=== PATIENT | female | born 1990 | race Hispanic/Latino ===

== ENCOUNTER 2018-03-21 08:14 | Emergency (ER) | payer OTHER ==
--- NOTE | 2018-03-21 09:39 | EDPHYS ---
Physician Documentation [facility] Name: Evelio Lay Age: 27 yrs Sex: Female : 1990 Arrival Date: 03/21/2018 Time: 08:16 Bed 16 Private MD: None, None ED Physician Miguel Palma HPI: 03/21 09:18 This 27 yrs old Female presents to ER via Ambulatory with complaints of Rash. [facility] 09:18 The patient's rash thought to be caused by an unknown cause. The rash is located on the leni body diffusely. The rash can be described as urticarial. Onset: The symptoms/episode began/occurred 2 day(s) ago. Associated signs and symptoms: Pertinent positives: burning sensation, itching. Severity of symptoms: At their worst the symptoms were mild moderate in the emergency department the symptoms have improved moderately. Treatment given at home: Benadryl. The patient has not experienced similar symptoms in the past. 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 - Social history:: Smoking status: Patient/guardian denies using tobacco. - Ebola Screening: : Patient negative for fever greater than or equal to 101.5 degrees Fahrenheit, and additional compatible Ebola Virus Disease symptoms. - Family history:: not pertinent. ROS: 09:18 Constitutional: Negative for fever, chills, and weight loss, Eyes: Negative for injury, leni pain, redness, and discharge, ENT: Negative for injury, pain, and discharge, Neck: Negative for injury, pain, and swelling, Cardiovascular: Negative for chest pain, palpitations, and edema, Respiratory: Negative for shortness of breath, cough, wheezing, and pleuritic chest pain, Abdomen/GI: Negative for abdominal pain, nausea, vomiting, diarrhea, and constipation, Back: Negative for injury and pain, : Negative for injury, bleeding, discharge, and swelling, MS/Extremity: Negative for injury and deformity, Neuro: Negative for headache, weakness, numbness, tingling, and seizure, Psych: Negative for depression, anxiety, suicide ideation, homicidal ideation, and hallucinations, Allergy/Immunology: Negative for hives, rash, and allergies, Endocrine: Negative for neck swelling, polydipsia, polyuria, polyphagia, and marked weight changes, Hematologic/Lymphatic: Negative for swollen nodes, abnormal bleeding, and unusual bruising. 09:18 Skin: Positive for rash, diffusely. Exam: 09:18 Constitutional: This is a well developed, well nourished patient who is awake, alert, leni and in no acute distress. Head/Face: Normocephalic, atraumatic. Eyes: Pupils equal round and reactive to light, extra-ocular motions intact. Lids and lashes normal. Conjunctiva and sclera are non-icteric and not injected. Cornea within normal limits. Periorbital areas with no swelling, redness, or edema. ENT: Nares patent. No nasal discharge, no septal abnormalities noted. Tympanic membranes are normal and external auditory canals are clear. Oropharynx with no redness, swelling, or masses, exudates, or evidence of obstruction, uvula midline. Mucous membranes moist. Neck: Trachea midline, no thyromegaly or masses palpated, and no cervical lymphadenopathy. Supple, full range of motion without nuchal rigidity, or vertebral point tenderness. No Meningismus. Chest/axilla: Normal chest wall appearance and motion. Nontender with no deformity. No lesions are appreciated. Cardiovascular: Regular rate and rhythm with a normal S1 and S2. No gallops, murmurs, or rubs. Normal PMI, no JVD. No pulse deficits. Respiratory: Lungs have equal breath sounds bilaterally, clear to auscultation and percussion. No rales, rhonchi or wheezes noted. No increased work of breathing, no retractions or nasal flaring. Abdomen/GI: Soft, non-tender, with normal bowel sounds. No distension or tympany. No guarding or rebound. No evidence of tenderness throughout. Back: No spinal tenderness. No costovertebral tenderness. Full range of motion. Female : Normal external genitalia. MS/ Extremity: Pulses equal, no cyanosis. Neurovascular intact. Full, normal range of motion. Neuro: Awake and alert, GCS 15, oriented to person, place, time, and situation. Cranial nerves II-XII grossly intact. Motor strength 5/5 in all extremities. Sensory grossly intact. Cerebellar exam normal. Normal gait. Psych: Awake, alert, with orientation to person, place and time. Behavior, mood, and affect are within normal limits. 09:18 Skin: Appearance: Color: normal in color, Temperature: normal temperature, Moisture: normal moisture, petechiae, not noted, ecchymosis, not noted, flushing, not noted, swelling, is not appreciated. Vital Signs: 08:20 BP 125 / 75; Pulse 70; Resp 17; Temp 98.5(O); Pulse Ox 99% on R/A; Weight 104.33 kg rb1 (R); Height 4 ft. 11 in. (149.86 cm) (R); Pain 0/10; 09:20 BP 128 / 63; Pulse 59; Resp 16; Pulse Ox 98% on R/A; rb1 10:20 BP 127 / 68; Pulse 63; Resp 17; Pulse Ox 100% on R/A; rb1 08:20 Body Mass Index 46.45 (104.33 kg, 149.86 cm) [facility] MDM: 08:21 Patient medically screened. [facility] 09:21 Data reviewed: vital signs, nurses notes, lab test result(s), urinalysis. [facility] 12 09:56 Order name: Test, Serum [facility] 03/21 09:58 Order name: Urine Dipstick--Ancillary (enter results) 03/21 09:58 Order name: Urine --Ancillary (enter results) 03/21 09:17 Order name: Urine Dipstick-Ancillary (obtain specimen); Complete Time: 09:20 [facility] 12 09:17 Order name: Urine Test (obtain specimen); Complete Time: 09:20 [facility] 12 09:18 Order name: Blood Glucose Level; Complete Time: 09:21 leni Administered Medications: 09:30 Drug: Pepcid 40 mg Route: PO; rb1 10:33 Follow up: Response: No adverse reaction rb1 09:30 Drug: predniSONE 40 mg Route: PO; rb1 10:32 Follow up: Response: No adverse reaction rb1 09:30 Drug: Benadryl 25 mg Route: PO; rb1 10:00 Follow up: Response: No adverse reaction rb1 Point of Care Testing: Blood Glucose: 09:18 Blood Glucose: 92 mg/dL; rb1 Ranges: Critical Glucose Levels:Adult <50 mg/dl or >400 mg/dl <40 mg/dl or >180 mg/dl Disposition: 03/21/18 09:38 Discharged to Home. Impression: Urticaria, Urticaria, unspecified, related conditions, unspecified, first trimester. - Condition is Fair. - Discharge Instructions: Hives, First Trimester of , Evnk-st-Xbre, First Trimester of , Hives, Sswm-jz-Mnry, Allergies, Mzry-uh-Zpyg. - Prescriptions for Benadryl 25 mg Oral Capsule - take 1 capsule by ORAL route every 6 hours As needed; 30 tablet. Pepcid 20 mg Oral Tablet - take 1 tablet by ORAL route every 12 hours for 10 days; 20 tablet. Prednisone 20 mg Oral Tablet - take 2 tablet by ORAL route once daily for 5 days; 10 tablet. Vitamin 27- 0.8 mg Oral Tablet - take 1 tablet by ORAL route once daily; 30 tablet. - Medication Reconciliation Form, Thank You Letter, Antibiotic Education, Prescription Opioid Use form. - Follow up: Private Physician; When: 2 - 3 days; Reason: Recheck today's complaints, Continuance of care, Re-evaluation by your physician. Follow up: Julio Barr; When: 2 - 3 days; Reason: Recheck today's complaints, Re-evaluation by your physician. Follow up: Jeni Deshpande MD; When: 2 - 3 days; Reason: Recheck today's complaints, Re-evaluation by your physician. - Problem is new. - Symptoms have improved. Signatures: Dispatcher [employer] EDIN Miguel Palma MD MD cha Barber, Rebecca RN RN rb1 Corrections: (The following items were deleted from the chart) 09:20 09:17 Accucheck ordered. rb1 rb1 09:56 09:38 03/21/2018 09:38 Discharged to Home. Impression: Urticaria; Urticaria, leni unspecified. Condition is Fair. Discharge Instructions: Hives, Hives, [id number]-jc-Drnq, Allergies, Whqa-jb-Crzp. Prescriptions for Benadryl 25 mg Oral Capsule - take 1 capsule by ORAL route every 6 hours As needed; 30 tablet, Pepcid 20 mg Oral Tablet - take 1 tablet by ORAL route every 12 hours for 10 days; 20 tablet, Prednisone 20 mg Oral Tablet - take 2 tablet by ORAL route once daily for 5 days; 10 tablet. and Forms are Medication Reconciliation Form, Thank You Letter, Antibiotic Education, Prescription Opioid Use. Follow up: Private Physician; When: 2 - 3 days; Reason: Recheck today's complaints, Continuance of care, Re-evaluation by your physician. Follow up: Julio Barr; When: 2 - 3 days; Reason: Recheck today's complaints, Re-evaluation by your physician. Problem is new. Symptoms have improved. [facility] 09:57 09:56 03/21/2018 09:38 Discharged to Home. Impression: Urticaria; Urticaria, leni unspecified; related conditions, unspecified, first trimester. Condition is Fair. Discharge Instructions: Hives, Hives, Aoqw-ly-Wpdb, Allergies, Jqgy-rv-Otzo. Prescriptions for Benadryl 25 mg Oral Capsule - take 1 capsule by ORAL route every 6 hours As needed; 30 tablet, Pepcid 20 mg Oral Tablet - take 1 tablet by ORAL route every 12 hours for 10 days; 20 tablet, Prednisone 20 mg Oral Tablet - take 2 tablet by ORAL route once daily for 5 days; 10 tablet. and Forms are Medication Reconciliation Form, Thank You Letter, Antibiotic Education, Prescription Opioid Use. Follow up: Private Physician; When: 2 - 3 days; Reason: Recheck today's complaints, Continuance of care, Re-evaluation by your physician. Follow up: Julio Barr; When: 2 - 3 days; Reason: Recheck today's complaints, Re-evaluation by your physician. Problem is new. Symptoms have improved. [facility] 10:00 09:18 Urine Test ordered. [place] [id number] 10:01 09:18 Urine Dipstick-Ancillary ordered. [place] [address] 11:10 09:57 03/21/2018 09:38 Discharged to Home. Impression: Urticaria; Urticaria, rb1 unspecified; related conditions, unspecified, first trimester. Condition is Fair. Discharge Instructions: Hives, Hives, Hkgd-qt-[id number], Allergies, Iggi-po-Mtlh, First Trimester of , Gyly-xh-Vzmk, First Trimester of . Prescriptions for Benadryl 25 mg Oral Capsule - take 1 capsule by ORAL route every 6 hours As needed; 30 tablet, Pepcid 20 mg Oral Tablet - take 1 tablet by ORAL route every 12 hours for 10 days; 20 tablet, Prednisone 20 mg Oral Tablet - take 2 tablet by ORAL route once daily for 5 days; 10 tablet, Vitamin 27-0.8 mg Oral Tablet - take 1 tablet by ORAL route once daily; 30 tablet. and Forms are Medication Reconciliation Form, Thank You Letter, Antibiotic Education, Prescription Opioid Use. Follow up: Private Physician; When: 2 - 3 days; Reason: Recheck today's complaints, Continuance of care, Re-evaluation by your physician. Follow up: Julio Barr; When: 2 - 3 days; Reason: Recheck today's complaints, Re-evaluation by your physician. Follow up: Jeni Deshpande; When: 2 - 3 days; Reason: Recheck today's complaints, Re-evaluation by your physician. Problem is new. Symptoms have improved. leni
--- NOTE | 2018-03-21 09:39 | ER ---
Nurse's Notes [facility] Name: Evelio Lay Age: 27 yrs Sex: Female : 1990 Arrival Date: 03/21/2018 Time: 08:16 Bed 16 Private MD: None, None Diagnosis: Urticaria;Urticaria, unspecified; related conditions, unspecified, first trimester Presentation: 03/21 08:20 Presenting complaint: Patient states: Pt. noticed a rash around 3:00 this morning on rb1 her breast and abdomen. She recently moved into a new house and doesn't know if she is having an allergic reaction or if something is biting her. Rash is red and itchy. Transition of care: patient was not received from another setting of care. Onset of symptoms was March 21, 2018 at 03:00. Risk Assessment: Do you want to hurt yourself or someone else? Patient reports no desire to harm self or others. Initial Sepsis Screen: Does the patient meet any 2 criteria? No. Patient's initial sepsis screen is negative. Does the patient have a suspected source of infection? No. Patient's initial sepsis screen is negative. Care prior to arrival: None. 08:20 Method Of Arrival: Ambulatory rb1 08:20 Acuity: GHANSHYAM 4 rb1 Triage Assessment: 08:20 General: Appears in no apparent distress. comfortable, obese, Behavior is calm, rb1 cooperative, Denies fever, feeling ill. Pain: Denies pain. Neuro: Level of Consciousness is awake, alert, obeys commands, Oriented to person, place, time, situation. Cardiovascular: Capillary refill < 3 seconds is brisk in bilateral fingers. Respiratory: Airway is patent Respiratory effort is even, unlabored, Respiratory pattern is regular, symmetrical. GI: No signs and/or symptoms were reported involving the gastrointestinal system. : No signs and/or symptoms were reported regarding the genitourinary system. Derm: Rash noted that is itchy, red, on breast and abdomen. 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 - Social history:: Smoking status: Patient/guardian denies using tobacco. - Ebola Screening: : Patient negative for fever greater than or equal to 101.5 degrees Fahrenheit, and additional compatible Ebola Virus Disease symptoms. - Family history:: not pertinent. Screenin:20 Abuse screen: Denies threats or abuse. Nutritional screening: No deficits noted. rb1 Tuberculosis screening: No symptoms or risk factors identified. Fall Risk None identified. Assessment: 08:20 General: See triage assessment. rb1 09:20 Reassessment: Patient appears in no apparent distress at this time. Patient and/or rb1 family updated on plan of care and expected duration. Pain level reassessed. Patient is alert, oriented x 3, equal unlabored respirations, skin warm/dry/pink. 09:43 Reassessment: Discharge pending due to Serum test being ordered. rb1 10:20 Reassessment: Patient appears in no apparent distress at this time. No changes from rb1 previously documented assessment. Patient denies pain at this time. 11:00 Reassessment: Patient appears in no apparent distress at this time. Patient and/or rb1 family updated on plan of care and expected duration. Pain level reassessed. Patient is alert, oriented x 3, equal unlabored respirations, skin warm/dry/pink. Patient denies pain at this time. Vital Signs: 08:20 BP 125 / 75; Pulse 70; Resp 17; Temp 98.5(O); Pulse Ox 99% on R/A; Weight 104.33 kg rb1 (R); Height 4 ft. 11 in. (149.86 cm) (R); Pain 0/10; 09:20 BP 128 / 63; Pulse 59; Resp 16; Pulse Ox 98% on R/A; rb1 10:20 BP 127 / 68; Pulse 63; Resp 17; Pulse Ox 100% on R/A; rb1 08:20 Body Mass Index 46.45 (104.33 kg, 149.86 cm) rb1 ED Course: 08:16 Patient arrived in ED. sb2 08:16 None, None is Private Physician. sb2 08:20 Angélica Hussein, RN is Primary Nurse. rb1 08:20 Arm band placed on right wrist. rb1 08:20 Patient has correct armband on for positive identification. Placed in gown. Bed in low rb1 position. Call light in reach. Side rails up X 1. Pulse ox on. NIBP on. Warm blanket given. 08:21 Miguel Palma MD is Attending Physician. [facility] 08:33 Triage completed. rb1 09:38 Julio Barr MD is Referral Physician. leni 09:57 Jeni Deshpande MD is Referral Physician. leni 10:00 Urine collected: clean catch specimen, anum colored. dh3 10:19 Inserted saline lock: 20 gauge in left antecubital area, using aseptic technique. Blood dh3 collected. 11:10 No provider procedures requiring assistance completed. IV discontinued, intact, rb1 bleeding controlled, No redness/swelling at site. Pressure dressing applied. Administered Medications: 09:30 Drug: Pepcid 40 mg Route: PO; rb1 10:33 Follow up: Response: No adverse reaction rb1 09:30 Drug: predniSONE 40 mg Route: PO; rb1 10:32 Follow up: Response: No adverse reaction rb1 09:30 Drug: Benadryl 25 mg Route: PO; rb1 10:00 Follow up: Response: No adverse reaction rb1 Point of Care Testing: Blood Glucose: 09:18 Blood Glucose: 92 mg/dL; rb1 Ranges: Outcome: 09:38 Discharge ordered by . leni 11:10 Patient left the ED. rb1 11:10 Discharged to home ambulatory. rb1 11:10 Condition: stable 11:10 Discharge instructions given to patient, Instructed on discharge instructions, follow up and referral plans. Demonstrated understanding of instructions, follow-up care. 11:10 Instructed on medication usage, Demonstrated understanding of medications, rb1 Prescriptions given X 4. Signatures: Miguel Palma MD MD cha Barber, Rebecca, RN RN [facility] Fina Rosario [address] L[address] 2
[2018-03-21] MEDS ORDERED: DIPHENHYDRAMINE 25 MG TAB/CAP ONE (09:40)
[2018-03-21] MEDS ORDERED: FAMOTIDINE 20 MG TAB ONE (09:40)
[2018-03-21] MEDS ORDERED: predniSONE 20 MG TAB ONE (09:40)
[2018-03-21 11:16] VITALS: BP 125/75; TEMP 98.5; O2SAT 99
[2018-03-21 12:14] LABS: Urine Blood NEGATIVE (NEG); Urine Glucose NEGATIVE (NEG); Urine Protein 2+ (NEG); Urine Specific Gravity 1.025 (1.005-1.030); Urine pH 5.5 (5.0-7.0)
== END 2018-03-21 11:10 | disposition home or self-care (01) ==
LOC: ER 08:14
DX: O26.891 Other specified pregnancy related conditions, first trimester (principal); L50.9 Urticaria, unspecified; Z3A.00 Weeks of gestation of pregnancy not specified
CPT/HCPCS: 36415; 81003; 81025; 82962; 84703; 99284; J7512

== ENCOUNTER 2022-11-28 21:13 | Emergency (ER) | payer OTHER ==
--- OUTSIDE RECORDS SUMMARY | 2022-11-28 21:19 | XMS REPORT | Continuity of Care Document ---
:1990 Author Organization [facility] t Address [address] [place] [address] Care Team Providers Name Role Phone PCP, PATIENT DOES NOT HAVE A Primary Care Physician UnavailMICHAEL Ferris Attending Clinician Unavailable Marilyn Attending Clinician Unavailable Willian RODRÍGUEZ, Nithya Attending Clinician Unavailable Philipp RODRÍGUEZ, Karie Attending Clinician Unavailable Evangelina RIBEIRO, [facility] Barbara Attending Clinician Fausto RIBEIRO, Chantal Holbrook Attending Clinician [phone] Clara Mackay MD Attending Clinician Geoff RIBEIRO, Hayde Abdul Attending Clinician [phone] Dayna RIBEIRO, Bjorn Mcmanus Attending Clinician Marcio Elizabeth CRNA Attending Clinician [phone] Donny Lopez MD Attending Clinician ESSENCE ALONSO Attending Clinician Unavailable YENI OCONNELL Attending Clinician Unavailable Alessandra RIBEIRO, Yeni Bautista Attending Clinician KAI PONCE Attending Clinician Unavailable Ariel RODRÍGUEZ, Arleth Zaldivar Attending Clinician Brigette Lambert LVN Attending Clinician ELIESER GRACE Attending Clinician Unavailable Marilyn RIBEIRO, Brianna Lopez Attending Clinician Alessandra RIBEIRO, Adithya Attending Clinician Jayme Ortega MD Attending Clinician Elieser Grace DO Attending Clinician Jose RODRÍGUEZ, Jessica Attending Clinician Unavailable Edu RIBEIRO, Michael Attending Clinician JUAN LOUISE Attending Clinician Unavailable Juan Louise MD Attending Clinician Lou LAI Attending Clinician Unavailable Lou Charles Attending Clinician Kaylee Garcia DO Attending Clinician Arely RODRÍGUEZ, Soo Lopez Attending Clinician Unavailable ALBERT PATEL Attending Clinician Unavailable Only, Ang Db Test Attending Clinician Unavailable Albert Singletary Attending Clinician MICHAEL SORENSEN Admitting Clinician Unavailable Mineo_M Admitting Clinician Unavailable HAYDE TELLEZ Admitting Clinician Unavailable KAI PONCE Admitting Clinician Unavailable JAYME ORTEGA Admitting Clinician Unavailable Jayme Ortega MD Admitting Clinician Michael Sorensen MD Admitting Clinician Lou LAI Admitting Clinician Unavailable Payers Payer Name Policy Type Policy Number Effective Date Expiration Date S meg MEDICAID OF [place] [id number] 2018 00:00:00 [place]ICAID-[place] - [id number] WOMEN'S HEALTH PROGRAM (MEDICAID) [facility] PENDING 2021 00:00:00 Problems Condition Condition Condition Status Onset Resolution Last Treating Co mments Source Name Details Category Date Date Treatment Clinician Date Pyelonephr Pyelonephr Disease Active M ethodi itis itis 11-05 [facility] 00[facility]00: Hospita 00 l Ureteral Ureteral Disease Active Metho di stent stent 11-05 st present present 00:00: Hospita 00 l Fever and Fever and Disease Active 2021-04 Uni vers chills chills 2-29 ity of 00:00: [place] 00 Medical Branch Right Right Disease Active 2021-04 Univers ureteral ureteral 2-08 ity of [place] 00:00: [place] [id number] Medical Branch Morbid Morbid Disease Active 2021-04 Univers obesity obesity 2-08 [place] of [place] mass [place] mass index 00 Me dical of of Branch 40.0-49.9 40.0-49.9 Asthma Asthma Disease Active Overview: Univer s 3-27 Formattin ity of 00:00: g of this [place] 00 note Medical might be Branch different from the original. 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 Allergies, Adverse Reactions, Alerts Allergy Allergy Status Severity Reaction(s) Onset Inactive Treating Comm ents Source Name Type Date Date Clinician Amoxicil Allergy Active Hives [facility] denzel [facility] 11[facility]05 [facility]: Urology e 00 PENICILL Allergy Active Hives Wilder INS to 11-05 [facility] 00:[facility]: Urology e 00 Amoxicil Propensi Active Hives Method i denzel ty to 11-05 st adverse 00:00: Hospita reaction 00 l s to drug Penicill Propensi Active Hives Method i ins ty to 11-05 st adverse 00:00: Hospita reaction 00 l s to drug Amoxicil Drug Active Hives [facility] Penicill Drug Active Hives [facility] AMOXICIL Allergy Active High Hives [facility] DENZEL 7[facility] PENICILL Allergy Active High Hives [facility] IN 7[facility] Penicill DA Active [place] [facility] [place] amoxicil DA Active [place] 2019-0 [facility] [place] Penicill Propensi Active Rash 2007-0 Univer s ins ty to 1-12 ity of adverse 00:00: [place] reaction 00 Medical s Branch Penicill Propensi Active Rash 2006-0 Univer s ins ty to 1-12 ity of adverse 00:00: [place] reaction 00 Medical s Branch Amoxicil Propensi Active Rash 2006-0 Univer s denzel ty to 1-12 ity of adverse 00:00: [place] reaction 00 Medical s Branch Penicill Propensi Active Rash 2006-0 Univer s ins ty to 1-12 ity of adverse 00:00: [place] reaction 00 Medical s Branch Penicill Drug Active Hives 2006-0 Univers ins Allergy 1-12 ity of 00:00: [place] 00 Medical Branch AMOXICIL DRUG Active Rash 2006-0 Univers DENZEL INGREDI 1-12 ity of 00:00: [place] 00 Medical Branch PENICILL Drug Active High Rash 2006-0 Univers INS Class 1-12 ity of 00:00: [place] 00 Medical Branch Social History Social Habit Start Date Stop Date Quantity Comments Source History SDOH Social Unive rsity of [facility] Med ical Together Branch History SDOH Social Unive rsity of [facility] Medical Branch History SDOH Social [facility]ity of [facility] Medical Membership Branch History SDOH Social [facility] Medical Meetings Branch History of tobacco Current smoker [facility] Alcohol intake 2022-11-07 2022-11-07 [facility] 00[facility]00 Hospital History of Social 2022-11-07 2022-11-[address] function 00:00:00 00:00:00 Hospital Tobacco use and 2022-11-06 2022-11-06 Smokeless [facility] exposure 00:00:00 00:00:00 tobacco non-user Hospital Exposure to 2022-04-14 2022-04-24 Not sure University of SARS-CoV-2 (event) 00:00:00 15:23:00 [place] [facility] Branch History SDOH 2022-04-17 2022-04-17 1 University o f Alcohol Frequency 00:00:00 00:00:00 [facility] edical Branch History SDOH 2022-04-17 2022-04-17 0 University o f Alcohol Std Drinks 00:00:00 00:00:00 [place] [facility] History SDOH 2022-04-17 2022-04-17 1 University o f Alcohol Binge 00:00:00 00:00:00 [place] Medic al Branch History SDOH Social 2022-04-17 2022-04-17 5 Unive rsity of Connections Phone 00:00:00 00:00:00 [facility] edical Branch History SDOH Social 2022-04-17 2022-04-17 7 Unive rsity of Connections Living 00:00:00 00:00:00 [place] [facility] History SDOH 2022-04-17 2022-04-17 5 University o f Physical Activity 00:00:00 00:00:00 [facility] edical DPW Branch History SDNC 2022-04-17 2022-04-17 6 University o f Physical Activity 00:00:00 00:00:00 [facility] edical MPS Branch History SDNC Food 2022-04-17 2022-04-17 1 Univers ity of Worry 00:00:00 00:00:00 [place] [facility] History SDOH Food 2022-04-17 2022-04-17 1 Univers ity of Scarcity 00:00:00 00:00:00 [place] [facility] History SDNC 2022-04-17 2022-04-17 2 University o f Transport Med 00:00:00 00:00:00 [place] Medic al Branch History SDNC 2022-04-17 2022-04-17 2 University o f Transport Non-Med 00:00:00 00:00:00 [facility] edical Branch Sex Assigned At [address] [facility] 00:00[facility]00 00[facility]00 [facility] Center Smoking Status Start Date Stop Date Source Never Smoker [place] Favio Talon gandara Ex-smoker 2022-11-06 00:00:00 2022-11-06 00:00:00 [facility] Medications Ordered Filled Start Stop Current Ordering Indication Dosage Frequency Signature Comments Components Source Medication Medication Date Date Medication? Clinician (SIG) Name Name tamsulosin 2022- Yes .4mg QD Take 1 Meth tess (FLOMAX) 712-[address] 0.4 mg 00:00: 04:59 (0.4 mg Hospita capsule 00 :00 total) by l mouth daily for 30 days. oxyBUTYnin 2022- Yes 10mg QD Take 2 Meth tess XL 11-[address] (Ditropan 00:00: 04:59 (10 mg Hospi ta XL) 5 MG 24 00 :00 total) by l hr tablet mouth daily for 30 days. acetaminoph 2022- [place] [id number] 1{tbl} Q4H Take 1 Methodi en-codeine 11-[address] (TYLENOL 00:00: 04:59 mouth Hospita WITH 00 :00 every 4 l CODEINE #3) (four) 300-30 mg hours as per tablet needed for severe pain for up to 10 days .acute pain. sulfamethox 2022- No 1{tbl} Q.5D Take 1 M ethodi azole-trime 11-[address] thoprim 00:00: 04:59 mouth 2 Hospit a (Bactrim 00 :00 (two) l DS) 800-160 times a mg per day for 5 tablet days. phenazopyri 2022- No 100mg [id number] Take 1 Methodi dine 11-[id number] (Pyridium) 00:00: 04:59 3D (100 mg Hos shaheen 100 MG 00 :00 total) by l tablet mouth 3 (three) times a day as needed for bladder spasms for up to 3 days. HYDROcodone Yes 1{tbl} Take [address] -acetaminop 11-03 tablet by Dante alonso (NORCO 00:00: mouth Medica l 5-325) 00 every 6 Center 5-325 mg (six) per tablet hours as needed for Pain for up to 8 doses. Max Daily Amount: 4 tablets tamsulosin 2022- No .4mg QD Take [address] (FLOMAX) 11-03 capsule [facility] 0.4 mg Cap 00:00: 23:59 (0.4 mg Med ical 24 hr 00 :00 total) by Center capsule mouth daily for 14 days. ketorolac 2022- No 10mg Take 1 [facility] (TORADOL) 11-03 tablet (10 Dante es 10 mg 00:00: 23:59 mg total) Medica l tablet 00 :00 by mouth Center every 6 (six) hours as needed for Pain for up to 5 days. cefTRIAXone 2022- No 1000mg 1,000 mg, Univers (ROCEPHIN) 10-21 IV ity of 1,000 mg in 09:30: 10:28 Piggyback, [place] NaCl 0.9% 00 :00 ONCE, 1 Medical (NS) 100 mL dose, On Bran ch MINI-BAG [facility] 10/21/22 at 0430, Administer over 30 Minutes, 100 mL
Reas on for Anti-Infec tive: Documented Infection< br>Documen azeem Infection Site: Urine<br&g t;Duration of Therapy: Other (see Comments) iopamidol 2022- No [id number] 100mL 100 mL, Univers (ISOVUE 10-21 Intravenou ity o f 370-500 mL) 08:15: 08:30 s, ONCE, 1 [place] injection 00 :00 dose, On Medica l 100 mL [facility] 10/21/22 Branch at 0330, Routine morpHINE (4 2022- No 4mg 4 mg, Slow Univers mg/mL) 10-21 IV Push, ity of injection 4 08:00: 08:03 ONCE, 1 [place] mg 00 :00 dose, On Medical [facility] 10/21/22 Branch at 0300, STAT ondansetron 2022- No 4mg 4 mg, Slow Univers (ZOFRAN 10-21 IV Push, ity of (PF)) 07:45: 07:49 ONCE, 1 [place] injection 4 00 :00 dose, On Medi jasmin mg [facility] 10/21/22 Branch at 0245, MERLENE cefpodoxime 2022- Yes [id number] 200mg Take 1 Univers 200 mg 10-21 tablet by ity of tablet 00:00: 04:59 mouth in [place] 00 :00 the Medical morning Branch and 1 tablet in the evening. Do all this for 10 days. ketorolac 2022- Yes [id number] 10mg Take 1 U nivers 10 mg 10-21 tablet by ity of tablet 00:00: 04:59 mouth in [place] 00 :00 the Medical morning Branch and 1 tablet in the evening. Do all this for 4 days. ketorolac 2021-04- No 15mg 15 mg, Unive rs (TORADOL) 04-19 Slow IV ity of injection 16:00: 16:26 Push, [place] 15 mg 00 :00 ONCE, 1 Medical dose, On Branch 04/19/22 at 1015, Routine butalbital- 2021-04- No 1{tbl} 1 tablet, Univers acetaminoph 04-19 Oral, ity of en-caff 09:30: 09:02 ONCE, 1 [place] (ESGIC) 00 :00 dose, On Medical 50-325-40 Sat Branch mg tablet 1 04/19/22 tablet at 0330, Routine ciprofloxac 2021-04 Yes [id number] 500mg Take 1 Univers in HCl 500 2-31 tablet by ity of mg tablet 00:00: mouth [place] 00 every 12 Medical (twelve) Branch hours. ciprofloxac 2021-04 Yes [id number] 500mg Take 1 Univers in HCl 500 2-31 tablet by ity of mg tablet 00:00: mouth [place] 00 every 12 Medical (twelve) Branch hours. ciprofloxac 2021-04 Yes [id number] 500mg Take 1 Univers in HCl 500 2-31 tablet by ity of mg tablet 00:00: mouth [place] 00 every 12 Medical (twelve) Branch hours. ciprofloxac 2021-04 Yes [id number] 500mg Take 1 Univers in HCl 500 2-31 tablet by ity of mg tablet 00:00: mouth [place] 00 every 12 Medical (twelve) Branch hours. ciprofloxac 2021-04 Yes [id number] 500mg Take 1 Univers in HCl 500 2-31 tablet by ity of mg tablet 00:00: mouth [place] 00 every 12 Medical (twelve) Branch hours. ciprofloxac 2021-04 Yes [id number] 500mg Take 1 Univers in HCl 500 2-31 tablet by ity of mg tablet 00:00: mouth [place] 00 every 12 Medical (twelve) Branch hours. ciprofloxac 2021-04- No [id number] 500mg Take 1 Univers in HCl 500 04-19 tablet by ity of mg tablet 00:00: 00:00 mouth [place] 00 :00 every 12 Medical (twelve) Branch hours. acetaminoph 2021-04 Yes 650mg 650 mg, Un siobhan en 2 Oral, ity of (TYLENOL) 05:00: Q4HPRN, [place] tablet 650 00 Starting Medic al mg on Sujey Branch 04/17/22 at 2300, Until Discontinu ed, Routine, Pain (scale 1-3) ceFEPIme 2021-04 No 2000mg 2,000 mg, U nivers (MAXIPIME) 230 01-04 IV ity of 2,000 mg in 05:00: 04:59 Piggyback, [place] NaCl 0.9% 00 :00 Q12H ABX, Medic al (NS) 50 mL 10 doses, Bran ch MINI-BAG First dose on Sujey 04/17/22 at 2300, Last dose on Thu04/22/22 at 1100, Administer over 4 Hours, 50 mL
Reas on for Anti-Infec tive: Documented Infection& lt;br>Docu mented Infection Site: Urine
D uration of Therapy: Other (see Comments) butalbital- 2021-04- No 1{tbl} 1 tablet, Univers acetaminoph 04-17 Oral, ity of en-caff 21:30: 22:04 ONCE, 1 [place] (ESGIC) 00 :00 dose, On Medical 50-325-40 Sujey Branch mg tablet 1 04/17/22 tablet at 1530, Routine ondansetron 2021-04 Yes 4mg 4 mg, Slow Univers (ZOFRAN IV Push, ity of (PF)) 18:55: Q6HPRN, [place] injection 4 59 Nausea and Me dical mg Vomiting Branch (N/V), Starting on Sujey 04/17/22 at 1255
Do ses of ondansetro n 16 mg and above need to be administer ed via IV piggyback. For Dose >=24mg ECG monitoring is advisable.
ceFEPIme 2021-04 No 2000mg 2,000 mg, U nivers (MAXIPIME) 04-17 IV ity of 2,000 mg in 16:45: 17:15 Piggyback, [place] NaCl 0.9% 00 :00 ONCE, 1 Medical (NS) 50 mL dose, On Branc h MINI-BAG [facility] 04/17/22 at 1045, Administer over 30 Minutes, 50 mL
Reas on for Anti-Infec tive: Documented Infection< br>Documen azeem Infection Site: Urine<br&g t;Duration of Therapy: 7 days acetaminoph 2021-04 No 650mg 650 mg, U nivers en 04-18 Oral, ity of (TYLENOL) 15:12: 04:52 Q6HPRN, [place] tablet 650 00 :14 Starting Medic al mg on Sujey [place] 04/17/22 at 0912, Until [facility] 04/17/22 at 2252, Routine, Pain (scale 1-3) NaCl 0.9% 2021-04 No 1000mL at 999 Uni vers (NS) bolus 04-17 mL/hr, ity of infusion 11:15: 13:16 1,000 mL, [place] 1,000 mL 00 :00 IV Medical Infusion, Branch ONCE, 1 dose, On [facility] 04/17/22 at 0515, STAT ketorolac 2021-04 No 30mg 30 mg, Unive rs (TORADOL) 04-17 Slow IV ity of injection 11:15: 10:25 Push, [place] 30 mg 00 :00 ONCE, 1 Medical dose, On Branch [facility] 04/17/22 at 0515, Routine iopamidol 2021-04- No [id number] 100mL 100 mL, Univers (ISOVUE 04-17 Intravenou ity o f 370-500 mL) 10:15: 10:15 s, ONCE, 1 [place] injection 00 :00 dose, On Medica l 100 mL [facility] 04/17/22 at 0415, Routine cefTRIAXone 2021-04 No 1000mg 1,000 mg, Univers (ROCEPHIN) 04-17 IV ity of 1,000 mg in 09:15: 09:45 Piggyback, [place] NaCl 0.9% 00 :00 ONCE, 1 Medical (NS) 50 mL dose, On Branc h MINI-BAG [place] 04/17/22 at 0315, Administer over 30 Minutes, 50 mL
Reas on for Anti-Infec tive: Documented Infection< br>Documen azeem Infection Site: Urine<br&g t;Duration of Therapy: Other (see Comments) NaCl 0.9% 2021-04- No 1000mL at 999 Uni vers (NS) bolus 04-17 mL/hr, ity of infusion 09:15: 13:16 1,000 mL, [place] 1,000 mL 00 :00 IV Medical Infusion, Branch ONCE, 1 dose, On [place] 04/17/22 at 0315, STAT acetaminoph 2021-04- No 1000mg 1,000 mg, Univers en 04-17 Oral, ity of (TYLENOL) 08:30: 08:23 ONCE, 1 [place] tablet 00 :00 dose, On Medical 1,000 mg Sujey Branch 04/17/22 at 0230, MERLENE tamsulosin 2021-04 Yes [id number] .4mg Take 1 U nivers 0.4 mg 24 2-20 capsule by ity of hr capsule 00:00: mouth in [place] 00 the Medical morning. Branch tamsulosin 2021-04 Yes [id number] .4mg Take 1 U nivers 0.4 mg 24 2-20 capsule by ity of hr capsule 00:00: mouth in [place] 00 the Medical morning. Branch tamsulosin 2021-04 Yes [id number] .4mg Take 1 U nivers 0.4 mg 24 2-20 capsule by ity of hr capsule 00:00: mouth in [place] 00 the Medical morning. Branch tamsulosin 2021-04 Yes [id number] .4mg Take 1 U nivers 0.4 mg 24 2-20 capsule by ity of hr capsule 00:00: mouth in [place] 00 the Medical morning. Branch tamsulosin 2021-04 Yes [id number] .4mg Take 1 U nivers 0.4 mg 24 2-20 capsule by ity of hr capsule 00:00: mouth in [place] 00 the Medical morning. Branch tamsulosin 2021-04 Yes [id number] .4mg Take 1 U nivers 0.4 mg 24 2-20 capsule by ity of hr capsule 00:00: mouth in [place] 00 the Medical morning. Branch tamsulosin 2021-04 Yes [id number] .4mg Take 1 U nivers 0.4 mg 24 2-20 capsule by ity of hr capsule 00:00: mouth in [place] 00 the Medical morning. Branch tamsulosin 2021-04 Yes [id number] .4mg Take 1 U nivers 0.4 mg 24 2-20 capsule by ity of hr capsule 00:00: mouth in [place] 00 the Medical morning. Branch cefTRIAXone 2021-04- No 2000mg 2,000 mg, Univers (ROCEPHIN) 05-29 Intravenou it y of 2,000 mg in 10:00: 09:59 s, Q24H [place] water for 00 :00 ABX, 2 Medical injection, doses, Branch sterile 20 First dose mL SIVP (after syringe last modificati on) on Thu03/28/22 at 0400, Last dose on Thu03/29/22 at 0400, 20 mL
Reas on for Anti-Infec tive: Empiric Therapy for Suspected Infection< br>Empiric Therapy Site: Urine
D uration of therapy: 72 hours cefTRIAXone 2021-04 No 2000mg 2,000 mg, Univers (ROCEPHIN) 05-29 Intravenou it y of 2,000 mg in 10:00: 04:02 s, Q24H [place] water for 00 :54 ABX, 2 Medical injection, doses, Branch sterile 20 First dose mL SIVP (after syringe last modificati on) on Thu03/28/22 at 0400, Last dose on Thu03/29/22 at 0400, 20 mL
Reas on for Anti-Infec tive: Empiric Therapy for Suspected Infection< br>Empiric Therapy Site: Urine
D uration of therapy: 72 hours sodium 2021-04 No PRN, Univers chloride 05-28 Starting ity of 0.9 % 21:18: 22:27 on Sujey [place] irrigation 00 :11 03/27/22 at Med ical solution 1518, Branch Until Sujey 03/27/22 at 1627, Intra-op acetaminoph 2021-04 Yes 650mg 650 mg, Un siobhan en 208 Oral, Q6H, ity of (TYLENOL) 12:00: First dose [place] tablet 650 00 on Sujey Medical mg 03/27/22 at Branch 0600, Until Discontinu ed, Routine acetaminoph 2021-04- No 650mg 650 mg, U nivers en 05-28 12-09 Oral, Q6H, ity of (TYLENOL) 12:00: 04:02 First dose [place] tablet 650 00 :54 on Sujey Medical mg 03/27/22 at Branch 0600, Until Discontinu ed, Routine NaCl 0.9% 2021-04- No 1000mL at 999 Uni vers (NS) bolus 2-08 mL/hr, ity of infusion 10:45: 11:41 1,000 mL, [place] 1,000 mL 00 :00 IV Medical Piggyback, [place] ONCE, 1 dose, On Sujey 03/27/22 at 0445, STAT NaCl 0.9% 2021-04- No 1000mL at 999 Uni vers (NS) bolus 05-28-08 mL/hr, ity of infusion 10:45: 11:41 1,000 mL, [place] 1,000 mL 00 :00 IV Medical Piggyback, [place] ONCE, 1 dose, On Sujey 03/27/22 at 0445, STAT NaCl 0.9% 2021-04 Yes 1000mL at 150 Univ ers (NS) IV 2-08 mL/hr, IV ity of infusion 09:45: Infusion, [place] 1,000 mL 00 CONTINUOUS Medic al , Starting Branch on Thu03/27/22 at 0345, Until Discontinu ed, Routine NaCl 0.9% 2021-04- No 1000mL at 150 Uni vers (NS) IV 05-28 12-09 mL/hr, IV ity of infusion 09:45: 04:02 Infusion, [place] 1,000 mL 00 :54 CONTINUOUS Medic al , Starting Branch on Sujey 03/27/22 at 0345, Until [place] 03/27/22 at 2202, Routine ketorolac 2021-04- No 15mg 15 mg, Unive rs (TORADOL) 05-28 12-13 Slow IV ity of injection 09:41: 05:59 Push, [place] 15 mg 50 :00 Q6HPRN, 4 Medical doses, Branch Starting on Sujey 03/27/22 at 0341, Until 03/31/22 at 2359, Routine, Pain (scale 7-10) ketorolac 2021-04 No 15mg 15 mg, Unive rs (TORADOL) 05-28 Slow IV ity of injection 09:41: 04:02 Push, [place] 15 mg 50 :54 Q6HPRN, 4 Medical doses, Branch Starting on Sujey 03/27/22 at 0341, Until Sujey 03/27/22 at 2202, Routine, Pain (scale 7-10) ondansetron 2021-04 Yes 4mg 4 mg, Slow Univers (ZOFRAN 05-28 IV Push, ity of (PF)) 09:40: Q4HPRN, [place] injection 4 26 Starting Medi jasmin mg on Sujey Branch 03/27/22 at 0340, Until Discontinu ed, Routine, Nausea and Vomiting (N/V) ondansetron 2021-04 No 4mg 4 mg, Slow Univers (ZOFRAN 05-28 IV Push, ity of (PF)) 09:40: 04:02 Q4HPRN, [place] injection 4 26 :54 Starting Medi jasmin mg on Sujey Branch 03/27/22 at 0340, Until Sujey 03/27/22 at 2202, Routine, Nausea and Vomiting (N/V) cefTRIAXone 2021-04 No 1000mg 1,000 mg, Univers (ROCEPHIN) 05-28 IV ity of 1,000 mg in 06:15: 06:03 [place], [place] NaCl 0.9% 00 :00 ONCE, 1 Medical (NS) 50 mL dose, On Branc h MINI-BAG Sujey 03/27/22 at 0015, Administer over 30 Minutes, 50 mL
Reas on for Anti-Infec tive: Documented Infection< br>Documen azeem Infection Site: Urine<br&g t;Duration of Therapy: Other (see Comments) iopamidol 2021-04- No [id number] 100mL 100 mL, Univers (ISOVUE 05-28 Intravenou ity o f 370-500 mL) 05:30: 05:30 s, ONCE, 1 [place] injection 00 :00 dose, On Medica l 100 mL Wed Branch 03/26/22 at 2330, Routine ketorolac 2021-04 30mg 30 mg, Unive rs (TORADOL) 2-08 12-08 Slow IV ity of injection 04:45: 04:08 Push, [place] 30 mg 00 :00 ONCE, 1 Medical dose, On Branch 03/26/22 at 2245, Routine ibuprofen 2021-04 Yes [id number] 400mg Take 2 U nivers 200 mg 2-08 tablets by ity of tablet 00:00: mouth [place] 00 every 6 Medical (six) Branch hours as needed for Pain (scale 1-3). gabapentin 2021-04 Yes [id number] 300mg Take 1 Univers 300 mg 2-08 capsule by ity of capsule 00:00: mouth [place] 00 every 8 Medical (eight) Branch hours as needed for Pain (scale 4-6). tamsulosin 2021-04 Yes [id number] .4mg Take 1 U nivers 0.4 mg 24 2-08 capsule by ity of hr capsule 00:00: mouth in [place] 00 the Medical morning. Branch oxybutynin 2021-04 Yes [id number] 5mg Take 1 U nivers chloride 5 2-08 tablet by ity of mg tablet 00:00: mouth 3 [place] 00 (three) Medical times Branch daily as needed for Bladder spasms. ibuprofen 2021-04 Yes [id number] 400mg Take 2 U nivers 200 mg 2-08 tablets by ity of tablet 00:00: mouth [place] 00 every 6 Medical (six) Branch hours as needed for Pain (scale 1-3). gabapentin 2021-04 Yes [id number] 300mg Take 1 Univers 300 mg 2-08 capsule by ity of capsule 00:00: mouth [place] 00 every 8 Medical (eight) Branch hours as needed for Pain (scale 4-6). tamsulosin 2021-04 Yes [id number] .4mg Take 1 U nivers 0.4 mg 24 2-08 capsule by ity of hr capsule 00:00: mouth in [place] 00 the Medical morning. Branch oxybutynin 2021-04 Yes [id number] 5mg Take 1 U nivers chloride 5 2-08 tablet by ity of mg tablet 00:00: mouth 3 [place] 00 (three) Medical times Branch daily as needed for Bladder spasms. ibuprofen 2021-04 Yes [id number] 400mg Take 2 U nivers 200 mg 2-08 tablets by ity of tablet 00:00: mouth [place] 00 every 6 Medical (six) Branch hours as needed for Pain (scale 1-3). gabapentin 2021-04 Yes [id number] 300mg Take 1 Univers 300 mg 2-08 capsule by ity of capsule 00:00: mouth [place] 00 every 8 Medical (eight) Branch hours as needed for Pain (scale 4-6). oxybutynin 2021-04 Yes [id number] 5mg Take 1 U nivers chloride 5 2-08 tablet by ity of mg tablet 00:00: mouth 3 00 (three) Medical times Branch daily as needed for Bladder spasms. ibuprofen 2021-04 Yes [id number] 400mg Take 2 U nivers 200 mg 2-08 tablets by ity of tablet 00:00: mouth [place] 00 every 6 Medical (six) Branch hours as needed for Pain (scale 1-3). gabapentin 2021-04 Yes [id number] 300mg Take 1 Univers 300 mg 2-08 capsule by ity of capsule 00:00: mouth [place] 00 every 8 Medical (eight) Branch hours as needed for Pain (scale 4-6). oxybutynin 2021-04 Yes [id number] 5mg Take 1 U nivers chloride 5 2-08 tablet by ity of mg tablet 00:00: mouth 3 (three) Medical times Branch daily as needed for Bladder spasms. gabapentin 2021-04 Yes [id number] 300mg Take 1 Univers 300 mg 2-08 capsule by ity of capsule 00:00: mouth [place] 00 every 8 Medical (eight) Branch hours as needed for Pain (scale 4-6). oxybutynin 2021-04 Yes [id number] 5mg Take 1 U nivers chloride 5 2-08 tablet by ity of mg tablet 00:00: mouth 3 (three) Medical times Branch daily as needed for Bladder spasms. gabapentin 2021-04 Yes [id number] 300mg Take 1 Univers 300 mg 2-08 capsule by ity of capsule 00:00: mouth [place] 00 every 8 Medical (eight) Branch hours as needed for Pain (scale 4-6). oxybutynin 2021-04 Yes [id number] 5mg Take 1 U nivers chloride 5 2-08 tablet by ity of mg tablet 00:00: mouth 3 (three) Medical times Branch daily as needed for Bladder spasms. gabapentin 2021-04 Yes [id number] 300mg Take 1 Univers 300 mg 2-08 capsule by ity of capsule 00:00: mouth [place] 00 every 8 Medical (eight) Branch hours as needed for Pain (scale 4-6). oxybutynin 2021-04 Yes [id number] 5mg Take 1 U nivers chloride 5 2-08 tablet by ity of mg tablet 00:00: mouth 3 (three) Medical times Branch daily as needed for Bladder spasms. gabapentin 2021-04 Yes [id number] 300mg Take 1 Univers 300 mg 2-08 capsule by ity of capsule 00:00: mouth [place] 00 every 8 Medical (eight) Branch hours as needed for Pain (scale 4-6). oxybutynin 2021-04 Yes [id number] 5mg Take 1 U nivers chloride 5 2-08 tablet by ity of mg tablet 00:00: mouth (three) Medical times Branch daily as needed for Bladder spasms. gabapentin 2021-04 Yes [id number] 300mg Take 1 Univers 300 mg 2-08 capsule by ity of capsule 00:00: mouth [place] 00 every 8 Medical (eight) Branch hours as needed for Pain (scale 4-6). oxybutynin 2021-04 Yes [id number] 5mg Take 1 U nivers chloride 5 2-08 tablet by ity of mg tablet 00:00: mouth (three) Medical times Branch daily as needed for Bladder spasms. gabapentin 2021-04 Yes [id number] 300mg Take 1 Univers 300 mg 2-08 capsule by ity of capsule 00:00: mouth [place] 00 every 8 Medical (eight) Branch hours as needed for Pain (scale 4-6). oxybutynin 2021-04 Yes [id number] 5mg Take 1 U nivers chloride 5 2-08 tablet by ity of mg tablet 00:00: mouth 3 (three) Medical times Branch daily as needed for Bladder spasms. acetaminoph 2021-04 2023- No [id number] 650mg Take 2 Univers en 2-08 12-09 tablets by ity of (TYLENOL) 00:00: 05:59 mouth [place] 325 mg 00 :00 every 6 Medical tablet (six) Branch hours as needed for Pain (scale 4-6). acetaminoph 2021-04- No [id number] 650mg Take 2 Univers en 05-28 tablets by ity of (TYLENOL) 00:00: 05:59 mouth [place] 325 mg 00 :00 every 6 Medical tablet (six) Branch hours as needed for Pain (scale 4-6). acetaminoph 2021-04- No [id number] 650mg Take 2 Univers en 05-28 tablets by ity of (TYLENOL) 00:00: 05:59 mouth [place] 325 mg 00 :00 every 6 Medical tablet (six) Branch hours as needed for Pain (scale 4-6). acetaminoph 2021-04- No [id number] 650mg Take 2 Univers en 05-28 tablets by ity of (TYLENOL) 00:00: 05:59 mouth [place] 325 mg 00 :00 every 6 Medical tablet (six) Branch hours as needed for Pain (scale 4-6). acetaminoph 2021-04- No [id number] 650mg Take 2 Univers en 05-28 tablets by ity of (TYLENOL) 00:00: 00:00 mouth [place] 325 mg 00 :00 every 6 Medical tablet (six) Branch hours as needed for Pain (scale 4-6). ibuprofen 2021-04- No [id number] 400mg Take 2 Univers 200 mg 05-28 tablets by ity of tablet 00:00: 00:00 mouth [place] 00 :00 every 6 Medical (six) Branch hours as needed for Pain (scale 1-3). tamsulosin 2021-04- No [id number] .4mg Take 1 Univers 0.4 mg 24 05-2820 capsule by ity of hr capsule 00:00: 00:00 mouth in [place] 00 :00 the Medical morning. Branch sulfamethox 2021-04- No [id number] 1{tbl} Take 1 Univers azole-trime 05-2816 tablet by it y of thoprim 00:00: 05:59 mouth in [place] (BACTRIM 00 :00 the Medical DS) 800-160 morning Branc h mg per and 1 tablet tablet in the evening. Do all this for 7 days. sulfamethox 2021-04- No [id number] 1{tbl} Take 1 Univers azole-trime -16 tablet by it y of thoprim 00:00: 05:59 mouth in [place] (BACTRIM 00 :00 the Medical DS) 800-160 morning Branc h mg per and 1 tablet tablet in the evening. Do all this for 7 days. sulfamethox 2021-04- No [id number] 1{tbl} Take 1 Univers azole-trime 05-2816 tablet by it y of thoprim 00:00: 05:59 mouth in [place] (BACTRIM 00 :00 the Medical DS) 800-160 morning Branc h mg per and 1 tablet tablet in the evening. Do all this for 7 days. iopamidol 2021- No [id number] 100mL 100 mL, Univers (ISOVUE 11-25 Intravenou ity o f 370-500 mL) 07:30: 07:30 s, ONCE, 1 [place] injection 00 :00 dose, On Medica l 100 mL Thu11/25/21 Branch at 0230, Routine ondansetron 2021- No 4mg 4 mg, Slow Univers (ZOFRAN 11-25 IV Push, ity of (PF)) 07:15: 07:01 ONCE, 1 [place] injection 4 00 :00 dose, On Medi jasmin mg Thu11/25/21 Branch at 0215, MERLENE cephALEXin 2021- No 500mg 500 mg, Un siobhan (KEFLEX) 11-25 Oral, ity of capsule 500 07:00: 07:01 ONCE, 1 [place] mg 00 :00 dose, On Medical [facility] 11/25/21 Branch at 0215, MERLENE
Re ason for Anti-Infec tive: Documented Infection< br>Documen azeem Infection Site: Urine
D uration of Therapy: Other (see Comments) ondansetron 2021- No 4mg 4 mg, Slow Univers (ZOFRAN 11-25 IV Push, ity of (PF)) 05:25: 05:34 ONCE, 1 [place] injection 4 00 :00 dose, On Medi jasmin mg Thu11/25/21 Branch at 0030, MERLENE morpHINE (4 0 2021- No 4mg 4 mg, Slow Univers mg/mL) 11-25- IV Push, ity of injection 4 05:25: 05:34 ONCE, 1 [place] mg 00 :00 dose, On Medical Thu11/25/21 Branch at 0030, STAT 2021-0 2021- No Take [facility] 11-25 08-08 mouth. ity of calc,iron,f 00:14: 00:00 [place] olic 33 :00 Medical ( Branch VITAMIN ORAL) ibuprofen 0 Yes [id number] 600mg Take 1 U nivers 600 mg 8-08 tablet by ity of tablet 00:00: mouth [place] 00 every 6 Medical (six) Branch hours as needed for Pain (scale 4-6). ondansetron 2021-0 Yes [id number] 4mg Take 1 Univers 4 mg 8-08 tablet by ity of disintegrat 00:00: mouth [place] ing tablet 00 every 8 Medica l (eight) Branch hours as needed for Nausea and Vomiting (N/V). ibuprofen 2021-0 Yes [id number] 600mg Take 1 U nivers 600 mg 8-08 tablet by ity of tablet 00:00: mouth [place] 00 every 6 Medical (six) Branch hours as needed for Pain (scale 4-6). ondansetron 2021-0 Yes [id number] 4mg Take 1 Univers 4 mg 8-08 tablet by ity of disintegrat 00:00: mouth [place] ing tablet 00 every 8 Medica l (eight) Branch hours as needed for Nausea and Vomiting (N/V). ibuprofen 2021-0 Yes [id number] 600mg Take 1 U nivers 600 mg 8-08 tablet by ity of tablet 00:00: mouth [place] 00 every 6 Medical (six) Branch hours as needed for Pain (scale 4-6). ondansetron 2021-0 Yes [id number] 4mg Take 1 Univers 4 mg 8-08 tablet by ity of disintegrat 00:00: mouth [place] ing tablet 00 every 8 Medica l (eight) Branch hours as needed for Nausea and Vomiting (N/V). ibuprofen 2021-0 Yes [id number] 600mg Take 1 U nivers 600 mg 8-08 tablet by ity of tablet 00:00: mouth [place] 00 every 6 Medical (six) Branch hours as needed for Pain (scale 4-6). ondansetron 2022-0 Yes [id number] 4mg Take 1 Univers 4 mg 8-08 tablet by ity of disintegrat 00:00: mouth [place] ing tablet 00 every 8 Medica l (eight) Branch hours as needed for Nausea and Vomiting (N/V). ibuprofen 2022-0 Yes [id number] 600mg Take 1 U nivers 600 mg 8-08 tablet by ity of tablet 00:00: mouth [place] 00 every 6 Medical (six) Branch hours as needed for Pain (scale 4-6). ondansetron 2022-0 Yes [id number] 4mg Take 1 Univers 4 mg 8-08 tablet by ity of disintegrat 00:00: mouth [place] ing tablet 00 every 8 Medica l (eight) Branch hours as needed for Nausea and Vomiting (N/V). ibuprofen 2022-0 Yes [id number] 600mg Take 1 U nivers 600 mg 8-08 tablet by ity of tablet 00:00: mouth [place] 00 every 6 Medical (six) Branch hours as needed for Pain (scale 4-6). ondansetron 2022-0 Yes [id number] 4mg Take 1 Univers 4 mg 8-08 tablet by ity of disintegrat 00:00: mouth [place] ing tablet 00 every 8 Medica l (eight) Branch hours as needed for Nausea and Vomiting (N/V). ibuprofen 2022-0 Yes [id number] 600mg Take 1 U nivers 600 mg 8-08 tablet by ity of tablet 00:00: mouth [place] 00 every 6 Medical (six) Branch hours as needed for Pain (scale 4-6). ibuprofen 2022-0 Yes [id number] 600mg Take 1 U nivers 600 mg 8-08 tablet by ity of tablet 00:00: mouth [place] 00 every 6 Medical (six) Branch hours as needed for Pain (scale 4-6). ibuprofen 2022-0 Yes [id number] 600mg Take 1 U nivers 600 mg 8-08 tablet by ity of tablet 00:00: mouth [place] 00 every 6 Medical (six) Branch hours as needed for Pain (scale 4-6). ibuprofen 2022-0 Yes [id number] 600mg Take 1 U nivers 600 mg 8-08 tablet by ity of tablet 00:00: mouth [place] 00 every 6 Medical (six) Branch hours as needed for Pain (scale 4-6). ibuprofen 0 Yes [id number] 600mg Take 1 U nivers 600 mg 8-08 tablet by ity of tablet 00:00: mouth [place] 00 every 6 Medical (six) Branch hours as needed for Pain (scale 4-6). ibuprofen 2021-0 Yes [id number] 600mg Take 1 U nivers 600 mg 8-08 tablet by ity of tablet 00:00: mouth [place] 00 every 6 Medical (six) Branch hours as needed for Pain (scale 4-6). ondansetron 2021- No [id number] 4mg Take 1 Univers 4 mg 8-11 29-31 tablet by ity of disintegrat 00:00: 00:00 [place] tablet 00 :00 every 8 Medica l (eight) Branch hours as needed for Nausea and Vomiting (N/V). cephALEXin 2021- No [id number] 500mg Take 1 Univers (KEFLEX) 8-19 capsule by ity of 500 mg 00:00: 04:59 mouth in [place] capsule 00 :00 the Medical morning Branch and 1 capsule at noon and 1 capsule in the evening. Do all this for 10 days. doxycycline 0 Yes [id number] 100mg Take 1 Univers hyclate 100 9-19 capsule by it y of mg capsule 00:00: mouth [place] 00 (two) Medical times Branch daily. doxycycline 2020-0 2- No [id number] 100mg Take 1 Univers hyclate 100 9-19 08-08 capsule by i ty of mg capsule 00:00: 00:00 mouth 2 [place] 00 :00 (two) Medical times Branch daily. ibuprofen 2020-0 Yes [id number] 800mg Take 1 Univers 800 mg 2-22 105 tablet by ity of tablet 00:00: mouth [place] 00 every 8 Medical (eight) Branch hours as needed for Pain (scale 4-6). ibuprofen 2020-0 Yes [id number] 800mg Take 1 Univers 800 mg 2-22 105 tablet by ity of tablet 00:00: mouth [place] 00 every 8 Medical (eight) Branch hours as needed for Pain (scale 4-6). ibuprofen 2020-0 Yes [id number] 800mg Take 1 Univers 800 mg 2-22 105 tablet by ity of tablet 00:00: mouth [place] 00 every 8 Medical (eight) Branch hours as needed for Pain (scale 4-6). ibuprofen 2- No [id number] 800mg Take 1 Univers 800 mg 2-22 08-08 105 tablet by ity of tablet 00:00: 00:00 mouth [place] 00 :00 every 8 Medical (eight) Branch hours as needed for Pain (scale 4-6). 2017-04 Yes Take by [employer] s vit 2-20 mouth. ity of calc,iron,f 15:17: [place] [address] Medical ( Branch VITAMIN ORAL) 2018 Yes Take by 51edj vit 2-20 mouth. ity of calc,iron,f 15:17: [place] [address] Medical ( Branch VITAMIN ORAL) 2017-04 Yes Take by [employer] s vit 2-20 mouth. ity of calc,iron,f 09:17: [address] ( Branch VITAMIN ORAL) Immunizations Ordered Filled Immunization Date Status Comments [facility] e Immunization Name Name Td 2021-01-06 Completed University of 00:00:00 [facility] [place] [facility] Td 2021-01-06 Completed University of 00:00:00 [facility] [place] [facility] Td 2021-01-06 Completed University of 00:00:00 [facility] [place] [facility] Td 2021-01-06 Completed University of 00:00:00 [facility] [place] [facility] Td 2021-01-06 Completed University of 00:00:00 [facility] [place] [facility] TD, NOS 2021-01-06 Completed University of 00:00:00 [facility] [place] [facility] TD, NOS 2021-01-06 Completed University of 00:00:00 [facility] [place] [facility] TD, NOS 2021-01-06 Completed University of 00:00:00 [facility] [place] [facility] TD, NOS 2021-01-06 Completed University of 00:00:00 [facility] [place] [facility] TD, NOS 2021-01-06 Completed University of 00:00:00 [facility] [place] [facility] TD, NOS 2021-01-06 Completed University of 00:00:00 [facility] [place] [facility] TD, NOS 2021-01-06 Completed University of 00:00:00 [facility] [place] [facility] Td 2021-01-06 Completed University of 00:00:00 [facility] [place] [facility] Influenza Virus 2018-04-08 Completed Universit y of Vaccine Quad .5 mL 00:00:00 [place] [facility] IM 6+ MO Branch Influenza Virus 2018-04-08 Completed Universit y of Vaccine [place] .5 mL 00:00:00 [place] [facility] IM 6+ MO Branch Influenza Virus 2018-04-08 Completed Universit y of Vaccine [place] .5 mL 00:00:00 [place] [facility] IM 6+ MO Branch Influenza Virus 2018-04-08 Completed Universit y of Vaccine [place] .5 mL 00:00:00 [place] [facility] IM 6+ MO Branch Influenza Virus 2018-04-08 Completed Universit y of Vaccine [place] .5 mL 00:00:00 [place] [facility] IM 6+ MO Branch Influenza Virus 2018-04-08 Completed Universit y of Vaccine [place] .5 mL 00:00:00 [place] [facility] IM 6+ MO Branch Influenza Virus 2018-04-08 Completed Universit y of Vaccine [place] .5 mL 00:00:00 [place] [facility] 6+ MO Branch Influenza Virus 2018-04-08 Completed Universit y of Vaccine [place] .5 mL 00:00:00 [place] [facility] 6+ MO Branch Influenza Virus 2018-04-08 Completed Universit y of Vaccine [place] .5 mL 00:00:00 [place] [facility] IM 6+ MO Branch Influenza Virus 2018-04-08 Completed Universit y of Vaccine [place] .5 mL 00:00:00 [place] [facility] IM 6+ MO Branch Influenza Virus 2018-04-08 Completed Universit y of Vaccine [place] .5 mL 00:00:00 [place] [facility] 6+ MO Branch Influenza Virus 2018-04-08 Completed Universit y of Vaccine [place] .5 mL 00:00:00 [place] [facility] 6+ MO Branch Influenza Virus 2018-04-08 Completed Universit y of Vacc[facility] [place] .5 mL 00:00:00 [place] [facility] IM 6+ MO Branch Influenza Virus 2018-04-08 Completed Universit y of Vaccine [place] .5 mL 00:00:00 [place] [facility] 6+ MO Branch Influenza Virus 2018-04-08 Completed Universit y of Vaccine [place] .5 mL 00:00:00 [facility] 6+ MO Branch Vital Signs Vital Name Observation Time Observation Value Comments Source BMI (Body Mass 2022-11-19 00:00:00 45.6 kg/m2 [facility] Index) Urology Height 2022-11-19 00:00:00 59 [in_i] [facility] Urology Body Weight 2022-11-19 00:00:00 226 [lb_av] [facility] Urology BP Diastolic 2022-11-19 00:00:00 78 mm[Hg] [facility] Urology BP Systolic 2022-11-19 00:00:00 124 mm[Hg] [facility] HEIGHT 2022-11-02 23:46:00 149.9 cm WEIGHT 2022-11-02 23:46:00 104.327 kg HEIGHT 2022-11-02 23:46:00 149.9 cm WEIGHT 2022-11-02 23:46:00 104.327 kg HEIGHT 2022-11-02 23:46:00 149.9 cm WEIGHT 2022-11-02 23:46:00 104.327 kg Systolic blood 2022-10-21 11:00:00 149 mm[Hg] [facility] Diastolic blood 2022-10-21 11:00:00 84 mm[Hg] Unive rsity [facility] Heart rate 2022-10-21 11:00:00 64 /min Universi ty [facility] Respiratory rate 2022-10-21 11:00:00 16 /min [facility] Oxygen saturation in 2022-10-21 11:00:00 97 /min [facility] Arterial blood by [facility] Pulse oximetry Branch Body temperature 2022-10-21 06:59:00 36.61 Mariana [facility] Body height 2022-10-21 06:59:00 149.9 cm Universi ty [facility] Body weight 2022-10-21 06:59:00 106.595 kg [facility] BMI 2022-10-21 06:59:00 47.46 kg/m2 [facility] Systolic blood 2022-04-19 14:57:00 122 mm[Hg] Univer [facility]ity of [facility] Diastolic blood 2022-04-19 14:57:00 73 mm[Hg] Unive rsity of [facility] Heart rate 2022-04-19 14:57:00 69 /min Universi ty [facility] Body temperature 2022-04-19 14:57:00 37.56 [facility] 2022-04-19 14:57:00 18 /min [facility] Oxygen saturation in 2022-04-19 14:57:00 98 /min University of Arterial blood by [place] Medi jasmin Pulse oximetry Branch Body height 2022-04-17 08:00:00 149.9 cm [facility] [place] [facility] Body weight 2022-04-17 08:00:00 112.855 kg [facility]i [facility] [place] [facility] BMI 2022-04-17 08:00:00 50.25 kg/m2 [facility] [place] [facility] Systolic blood 2022-03-27 22:30:00 122 mm[Hg] Univer sity of pressure [place] [facility] Diastolic blood 2022-03-27 22:30:00 68 mm[Hg] Unive rsity of pressure [place] [facility] Respiratory rate 2022-03-27 22:30:00 15 /min Univ ers[facility] [place] [facility] Oxygen saturation in 2022-03-27 22:30:00 98 /min University of Arterial blood by [place] [facility] Pulse oximetry Branch Heart rate 2022-03-27 21:30:00 79 /min [facility]i [facility] [place] [facility] Body temperature 2022-03-27 21:30:00 36 [place] [facility] [place] [facility] Body weight 2022-03-27 11:07:00 110.814 kg 9D scale Universi ty [facility] [place] [facility] BMI 2022-03-27 11:07:00 49.34 kg/m2 [facility] [place] [facility] Systolic blood 2022-03-27 18:21:00 119 mm[Hg] Univer sity of pressure [place] [facility] Diastolic blood 2022-03-27 18:21:00 76 mm[Hg] Unive rsity of pressure [place] [facility] Heart rate 2022-03-27 18:21:00 78 /min Universi ty [facility] [place] [facility] Body temperature 2022-03-27 18:21:00 35.94 [place] [facility] [place] [facility] Respiratory rate 2022-03-27 18:21:00 18 /min Univ ers[facility] [place] [facility] Oxygen saturation in 2022-03-27 18:21:00 98 /min University of Arterial blood by [place] Medi jasmin Pulse oximetry Branch Body weight 2022-03-27 11:07:00 110.814 kg 9D scale Universi ty [facility] [place] [facility] BMI 2022-03-27 11:07:00 49.34 kg/m2 [facility]i [facility] [place] [facility] Systolic blood 2022-03-27 06:00:00 125 mm[Hg] Univer sity of pressure [place] [facility] Diastolic blood 2022-03-27 06:00:00 79 mm[Hg] Unive rsity of pressure [place] [facility] Heart rate 2022-03-27 06:00:00 88 /min [facility]i ty [facility] [place] [facility] Respiratory rate 2022-03-27 06:00:00 18 /min Univ ers[facility] [place] [facility] Oxygen saturation in 2022-03-27 06:00:00 96 /min University of Arterial blood by [place] [facility] j[facility] Pulse oximetry Branch Body temperature 2022-03-27 01:47:00 38.22 Mariana [facility] [place] [facility] Body height 2022-03-27 01:47:00 149.9 cm [facility] [place] [facility] Body weight 2022-03-27 01:47:00 112.537 kg [facility] [place] [facility] BMI 2022-03-27 01:47:00 50.11 kg/m2 [facility] [place] [facility] Systolic blood 2021-11-25 07:08:00 146 mm[Hg] Univer sity of pressure [place] [facility] Diastolic blood 2021-11-25 07:08:00 89 mm[Hg] Unive rsity of pressure [place] [facility] Heart rate 2021-11-25 07:08:00 91 /min [facility]i ty [facility] [place] [facility] Respiratory rate 2021-11-25 07:08:00 21 /min Univ ers[facility] [place] [facility] Oxygen saturation in 2021-11-25 07:08:00 95 /min University of Arterial blood by [place] Mi[facility] j[facility] Pulse oximetry Branch Body temperature 2021-11-25 05:17:00 37.33 [place] [facility] [place] [facility] Body height 2021-11-25 05:17:00 149.9 cm [facility] [place] [facility] Body weight 2021-11-25 05:17:00 108.863 kg [facility] [place] [facility] BMI 2021-11-25 05:17:00 48.47 kg/m2 [facility] [place] [facility] Systolic blood 2021-01-06 21:47:00 148 mm[Hg] Univer sity of pressure [place] [facility] Diastolic blood 2021-01-06 21:47:00 96 mm[Hg] Unive rsity of pressure [facility] [place] [facility] Heart rate 2021-01-06 21:47:00 90 /min Universi ty [facility] Body temperature 2021-01-06 21:47:00 36.44 Mar[place] Univ ersity of [facility] [place] [facility] Respiratory rate 2021-01-06 21:47:00 18 /min [facility] Body height 2021-01-06 21:47:00 149.9 cm Universi ty [facility] Body weight 2021-01-06 21:47:00 108.863 kg Universi ty [facility] BMI 2021-01-06 21:47:00 48.47 kg/m2 [facility] Oxygen saturation in 2021-01-06 21:47:00 99 /min [facility] Arterial blood by [facility] Pulse oximetry [place] Systolic blood 2022-11-07 12:04:47 149 mm[Hg] [facility] pressure Diastolic blood 2022-11-07 12:04:47 89 mm[Hg] [facility] pressure Heart rate 2022-11-07 12:04:47 82 /min [facility] Body temperature 2022-11-07 12:04:47 36.78 Mariana [facility] Oxygen saturation in 2022-11-07 12:04:47 96 /min [facility] Arterial blood by Pulse oximetry Respiratory rate 2022-11-07 08:37:28 17 /min [facility] Body height 2022-11-05 05:17:00 149.9 cm [facility] Body weight 2022-11-05 05:17:00 104.327 kg [facility] BMI 2022-11-05 05:17:00 46.45 kg/m2 [facility] Systolic blood 2022-11-03 08:21:00 185 mm[Hg] [facility] Diastolic blood 2022-11-03 08:21:00 93 mm[Hg] [facility] Heart rate 2022-11-03 08:21:00 61 /min [facility] Body temperature 2022-11-03 08:21:00 36.56 Mariana [facility] Respiratory rate 2022-11-03 08:21:00 18 /min [facility] Oxygen saturation in 2022-11-03 08:21:00 99 /min [facility] Arterial blood by Medical Ce nter Pulse oximetry Body height 2022-11-02 23:46:00 149.9 cm [facility] Body weight 2022-11-02 23:46:00 104.327 kg [facility] BMI 2022-11-02 23:46:00 46.45 kg/m2 [facility] Procedures Procedure Date / Time Performing Clinician Source Performed CALCULI ANALYSIS WITH 2022-11-06 23:45:00 Hayde Tellez [facility] PHOTO Natvarlal [place] AN ELECTIVE 2022-11-06 22:54:00 Marcio Elizabeth [facility] ENDOTRACHEAL AIRWAY CYSTO, URETEROSCOPY 2022-11-06 22:46:00 [facility] 2022-11-06 13:22:00 [facility] REQUEST Natvarlal CBC WITH PLATELET AND 2022-11-06 09:08:00 [facility] DIFFERENTIAL BASIC METABOLIC PANEL 2022-11-06 09:08:00 [facility] ESTIMATED GFR 2022-11-06 09:08:00 [facility] Nat[facility]al URINE CULTURE 2022-11-05 08:09:00 [facility] CT RENAL STONE PROTOCOL 2022-11-05 08:02:04 RehrerUbaldo [facility] CBC WITH PLATELET AND 2022-11-05 07:31:00 [facility] DIFFERENTIAL COMPREHENSIVE METABOLIC 2022-11-05 07:31:00 [facility]INAL[facility] S[facility]EN AND 2022-11-05 07:31:00 [facility] MICROSCOPY, WITH REFLEX TO CULTURE ESTIMATED GFR 2022-11-05 07:31:00 [facility] LIPASE LEVEL 2022-11-05 07:31:00 [facility] HCG QUALITATIVE, URINE 2022-11-05 07:31:00 Evangelina Vladimir Jimenez [facility] [place] SCREEN POC , URINE 2022-11-05 07:28:[address] [facility] CT ABDOMEN/PELVIS WITH & 2022-11-03 05:07:00 Yeni Oconnell [facility] WITHOUT IV CONTRAST Center URINE CULTURE 2022-11-03 01:50:00 Yeni Oconnell [facility] URINALYSIS W/ REFLEX 2022-11-03 01:50:00 Alessandra Ercisarah Bautista [facility] URINE CULTURE Center CBC W/PLT COUNT & AUTO 2022-11-03 01:49:00 Yeni Oconnell [facility] DIFFERENTIAL Center BASIC METABOLIC PANEL 2022-11-03 01:49:00 Yeni Oconnell [facility] HCG, QUANTITATIVE, 2022-11-03 01:49:00 Yeni Oconnell [facility] Center CBC W/PLT COUNT & AUTO 2022-11-03 01:49:00 Yeni Oconnell [facility] DIFFERENTIAL Center CT ABDOMEN PELVIS W 2022-10-21 08:18:21 Vania Dubose [facility] POCT TEST 2022-10-21 07:51:00 Vania Dubose [facility] COMP. METABOLIC PANEL 2022-10-21 07:42:[address] [facility] [facility] ([id number]) [facility] CBC WITH DIFF 2022-10-21 07:42:00 Vania Dubose [facility] URINALYSIS 2022-10-21 07:42:00 Vania Dubose [facility] CONSENT/REFUSAL FOR 2022-10-21 06:55:53 Doctor Unassigned, [facility] DIAGNOSIS AND TREATMENT [facility] BASIC METABOLIC PANEL 2022-04-18 09:43:00 Vanessa Perez [facility] (NA, K, CL, CO2, GLUCOSE, Medica l Branch BUN, CREATININE, CA) CBC WITH DIFF 2022-04-18 09:43:00 Vanessa Perez [facility] PROTHROMBIN TIME / INR 2022-04-17 16:24:00 Vanessa Perez [facility] CT ABDOMEN PELVIS W 2022-04-17 09:32:03 Brianna Sanders [facility] CONTRAST [facility] POCT TEST 2022-04-17 08:24:00 Brianna Sanders [facility] LACTIC ACID WHOLE BLOOD 2022-04-17 08:22:00 Brianna Sanders [facility] BLOOD CULTURE SCREEN 2022-04-17 08:17:00 Brianna Sanders [facility] COMP. METABOLIC PANEL 2022-04-17 08:17:00 Brianna Sanders [facility] ([id number]) [facility] CBC WITH DIFF 2022-04-17 08:17:00 Brianna Sanders [facility] URINALYSIS 2022-04-17 08:17:00 Brianna Sanders [facility] URINE CULTURE 2022-04-17 08:17:00 Brianna Sanders [facility] RAPID INFLUENZA A/B 2022-04-17 08:17:00 Brianna Sanders [facility] COVID-19 (ID NOW RAPID 2022-04-17 08:17:00 Brianna Sanders [facility] TESTING) Medical Branch LAB ONLY COVID 2022-04-17 08:17:00 Brianna Sanders [facility] INTERPRETATION [facility] CONSENT/REFUSAL FOR 2022-04-17 07:54:44 Doctor Unassgayle, [facility] DIAGNOSIS AND TREATMENT [place] HOSPITAL ADMISSION 2022-04-17 06:01:00 Doctor Unaherrera, [facility] [place] TIME OR 2022-03-27 22:35:46 [facility] [place] TIME OR 2022-03-27 22:35:46 Aidan [facility] (NON-REPORTABLE) [facility] URINE CULTURE 2022-03-27 21:14:00 [facility] 2022-03-27 20:37:00 [facility] Branch URINALYSIS 2022-03-27 14:02:00 [facility] 2022-03-27 14:02:00 Aidan [facility] URINE CULTURE 2022-03-27 14:02:00 Aidan [facility] CT ABDOMEN PELVIS W 2022-03-27 05:03:34 Juan Louise [facility] POCT TEST 2022-03-27 04:08:00 Juan Louise [facility] COMP. METABOLIC PANEL 2022-03-27 04:05:00 Juan Louise [facility] ([id number]) [facility] CBC WITH DIFF 2022-03-27 04:05:00 Juan Louise [facility] URINALYSIS 2022-03-27 04:05:00 Juan Louise [facility] RAPID INFLUENZA A/B 2022-03-27 04:05:00 Juan Louise [facility] CONSENT/REFUSAL FOR 2022-03-27 01:08:22 Doctor Unassigned, [facility] DIAGNOSIS AND TREATMENT [facility] CT ABDOMEN PELVIS W 2021-11-25 06:24:04 Lou Lai [facility] Branch LIPASE 2021-11-25 05:30:00 Lou Lai [facility] MAGNESIUM 2021-11-25 05:30:00 Lou Lai [facility] COMP. METABOLIC PANEL 2021-11-25 05:30:00 Lou Lai [facility] ([id number]) [facility] CBC WITH DIFF 2021-11-25 05:30:00 Lou Lai [facility] URINALYSIS 2021-11-25 05:30:00 Lou Lai [facility] COVID-19 (ID NOW RAPID 2021-11-25 05:30:00 Lou Lai [facility] TESTING) Medical Branch POCT TEST 2021-11-25 05:19:00 Lou Lai [facility] Medical Branch NOTICE OF PRIVACY 2021-11-25 05:09:22 Doctor Dara, [facility] PRACTICES [facility] CONSENT/REFUSAL FOR 2021-11-25 05:07:55 Doctor Janessassgayle, [facility] DIAGNOSIS AND TREATMENT [facility] ASSIGNMENT OF BENEFITS 2021-01-06 22:14:43 Doctor Unassigned, [facility] CONSENT/REFUSAL FOR 2021-01-06 21:38:05 Doctor Janessassgayle, [facility] DIAGNOSIS AND TREATMENT [facility] 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- [facility] Urology - Cystoscopy- Stent [facility] Urology Plan of Care Planned Activity Planned Date Details Comments Source Future Scheduled 2027-03-25 DTAP/TDAP/TD VACCINES ([address] [facility] Test 00:00:00 - Td or Tdap) [code = Medica Center DTAP/TDAP/TD VACCINES (2 - Td or Tdap)] Future Scheduled 2022-12-19 Influenza Vaccine (#1) [facility] 00:[facility]00 [code = Influenza Medical Ce nter Vaccine (#1)] Future Scheduled 2022-11-24 COVID-19 VACCINE (#1) [facility] 08:54:07 [code = COVID-19 VACCINE Hos pital (#1)] Future Scheduled 2022-11-24 Hepatitis C screening [facility] 08:54:07 (procedure) [code = Hospital 304830172] Future Scheduled 2022-11-24 Screening for malignant [facility] Test 08:54:07 neoplasm of cervix [facility] (procedure) [code = 261853512] Future Scheduled 2022-11-24 INFLUENZA VACCINE [code [facility] 08:54:07 = INFLUENZA VACCINE] Hospita l Diagnostic Test 2022-11-19 urinalysis, dipstick [place] [place] [facility] Pending 00:00:00 [code = urinalysis, Urology dipstick] Future Scheduled 2022-04-[address] [facility] Test 00:00:00 (12+) [code = DEPRESSION Med ical Center SCREENING (12+)] Future Scheduled 2009 Screening for malignant [facility] Test 00:00:00 neoplasm of cervix Medical C enter (procedure) [code = 501840250] Future Scheduled 2008 Lipid panel (procedure) [facility] Test 00:00:00 [code = 57438994] Medical Ce nter Future Scheduled 2006 HEPATITIS C SCREENING [facility] Test 00:00:00 [code = HEPATITIS C Medical Center SCREENING] Future Scheduled 2003-10-[address] Human immunodeficiency [facility] Test 00:00:00 virus screening Medical Cent er (procedure) [code = 344060075] Future Scheduled [address] [facility] Test 00:00:00 Counseling and Screening [facility] Center (12+) [code = Tobacco Cessation Counseling and Screening (12+)] Future Scheduled 1989-04-03 COVID-19 VACCINE (#1) [facility] Test 00:00:00 [code = COVID-19 VACCINE Med [facility] Center (#1)] Encounters Start End Encounter Admission Attending Care Care Encounter Source Date/Time Date/Time Type Type Clinicians Facility Department ID 2022-03-27 [facility] [id number] [facility]:24[facility] [id number] [facility]17 Emergency [facility] [id number] Univers 00:38:00 [facility] 2022-11-19 2022-11-19 Outpatient [facility] [id number] [place] 00:00:00 00:00:00 [id number] [facility] 2022-11-19 2022-11-19 Outpatient [facility] [id number] [place] 00:00:00 00:00:00 23432 [facility] 2022-11-19 2022-11-19 [facility] [place] - [id number] Sal mcgee 00:00:00 00:00:00 Gurmeet Lopez MD: [facility] [address] [place] [address] , Ph. 2022-11-13 2022-11-13 Patient Willian, 1.2.840.1 [id number] Methodi 00:00:00 00:00:00 Outreach Nithya [address]68.1.[address] 3.430.2.7 Hospit a .3.199826 l .8 2022-11-11 2022-11-11 Outpatient [facility] [id number] [place] 00:00:00 00:00:00 49718 [facility] 2022-11-11 2022-11-11 Patient Philipp, 1.2.840.1 [id number] Methodi 00:00:00 00:00:00 Outreach Karie 80074.1.[address] 3.430.2.7 Hospit a .3.051878 l .8 2022-11-05 2022-11-07 [facility] Vladimir Hutchinson 1.2.840.1 [id number] Methodi 00:22:00 12:26:00 Encounter LambertChantal [address]190.1.[address] [facility] 3.430.2.7 Hospita Hayde Tellez .3.543005 l .8 2022-11-05 2022-11-07 Inpatient [facility] 012 [id number] [place] 00:00:00 00:00:[address] 2022-11-06 2022-11-06 Anesthesia Bjorn Mcintosh 1.2.840.1 [id number] Methodi 17:47:00 19:07:00 Event Marcio Elizabeth 17732.1.[address] 3.430.2.7 Hospit a .3.865884 l .8 2022-11-06 2022-11-06 Surgery Jessica, 1.2.840.1 [id number] Methodi 16:30:00 18:05:00 Donny Flores 49136.1.1 047 s t 3.430.2.7 Hospit a .3.813779 l .8 2022-11-05 2022-11-05 [facility] [id number][facility] 202 [place] 00:00:00 00:00:00 22831 [facility] 2022-11-04 2022-11-04 Outpatient R CELESTE [facility] [id number] Univers 13:00:00 13:00:00 ESSENCE ojeda of [facility] 2022-11-02 2022-11-03 Emergency ER OCONNELL, [facility] Emergency [id number] SLE 23:48:00 08:39:00 [facility] 2022-11-02 2022-11-03 Emergency Oconnell, [facility] [id number] [facility] 23:48:00 08:39:00 [facility] 2022-11-03 2022-11-03 Emergency ER OCONNELL, [facility] [id number] SLE 04:58:10 04:58:10 [facility] 2022-10-21 2022-10-21 Emergency X STILGENBAUE [facility] ERT [id number] Univers 02:01:00 06:37:00 KAI aVldez [facility] 2022-10-21 2022-10-21 Emergency Stilgenbaue TRAUMA 1.2.840.114 [id number] Univers 02:01:00 06:37:00 [facility] 350.1.13.10 [place] [id number] [facility] 014 Branch 2022-05-30 2022-05-30 Patient Arleth George 1.2.840.114 10 [id number] Univers 00:00:00 00:00:00 Outreach E MARCH 350.1.13.10 [place] [id number] [facility] 403 Branch 2022-05-22 2022-05-22 Patient Arleth George 1.2.840.114 10 [id number] Univers 00:00:00 00:00:00 Outreach E MARCH 350.1.13.10 [place] [id number] [facility] 403 Branch 2022-05-13 2022-05-13 Transition BECCA Lambert 1.2.840.114 [id number] Univers 00:00:00 00:00:00 of Care Brigette LOYAY 350.1.13.10 [place] [id number] [facility] 403 Branch 2022-04-22 2022-04-22 Transition EBCCA Lambert 1.2.840.114 [id number] Univers 00:00:00 00:00:00 of Care Brigette MARCH 350.1.13.10 [place] [id number] [facility] 403 Branch 2022-04-17 2022-04-19 Inpatient X [facility] [id number] Univers 02:03:00 18:11:00 ELIESER ity of [facility] 2022-04-17 2022-04-19 Hospital Brianna Sanders 1.2.840. 114 [id number] Univers 02:03:00 18:11:00 Encounter Adithya Oconnell 350.1.13 .10 ity of [facility] 4.2.7.2.686 [place] Elieser Grace [id number] Medical 093 Branch 2022-04-17 2022-04-17 Nurse YANNICK Garcia 1.2.840.114 [id number] Univers 00:00:00 00:00:00 Triage Jessica KAUFMAN 350.1.13.10 it y of [facility] 4.2.7.2.686 [place] [id number] [facility] 019 Branch 2022-04-01 2022-04-01 Telephone MARY Sorensen 1.2.573.018 [id number] Univers 00:00:00 00:00:00 Michael KAUFMAN 350.1.13.10 it y of [facility] 4.2.7.2.686 [place] [id number] [facility] 092 Branch 2022-03-27 2022-03-27 Emergency MARY Sorensen 1.2.731.856 [id number] Univers 03:16:00 20:00:00 Bilal MANDEEP 350.1.13.10 it y of [facility] 4.2.7.2.686 [place] [id number] [facility] 092 Branch 2022-03-27 2022-03-27 Surgery MARY Sorensen 1.2.840.114 [id number] Univers 13:30:00 15:25:00 Bilal MANDEEP 350.1.13.10 it y [facility] 4.2.7.2.686 [place] [id number] [facility] 103 Branch 2022-03-26 2022-03-27 Emergency X [facility] ERT [id number] Univers 19:49:00 02:26:00 WAKILI ity [facility] 2022-03-26 2022-03-27 Emergency X [facility] ERT [id number] Univers 19:49:00 02:26:00 [facility] 2022-03-26 2022-03-27 [facility] 1.2.633.283 [id number] Univers 19:49:00 02:26:00 Juan CACERES 350.1.13.10 ity [facility] 4.2.7.2.686 [facility] s MARATHON [id number] [facility] 084 [place] 2021-11-25 2021-11-25 Emergency X CHIP, K [facility] ERT [id number] Univers 00:11:00 02:21:00 ity [facility] 2021-11-25 2021-11-25 Emergency Chip, K [facility] 1.2.840.114 [id number] Univers 00:11:00 02:21:00 Veena CACERES 350.1.13.10 i ty of [place] 4.2.7.2.686 [facility] s MARATHON [id number] [place] [id number] [place] 2021-01-06 2021-01-06 [facility] 1.2.840.114 [id number] Univers 16:49:00 17:54:00 Kaylee Caceres 350.1.13.10 ity of [place] 4.2.7.2.686 [facility] [id number] [facility] 084 Branch 2020-12-20 2020-12-20 Letter YANNICK Mcgee 1.2.840.114 [id number] Univers 00:00:00 00:00:00 (Out) Soo KAUFMAN 350.1.13.10 it y of [facility] 4.2.7.2.686 [place] [id number] [facility] 019 Branch 2020-12-18 2020-12-18 Outpatient R JORGE [facility] [id number] Univers 17:30:00 17:30:00 ALBERT ity [facility] 2020-12-18 2020-12-18 Laboratory Only, Ang Db Test [facility] 1.2.8 40.114 [id number] Univers 16:54:26 17:09:26 Only Albert Patel [facility] 350.1.13.10 ity [facility] 4.2.7.2.686 [place] Brian?Blea [id number] [address] Medical Office Building Results Test Description Test Time Test Comments Results Result Comments Source Surgical pathology request 2022-11-11 22:17:44 Test Item Value Reference Range Interpretation Comme [facility] Case number (test code = 8542699) [id number] Surgical pathology report (test code = See link below for PDF Lab R eport 6633) Result status (test code = 6794009) This is Final Report for [id number] [facility] (test code = DIANELYS) [id number] Ureteral [facility] with [id number] 21:20:00 Test Item Value Reference Range Interpretation Comments Calculi mass (test 3 mg code = 3154-2) Calculi descrption See Note Specimen consists of (test code = three bear and w lore 18903-2) calculi fragments.The t otal weight is 3 mg. Calculi composition See Note Calculi composed (test code = primarily of:70 % 9795-6) calcium oxalate monohydrate,20% calcium oxalate dihydrate, and1 0% calcium phospha te (hydroxy- and carbonate- apatite).INTERP RETIV E INFORMATION: Calculi (Stone) analysisCalculi are the products of physiological processes that yield crystalline compounds in a matrix of biolo gical compounds and b lood. Matrix componen ts are not reporte d. The clinically significant crystalline components identified in calculi specime ns are reported. G ross description may not be consistent w ith composition determined by F TIR analysis. EER calculi (stone) See Note Authoriz ed analysis and photo martín matthews (test code = access the [facility] 39930-2) Enhanced Report using the Headroom link: [email or web address] rform ed By: [employer] [place] [address] [id number] Director: Demetria Duran MD, PhD DIANELYS (test code = BMM-[id number]-AR DIANELYS) ight [facility]re[facility] [id number] 15:27:00 Test Item Value Reference Range Interpretation Comments Urine culture Mixed connor Specimen isolate (test <=10-3 col/cc InformationSp ecimen code = 54978-7) Source: Urin eSpecimen Site: Clean cat [facility] , [id number] 07:28:00 Test Item Value Reference Range Interpretation Comments test urine, POC (test Negative code = 8202152) Internal QC (test code = 257) QC acceptable Lab Interpretation (test code = Normal 72582-6) [facility] ABDOMEN/PELVIS WITH & WITHOUT IV [id number] 06:13:14[facility] : 1990 Sex: FCTabdomen and pelvis without and with contrastHistory: Flank pain, kidney stone suspected, pyelonephritisComparison: noneTechnique: serial axial imaging was performed following up to 100cc ofnon ionic iodinated intravenous contrast as per departmental protocol. Multiplanar images are reconstructed and reviewed when indicated. This CT examination is performed using one or more of the following dosereduction techniques:Automated exposure control, adjustment of the mA and /or kV according topatient size,and/or use of iterative reconstruction technique.Findings:Unremarkable appearance of pancreas and spleen. Mild hepatic steatosis. Liver and gallbladder are otherwiseunremarkable. Unremarkable appearance of the adrenal glands.A right ureteral stent appears in satisfactory position, with mildpersistent right hydronephrosis. A calculus at the right ureteropelvicjunction measures 11 x 6 x 5 mm in size. (CC by transverse by AP). Noadditional urinary calculi are visualized. No perinephric collection isseen. No renal mass is identified. . No small or large bowel obstruction. No apparent bowel wall thickening. No findings to indicate acute appendicitis. No free fluid or lymphadenopathy. No abdominal aortic aneurysm.Small fat-containing umbilical hernia.No aggressive osseous lesion.IMPRESSION:Impression:1. Satisfactory position of a right ureteral stent, with mild persistenthydronephrosis. Calculus at the right ureteropelvic junction measures 11x 6 x 5 mm in size.2. Mild hepatic steatosis. Electronically Signed By: Jerzy Ryan MD11/03/2022 06:16 CDTWorkstation Name: [id number] w/Microscopic + Reflex to Culture 2022-11-03 03:20:39 Test Item Value Reference Range Interpretation Comments Color, UA (test code Yellow = 5778-6) Clarity, UA (test Hazy code = 5767-9) Specific [place], UA 1.018 1.001-1.035 (test code = 5811-5) pH, UA (test code = 7.5 5.0-8.0 5803-2) Protein, UA (test 100 mg/dL Negative A code = 16314-2) Glucose, UA (test Negative Negative code = 365) Ketones, UA (test Negative Negative code = 2514-8) Bilirubin, UA (test Negative Negative code = 10023-4) Blood, UA (test code Large Negative A = 06000-7) Nitrite, UA (test Negative Negative code = 5802-4) Leukocytes, UA (test Moderate Negative A code = 5799-2) Urobilinogen, UA 0.2 0.2-1.0 (test code = 97729-6) RBC, UA (test code = 579 See_Comment [Autom ated 32536-2) message] The system which generated this result transmit azeem reference range : /HPF. The reference range was not used to interpret this result as normal/abnormal . WBC, UA (test code = 58 See_Comment [Autom ated 5821-4) message] The system which generated this result transmit azeem reference range : /HPF. The reference range was not used to interpret this result as normal/abnormal . Squam Epithel, UA 2 See_Comment [Automate d (test code = 92645-2) messag e] The system which generated this result transmit azeem reference range : /HPF. The reference range was not used to interpret this result as normal/abnormal . Specimen Source (test code = 2795) DIANELYS (test code = DIANELYS) Wire Dropper ID - [auto]Wire Dropper ID - tech Lab Interpretation Abnormal (test code = 56539-7) [facility] [id number] 03:20:39 Test Item Value Reference Range Interpretation Comments COLOR (BEAKER) (test code = 470) Yellow CLARITY (BEAKER) (test code = 469) Hazy SPECIFIC GRAVITY UA (BEAKER) (test 1.018 1.001-1.035 code = 468) PH UA (BEAKER) (test code = 467) 7.5 5.0-8.0 PROTEIN UA (BEAKER) (test code = 100 mg/dL Negative A 464) GLUCOSE UA (BEAKER) (test code = Negative Negative 365) KETONES UA (BEAKER) (test code = Negative Negative 371) BILIRUBIN UA (BEAKER) (test code = Negative Negative 462) BLOOD UA (BEAKER) (test code = 461) Large Negative A NITRITE UA (BEAKER) (test code = Negative Negative 465) LEUKOCYTE ESTERASE UA (BEAKER) Moderate Negative A (test code = 466) UROBILINOGEN UA (BEAKER) (test code 0.2 0.2-1.0 = 463) RBC UA (BEAKER) (test code = 519) 579 /HPF WBC UA (BEAKER) (test code = 520) 58 /HPF SQUAMOUS EPITHELIAL (BEAKER) (test 2 /HPF code = 516) SOURCE(BEAKER) (test code = 2795) Wire Dropper ID - [auto]Wire Dropper ID - techHCG, QUANTITATIVE, [id number] 03:17:08 Test Item Value Reference Range Interpretation Comments GONADOTROPIN, CHORIONIC (HCG) QUANT < mIU/mL 0-10 (BEAKER) (test code = 649) Non- Females: <10 mIU/mL Females: Gestation Age Reference Range(mIU/mL) 0.2-1 Week 5-50 1-2 Weeks 50-500 2-3 Weeks 100-5,000 3-4 Weeks 500-10,000 4-5 Weeks 1,000-50,000 5-6 Weeks 10,000-100,000 6-8 Weeks 15,000- 200,000 2-3 Months 10,000-100,000BASIC METABOLIC [id number] 02:55:29 Test Item Value Reference Range Interpretation Comments SODIUM (BEAKER) 139 meq/L 136-145 (test code = 381) POTASSIUM 4.0 meq/L 3.5-5.1 (BEAKER) (test code = 379) CHLORIDE (BEAKER) 108 meq/L 98-107 H (test code = 382) CO2 (BEAKER) 21 meq/L 22-29 L (test code = 355) BLOOD UREA 15 mg/dL 7-21 NITROGEN (BEAKER) (test code = 354) CREATININE 0.74 mg/dL 0.57-1.25 (BEAKER) (test code = 358) GLUCOSE RANDOM 85 mg/dL 70-105 (BEAKER) (test code = 652) CALCIUM (BEAKER) 9.2 mg/dL 8.4-10.2 (test code = 697) EGFR (BEAKER) 109 Interpretatio n of eGFR (test code = mL/min/1.73 values Stage De scription 1092) sq m Result G1 Samina l or high >=90 G2 Mildly decreased 60-89 G3a Mildl y to moderately 45-5 9 G3b Moderately to s everely 30-44 G4 Severl y decreased 15-29 G5 Kidney failure <15Reported eGF R is based on the CKD-EPI 2020 equation that d oes not use a race coefficientEsti mated GFR is not as accur ate as Creatinine Renetta beverley in predicting glom erular filtration rate . Estimated GFR is not appl icable for dialysis patien ts CBC W/PLT COUNT & AUTO [id number] 02:05:45 Test Item Value Reference Range Interpretation Comments WHITE BLOOD CELL COUNT (BEAKER) 11.5 K/ L 3.5-10.5 H (test code = 775) RED BLOOD CELL COUNT (BEAKER) 4.83 M/ L 3.93-5.22 (test code = 761) HEMOGLOBIN (BEAKER) (test code = 13.1 GM/DL 11.2-15.7 410) HEMATOCRIT (BEAKER) (test code = 41.3 % 34.1-44.9 411) MEAN CORPUSCULAR VOLUME (BEAKER) 86 fL 79-95 (test code = 753) MEAN CORPUSCULAR HEMOGLOBIN 27.1 pg 25.6-32.2 (BEAKER) (test code = 751) MEAN CORPUSCULAR HEMOGLOBIN CONC 31.7 GM/DL 32.2-35.5 L (BEAKER) (test code = 752) RED CELL DISTRIBUTION WIDTH 14.1 % 11.7-14.4 (BEAKER) (test code = 412) PLATELET COUNT (BEAKER) (test 260 K/CU MM 150-450 code = 756) MEAN PLATELET VOLUME (BEAKER) 9.7 fL 9.4-12.3 (test code = 754) NUCLEATED RED BLOOD CELLS 0 /100 WBC 0-0 (BEAKER) (test code = 413) NEUTROPHILS RELATIVE PERCENT 49 % (BEAKER) (test code = 429) LYMPHOCYTES RELATIVE PERCENT 39 % (BEAKER) (test code = 430) MONOCYTES RELATIVE PERCENT 6 % (BEAKER) (test code = 431) EOSINOPHILS RELATIVE PERCENT 6 % (BEAKER) (test code = 432) BASOPHILS RELATIVE PERCENT 1 % (BEAKER) (test code = 437) NEUTROPHILS ABSOLUTE COUNT 5.58 K/ L 1.56-6.13 (BEAKER) (test code = 670) LYMPHOCYTES ABSOLUTE COUNT 4.42 K/ L 1.18-3.74 H (BEAKER) (test code = 414) MONOCYTES ABSOLUTE COUNT (BEAKER) 0.69 K/ L 0.24-0.36 H (test code = 415) EOSINOPHILS ABSOLUTE COUNT 0.65 K/ L 0.04-0.36 H (BEAKER) (test code = 416) BASOPHILS ABSOLUTE COUNT (BEAKER) 0.10 K/ L 0.01-0.08 H (test code = 417) IMMATURE GRANULOCYTES-RELATIVE 0.30 % 0.00-1.00 PERCENT (BEAKER) (test code = 2801) CBC WITH [id number] 08:17:36 Test Item Value Reference Range Interpretation Comments WBC (test code = 11.18 See_Comment H [Automated 3490-2) message] The sy stem which generated this result transmitted reference range : 4.30 - 11.10 10*3/?L. The reference range was not used to interpret this result as normal/abnormal . RBC (test code = 4.56 See_Comment [Automated 789-8) message] The sy stem which generated this result transmitted reference range : 3.93 - 5.25 10*6/?L. The reference range was not used to interpret this result as normal/abnormal . HGB (test code = 12.8 g/dL 11.6-15.0 718-7) HCT (test code = 38.6 % 35.7-45.2 4544-3) MCV (test code = 84.6 fL 80.6-95.5 787-2) MCH (test code = 28.1 pg 25.9-32.8 785-6) MCHC (test code = 33.2 g/dL 31.6-35.1 786-4) RDW-SD (test code = 43.4 fL 39.0-49.9 57022-4) RDW-CV (test code = 14.1 % 12.0-15.5 788-0) PLT (test code = 258 See_Comment [Automated 777-3) message] The sy stem which generated this result transmitted reference range : 166 - 358 10*3/ ?L. The reference r nelson was not used to interpret this result as normal/abnormal . MPV (test code = 10.0 fL 9.5-12.9 61688-9) NRBC/100 WBC (test 0.0 See_Comment [Automat ed code = 8583601674) message] The system which generated this result transmitted reference range : 0.0 - 10.0 /100 WBCs. The refer ence range was not u sed to interpret th is result as normal/abnormal . NRBC x10^3 (test code See_Comment [Auto mated = 7800167316) message] The s ystem which generated this result transmitted reference range : 10*3/?L. The reference range was not used to interpret this result as normal/abnormal . GRAN MAT (NEUT) % 48.3 % (test code = 770-8) IMM GRAN % (test code 0.30 % = 0289731358) LYMPH % (test code = 40.8 % 736-9) MONO % (test code = 5.5 % 5905-5) EOS % (test code = 4.5 % 713-8) BASO % (test code = 0.6 % 706-2) GRAN MAT x10^3(ANC) 5.40 10*3/uL 1.88-7.09 (test code = 8978988460) IMM GRAN x10^3 (test 0.03 10*3/uL 0.00-0.06 code = 2618681674) LYMPH x10^3 (test code 4.56 10*3/uL 1.32-3.29 H = 731-0) MONO x10^3 (test code 0.62 10*3/uL 0.33-0.92 = 742-7) EOS x10^3 (test code = 0.50 10*3/uL 0.03-0.39 H 711-2) BASO x10^3 (test code 0.07 10*3/uL 0.01-0.07 = 704-7) Lab Interpretation Abnormal (test code = 06511-3) [facility]34[facility]2022-10-21 08:08:39 Test Item Value Reference Range Interpretation Comments NA (test code = 141 mmol/L 135-145 7861120808) K (test code = 4.0 mmol/L 3.5-5.0 8378291988) CL (test code = 106 mmol/L 98-108 7871416530) CO2 TOTAL (test code 26 mmol/L 23-31 = 4555368041) AGAP (test code = 9 2-16 9484248782) BUN (test code = 16 mg/dL 7-23 2035637623) GLUCOSE (test code = 96 mg/dL 70-110 7253760633) CREATININE (test code 0.58 mg/dL 0.50-1.04 = 2952482274) TOTAL BILI (test code 0.1 mg/dL 0.1-1.1 = 2064569154) CALCIUM (test code = 8.7 mg/dL 8.6-10.6 6072531964) T PROTEIN (test code 6.7 g/dL 6.3-8.2 = 5217638254) ALBUMIN (test code = 3.8 g/dL 3.5-5.0 8693002979) ALK PHOS (test code = 80 U/L 34-122 1174554621) ALTv (test code = 21 U/L 5-35 2-6) AST(SGOT) (test code 23 U/L 13-40 = 0239275077) eGFR (test code = 119.0 mL/min/1.73m2 2539437062) DIANELYS (test code = DIANELYS) Association of Glomerular Filtration Rate (GFR) and Staging of Kidney Disease* + + +- +| GFR (mL/min/1.73 m2) ?| With Kidney Damage ?| ?Without Kidney Damage+ ------+ ----+ ------+| ?>90 ?| ?Stage one ?| ? Normal ?+ -+ + -+| ?60-89 ?| ?Stage two ?| ? Decreased GFR ? + + +- +| ?30-59 ?| ?Stage three ?| ? Stage three ? + + +- +| ?15-29 ?| ?Stage four ? | ? Stage four ?+ -+ + -+| ?<15 (or dialysis) ? ?| ?Stage five ? | ? Stage five ?+ -+ + -+ *Each stage assumes the associated GFR level has been in effect for at least three months. ?Stages 1 to 5, with or without kidney disease, indicate chronic kidney disease. Notes: Determination of stages one and two (with eGFR >59mL/min/1.73 m2) requires estimation of kidney damage for at least three months as defined by structural or functional abnormalities of the kidney, manifested by either:Pathological abnormalities or Markers of kidney damage (including abnormalities in the composition of the blood or urine or abnormalities in imaging tests). [facility] [id number] 07:51:00 Test Item Value Reference Range Interpretation Comments POCT PREG (test code = 1605) Negative On board controls acceptable with C Yes Line (test code = 3574) POCT PREG LOT # (test code = 3575) [id number] POCT PREG TEST DATE (test 01-24-24 code = 3576) Lab Interpretation (test code = Normal 45268-3) [facility] / [id number] 16:39:54 Test Item Value Reference Range Interpretation Comments PROTIME PATIENT (test See_Comment H [Auto mated message] code = 5964-2) The system [employer] generated this result transmitted ref erence range: 10.1 - 1 2.6 Seconds. The reference range was not used to int erpret this result as normal/abnormal . INR (test code = 6301-6) Nor mal INR <1.1; Warfarin Therap eutic range 2.0 to 3. 0 or 2.5 to 3.5, dep ending upon the indica tions. Lab Interpretation (test Abnormal code = 03806-7) [facility] [id number] 08:24:00 Test Item Value Reference Range Interpretation Comments POCT PREG (test code = 1605) negative On board controls acceptable with present C Line (test code = 3574) POCT PREG LOT # (test code = 3575) [id number] POCT PREG TEST DATE (test code = 3576) Lab Interpretation (test code = Normal 59058-7) [facility] [id number] 18:03:11 Test Item Value Reference Range Interpretation Comments URINE CULTURE (test < 10,000 CFU/mL aerobic code = 630-4) organisms - suggests endogenous microbial contamination [facility] [id number] 04:08:00 Test Item Value Reference Range Interpretation Comments POCT PREG (test code = 1605) neg On board controls acceptable with yes C Line (test code = 3574) POCT PREG LOT # (test code = 3575) [id number] POCT PREG TEST DATE (test 07/19/2023 code = 3576) Lab Interpretation (test code = Normal 79779-9) [facility]2022-08-08 06:05:10 Test Item Value Reference Range Interpretation Comments MAGNESIUM (test code = 6217454610) 2.1 mg/dL 1.7-2.4 Lab Interpretation (test code = Normal 47058-5) [facility] WITH [id number] 06:05:09 Test Item Value Reference Range Interpretation Comments WBC (test code = See_Comment [Automated 6390-2) message] The sy stem which generated this result transmitted reference range : 4.30 - 11.10 10*3/?L. The reference range was not used to interpret this result as normal/abnormal . RBC (test code = See_Comment [Automated 789-8) message] The sy stem which generated this result transmitted reference range : 3.93 - 5.25 10*6/?L. The reference range was not used to interpret this result as normal/abnormal . HGB (test code = 13.3 g/dL 11.6-15 718-7) HCT (test code = 40.3 % 35.7-45.2 4544-3) MCV (test code = 86.1 fL 80.6-95.5 787-2) MCH (test code = 28.4 pg 25.9-32.8 785-6) MCHC (test code = 33.0 g/dL 31.6-35.1 786-4) RDW-SD (test code = 43.3 fL 39-49.9 93058-3) RDW-CV (test code = 13.9 % 12-15.5 788-0) PLT (test code = See_Comment [Automated 777-3) message] The sy stem which generated this result transmitted reference range : 166 - 358 10*3/ ?L. The reference r nelson was not used to interpret this result as normal/abnormal . MPV (test code = 10.4 fL 9.5-12.9 54564-7) NRBC/100 WBC (test See_Comment [Automat ed code = 4108969604) message] The system which generated this result transmitted reference range : 0.0 - 10.0 /100 WBCs. The refer ence range was not u sed to interpret th is result as normal/abnormal . NRBC x10^3 (test code See_Comment [Auto mated = 2352004417) message] The s ystem which generated this result transmitted reference range : 10*3/?L. The reference range was not used to interpret this result as normal/abnormal . GRAN MAT (NEUT) % 55.8 % (test code = 770-8) IMM GRAN % (test code 0.40 % = 0457715364) LYMPH % (test code = 34.1 % 736-9) MONO % (test code = 7.5 % 5905-5) EOS % (test code = 1.8 % 713-8) BASO % (test code = 0.4 % 706-2) GRAN MAT x10^3(ANC) 6.06 10*3/uL 1.88-7.09 (test code = 6741212118) IMM GRAN x10^3 (test 0.04 10*3/uL 0-0.06 code = 5523114701) LYMPH x10^3 (test code 3.69 10*3/uL 1.32-3.29 H = 731-0) MONO x10^3 (test code 0.81 10*3/uL 0.33-0.92 = 742-7) EOS x10^3 (test code = 0.19 10*3/uL 0.03-0.39 711-2) BASO x10^3 (test code 0.04 10*3/uL 0.01-0.07 = 704-7) Lab Interpretation Abnormal (test code = 88016-4) [facility] (69063)2021-11-25 06:04:49 Test Item Value Reference Range Interpretation Comments NA (test code = 138 mmol/L 135-145 6166760284) K (test code = 3.9 mmol/L 3.5-5 1245459470) CL (test code = 104 mmol/L 98-108 1584632673) CO2 TOTAL (test code 26 mmol/L 23-31 = 0679475651) AGAP (test code = 2-16 6919573525) BUN (test code = 11 mg/dL 7-23 4367930547) GLUCOSE (test code = 97 mg/dL 70-110 6659794932) CREATININE (test code 0.63 mg/dL 0.5-1.04 = 3593788258) TOTAL BILI (test code 0.3 mg/dL 0.1-1.1 = 5518514035) CALCIUM (test code = 8.9 mg/dL 8.6-10.6 2452560552) T PROTEIN (test code 6.9 g/dL 6.3-8.2 = 2715891865) ALBUMIN (test code = 4.2 g/dL 3.5-5 4944387815) ALK PHOS (test code = 107 U/L 34-122 7218398619) ALTv (test code = 34 U/L 5-35 2-6) AST(SGOT) (test code 28 U/L 13-40 = 4851940270) eGFR (test code = mL/min/1.73m2 8098300348) DIANELYS (test code = DIANELYS) Association of Glomerular Filtration Rate (GFR) and Staging of Kidney Disease* + + +- +| GFR (mL/min/1.73 m2) ?| With Kidney Damage ?| ?Without Kidney Damage+ ------+ ----+ ------+| ?>90 ?| ?Stage one ?| ? Normal ?+ -+ + -+| ?60-89 ?| ?Stage two ?| ? Decreased GFR ? + + +- +| ?30-59 ?| ?Stage three ?| ? Stage three ? + + +- +| ?15-29 ?| ?Stage four ? | ? Stage four ?+ -+ + -+| ?<15 (or dialysis) ? ?| ?Stage five ? | ? Stage five ?+ -+ + -+ *Each stage assumes the associated GFR level has been in effect for at least three months. ?Stages 1 to 5, with or without kidney disease, indicate chronic kidney disease. Notes: Determination of stages one and two (with eGFR >59mL/min/1.73 m2) requires estimation of kidney damage for at least three months as defined by structural or functional abnormalities of the kidney, manifested by either:Pathological abnormalities or Markers of kidney damage (including abnormalities in the composition of the blood or urine or abnormalities in imaging tests). [facility] Dallas[facility]2022-[facility] 06:04:34 Test Item Value Reference Range Interpretation Comments LIPASE (test code = 4636218419) 93 U/L 0-220 Lab Interpretation (test code = Normal 85908-5) [facility] DallasPO[facility] [id number] 05:19:00 Test Item Value Reference Range Interpretation Comments POCT PREG (test code = 1605) Negative On board controls acceptable with Present C Line (test code = 3574) POCT PREG LOT # (test code = HCG [id number]) POCT PREG TEST DATE (test 02/17/2023 code = 3576) Lab Interpretation (test code = Normal 93753-1) [facility] DallasCBC W/AUTO [id number] 05:30:00 Test Item Value Reference Range Interpretation Comments WHITE BLOOD CELL (test code = WBC) 12.3 K/mm3 6.6-12.1 H RED BLOOD CELL (test code = RBC) 3.72 M/mm3 3.45-5.01 N HEMOGLOBIN (test code = HGB) 10.6 g/dL 10.7-13.9 L HEMATOCRIT (test code = HCT) 33.5 % 32.1-42.1 N MEAN CELL VOLUME (test code = MCV) 90 fL 84.1-94.8 N MEAN CELL HGB (test code = MCH) 28.5 pg 27-35 N MEAN CELL HGB CONCETRATION (test 31.6 gm/dL 32.2-34.1 L code = MCHC) RED CELL DISTRIBUTION WIDTH (test 14.6 % 12.4-16.5 N code = RDW) PLATELET COUNT (test code = PLT) 146 K/mm3 133-385 N IMMATURE PLATELET FRACTION (test 0.0 % 0.0-10.8 N code = IPF) MEAN PLATELET VOLUME (test code = 11.2 fl 9.1-12.7 N MPV) NEUTROPHIL % (test code = NT%) 66.3 % 56.5-79.4 N LYMPHOCYTE % (test code = LY%) 25.6 % 14.3-34.3 N MONOCYTE % (test code = MO%) 6.8 % 5.1-10.4 N EOSINOPHIL % (test code = EO%) 0.5 % 0.1-3.0 N BASOPHIL % (test code = BA%) 0.3 % 0.1-1.0 N NEUTROPHIL # (test code = NT#) 8.1 K/mm3 LYMPHOCYTE # (test code = LY#) 3.1 K/mm3 MONOCYTE # (test code = MO#) 0.8 K/mm3 EOSINOPHIL # (test code = EO#) 0.06 K/mm3 BASOPHIL # (test code = BA#) 0.0 K/mm3 RBC MORPHOLOGY REQUIRED (test code NORMAL NORMAL = RBCM) PLATELET MORPHOLOGY REQUIRED (test NORMAL NORMAL code = PLTMR) CBC W/AUTO [id number] 11:12:00 Test Item Value Reference Range Interpretation Comments WHITE BLOOD CELL (test code = WBC) 9.6 K/mm3 6.6-12.1 N RED BLOOD CELL (test code = RBC) 4.16 M/mm3 3.45-5.01 N HEMOGLOBIN (test code = HGB) 12.1 g/dL 10.7-13.9 N HEMATOCRIT (test code = HCT) 37.3 % 32.1-42.1 N MEAN CELL VOLUME (test code = MCV) 90 fL 84.1-94.8 N MEAN CELL HGB (test code = MCH) 29.1 pg 27-35 N MEAN CELL HGB CONCETRATION (test 32.4 gm/dL 32.2-34.1 N code = MCHC) RED CELL DISTRIBUTION WIDTH (test 14.9 % 12.4-16.5 N code = RDW) PLATELET COUNT (test code = PLT) 161 K/mm3 133-385 N IMMATURE PLATELET FRACTION (test 0.0 % 0.0-10.8 N code = IPF) MEAN PLATELET VOLUME (test code = 11.2 fl 9.1-12.7 N MPV) NEUTROPHIL % (test code = NT%) 62.5 % 56.5-79.4 N LYMPHOCYTE % (test code = LY%) 30.2 % 14.3-34.3 N MONOCYTE % (test code = MO%) 5.0 % 5.1-10.4 L EOSINOPHIL % (test code = EO%) 1.4 % 0.1-3.0 N BASOPHIL % (test code = BA%) 0.5 % 0.1-1.0 N NEUTROPHIL # (test code = NT#) 6.0 K/mm3 LYMPHOCYTE # (test code = LY#) 2.9 K/mm3 MONOCYTE # (test code = MO#) 0.5 K/mm3 EOSINOPHIL # (test code = EO#) 0.13 K/mm3 BASOPHIL # (test code = BA#) 0.1 K/mm3 RBC MORPHOLOGY REQUIRED (test code NORMAL NORMAL = RBCM) PLATELET MORPHOLOGY REQUIRED (test NORMAL NORMAL code = PLTMR) AG HEPATITIS B [id number] 18:28:00 Test Item Value Reference Range Interpretation Comments AG HEPATITIS B SURFACE (test code NONREACTIVE NONREACTIVE = HBSAG) : *IS CONSENT FORM SIGNED FOR HIV TESTING? YAB [id number] 18:28:00 Test Item Value Reference Range Interpretation Comments AB TREPONEMA (test code = TREPAB) NONREACTIVE NONREACTIVE : *IS CONSENT FORM SIGNED FOR HIV TESTING? YAB HIV 1 18:28:00 Test Item Value Reference Range Interpretation Comments AB HIV 1 2 (test NONREACTIVE NONREACTIVE Done by [facility] code = [id number]) 4th Gen HIV Ag/Ab Combo Screen : *IS CONSENT FORM SIGNED FOR HIV TESTING? YAG HEPATITIS B [id number] 18:00:00 Test Item Value Reference Range Interpretation Comments AG HEPATITIS B SURFACE (test code NONREACTIVE NONREACTIVE = HBSAG) : *IS CONSENT FORM SIGNED FOR HIV TESTING? YAB [id number] 18:00:00 Test Item Value Reference Range Interpretation Comments AB TREPONEMA (test code = TREPAB) NONREACTIVE NONREACTIVE : *IS CONSENT FORM SIGNED FOR HIV TESTING? YAB HIV 1 18:00:00 Test Item Value Reference Range Interpretation Comments AB HIV 1 2 (test code = JQU24RI) NONREACTIVE : *IS CONSENT FORM SIGNED FOR HIV TESTING? YCBC W/AUTO [id number] 17:17:00 Test Item Value Reference Range Interpretation Comments WHITE BLOOD CELL (test code = WBC) 8.4 K/mm3 6.6-12.1 N RED BLOOD CELL (test code = RBC) 4.27 M/mm3 3.45-5.01 N HEMOGLOBIN (test code = HGB) 12.4 g/dL 10.7-13.9 N HEMATOCRIT (test code = HCT) 37.0 % 32.1-42.1 N MEAN CELL VOLUME (test code = MCV) 87 fL 84.1-94.8 N MEAN CELL HGB (test code = MCH) 29.0 pg 27-35 N MEAN CELL HGB CONCETRATION (test 33.5 gm/dL 32.2-34.1 N code = MCHC) RED CELL DISTRIBUTION WIDTH (test 14.4 % 12.4-16.5 N code = RDW) PLATELET COUNT (test code = PLT) 162 K/mm3 133-385 N IMMATURE PLATELET FRACTION (test 0.0 % 0.0-10.8 N code = IPF) MEAN PLATELET VOLUME (test code = 11.2 fl 9.1-12.7 N MPV) NEUTROPHIL % (test code = NT%) 69.8 % 56.5-79.4 N LYMPHOCYTE % (test code = LY%) 23.8 % 14.3-34.3 N MONOCYTE % (test code = MO%) 4.3 % 5.1-10.4 L EOSINOPHIL % (test code = EO%) 1.2 % 0.1-3.0 N BASOPHIL % (test code = BA%) 0.4 % 0.1-1.0 N NEUTROPHIL # (test code = NT#) 5.8 K/mm3 LYMPHOCYTE # (test code = LY#) 2.0 K/mm3 MONOCYTE # (test code = MO#) 0.4 K/mm3 EOSINOPHIL # (test code = EO#) 0.10 K/mm3 BASOPHIL # (test code = BA#) 0.0 K/mm3 RBC MORPHOLOGY REQUIRED (test code NORMAL NORMAL = RBCM) PLATELET MORPHOLOGY REQUIRED (test NORMAL NORMAL code = PLTMR) Notes Date/Time Note Provider Source 2019-01-06 13:44:00-00:00 [id number] [facility] [address], [place] [address] PATIENT NAME: SVETLANA FRY ADMIT DATE: 11/24/18 ACCOUNT NO: [id number] ROOM NO: F.4664 AGE: 28 SEX: F ADMITTING PHYSICIAN: Daryl Song MD ATTENDING PHYSICIAN: Daryl Song MD ADMISSION DATE: 11/24/2018 DISCHARGE DATE: 11/27/2018 ADMISSION DIAGNOSES: 1. A 39-week . 2. Morbid obesity. 3. Previous section. PROCEDURES PERFORMED: Repeat low-transverse cesa rean delivery. DISPOSITION: The patient discharged home in good condition. DISCHARGE MEDICATIONS: Include [place], Motrin, an d vitamin. DISCHARGE EXAMINATION: Benign. Incision was note d to be clean, dry, and intact. SUMMARY OF HOSPITAL COURSE: The patient presente d at 39 weeks' gestation for scheduled repeat a s previously dictated. Postoperatively, the patient did well. She remained afebr ile with stable vital signs throughout her hospital course. Her epidural was continued on postoperat tisha day 1 with good pain control. Her hemoglobin and hematocrit w ere stable. She tolerated regular diet and ambulated without difficulty. On postoperati ve day 2, her epidural was discontinued with continued pain control. By pos toperative day 3, she was meeting all postoperative goals. She was dischar ged home in good condition. DISCHARGE INSTRUCTIONS: Woun d care instructions were discussed with the patient and family. She was scheduled for followup in [facility] office in 2 weeks for incision check. Dictated By: Daryl Song MD WT: DS:F.CRISTAL/ALBERT/NTS Conf#: [id number]/DID#: [id number] Authenticated by Daryl Song MD On 2018 08:52:53 AM PATIENT NAME: SVETLANA FRY 319 Electronically Signed by Daryl Song MD o n 01/07/19 at 0853 PATIENT NAME: SVETLANA FRY 319 2018-11-27 11:39:00-00:00 [facility] ([facility] OB Postpart Progr Note REPORT#:[id number] REPORT STATUS: Signed DATE:11/27/18 TIME: 1139 PATIENT: SVETLANA FRY UNIT #: [id number] ROOM/BED: [address] : 88 AGE: 28 SEX: F ATTEND: Steve Song MD ADM AUTHOR: Cristy Hodge MD * ALL edits or amendments must be made on the el ectronic/computer document * Subjective Subjective Admission EGA (wks/days): 39 weeks Status/day: post operative, day3 Patient reports: Patient reports: No: complaints. Objective Nursing Documentation Review Nursing data: The data set between the solid lines has been im ported from nursing documentation. Any exceptions have been noted be low under Provider comments. Feeding preference: Provider comments on imported nursing data: [] General VS: Vital Signs Date Temp Pulse Resp B/P B/P Mean Pulse Ox FiO2 11/26-11/27 97.7-98.2 70-88 18-20 100-128/63-75 97 Last Documented: Result Date Time Pulse Ox 97 / 0950 B/P 100/63 08/ 0950 Temp 97.8 08/ 0950 Pulse 70 08/ 0950 Resp 20 / 0950 B/P Mean 92.5 11/26 0340 Patient Weight Weight (lb): 245 Weight (oz): Weight (kg): 111.13 Physical Exam Neuro: Exam: alert, oriented x3 Incision site: well approximated edges Fundus: firm, below the umbilicus Diagnosis, Assessment Plan Diagnosis, Assessment Plan Assessment: nml progress Plan: routine care, discharge today Electronically Signed by Cristy Hodge MD on 11/18 at 1140 RPT #:[id number] END OF REPORT 2018-11-26 13:46:00-00:00 [id number] [facility] [address], [place] [address] PATIENT NAME: SVETLANA FRY ADMIT DATE: 9 ACCOUNT NO: [id number] ROOM NO: [facility] AGE: 28 SEX: F ADMITTING PHYSICIAN: Daryl Song MD ATTENDING PHYSICIAN: Daryl Song MD OPERATION DATE: 11/24/2018 PREOPERATIVE DIAGNOSES: 1. Term . 2. Previous section x2. POSTOPERATIVE DIAGNOSES: 1. Term . 2. Previous section x2. SURGEON: Daryl Song MD CUSTOMER EXPERIENCE RETAIL CLERK: Moose Milan MD ESTIMATED BLOOD LOSS: 600 mL. ANESTHESIA: Combined spinal epidural. PATHOLOGY: None. OPERATIVE FINDINGS: 1. Normal-appearing uterus, ovaries, and tubes. 2. Cephalic male , Apgars 8 and 9. 3. Hemostatic. 4. All counts correct. STATEMENT OF MEDICAL NECESSITY: The patient pres ented at 39 weeks' gestation for scheduled repeat C-secti on. Risks, benefits, alternatives, indications were discussed with the patient and family and they a greed to plan. STATEMENT OF PROCEDURE: After informed consent w as obtained, the patient was taken to the operating room. Adequate spinal epi dural anesthesia was established. She was prepped and draped in usual sterile fashion. Transverse skin incision made through the previous scar and was carried down to the fascia. Fascia was scored in midline. Fascia l incision was extended bilaterally using Gonsales scissors. Muscles dissect ed off back of the fascia and in midline. Peritoneal cavity was blun tly entered. Bladder flap was created at the level of prev ious bladder flap. A low transverse hysterotomy was made and was bluntly extended bilaterally. Membr anes were bluntly ruptured, clear fluid return. Fetus found in cephalic posi tion. head was brought to the hysterotomy. With fundal pressure, head and body were delivered. Mouth and nares bulb suctioned. Cord was doubly clamped, cut, and fetus passed off for evaluation. Placenta was delivered with fundal massage. Uterus PATIENT NAME: SVETLANA FRY 319 exteriorized, wrapped in [address] laparotomy sponge, curettaged with dry laparotomy sponge. Hysterotomy again inspected and remained hemostatic. Hysterotomy was closed with #1 chromic suture in running-locked fashion. It was irrigated and rendered hemostatic. A secondary layer closure p erformed with 2-0 Monocryl in imbricating fashion. This too was irrigated and rendered hemostatic. Uterus was returned to abdominal cavity. Gutters copiou sly irrigated and suctioned dry. Hysterotomy was inspected and remained hemo static. Peritoneum was reapproximated with 2-0 chromic suture. Muscle c ould not be reapproximated. Fascia was closed with 0 Johnny ryl from side and tied in the midline. Subcutaneous tissue was copiously irrigated and sucti oned dry. It was reapproximated with a plain gut suture. Skin was closed with 3-0 Monoc ryl running subcuticular stitch. Wound dressed with Mastisol, Steri-Strip s, and occlusive bandage. Blood and clot were evacuate d from the uterus and vagina. The patient was taken to recovery in good condition. There were no ope rative or anesthetic complications. Dictated By: Daryl Song MD WT: OP:F.HIM/SHEGR/NTS Conf#: [id number]/DID#: [id number] Authenticated by Daryl Song MD On 2018 11:10:19 PM Electronically Signed by Daryl Song MD o n 12/02/18 at 0524 PATIENT NAME: SVETLANA FRY 319 2018-11-26 08:41:00-00:00 [facility] ([facility]) OB Postpart Progr Note REPORT#:[id number] REPORT STATUS: Signed DATE:11/26/18 TIME: 840 PATIENT: SVETLANA FRY UNIT #: [id number] ROOM/BED: [address] : 88 AGE: 28 SEX: F ATTEND: Steve Song MD ADM AUTHOR: Daryl Song MD * ALL edits or amendments must be made on the el ectronic/computer document * Subjective Subjective Status/Day: post operative (d2) Patient reports: Patient reports: Yes no complaints, Yes pain management effectiv e, Yes tolerating po well Objective Nursing Documentation Review Nursing Data: The data set between the solid lines has been im ported from nursing documentation. Any exceptions have been noted be low under Provider comments. Feeding preference: Provider comments on imported nursing data: [] General VS: Vital Signs: Date Time Temp Pulse Resp B/P B/P Pulse O2 O2 F low FiO2 Mean Ox Delivery Rate 11/26 0340 98.6 88 20 125/76 92.5 11/26 2347 98.8 83 20 125/77 11/25 2348 98.8 83 20 125/77 92.8 11/25 1958 98.6 81 20 114/78 11/25 1958 98.6 81 20 114/78 89.9 11/25 1720 98.4 84 18 117/74 11/25 1242 98.4 77 18 128/78 Patient Weight Weight (lb): 245 Weight (oz): Weight (kg): 111.13 Physical Exam Neuro: Exam: alert, oriented x3 Abdomen: soft, no abnormal tenderness, no guardi ng Incision site: well approximated edges, dry, no drainage, no inflammation Uterus: firm, non-tender Diagnosis, Assessment Plan Diagnosis, Assessment Plan Assessment: nml progress Plan: routine care, discharge tomorro w at 0842 RPT #:[id number] END OF REPORT 2018-11-25 08:28:00-00:00 [facility] ([facility] OB Postpart Progr Note REPORT#:[id number] REPORT STATUS: Signed DATE:11/25/18 TIME: 827 PATIENT: SVETLANA FRY UNIT #: [id number] ROOM/BED: [address] : 88 AGE: 28 SEX: F ATTEND: Mack Song MD ADM AUTHOR: Daryl Song MD * ALL edits or amendments must be made on the el [employer]/computer document * Subjective Subjective Status/Day: post operative (d1) Patient reports: Patient reports: Yes no complaints, Yes pain management effectiv e, Yes tolerating po well Objective Nursing Documentation Review Nursing Data: The data set between the solid lines has been im ported from nursing documentation. Any exceptions have been noted be low under Provider comments. Feeding preference: Provider comments on imported nursing data: [] General VS: Vital Signs: Date Time Temp Pulse Resp B/P B/P Pulse O2 O2 F low FiO2 Mean Ox Delivery Rate 08 0415 98.1 71 18 122/71 08/08 0026 98.5 71 18 126/76 08/07 2058 98.1 72 18 119/71 08/07 1722 76.0 08/07 1722 98.4 62 134/57 99 08/07 1645 62 97 08/07 1644 90.0 08/07 1644 125/68 08/07 1629 93.0 08/07 1629 127/70 08/07 1615 60 97 08/07 1614 88.0 08/07 1614 123/64 08/07 1559 88.0 08/07 1559 122/65 08/07 1552 97.0 08/07 1552 134/72 08/07 1545 58 98 08/07 1530 54 99 08/07 1529 102.0 08/07 1529 129/88 08/07 1514 95.0 08/07 1514 133/68 08/07 1501 88.0 08/07 1501 131/61 08/07 1444 87.0 08/07 1444 130/60 08/07 1429 91.0 08/07 1429 143/63 08/07 1415 68 98 08/07 1414 102.0 08/07 1414 156/71 08/07 1400 60 99 08/07 1359 90.0 08/07 1359 60 18 126/71 98 08/07 1344 85.0 08/07 1344 64 18 116/65 99 08/07 1330 66 99 08/07 1329 84.0 08/07 1329 62 18 124/54 98 08/07 1314 82.0 08/07 1314 97.5 65 16 124/57 100 08/07 1026 102.0 08/07 1026 98.2 64 134/79 Patient Weight Weight (lb): 245 Weight (oz): Weight (kg): 111.13 Physical Exam Neuro: Exam: alert, oriented x3 Abdomen: soft, no abnormal tenderness, no guardi ng Incision site: well approximated edges, dry, no drainage, no inflammation Uterus: firm, non-tender Result Findings/Data: Laboratory Tests: 11/25 08/07 0501 1051 Hematology WBC (6.6 - 12.1 K/mm3) 12.3 H 9.6 RBC (3.45 - 5.01 M/mm3) 3.72 4.16 Hgb (10.7 - 13.9 g/dL) 10.6 L 12.1 Hct (32.1 - 42.1 %) 33.5 37.3 MCV (84.1 - 94.8 fL) 90 90 MCH (27 - 35 pg) 28.5 29.1 MCHC (32.2 - 34.1 gm/dL) 31.6 L 32.4 RDW (12.4 - 16.5 %) 14.6 14.9 Plt Count (133 - 385 K/mm3) 146 161 MPV (9.1 - 12.7 fl) 11.2 11.2 Neut % (Auto) (56.5 - 79.4 %) 66.3 62.5 Lymph % (Auto) (14.3 - 34.3 %) 25.6 30.2 Obion % (Auto) (5.1 - 10.4 %) 6.8 5.0 L Eos % (Auto) (0.1 - 3.0 %) 0.5 1.4 Baso % (Auto) (0.1 - 1.0 %) 0.3 0.5 Neut # (Auto) (K/mm3) 8.1 6.0 Lymph # (Auto) (K/mm3) 3.1 2.9 Obion # (Auto) (K/mm3) 0.8 0.5 Eos # (Auto) (K/mm3) 0.06 0.13 Baso # (Auto) (K/mm3) 0.0 0.1 Immature Plt Fraction (0.0 - 10.8 %) 0.0 0.0 Diagnosis, Assessment Plan Diagnosis, Assessment Plan Assessment: nml progress Plan: routine care at 0829 RPT #:[id number] END OF REPORT 2018-11-24 15:15:00-00:00 [facility] ([facility]) OB Delivery Note REPORT#:[id number] REPORT STATUS: Signed DATE:11/24/18 TIME: 1515 PATIENT: SVETLANA FRY UNIT #: [id number] ROOM/BED: LDR9-A : 88 AGE: 28 SEX: F ATTEND: Mack Song MD ADM AUTHOR: Daryl Song MD * ALL edits or amendments must be made on the el ectronic/computer document * OB Delivery Nursing Documentation Review Nursing data: The data set between the solid lines has been im ported from nursing documentation. Any exceptions have been noted be low under Provider comments. _ ROM date: 11/24/18 ROM time: 1235 Membranes rupture method: AROM Amniotic fluid color: Clear Amniotic fluid amount: EGA (weeks/days): 39.0 EGA at admit (weeks): EGA at delivery (weeks): Steroids prior to arrival: Antibiotic prophylaxis given: [place] evaluation at delivery: Delivery date infant A: 11/24/18 Delivery time i nfant A: 1236 Birthweight (gm) A: 3260 Weight (lb) A: Weight (oz) A: Gender A: Male 1 minute infant A: 8 5 minutes A: 9 10 minutes infant A: Cord pH obtained infant A: Vacuum time infant A: Vacuum # pulls A: Vacuum # popoffs A: __ Provider comments on imported nursing data: [] Pre-delivery [place] evaluation at delivery: NRP certified pe rsonnel Admission EGA (wks/days): 39 weeks Baby A Information Baby A information Delivery date: 11/24/18 status: live born Gender: male 1 minute: 8 5 minutes: 9 Presentation: vertex Nuchal cord Baby A Nuchal cord: no Delivery section Abdominal incision: Pfannenstiel Primary indication: elective repeat , p revious Priority: scheduled : : contraindicated Antibiotic prior to incision: 1 dose )(SCDs applied activated: Yes Incision: low transverse Hemorrhage: no Uterine scar: intact Consent: indication discussed, questions answer ed, pt consent to op delivery Mother's condition: mother stable Infant's condition: infant stable in nursery Op/Inv Proc Note - Brief )( Primary Surgeon: Arpan Song )( Analytical Strategist(s): Mario Milan )( Pre-procedure diagnosis: prev C/S x2 )( Post-procedure diagnosis: same )(Technique/Procedure: LTCS )( Estimated blood loss (ml): 600 )( Finding(s): nl ut/ov/tubes. hemostatic. counts correct. at 1517 RPT #:[id number] END OF REPORT 2018-11-24 10:39:00-00:00 [facility] ([facility]) OB Admission / H P REPORT#:[id number] REPORT STATUS: Signed DATE:11/24/18 TIME: 1039 PATIENT: SVETLANA FRY UNIT #: [id number] ROOM/BED: [place] [address]-A : 88 AGE: 28 SEX: F ATTEND: Steve Song MD ADM AUTHOR: Daryl Song MD * ALL edits or amendments must be made on the el [employer]/computer document * OB Admission H P Hx Chief complaint: scheduled HPI: here for repeat C/S history: : 3 Term: 2 Previous : low uterine trans incis Number of prev : 2 Current : EDC: 12/01/18 Admission EGA (wks/days): 39 weeks Conditions of : previous uterine incisi on, obesity Labs: Blood type: O Rh: positive Rubella: immune Hepatitis B: negative HIV: negative STD: negative Syphilis: currently negative GBS: negative Procedures: ultrasound, genetic testing Past medical history: asthma Past surgical history: (x2) Social history: no alcohol use, no tobacco use, no drug use Medications: Home Medications: PNV WITH FE FUMARATE/FA () 1 TAB PO KENDRA Y Allergies Coded Allergies: Penicillins (Mild, RASH 11/24/18) amoxicillin (Mild, RASH 11/24/18) Objective General VS: Last Documented: Result Date Time B/P Mean 102.0 11/24 1026 B/P 134/79 / 1026 Temp 98.2 / 1026 Pulse 64 11/24 1026 Vital Signs Date Temp Pulse Resp B/P B/P Mean Pulse Ox FiO2 / 98.2 64 134/79 102.0 Patient Weight Weight (lb): 245 Weight (oz): Weight (kg): 111.13 Physical Exam HEENT: normocephalic w/o injury Neuro: Exam: alert, oriented x3 Abdomen: gravid, soft, no abnormal tenderness Uterine activity: Monitor: toco Frequency (description): none Cervical/ exam: Dilatation (cm): 0 - closed Membranes: Membranes: Intact Baby A: Baby A baseline: 135 bpm Baby A variability: moderate 6-25 bpm Baby A accelerations: 15 X 15 Baby A decelerations: none Baby A FHR category: category 1 Result Findings/Data: Laboratory Tests: 11/24 1051 Hematology WBC (6.6 - 12.1 K/mm3) 9.6 RBC (3.45 - 5.01 M/mm3) 4.16 Hgb (10.7 - 13.9 g/dL) 12.1 Hct (32.1 - 42.1 %) 37.3 MCV (84.1 - 94.8 fL) 90 MCH (27 - 35 pg) 29.1 MCHC (32.2 - 34.1 gm/dL) 32.4 RDW (12.4 - 16.5 %) 14.9 Plt Count (133 - 385 K/mm3) 161 MPV (9.1 - 12.7 fl) 11.2 Neut % (Auto) (56.5 - 79.4 %) 62.5 Lymph % (Auto) (14.3 - 34.3 %) 30.2 Obion % (Auto) (5.1 - 10.4 %) 5.0 L Eos % (Auto) (0.1 - 3.0 %) 1.4 Baso % (Auto) (0.1 - 1.0 %) 0.5 Neut # (Auto) (K/mm3) 6.0 Lymph # (Auto) (K/mm3) 2.9 Obion # (Auto) (K/mm3) 0.5 Eos # (Auto) (K/mm3) 0.13 Baso # (Auto) (K/mm3) 0.1 Immature Plt Fraction (0.0 - 10.8 %) 0.0 Diagnosis, Assessment Plan Diagnosis, Assessment Plan Free Text A P: 39 wks, prev C/S x2. repeat C/S at 1209 RPT #:[id number] END OF REPORT"
--- NOTE | 2022-11-28 22:11 | RAD REPORT ---
EXAM DESCRIPTION: RAD - Foot Right 3 View - 11/28/2022 10:06 pm CLINICAL HISTORY: PAIN COMPARISON: <Comparisons> FINDINGS: No acute fracture or dislocation seen. Large posterior and plantar calcaneal spurs.
--- NOTE | 2022-11-28 22:45 | ER ---
Nurse's Notes [facility] Name: Evelio Lay Age: 32 yrs Sex: Female : 1990 Arrival Date: 11/28/2022 Time: 21:13 Bed 20 Private MD: Diagnosis: Contusion of right lesser toe(s) without damage to nail, initial encounter-right second toe Presentation: 11/28 21:23 Chief complaint: Patient states: dropped shower head on 2nd toe of right foot last pm kl reports bruising swelling and increase in pain. Coronavirus screen: Vaccine status: Patient reports being unvaccinated. Ebola Screen: Patient negative for fever greater than or equal to 101.5 degrees Fahrenheit, and additional compatible Ebola Virus Disease symptoms. Initial Sepsis Screen: Does the patient meet any 2 criteria? No. Patient's initial sepsis screen is negative. Does the patient have a suspected source of infection? No. Patient's initial sepsis screen is negative. Risk Assessment: Do you want to hurt yourself or someone else? Patient reports no desire to harm self or others. Onset of symptoms was November 27, 2022 at 21:00. 21:23 Method Of Arrival: Ambulatory 21:23 Acuity: GHANSHYAM 4 Triage Assessment: 21:27 General: Appears in no apparent distress. Behavior is calm, cooperative. Pain: Complains of pain in right second toe Pain currently is 10 out of 10 on a pain scale. Aggravated by weight bearing. Musculoskeletal: Parent/caregiver report the patient having. Historical: - Allergies: 21:24 PENICILLINS; - Home Meds: 21:24 bladder spasm medication [Active]; - PMHx: 21:24 Kidney stone; - PSHx: 21:24 renal stent; kl - Immunization history:: Adult Immunizations not up to date. - Social history:: Smoking status: Patient denies any tobacco usage or history of. Screenin:25 [facility] ED Fall Risk Assessment (Adult) History of falling in the last 3 months, fu including since admission No falls in past 3 months (0 pts). Abuse screen: Denies threats or abuse. Nutritional screening: No deficits noted. Tuberculosis screening: No symptoms or risk factors identified. Assessment: 22:23 General: Appears in no apparent distress. Behavior is calm, cooperative, appropriate fu for age. Pain: Complains of pain in right foot and right second toe Pain does not radiate. Pain currently is 10 out of 10 on a pain scale. Quality of pain is described as tingling, Pain began 1 day ago. Neuro: Level of Consciousness is awake, alert, obeys commands, Oriented to person, place, time, situation. Derm: Skin is intact, swelling of right 2nd toe. Vital Signs: 21:23 BP 160 / 92; Pulse 56; Resp 18; Temp 97.9(O); Pulse Ox 100% ; Weight 102.06 kg (R); kl Height 4 ft. 11 in. ; Pain 10/10; 23:03 BP 114 / 86; Pulse 77; Resp 16; Pulse Ox 100% on R/A; kl 21:23 Body Mass Index 45.44 (102.06 kg, 149.86 cm) kl 21:23 Pain Scale: Adult kl ED Course: 21:18 Patient arrived in ED. [email or web address] 21:24 Triage completed. kl 21:41 Miguel Gregory PA is PHCP. cp 21:41 Miguel Palma MD is Attending Physician. cp 22:07 XRAY Foot RIGHT 3 View In Process Unspecified. EDMS 22:18 Amrik Cain RN is Primary Nurse. fu 22:25 Bed in low position. Call light in reach. Pulse ox on. NIBP on. fu 23:03 No provider procedures requiring assistance completed. Patient did not have IV access kl during this emergency room visit. 23:04 Arm band placed on right wrist. kl 23:08 Primary Nurse role handed off by Amrik Cain RN Administered Medications: 22:56 Drug: Ibuprofen PO 800 mg Route: PO; fu 23:10 Follow up: Response: Medication administered at discharge. fu Medication: 23:10 VIS not applicable for this client. fu Outcome: 22:45 Discharge ordered by MD. cp 23:04 Discharged to home ambulatory. 23:04 Condition: stable 23:04 Discharge instructions given to patient, Instructed on discharge instructions, follow up and referral plans. medication usage, Demonstrated understanding of instructions, follow-up care, medications, Prescriptions given X 1. 23:04 Patient left the ED. kl 23:11 Patient left the ED. fu Signatures: Dispatcher [employer] EDMS Aida Chapman RN RN kl Page, Corey, PA PA cp Umadhay, Felix, RN RN Prema Bean [email or web address]
--- NOTE | 2022-11-28 22:45 | EDPHYS ---
Physician Documentation [facility] Name: Evelio Lay Age: 32 yrs Sex: Female : 1990 Arrival Date: 11/28/2022 Time: 21:13 Bed 20 Private MD: ED Physician Miguel Palma HPI: 11/28 21:50 This 32 yrs old Female presents to ER via Ambulatory with complaints of Toe cp Injury. 21:50 The patient presents with a contusion. cp 21:50 The complaints affect the right second toe. Context: resulted from dropped shower head cp onto toe. 21:50 Onset: The symptoms/episode began/occurred yesterday. cp 21:50 Associated signs and symptoms: The patient has no apparent associated signs or symptoms.cp Historical: - Allergies: 21:24 PENICILLINS; kl - Home Meds: 21:24 bladder spasm medication [Active]; kl - PMHx: 21:24 Kidney stone; kl - PSHx: 21:24 renal stent; kl - Immunization history:: Adult Immunizations not up to date. - Social history:: Smoking status: Patient denies any tobacco usage or history of. ROS: 21:55 MS/extremity: Positive for pain, swelling, tenderness, of the right second toe, cp Negative for decreased range of motion, deformity, paresthesias. 21:55 Constitutional: Negative for fever. cp 21:55 Respiratory: Negative for cough, shortness of breath, wheezing. 21:55 Neuro: Negative for numbness. 21:55 All other systems are negative. Exam: 22:00 Constitutional: The patient appears in no acute distress, alert, awake, non-toxic, well cp developed, well nourished, obese. 22:00 Head/Face: Normocephalic, atraumatic. cp 22:00 Neck: ROM/movement: is normal, is supple, without pain, no range of motions limitations. 22:00 Chest/axilla: Inspection: normal. 22:00 Cardiovascular: Rate: bradycardic. 22:00 Respiratory: the patient does not display signs of respiratory distress, Respirations: normal. 22:00 Back: pain, is absent, ROM is normal. 22:00 Musculoskeletal/extremity: Extremities: grossly normal except: noted in the right second toe: pain, tenderness, mild swelling, mild ecchymosis noted, There is no evidence of decreased ROM, deformity, ROM: full active range of motion, in the right second toe, Perfusion: the extremity is normally perfused throughout, Sensation intact. Vital Signs: 21:23 BP 160 / 92; Pulse 56; Resp 18; Temp 97.9(O); Pulse Ox 100% ; Weight 102.06 kg (R); kl Height 4 ft. 11 in. ; Pain 10/10; 23:03 BP 114 / 86; Pulse 77; Resp 16; Pulse Ox 100% on R/A; kl 21:23 Body Mass Index 45.44 (102.06 kg, 149.86 cm) kl 21:23 Pain Scale: Adult kl MDM: 21:41 Patient medically screened. cp 22:00 Differential diagnosis: fracture, contusion, laceration. cp 22:45 Data reviewed: vital signs, nurses notes, radiologic studies, plain films. cp 22:45 I considered the following discharge prescriptions or medication management in the cp emergency department Medications were administered in the Emergency Department. See MAR. Counseling: I had a detailed discussion with the patient and/or guardian regarding: the historical points, exam findings, and any diagnostic results supporting the discharge/admit diagnosis, radiology results, to return to the emergency department if symptoms worsen or persist or if there are any questions or concerns that arise at home. Response to treatment: the patient's symptoms have mildly improved after treatment, and as a result, I will discharge patient. 11/28 21:43 Order name: XRAY Foot RIGHT 3 View cp 11/28 22:43 Order name: Crutches; Complete Time: 22:51 cp 11/28 22:43 Order name: Walking boot; Complete Time: 22:51 cp 11/28 22:52 Order name: Post-op shoe; Complete Time: 23:11 cp Administered Medications: 22:56 Drug: Ibuprofen PO 800 mg Route: PO; fu 23:10 Follow up: Response: Medication administered at discharge. fu Disposition Summary: 11/28/22 22:45 Discharge Ordered Location: Home cp Problem: new cp Symptoms: have improved cp Condition: Stable cp Diagnosis - Contusion of right lesser toe(s) without damage to nail, initial encounter - right cp second toe Followup: cp - With: Private Physician - When: 5 - 6 days - Reason: pain continues Discharge Instructions: - Discharge Summary Sheet cp - Foot Contusion cp Forms: - Work release form kl - Medication Reconciliation Form cp - Thank You Letter cp - Antibiotic Education cp - Prescription Opioid Use cp - Patient Portal Instructions cp - Leadership Thank You Letter cp Prescriptions: - Ibuprofen 800 mg Oral Tablet - take 1 tablet by ORAL route every 8 hours As needed take with food; 30 tablet; cp Refills: 0, Product Selection Permitted Signatures: Dispatcher [employer] EDOK Aida Chapman RN RN kl Page, Corey, PA PA cp Umadhay, Felix, RN RN fu Corrections: (The following items were deleted from the chart) 22:06 21:30 Foot Right 2 View+[email or web address] ordered. [facility] EDOK 11/29 15:10 15:09 This 32 yrs old Female presents to ER via Ambulatory with complaints of cp Toe Injury. cp
[2022-11-28] MEDS ORDERED: IBUPROFEN 400 MG TAB ONE ×2 (23:00→23:09)
[2022-11-28 23:24] VITALS: TEMP 97.9; O2SAT 100
[2022-11-28 23:25] VITALS: BP 114/86
== END 2022-11-28 23:11 | disposition home or self-care (01) ==
LOC: ER 21:13
DX: S90.121A Contusion of right lesser toe(s) without damage to nail, initial encounter (principal); Z88.0 Allergy status to penicillin
CPT/HCPCS: 99283

== ENCOUNTER 2023-01-23 18:21 | Observation (INO) | payer OTHER ==
--- OUTSIDE RECORDS SUMMARY | 2023-01-23 18:29 | XMS REPORT | Continuity of Care Document ---
:1990 Author Organization [facility] t Address [address] [facility]. [address] [place] [address] Care Team Providers Name Role Phone Asked, No Pcp Primary Care Physician Unavailable MICHAEL SORENSEN Attending Clinician Unavailable Marilyn Attending Clinician Unavailable Willian RODRÍGUEZ, Nithya Attending Clinician Unavailable Philipp RODRÍGUEZ, Karie Attending Clinician Unavailable Evangelina RIBEIRO, [facility] Barbara Attending Clinician Chantal Lambert MD Attending Clinician [phone] Clara Mackay MD Attending Clinician Geoff RIBEIRO, Hayde Abdul Attending Clinician [phone] Bjorn Mcintosh MD Attending Clinician Marcio Elizabeth CRNA Attending Clinician [phone] Donny Lopez MD Attending Clinician ESSENCE ALONSO Attending Clinician Unavailable YENI OCONNELL Attending Clinician Unavailable Alessandra RIBEIRO, Yeni Bautista Attending Clinician NORIS PONCE Attending Clinician Unavailable Arleth George RN Attending Clinician Doctor Unassigned, Eagan Attending Clinician Unavailable Brigette Lambert LVN Attending Clinician ELIESER GRACE [...] Attending Clinician Kaylee Garcia DO Attending Clinician Soo Mcgee RN Attending Clinician Unavailable ALBERT PATEL Attending Clinician Unavailable Only, Ang Db Test Attending Clinician Unavailable Dnany TABLE LEVER OPERATORAlbert Attending Clinician MICHAEL SORENSEN Admitting Clinician Unavailable Mineo_M Admitting Clinician Unavailable HAYDE TELLEZ Admitting Clinician Unavailable NORIS PONCE Admitting Clinician Unavailable JAYME ORTEGA Admitting Clinician Unavailable Jayme Ortega MD Admitting Clinician Michael Sorensen MD Admitting Clinician Lou LAI Admitting Clinician Unavailable Payers Payer Name Policy Type Policy Number Effective Date Expiration Date S meg [place] [id number] 2018 00:00:00 [place] [id number] [facility]OM[facility]'S HE[facility] PRO[facility] (MEDICAID) [facility] PENDING 2021 00:00:00 Problems Condition Condition Condition Status Onset Resolution Last Treating Co mments Source Name Details Category Date Date Treatment Clinician Date Pyelonephr Pyelonephr Disease Active M ethodi itis itis 11-05 00:00: Hospita 00 l Ureteral Ureteral Disease Active Metho di stent stent 11-05 present present 00:00: Hospita 00 l Fever and Fever and Disease Active 2021-04 Uni vers chills chills 2-29 ity of 00:00: [place] 00 Medical Branch Right Right Disease Active 2021-04 Univers ureteral ureteral 2-08 ity of stone stone 00:00: [place] [facility] Morbid Morbid Disease Active 2021-04 Univers obesity obesity 2-08 [place] of with body [place] mass [place] mass index 00 Me dical of of Branch 40.0-49.9 40.0-49.9 Asthma Asthma Disease Active Overview: Univer s 3-27 Formattin ity of 00:00: g of this [place] 00 note Medical might be Branch different from the original. 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 Allergies, Adverse Reactions, Alerts Allergy Allergy Status Severity Reaction(s) Onset Inactive Treating Comm ents Source Name Type Date Date Clinician Amoxicil Allergy Active Hives [place] denzel to 11-05 [facility] 00:[facility]: Urology e 00 Amoxicil Propensi Active Hives Method i denzel ty to 11-05 st adverse 00:00: Hospita reaction 00 l s to drug Penicill Propensi Active Hives Method i ins ty to 11-05 st adverse 00:00: Hospita reaction 00 l s to drug PENICILL Allergy Active Hives [place] INS to 11-05 [facility] 00:00: Urology e 00 AMOXICIL Allergy Active High Hives [facility] PENICILL Allergy Active High Hives [facility] Amoxicil Drug Active Hives [facility] Penicill Drug Active Hives [facility] Penicill DA Active ME 2019-0 [facility] [place] amoxicil DA Active ME 2019-0 [facility] [place] Penicill Propensi Active Rash 2007-0 Univer s ins ty to 1-12 ity of adverse 00:00: [place] reaction 00 Medical s Branch Penicill Propensi Active Rash 2007-0 Univer s ins ty to 1-12 ity of adverse 00:00: [place] reaction 00 Medical s Branch Amoxicil Propensi Active Rash 2007-0 Univer s denzel ty to 1-12 ity of adverse 00:00: [place] reaction 00 Medical s Branch Penicill Propensi Active Rash 2007-0 Univer s ins ty to 1-12 ity of adverse 00:00: [place] reaction 00 Medical s Branch Penicill Drug Active Hives 2007-0 Univers ins Allergy 1-12 ity of 00:00: [place] 00 Medical Branch AMOXICIL DRUG Active Rash 2007-0 Univers DENZEL INGREDI 1-12 ity of 00:00: [place] 00 Medical Branch PENICILL Drug Active High Rash 2007-0 Univers INS Class 1-12 ity of 00:00: [place] 00 Medical Branch Social History Social Habit Start Date Stop Date Quantity Comments Source History of tobacco Cigarette Smoker [facility] Gender identity [facility] History SDOH Social [facility] Med ical Together Branch History SDOH Social [facility] Medical Branch History SDOH Social [facility] Medical Membership Branch History SDOH Social [facility] Medical Meetings Branch Sexual orientation [facility] Alcohol intake 2022-11-07 2022-11-07 [facility] 00:[facility]:00 00:00:00 Hospital History of Social 2022-11-07 2022-11-[address] function 00:00:00 00:00:00 Hospital Tobacco use and 2022-11-06 2022-11-06 Smokeless [facility] exposure 00:00:00 00:00:00 tobacco non-user Hospital Exposure to 2022-04-14 2022-04-24 Not sure University of SARS-CoV-2 (event) 00:00:00 15:23:00 [place] [facility] History SDOH 2022-04-17 2022-04-17 1 University o f Alcohol Frequency 00:00:00 00:00:00 [place] M edical [facility] History SDOH 2022-04-17 2022-04-17 0 University o f Alcohol Std Drinks 00:00:00 00:00:00 [place] [facility] History SDOH 2022-04-17 2022-04-17 1 University o f Alcohol Binge 00:00:00 00:00:00 [place] [facility] History SDOH Social 2022-04-17 2022-04-17 5 [facility]ive rsity of [facility] Phone 00:00:00 00:00:00 [place] M edical Branch History SDOH Social 2022-04-17 2022-04-17 7 [facility]ive rs[facility] Living 00:00:00 00:00:00 [place] [facility] History SDOH 2022-04-17 2022-04-17 5 University o f Physical Activity 00:00:00 00:00:00 [facility] edical DPW Branch History SDGA 2022-04-17 2022-04-17 6 University o f Physical Activity 00:00:00 00:00:00 [facility] edical MPS Branch History SDGA Food 2022-04-17 2022-04-17 1 Univers ity of Worry 00:00:00 00:00:00 [place] [facility] History SDGA Food 2022-04-17 2022-04-17 1 Univers ity of Scarcity 00:00:00 00:00:00 [place] [facility] History SDGA 2022-04-17 2022-04-17 2 University o f Transport Med 00:00:00 00:00:00 [place] [facility] al [facility] History SDGA 2022-04-17 2022-04-17 2 University o f Transport Non-Med 00:00:00 00:00:00 [facility] edical Branch Sex Assigned At [address] [facility] 00:[facility]00 [facility] Smoking Status Start Date Stop Date Source Never Smoker Wilder Favio Talon gandara Ex-smoker 2022-11-06 00:00:00 2022-11-06 00:00:00 [facility] Medications Ordered Filled Start Stop Current Ordering Indication Dosage Frequency Signature Comments Components Source Medication Medication Date Date Medication? Clinician (SIG) Name Name tamsulosin 0 2023- Yes .4mg QD Take 1 Meth tess (FLOMAX) 11-[address] 0.4 mg 00:00: 04:59 (0.4 mg Hospita capsule 00 :00 total) by l mouth daily for 30 days. oxyBUTYnin 2022- Yes 10mg QD Take 2 Meth tess XL 11-[address] (Ditropan 00:00: 04:59 (10 mg Hospi ta XL) 5 MG 24 00 :00 total) by l hr tablet mouth daily for 30 days. tamsulosin 2022- No .4mg QD Take 1 Meth tess (FLOMAX) 11-[address] 0.4 mg 00:00: 04:59 (0.4 mg Hospita capsule 00 :00 total) by l mouth daily for 30 days. oxyBUTYnin 2022- No 10mg QD Take 2 Meth tess XL 11-[address] (Ditropan 00:00: 04:59 (10 mg Hospi ta XL) 5 MG 24 00 :00 total) by l hr tablet mouth daily for 30 days. acetaminoph 2022- [place] [id number] 1{tbl} Q4H Take 1 Methodi en-codeine 11-[address] (TYLENOL 00:00: 04:59 mouth Hospita WITH 00 :00 every 4 l CODEINE #3) (four) 300-30 mg hours as per tablet needed for severe pain for up to 10 days .acute pain. acetaminoph 2022- [place] [id number] 1{tbl} Q4H Take 1 Methodi en-codeine 11-07 [...] mg per day for 5 tablet days. sulfamethox 3-0 3- No 1{tbl} Q.5D Take 1 M ethodi azole-trime 11-[address] thoprim 00:00: 04:59 mouth 2 Hospit a (Bactrim 00 :00 (two) l DS) 800-160 times a mg per day for 5 tablet days. phenazopyri 3-0 3- No 100mg Q.[id number] Take 1 Methodi dine 11-[id number] (Pyridium) 00:00: 04:59 3D (100 mg Hos shaheen 100 MG 00 :00 total) by l tablet mouth 3 (three) times a day as needed for bladder spasms for up to 3 days. phenazopyri 3-0 2022- No 100mg Q.[id number] Take 1 Methodi dine 11-[id number] (Pyridium) 00:00: 04:59 3D (100 mg Hos shaheen 100 MG 00 :00 total) by l tablet mouth 3 (three) times a day as needed for bladder spasms for up to 3 days. HYDROcodone 3-0 Yes 1{tbl} Take [address] -acetaminop 7-17 tablet by Dante alonso (NORCO 00:00: mouth Medica l 5-325) 00 every 6 Center 5-325 mg (six) per tablet hours as needed for Pain for up to 8 doses. Max Daily Amount: 4 tablets HYDROcodone 3-0 Yes 1{tbl} Take [address] -acetaminop 7-17 tablet by Dante es celeste (NORCO 00:00: mouth Medica l 5-325) 00 every 6 Center 5-325 mg (six) per tablet hours as needed for Pain for up to 8 doses. Max Daily Amount: 4 tablets tamsulosin 2023-0 2023- No .4mg QD Take [address] (FLOMAX) 11-03 capsule [facility] 0.4 mg Cap 00:00: 23:59 (0.4 mg Med ical 24 hr 00 :00 total) by Center capsule mouth daily for 14 days. tamsulosin 2023-0 2023- No .4mg QD Take [address] [...] for Pain for up to 5 days. ketorolac 2022- No 10mg Take 1 [facility] (TORADOL) 11-03 tablet (10 Dante es 10 mg 00:00: 23:59 mg total) Medica l tablet 00 :00 by mouth Center every 6 (six) hours as needed for Pain for up to 5 days. cefTRIAXone 2022- No 1000mg 1,000 mg, Univers (ROCEPHIN) 10-21 IV ity of 1,000 mg in 09:30: 10:28 [place], [place] NaCl 0.9% 00 :00 ONCE, 1 Medical (NS) 100 mL dose, On Bran ch MINI-BAG Thu10/21/22 at 0430, Administer over 30 Minutes, 100 mL
Reas on for Anti-Infec tive: Documented Infection< br>Documen azeem Infection Site: Urine<br&g t;Duration of Therapy: Other (see Comments) iopamidol 2022- No [id number] 100mL 100 mL, Univers (ISOVUE 10-21 Intravenou ity o f 370-500 mL) 08:15: 08:30 s, ONCE, 1 [place] injection 00 :00 dose, On Medica l 100 mL Thu10/21/22 Branch at 0330, Routine morpHINE (4 2022- No 4mg 4 mg, Slow Univers mg/mL) 10-21 IV Push, ity of injection 4 08:00: 08:03 ONCE, 1 [place] mg 00 :00 dose, On Medical Thu10/21/22 Branch at 0300, STAT ondansetron 2022- No 4mg 4 mg, Slow Univers (ZOFRAN 10-21 IV Push, ity of (PF)) 07:45: 07:49 ONCE, 1 [place] injection 4 00 :00 dose, On Medi jasmin mg 10/21/22 Branch at 0245, MERLENE cefpodoxime 2022- No [id number] 200mg Take 1 Univers 200 mg 10-2115 tablet by ity of tablet 00:00: 04:59 mouth in [place] 00 :00 the Medical morning Branch and 1 tablet in the evening. Do all this for 10 days. ketorolac 2022- No [id number] 10mg Take 1 U nivers 10 mg 10-2109 tablet by ity of tablet 00:00: 04:59 mouth in [place] 00 :00 the Medical morning Branch and 1 tablet in the evening. Do all this for 4 days. ketorolac 2021-04 No 15mg 15 mg, Unive rs (TORADOL) 04-19 Slow IV ity of injection 16:00: 16:26 Push, [place] 15 mg 00 :00 ONCE, 1 Medical dose, On Branch 04/19/22 at 1015, Routine butalbital- 2021-04- No 1{tbl} 1 tablet, Univers acetaminoph 04-19 Oral, ity of en-caff 09:30: 09:02 ONCE, 1 [place] (ESGIC) 00 :00 dose, On Medical 50-325-40 Sat Branch mg tablet 1 04/19/22 tablet at 0330, Routine ciprofloxac 2021-04 Yes [id number] 500mg Take 1 Univers in HCl 500 2-31 tablet by ity of mg tablet 00:00: mouth [place] 00 every 12 Medical (twelve) Branch hours. ciprofloxac 2021-04 Yes [id number] 500mg Take 1 Univers in HCl 500 2-31 tablet by ity of mg tablet 00:00: mouth [place] 00 every 12 Medical (twelve) Branch hours. ciprofloxac 2021-04 Yes [id number] 500mg Take 1 Univers in HCl 500 2-31 tablet by ity of mg tablet 00:00: mouth [place] 00 every 12 Medical (twelve) Branch hours. ciprofloxac 2021-04 Yes [id number] 500mg Take 1 Univers in HCl 500 2-31 tablet by ity of mg tablet 00:00: mouth [place] 00 every 12 Medical (twelve) Branch hours. ciprofloxac 2021-04 Yes [id number] 500mg Take 1 Univers in HCl 500 2-31 tablet by ity of mg tablet 00:00: mouth [place] 00 every 12 Medical (twelve) Branch hours. ciprofloxac 2021-04 Yes [id number] 500mg Take 1 Univers in HCl 500 2-31 tablet by ity of mg tablet 00:00: mouth [place] 00 every 12 Medical (twelve) Branch hours. ciprofloxac 2021-04 Yes [id number] 500mg Take 1 Univers in HCl 500 2-31 tablet by ity of mg tablet 00:00: mouth [place] 00 every 12 Medical (twelve) Branch hours. ciprofloxac 2021-04- No [id number] 500mg Take 1 Univers in HCl 500 2-31 12-31 tablet by ity of mg tablet 00:00: 00:00 mouth [place] 00 :00 every 12 Medical (twelve) Branch hours. acetaminoph 2021-04 Yes 650mg 650 mg, Un siobhan en 2-30 Oral, ity of (TYLENOL) 05:00: Q4HPRN, [place] tablet 650 00 Starting Medic al mg on Sujey Branch 04/17/22 at 2300, Until Discontinu ed, Routine, Pain (scale 1-3) ceFEPIme 2021-04 No 2000mg 2,000 mg, U nivers (MAXIPIME) 2-30 01-04 IV ity of 2,000 mg in 05:00: 04:59 Piggyback, [place] NaCl 0.9% 00 :00 Q12H ABX, Medic [...] IV Push, ity of (PF)) 18:55: Q6HPRN, [place] injection 4 59 Nausea and Me dical mg Vomiting Branch (N/V), Starting on Sujey 04/17/22 at 1255
Do ses of ondansetro n 16 mg and above need to be administer ed via IV piggyback. For Dose >=24mg ECG monitoring is advisable.
ceFEPIme 2021-04 No 2000mg 2,000 mg, U nivers (MAXIPIME) 04-17 IV ity of 2,000 mg in 16:45: 17:15 [place], [place] NaCl 0.9% 00 :00 ONCE, 1 Medical (NS) 50 mL dose, On Branc h MINI-BAG [facility] 04/17/22 at 1045, Administer over 30 Minutes, 50 mL
Reas on for Anti-Infec tive: Documented Infection< br>Documen azeem Infection Site: Urine<br&g t;Duration of Therapy: 7 days acetaminoph 2021-04 No 650mg 650 mg, U nivers en 04-18 Oral, ity of (TYLENOL) 15:12: 04:52 Q6HPRN, [place] tablet 650 00 :14 Starting Medic al mg on Sujey Branch 04/17/22 at 0912, Until Sujey 04/17/22 at 2252, Routine, Pain (scale 1-3) NaCl 0.9% 2021-04 No 1000mL at 999 Uni vers (NS) bolus 04-17 mL/hr, ity of infusion 11:15: 13:16 1,000 mL, [place] as 1,000 mL 00 :00 IV Medical Infusion, Branch ONCE, 1 dose, On Sujey 04/17/22 at 0515, STAT ketorolac 2021-04 No 30mg 30 mg, Unive rs (TORADOL) 04-17 Slow IV ity of injection 11:15: 10:25 Push, [place] 30 mg 00 :00 ONCE, 1 Medical dose, On Branch Sujey 04/17/22 at 0515, Routine iopamidol 2021-04- No [id number] 100mL 100 mL, Univers (ISOVUE 04-17 Intravenou ity o f 370-500 mL) 10:15: 10:15 s, ONCE, 1 [place] injection 00 :00 dose, On Medica l 100 mL Sujey [place] 04/17/22 at 0415, Routine cefTRIAXone 2021-04- No 1000mg 1,000 mg, Univers (ROCEPHIN) 04-17 IV ity of 1,000 mg in 09:15: 09:45 [place], [place] NaCl 0.9% 00 :00 ONCE, 1 Medical (NS) 50 mL dose, On Bran h MINI-BAG [facility] 04/17/22 at 0315, Administer over 30 Minutes, 50 mL
Reas on for Anti-Infec tive: Documented Infection< br>Documen azeem Infection Site: Urine<br&g t;Duration of Therapy: Other (see Comments) NaCl 0.9% 2021-04 No 1000mL at 999 [...] :00 dose, On Medical 1,000 mg Sujey [place] 04/17/22 at 0230, MERLENE tamsulosin 2021-04 Yes [id number] .4mg Take 1 U nivers 0.4 mg 24 2-20 capsule by ity of hr capsule 00:00: mouth in [place] 00 the Medical morning. Branch tamsulosin 2021-04 Yes [id number] .4mg Take 1 U nivers 0.4 mg 24 2-20 capsule by ity of hr capsule 00:00: mouth in [place] 00 the Medical morning. Branch tamsulosin 2021-04 Yes [id number] .4mg Take 1 U nivers 0.4 mg 24 2-20 capsule by ity of hr capsule 00:00: mouth in [place] 00 the Medical morning. Branch tamsulosin 2021-04 Yes [id number] .4mg Take 1 U nivers 0.4 mg 24 2-20 capsule by ity of hr capsule 00:00: mouth in [place] 00 the Medical morning. Branch tamsulosin 2021-04 Yes [id number] .4mg Take 1 U nivers 0.4 mg 24 2-20 capsule by ity of hr capsule 00:00: mouth in [place] 00 the Medical morning. Branch tamsulosin 2021-04 Yes [id number] .4mg Take 1 U nivers 0.4 mg 24 2-20 capsule by ity of hr capsule 00:00: mouth in [place] 00 the Medical morning. Branch tamsulosin 2021-04 Yes [id number] .4mg Take 1 U nivers 0.4 mg 24 2-20 capsule by ity of hr capsule 00:00: mouth in [place] 00 the Medical morning. Branch tamsulosin 2021-04 Yes [id number] .4mg Take 1 U nivers 0.4 mg 24 2-20 capsule by ity of hr capsule 00:00: mouth in [place] 00 the Medical morning. Branch tamsulosin 2021-04 Yes [id number] .4mg Take 1 U nivers 0.4 mg 24 2-20 capsule by ity of hr capsule 00:00: mouth in [place] 00 the Medical morning. Branch cefTRIAXone 2021-04- No 2000mg 2,000 mg, Univers (ROCEPHIN) 05-29 12-11 Intravenou it y of 2,000 mg in [...] 2021-04 No 2000mg 2,000 mg, Univers (ROCEPHIN) 2-09 12-09 Intravenou it y of 2,000 mg in 10:00: 04:02 s, Q24H [place] water for 00 :54 ABX, 2 Medical injection, doses, Branch sterile 20 First dose mL SIVP (after syringe last modificati on) on 03/28/22 at 0400, Last dose on 03/29/22 at 0400, 20 mL
Reas on for Anti-Infec tive: Empiric Therapy for Suspected Infection< br>Empiric Therapy Site: Urine
D uration of therapy: 72 hours sodium 2021-04- No PRN, Univers chloride 05-28 Starting ity of 0.9 % 21:18: 22:27 on Sujey [place] irrigation 00 :11 03/27/22 at Med ical solution 1518, Branch Until Sujey 03/27/22 at 1627, Intra-op acetaminoph 2021-04 Yes 650mg 650 mg, Un siobhan en 08 Oral, Q6H, ity of (TYLENOL) 12:00: First dose [place] tablet 650 00 on Sujey Medical mg 03/27/22 at Branch 0600, Until Discontinu ed, Routine acetaminoph 2021-04- No 650mg 650 mg, U nivers en 05-2809 Oral, Q6H, ity of (TYLENOL) 12:00: 04:02 First dose [place] tablet 650 00 :54 on Sujey Medical mg 03/27/22 at Branch 0600, Until Discontinu ed, Routine NaCl 0.9% 2021-04- No 1000mL at 999 Uni vers (NS) bolus 05-28 mL/hr, ity of infusion 10:45: 11:41 1,000 mL, [place] 1,000 mL 00 :00 IV Medical [facility] [place] ONCE, 1 dose, On Sujey 03/27/22 at 0445, STAT NaCl 0.9% 2021-04- No 1000mL at 999 Uni vers (NS) bolus 05-2808 mL/hr, ity of infusion 10:45: 11:41 1,000 mL, [place] 1,000 mL 00 :00 IV Medical [facility] [place] ONCE, 1 dose, On Sujey 03/27/22 at 0445, STAT NaCl 0.9% 2021-04 Yes 1000mL at 150 Univ ers (NS) IV 2-08 mL/hr, IV ity of infusion 09:45: Infusion, [place] 1,000 mL 00 CONTINUOUS Medic al , Starting Branch on Sujey 03/27/22 at 0345, Until Discontinu ed, Routine NaCl 0.9% 2021-04- No 1000mL at 150 Uni vers (NS) IV 05-28- mL/hr, IV ity of infusion 09:45: 04:02 Infusion, [place] 1,000 mL 00 :54 CONTINUOUS Medic al , Starting Branch on Sujey 03/27/22 at 0345, Until [place] 03/27/22 at 2202, Routine ketorolac 2021-04- No 15mg 15 mg, Unive rs (TORADOL) 05-2813 Slow IV ity of injection 09:41: 05:59 [place], [place] 15 mg 50 :00 Q6HPRN, 4 Medical doses, Branch Starting on Sujey 03/27/22 at 0341, Until 03/31/22 at 2359, Routine, Pain (scale 7-10) ketorolac 2021-04- No 15mg 15 mg, Unive rs (TORADOL) 05-28 Slow IV ity of injection 09:41: 04:02 Push, [place] 15 mg 50 :54 Q6HPRN, 4 Medical doses, Branch Starting on Sujey 03/27/22 at 0341, Until [place] 03/27/22 at 2202, Routine, Pain (scale 7-10) ondansetron 2021-04 Yes 4mg 4 mg, Slow Univers (ZOFRAN 208 IV Push, ity of (PF)) 09:40: Q4HPRN, [place] injection 4 26 Starting Medi jasmin mg on [place] Branch 03/27/22 at 0340, Until Discontinu ed, Routine, Nausea and Vomiting (N/V) ondansetron 2021-04 No 4mg 4 mg, Slow Univers (ZOFRAN 203-28 IV Push, ity of (PF)) 09:40: 04:02 Q4HPRN, [place] injection 4 26 :54 Starting Medi jasmin mg on Sujey Branch 03/27/22 at 0340, Until [place] 03/27/22 at 2202, Routine, Nausea and Vomiting (N/V) cefTRIAXone 2021-04- No 1000mg 1,000 mg, Univers (ROCEPHIN) 05-28 IV ity of 1,000 mg in 06:15: 06:03 [place], [place] NaCl 0.9% 00 :00 ONCE, 1 Medical (NS) 50 mL dose, On Bran h MINI-BAG [facility] 03/27/22 at 0015, Administer over 30 Minutes, 50 mL
Reas on for Anti-Infec tive: Documented Infection< br>Documen azeem Infection Site: Urine<br&g t;Duration of Therapy: Other (see Comments) iopamidol 2021-04- No [id number] 100mL 100 mL, Univers (ISOVUE 05-28 Intravenou ity o f 370-500 mL) 05:30: 05:30 s, ONCE, 1 [place] injection 00 :00 dose, On Medica l 100 mL Wed [place] 03/26/22 at 2330, Routine ketorolac 2021-04- No 30mg 30 mg, Unive rs (TORADOL) 05-28 Slow IV ity of injection 04:45: 04:08 Push, [place] 30 mg 00 :00 ONCE, 1 Medical dose, On Branch [facility] 03/26/22 at 2245, Routine ibuprofen 2021-04 Yes [id number] 400mg Take 2 U nivers 200 mg 2-08 tablets by ity of tablet 00:00: mouth [place] 00 every 6 Medical (six) Branch hours as needed for Pain (scale 1-3). gabapentin 2021-04 Yes [id number] 300mg Take 1 Univers 300 mg 2-08 capsule by ity of capsule 00:00: mouth [place] 00 every 8 Medical (eight) Branch hours as needed for Pain (scale 4-6). tamsulosin 2021-04 Yes [id number] .4mg Take 1 U nivers 0.4 mg 24 2-08 capsule by ity of hr capsule 00:00: mouth in [place] 00 the Medical morning. Branch oxybutynin 2021-04 Yes [id number] 5mg Take 1 U nivers chloride 5 2-08 tablet by ity of mg tablet 00:00: mouth 3 (three) Medical times Branch daily as needed for Bladder spasms. ibuprofen 2021-04 Yes [id number] 400mg Take 2 U nivers 200 mg 2-08 tablets by ity of tablet 00:00: mouth [place] 00 every 6 Medical (six) Branch hours as needed for Pain (scale 1-3). gabapentin 2021-04 Yes [id number] 300mg Take 1 Univers 300 mg 2-08 capsule by ity of capsule 00:00: mouth [place] 00 every 8 Medical (eight) Branch hours as needed for Pain (scale 4-6). tamsulosin 2021-04 Yes [id number] .4mg Take 1 U nivers 0.4 mg 24 2-08 capsule by ity of hr capsule 00:00: mouth in [place] 00 the Medical morning. Branch oxybutynin 2021-04 Yes [id number] 5mg Take 1 U nivers chloride 5 2-08 tablet by ity of mg tablet 00:00: mouth 3 (three) Medical times Branch daily as needed for Bladder spasms. ibuprofen 2021-04 Yes [id number] 400mg Take 2 U nivers 200 mg 2-08 tablets by ity of tablet 00:00: mouth [place] 00 every 6 Medical (six) Branch hours as needed for Pain (scale 1-3). gabapentin 2021-04 Yes [id number] 300mg Take 1 Univers 300 mg 2-08 capsule by ity of capsule 00:00: mouth [place] 00 every 8 Medical (eight) Branch hours as needed for Pain (scale 4-6). oxybutynin 2021-04 Yes [id number] 5mg Take 1 U nivers chloride 5 2-08 tablet by ity of mg tablet 00:00: mouth 3 00 (three) Medical times Branch daily as needed for Bladder spasms. ibuprofen 2021-04 Yes [id number] 400mg Take 2 U nivers 200 mg 2-08 tablets by ity of tablet 00:00: mouth [place] 00 every 6 Medical (six) Branch hours as needed for Pain (scale 1-3). gabapentin 2021-04 Yes [id number] 300mg Take 1 Univers 300 mg 2-08 capsule by ity of capsule 00:00: mouth [place] 00 every 8 Medical (eight) Branch hours as needed for Pain (scale 4-6). oxybutynin 2022-1 Yes [id number] 5mg Take 1 U nivers chloride 5 2-08 tablet by ity of mg tablet 00:00: mouth 3 (three) Medical times Branch daily as needed for Bladder spasms. gabapentin 2021-04 Yes [id number] 300mg Take 1 Univers 300 mg 2-08 capsule by ity of capsule 00:00: mouth [place] 00 every 8 Medical (eight) Branch hours as needed for Pain (scale 4-6). oxybutynin 2021-04 Yes [id number] 5mg Take 1 U nivers chloride 5 2-08 tablet by ity of mg tablet 00:00: mouth 3 (three) Medical times Branch daily as needed for Bladder spasms. gabapentin 2021-04 Yes [id number] 300mg Take 1 Univers 300 mg 2-08 capsule by ity of capsule 00:00: mouth [place] 00 every 8 Medical (eight) Branch hours as needed for Pain (scale 4-6). oxybutynin 2021-04 Yes [id number] 5mg Take 1 U nivers chloride 5 2-08 tablet by ity of mg tablet 00:00: mouth (three) Medical times Branch daily as needed for Bladder spasms. gabapentin 2021-04 Yes [id number] 300mg Take 1 Univers 300 mg 2-08 capsule by ity of capsule 00:00: mouth [place] 00 every 8 Medical (eight) Branch hours as needed for Pain (scale 4-6). oxybutynin 2021-04 Yes [id number] 5mg Take 1 U nivers chloride 5 2-08 tablet by ity of mg tablet 00:00: mouth 3 (three) Medical times Branch daily as needed for Bladder spasms. gabapentin 2021-04 Yes [id number] 300mg Take 1 Univers 300 mg 2-08 capsule by ity of capsule 00:00: mouth [place] 00 every 8 Medical (eight) Branch hours as needed for Pain (scale 4-6). oxybutynin 2021-04 Yes [id number] 5mg Take 1 U nivers chloride 5 2-08 tablet by ity of mg tablet 00:00: mouth 3 (three) Medical times Branch daily as needed for Bladder spasms. gabapentin 2021-04 Yes [id number] 300mg Take 1 Univers 300 mg 2-08 capsule by ity of capsule 00:00: mouth [place] 00 every 8 Medical (eight) Branch hours as needed for Pain (scale 4-6). oxybutynin 2021-04 Yes [id number] 5mg Take 1 U nivers chloride 5 2-08 tablet by ity of mg tablet 00:00: mouth 3 [place] 00 (three) Medical times Branch daily as needed for Bladder spasms. gabapentin 2021-04 Yes [id number] 300mg Take 1 Univers 300 mg 2-08 capsule by ity of capsule 00:00: mouth [place] 00 every 8 Medical (eight) Branch hours as needed for Pain (scale 4-6). oxybutynin 2021-04 Yes [id number] 5mg Take 1 U nivers chloride 5 2-08 tablet by ity of mg tablet 00:00: mouth 3 [place] 00 (three) Medical times Branch daily as needed for Bladder spasms. gabapentin 2021-04 Yes [id number] 300mg Take 1 [facility] 300 mg 2-08 capsule by ity of capsule 00:00: mouth [place] 00 every 8 Medical (eight) Branch hours as needed for Pain (scale 4-6). oxybutynin 2021-04 Yes [id number] 5mg Take 1 U nivers chloride 5 2-08 tablet by ity of mg tablet 00:00: mouth 3 [place] 00 (three) Medical times Branch daily as needed for Bladder spasms. acetaminoph 2021-04- No [id number] 650mg Take 2 Univers en 2- 12-09 tablets by ity of (TYLENOL) 00:00: 05:59 mouth [place] 325 mg 00 :00 every 6 Medical tablet (six) Branch hours as needed for Pain (scale 4-6). acetaminoph 2021-04- No [id number] 650mg Take 2 Univers en 2- 12-09 tablets by ity of (TYLENOL) 00:00: 05:59 mouth [place] 325 mg 00 :00 every 6 Medical tablet (six) Branch hours as needed for Pain (scale 4-6). acetaminoph 2021-04- No [id number] 650mg Take 2 Univers en 2-08 12-09 tablets by ity of (TYLENOL) 00:00: 05:59 mouth [place] 325 mg 00 :00 every 6 Medical tablet (six) Branch hours as needed for Pain (scale 4-6). acetaminoph 2021-04- No [id number] 650mg Take 2 Univers en 2-08 12-09 tablets by ity of (TYLENOL) 00:00: 05:59 mouth [place] 325 mg 00 :00 every 6 Medical tablet (six) Branch hours as needed for Pain (scale 4-6). acetaminoph 2021-04- No [id number] 650mg Take 2 Univers en 05-28- tablets by ity of (TYLENOL) 00:00: 00:00 mouth [place] 325 mg 00 :00 every 6 Medical tablet (six) Branch hours as needed for Pain (scale 4-6). ibuprofen 2021-04- No [id number] 400mg Take 2 Univers 200 mg 05-28 tablets by ity of tablet 00:00: 00:00 mouth [place] 00 :00 every 6 Medical (six) Branch hours as needed for Pain (scale 1-3). tamsulosin 2021-04- No [id number] .4mg Take 1 Univers 0.4 mg 24 05-28 capsule by ity of hr capsule 00:00: 00:00 [place] 00 :00 the Medical morning. Branch sulfamethox 2021-04- No [id number] 1{tbl} Take 1 Univers azole-trime 05-28-16 tablet by it y of thoprim 00:00: 05:59 mouth in [place] (BACTRIM 00 :00 the Medical ) 800-160 morning Branc h mg per and 1 tablet tablet in the evening. Do all this for 7 days. sulfamethox 2021-04- No [id number] 1{tbl} Take 1 Univers azole-trime - 12-16 tablet by it y of thoprim 00:00: 05:59 mouth in [place] (BACTRIM 00 :00 the Medical DS) 800-160 morning Branc h mg per and 1 tablet tablet in the evening. Do all this for 7 days. sulfamethox 2021-04- No [id number] 1{tbl} Take 1 Univers azole-trime 2- 12-16 tablet by it y of thoprim 00:00: 05:59 mouth in [place] (BACTRIM 00 :00 the Medical DS) 800-160 morning Branc h mg per and 1 tablet tablet in the evening. Do all this for 7 days. iopamidol 2021- No [id number] 100mL 100 mL, Univers (ISOVUE 11-25 Intravenou [...] :00 dose, On Medical Thu11/25/21 Branch at 0215, MERLENE
Re ason for Anti-Infec tive: Documented Infection< br>Documen azeem Infection Site: Urine
D uration of Therapy: Other (see Comments) ondansetron 2021- No 4mg 4 mg, Slow Univers (ZOFRAN 11-25 IV Push, ity of (PF)) 05:25: 05:34 ONCE, 1 [place] injection 4 00 :00 dose, On Medi jasmin mg Thu11/25/21 Branch at 0030, MERLENE morpHINE (4 2021- No 4mg 4 mg, Slow Univers mg/mL) 11-25 IV Push, ity of injection 4 05:25: 05:34 ONCE, 1 [place] mg 00 :00 dose, On Medical Thu11/25/21 Branch at 0030, STAT 2021- No Take by Unive rs vit 11-25 mouth. ity of calc,iron,f 00:14: 00:00 [place] olic 33 :00 Medical ( Branch VITAMIN ORAL) ibuprofen Yes [id number] 600mg Take 1 U nivers 600 mg 11-25 tablet by ity of tablet 00:00: mouth [place] 00 every 6 Medical (six) Branch hours as needed for Pain (scale 4-6). ondansetron 2021-0 Yes [id number] 4mg Take 1 Univers 4 mg 8-08 tablet by ity of disintegrat 00:00: mouth [place] ing tablet 00 every 8 Medica l (eight) Branch hours as needed for Nausea and Vomiting (N/V). ibuprofen 2022-0 Yes [id number] 600mg Take 1 U nivers 600 mg 8-08 tablet by ity of tablet 00:00: mouth [place] 00 every 6 Medical (six) Branch hours as needed for Pain (scale 4-6). ondansetron 2022-0 Yes [id number] 4mg Take 1 Univers 4 mg 8-08 tablet by ity of disintegrat 00:00: mouth [place] ing tablet 00 every 8 Medica l (eight) Branch hours as needed for Nausea and Vomiting (N/V). ibuprofen 2022-0 Yes [id number] 600mg Take 1 U nivers 600 mg 8-08 tablet by ity of tablet 00:00: mouth [place] 00 every 6 Medical (six) Branch hours as needed for Pain (scale 4-6). ondansetron 2022-0 Yes [id number] 4mg Take 1 Univers 4 mg 8-08 tablet by ity of disintegrat 00:00: mouth [place] ing tablet 00 every 8 Medica l (eight) Branch hours as needed for Nausea and Vomiting (N/V). ibuprofen 2022-0 Yes [id number] 600mg Take 1 U nivers 600 mg 8-08 tablet by ity of tablet 00:00: mouth [place] 00 every 6 Medical (six) Branch hours as needed for Pain (scale 4-6). ondansetron 2022-0 Yes [id number] 4mg Take 1 Univers 4 mg 8-08 tablet by ity of disintegrat 00:00: mouth [place] ing tablet 00 every 8 Medica l (eight) Branch hours as needed for Nausea and Vomiting (N/V). ibuprofen 2022-0 Yes [id number] 600mg Take 1 U nivers 600 mg 8-08 tablet by ity of tablet 00:00: mouth [place] 00 every 6 Medical (six) Branch hours as needed for Pain (scale 4-6). ondansetron 2022-0 Yes [id number] 4mg Take 1 Univers 4 mg 8-08 tablet by ity of disintegrat 00:00: mouth [place] ing tablet 00 every 8 Medica l (eight) Branch hours as needed for Nausea and Vomiting (N/V). ibuprofen 2021-0 Yes [id number] 600mg Take 1 U nivers 600 mg 8-08 tablet by ity of tablet 00:00: mouth [place] 00 every 6 Medical (six) Branch hours as needed for Pain (scale 4-6). ondansetron 2021-0 Yes [id number] 4mg Take 1 Univers 4 mg 8-08 tablet by ity of disintegrat 00:00: mouth [place] ing tablet 00 every 8 Medica l (eight) Branch hours as needed for Nausea and Vomiting (N/V). ibuprofen 2021-0 Yes [id number] 600mg Take 1 U nivers 600 mg 8-08 tablet by ity of tablet 00:00: mouth [place] 00 every 6 Medical (six) Branch hours as needed for Pain (scale 4-6). ibuprofen 2021-0 Yes [id number] 600mg Take 1 U nivers 600 mg 8-08 tablet by ity of tablet 00:00: mouth [place] 00 every 6 Medical (six) Branch hours as needed for Pain (scale 4-6). ibuprofen 2021-0 Yes [id number] 600mg Take 1 U nivers 600 mg 8-08 tablet by ity of tablet 00:00: mouth [place] 00 every 6 Medical (six) Branch hours as needed for Pain (scale 4-6). ibuprofen 2021-0 Yes [id number] 600mg Take 1 U nivers 600 mg 8-08 tablet by ity of tablet 00:00: mouth [place] 00 every 6 Medical (six) Branch hours as needed for Pain (scale 4-6). ibuprofen 2021-0 Yes [id number] 600mg Take 1 U nivers 600 mg 8-08 tablet by ity of tablet 00:00: mouth [place] 00 every 6 Medical (six) Branch hours as needed for Pain (scale 4-6). ibuprofen 2021-0 Yes [id number] 600mg Take 1 U nivers 600 mg 8-08 tablet by ity of tablet 00:00: mouth [place] 00 every 6 Medical (six) Branch hours as needed for Pain (scale 4-6). ibuprofen 2021-0 Yes [id number] 600mg Take 1 U nivers 600 mg 8-08 tablet by ity of tablet 00:00: mouth [place] 00 every 6 Medical (six) Branch hours as needed for Pain (scale 4-6). ondansetron 2021- No [id number] 4mg Take 1 Univers 4 mg 11-25 tablet by ity of disintegrat 00:00: 00:00 [place] tablet 00 :00 every 8 Medica l (eight) Branch hours as needed for Nausea and Vomiting (N/V). cephALEXin 2021- No [id number] 500mg Take 1 Univers (KEFLEX) 11-25- capsule by ity of 500 mg 00:00: 04:59 mouth in [place] capsule 00 :00 the Medical morning Branch and 1 capsule at noon and 1 capsule in the evening. Do all this for 10 days. doxycycline Yes [id number] 100mg Take 1 [facility] hyclate 100 -19 capsule by it y of mg capsule 00:00: mouth [place] 00 (two) Medical times Branch daily. doxycycline 2021- No [id number] 100mg Take 1 Univers hyclate 100 01-06- capsule by i ty of mg capsule 00:00: 00:00 mouth 2 [place] 00 :00 (two) Medical times Branch daily. ibuprofen Yes [id number] 800mg Take 1 [facility] 800 mg 2-22 105 tablet by ity of tablet 00:00: mouth [place] 00 every 8 Medical (eight) Branch hours as needed for Pain (scale 4-6). ibuprofen Yes [id number] 800mg Take 1 Univers 800 mg 2-22 105 tablet by ity of tablet 00:00: mouth [place] 00 every 8 Medical (eight) Branch hours as needed for Pain (scale 4-6). ibuprofen Yes [id number] 800mg Take 1 [facility] 800 mg 2-22 105 tablet by ity of tablet 00:00: mouth [place] 00 every 8 Medical (eight) Branch hours as needed for Pain (scale 4-6). ibuprofen 2021- No [id number] 800mg Take 1 Univers 800 mg 2-22 08-08 105 tablet by ity of tablet 00:00: 00:00 mouth [place] 00 :00 every 8 Medical (eight) Branch hours as needed for Pain (scale 4-6). 2017-04 Yes Take by Univer s vit 2-20 mouth. ity of calc,iron,f 15:17: [place] olic 43 Medical ( Branch VITAMIN ORAL) 2018- Yes Take by Unive rs vit 2-20 mouth. ity of calc,iron,f 15:17: [place] [address] Medical ( Branch VITAMIN ORAL) 2018- Yes Take by Univer s vit 2-20 mouth. ity of calc,iron,f 09:17: [place] [address] Medical ( Branch VITAMIN ORAL) Immunizations Ordered Filled Date Status Comments Source Immunization Name Immunization Name Td 2021-01-06 Completed University of 00:00:00 [facility] Td 2021-01-06 Completed University of 00:00:00 [facility] Branch Td 2021-01-06 Completed University of 00:00:00 [facility] Branch Td 2021-01-06 Completed University of 00:00:00 [facility] Branch Td 2021-01-06 Completed University of 00:00:00 [facility] TD, NOS 2021-01-06 Completed University of 00:00:00 [facility] TD, NOS 2021-01-06 Completed University of 00:00:00 [facility] TD, NOS 2021-01-06 Completed University of 00:00:00 [facility] TD, NOS 2021-01-06 Completed University of 00:00:00 [facility] Branch TD, NOS 2021-01-06 Completed University of 00:00:00 [facility] Branch TD, NOS 2021-01-06 Completed University of 00:00:00 [facility] TD, NOS 2021-01-06 Completed University of 00:00:00 [facility] Td 2021-01-06 Completed University of 00:00:00 [facility] Influenza Virus 2018-04-08 Completed Universit y of Vaccine Quad .5 mL 00:00:00 [place] [facility] IM 6+ MO Branch Influenza Virus 2018-04-08 Completed Universit y of Vaccine Quad .5 mL 00:00:00 [place] [facility] IM 6+ MO Branch Influenza Virus 2018-04-08 Completed Universit y of Vaccine Quad .5 mL 00:00:00 [place] Medical IM 6+ MO Branch Influenza Virus 2018-04-08 Completed Universit y of Vaccine Quad .5 mL 00:00:00 [place] [facility] IM 6+ MO Branch Influenza Virus 2018-04-08 Completed Universit y of Vaccine Quad .5 mL 00:00:00 [place] [facility] IM 6+ MO Branch Influenza Virus 2018-04-08 Completed Universit y of Vaccine Quad .5 mL 00:00:00 [place] [facility] IM 6+ MO Branch Influenza Virus 2018-04-08 Completed Universit y of Vaccine Quad .5 mL 00:00:00 [place] [facility] IM 6+ MO Branch Influenza Virus 2018-04-08 Completed Universit y of Vaccine Quad .5 mL 00:00:00 [place] [facility] IM 6+ MO Branch Influenza Virus 2018-04-08 Completed Universit y of Vaccine Quad .5 mL 00:00:00 [place] [facility] IM 6+ MO Branch Influenza Virus 2018-04-08 Completed Universit y of Vaccine Quad .5 mL 00:00:00 [place] [facility] IM 6+ MO Branch Influenza Virus 2018-04-08 Completed Universit y of Vaccine Quad .5 mL 00:00:00 [place] [facility] IM 6+ MO Branch Influenza Virus 2018-04-08 Completed Universit y of Vaccine Quad .5 mL 00:00:00 [facility] 6+ MO Branch Influenza Virus 2018-04-08 Completed Universit y of Vaccine Quad .5 mL 00:00:00 [facility] 6+ MO Branch Influenza Virus 2018-04-08 Completed Universit y of Vaccine [place] .5 mL 00:00:00 [facility] 6+ MO Branch Influenza Virus 2018-04-08 Completed Universit y of Vaccine [place] .5 mL 00:00:00 [facility] 6+ MO Branch Influenza Virus Unknown Completed Universit y of Vaccine Quad .5 mL [facility] 6+ MO Branch (FLUZONE/FLULAVAL/F LUARIX) TD, NOS Unknown Completed [facility] Vital Signs Vital Name Observation Time Observation Value Comments Source BMI (Body Mass 2022-11-19 00:00:00 45.6 kg/m2 [facility] Height 2022-11-19 00:00:00 59 [in_i] [facility] Body Weight 2022-11-19 00:00:00 226 [lb_av] [facility] BP Diastolic 2022-11-19 00:00:00 78 mm[Hg] [facility] BP Systolic 2022-11-19 00:00:00 124 mm[Hg] [facility] HEIGHT 2022-11-02 23:46:00 149.9 cm WEIGHT 2022-11-02 23:46:00 104.327 kg HEIGHT 2022-11-02 23:46:00 149.9 cm WEIGHT 2022-11-02 23:46:00 104.327 kg HEIGHT 2022-11-02 23:46:00 149.9 cm WEIGHT 2022-11-02 23:46:00 104.327 kg Systolic blood 2022-10-21 11:00:00 149 mm[Hg] Univer sity of pressure [place] [facility] Diastolic blood 2022-10-21 11:00:00 84 mm[Hg] Unive rsity of pressure [place] [facility] Heart rate 2022-10-21 11:00:00 64 /min Universi ty of [place] [facility] Respiratory rate 2022-10-21 11:00:00 16 /min Univ ersity of [place] [facility] Oxygen saturation in 2022-10-21 11:00:00 97 /min University of Arterial blood by [place] [employer] Pulse oximetry Branch Body temperature 2022-10-21 06:59:00 36.61 Mariana Univ ersity of [place] [facility] Body height 2022-10-21 06:59:00 149.9 cm Universi [facility] [place] [facility] Body weight 2022-10-21 06:59:00 106.595 kg Universi ty [facility] [place] [facility] BMI 2022-10-21 06:59:00 47.46 kg/m2 [facility] [place] [facility] Systolic blood 2022-04-19 14:57:00 122 mm[Hg] Univer sity of pressure [place] [facility] Diastolic blood 2022-04-19 14:57:00 73 mm[Hg] Unive rsity of pressure [place] [facility] Heart rate 2022-04-19 14:57:00 69 /min Universi ty [facility] [place] [facility] Body temperature 2022-04-19 14:57:00 37.56 Mariana Univ ersity of [place] [facility] Respiratory rate 2022-04-19 14:57:00 18 /min Univ ersity of [place] [facility] Oxygen saturation in 2022-04-19 14:57:00 98 /min University of Arterial blood by [employer] Pulse oximetry Branch Body height 2022-04-17 08:00:00 149.9 cm Universi ty [facility] [place] [facility] Body weight 2022-04-17 08:00:00 112.855 kg Universi [facility] [place] [facility] BMI 2022-04-17 08:00:00 50.25 kg/m2 [facility] [place] [facility] Systolic blood 2022-03-27 22:30:00 122 mm[Hg] Univer sity of pressure [place] [facility] Diastolic blood 2022-03-27 22:30:00 68 mm[Hg] Unive rsity of pressure [place] [facility] Respiratory rate 2022-03-27 22:30:00 15 /min Univ ersity of [place] [facility] Oxygen saturation in 2022-03-27 22:30:00 98 /min University of Arterial blood by [employer] jasmin Pulse oximetry Branch Heart rate 2022-03-27 21:30:00 79 /min [facility]i [facility] [place] [facility] Body temperature 2022-03-27 21:30:00 36 Mariana Univ ers[facility] [place] [facility] Body weight 2022-03-27 11:07:00 110.814 kg 9D scale Universi ty [facility] [place] [facility] BMI 2022-03-27 11:07:00 49.34 kg/m2 [facility] [place] [facility] Systolic blood 2022-03-27 18:21:00 119 mm[Hg] Univer sity of pressure [place] [facility] Diastolic blood 2022-03-27 18:21:00 76 mm[Hg] Unive rsity of pressure [place] [facility] Heart rate 2022-03-27 18:21:00 78 /min [facility]i [facility] [place] [facility] Body temperature 2022-03-27 18:21:00 35.94 Mar[place] Univ ersity of [place] [facility] Respiratory rate 2022-03-27 18:21:00 18 /min Univ ersity of [place] [facility] Oxygen saturation in 2022-03-27 18:21:00 98 /min University of Arterial blood by [employer] jasmin Pulse oximetry Branch Body weight 2022-03-27 11:07:00 110.814 kg 9D scale Universi ty [facility] [place] [facility] BMI 2022-03-27 11:07:00 49.34 kg/m2 [facility] [place] [facility] Systolic blood 2022-03-27 06:00:00 125 mm[Hg] Univer sity of pressure [place] [facility] Diastolic blood 2022-03-27 06:00:00 79 mm[Hg] Unive rsity of pressure [place] [facility] Heart rate 2022-03-27 06:00:00 88 /min Universi ty [facility] [place] [facility] Respiratory rate 2022-03-27 06:00:00 18 /min Univ ersity of [place] [facility] Oxygen saturation in 2022-03-27 06:00:00 96 /min University of Arterial blood by [facility] Pulse oximetry Branch Body temperature 2022-03-27 01:47:00 38.22 Mariana Univ ers[facility] [place] [facility] Body height 2022-03-27 01:47:00 149.9 cm [facility]i [facility] [place] [facility] Body weight 2022-03-27 01:47:00 112.537 kg [facility] [place] [facility] BMI 2022-03-27 01:47:00 50.11 kg/m2 [facility] [place] [facility] Systolic blood 2021-11-25 07:08:00 146 mm[Hg] Univer sity of pressure [place] [facility] Diastolic blood 2021-11-25 07:08:00 89 mm[Hg] Unive rsity of pressure [place] [facility] Heart rate 2021-11-25 07:08:00 91 /min [facility]i ty [facility] [place] [facility] Respiratory rate 2021-11-25 07:08:00 21 /min Univ ersity of [place] [facility] Oxygen saturation in 2021-11-25 07:08:00 95 /min University of Arterial blood by [facility] Pulse oximetry Branch Body temperature 2021-11-25 05:17:00 37.33 Mar[place] [facility] [place] [facility] Body height 2021-11-25 05:17:00 149.9 cm [facility]i [facility] [place] [facility] Body weight 2021-11-25 05:17:00 108.863 kg [facility] [place] [facility] BMI 2021-11-25 05:17:00 48.47 kg/m2 [facility] [place] [facility] Systolic blood 2021-01-06 21:47:00 148 mm[Hg] Univer sity of pressure [place] [facility] Diastolic blood 2021-01-06 21:47:00 96 mm[Hg] Unive rsity of pressure [place] [facility] Heart rate 2021-01-06 21:47:00 90 /min [facility] [place] [facility] Body temperature 2021-01-06 21:47:00 36.44 Mariana [facility] [place] [facility] Respiratory rate 2021-01-06 21:47:00 18 /min Univ ersity [facility] [place] [facility] Body height 2021-01-06 21:47:00 149.9 cm [facility] Body weight 2021-01-06 21:47:00 108.863 kg [facility] BMI 2021-01-06 21:47:00 48.47 kg/m2 [facility] Oxygen saturation in 2021-01-06 21:47:00 99 /min University Arterial blood by [facility] Pulse oximetry Branch Systolic blood 2022-11-07 12:04:47 149 mm[Hg] [facility] pressure Diastolic blood 2022-11-07 12:04:47 89 mm[Hg] [facility] pressure Heart rate 2022-11-07 12:04:47 82 /min [facility] Body temperature 2022-11-07 12:04:47 36.78 Mariana [facility] Oxygen saturation in 2022-11-07 12:04:47 96 /min [facility] Arterial blood by Pulse oximetry Respiratory rate 2022-11-07 08:37:28 17 /min [facility] Body height 2022-11-05 05:17:00 149.9 cm [facility] Body weight 2022-11-05 05:17:00 104.327 kg [facility] BMI 2022-11-05 05:17:00 46.45 kg/m2 [facility] Heart rate 2022-11-03 08:21:00 61 /min [facility] Body temperature 2022-11-03 08:21:00 36.56 Mariana [facility] Respiratory rate 2022-11-03 08:21:00 18 /min [facility] Oxygen saturation in 2022-11-03 08:21:00 99 /min [facility] Arterial blood by Medical nter Pulse oximetry Systolic blood 2022-11-03 08:21:00 185 mm[Hg] [facility] Diastolic blood 2022-11-03 08:21:00 93 mm[Hg] [facility] Body height 2022-11-02 23:46:00 149.9 cm [facility] Body weight 2022-11-02 23:46:00 104.327 kg [facility] BMI 2022-11-02 23:46:00 46.45 kg/m2 [facility] Procedures Procedure Date / Time Performing Clinician Source Performed CALCULI ANALYSIS WITH 2022-11-06 23:45:00 [facility] PHOTO Natvarlal MT AN ELECTIVE 2022-11-06 22:54:00 Marcio Elizabeth [facility] [place] [facility] ENDOTRACHEAL AIRWAY CYSTO, URETEROSCOPY 2022-11-06 22:46:00 Donny Lopez [facility] SURGICAL PATHOLOGY 2022-11-06 13:22:00 [facility] REQUEST Natvarlal CBC WITH PLATELET AND 2022-11-06 09:08:00 [facility] DIFFERENTIAL BASIC METABOLIC PANEL 2022-11-06 09:08:00 [facility] ESTIMATED GFR 2022-11-06 09:08:00 [facility] ospital Natvarlal URINE CULTURE 2022-11-05 08:09:[address] [facility] [address] RENAL STONE PROTOCOL 2022-11-05 08:02:04 Rehrer, [facility] CBC WITH PLATELET AND 2022-11-05 07:31:00 [facility] DIFFERENTIAL COMPREHENSIVE METABOLIC 2022-11-05 07:31:00 [facility] PANEL URINALYSIS SCREEN AND 2022-11-05 07:31:00 [facility] MICROSCOPY, WITH REFLEX TO CULTURE ESTIMATED GFR 2022-11-05 07:31:00 [facility] LIPASE LEVEL 2022-11-05 07:31:00 [facility] HCG QUALITATIVE, URINE 2022-11-05 07:31:00 [facility] SCREEN POC , URINE 2022-11-05 07:28:[address] [facility] [address] ABDOMEN/PELVIS WITH & 2022-11-03 05:07:00 Yeni Oconnell [facility] WITHOUT IV CONTRAST Center URINE CULTURE 2022-11-03 01:50:00 OconnellYeni smith DERRICK [facility] URINALYSIS W/ REFLEX 2022-11-03 01:50:00 OconnellYeni smith DERRICK [facility] URINE CULTURE Center CBC W/PLT COUNT & AUTO 2022-11-03 01:49:00 Yeni Oconnell Bautista Mario [facility] BASIC METABOLIC PANEL 2022-11-03 01:49:00 Yeni Oconnell [facility] HCG, QUANTITATIVE, 2022-11-03 01:49:00 OconnellYeni smith [facility] CBC W/PLT COUNT & AUTO 2022-11-03 01:49:00 OconnellYeni smith Michele Martin [facility] CT ABDOMEN PELVIS W 2022-10-21 08:18:21 Vania Dubose [facility] POCT TEST 2022-10-21 07:51:00 Vania Dubose [facility] COMP. METABOLIC PANEL 2022-10-21 07:42:00 Vania Dubose [facility] ([id number]) [facility] CBC WITH DIFF 2022-10-21 07:42:00 Vania Dubose [facility] URINALYSIS 2022-10-21 07:42:00 Vania Dubose [facility] CONSENT/REFUSAL FOR 2022-10-21 06:55:53 Doctor Unassigned, [facility] DIAGNOSIS AND TREATMENT [facility] Branch BASIC METABOLIC PANEL 2022-04-18 09:43:00 Vanessa Perez [facility] (NA, K, CL, CO2, GLUCOSE, Medica l Branch BUN, CREATININE, CA) CBC WITH DIFF 2022-04-18 09:43:00 Vanessa Perez [place] [facility] PROTHROMBIN TIME / INR 2022-04-17 16:24:00 Vanessa Perez [facility] CT ABDOMEN PELVIS W 2022-04-17 09:32:03 Brianna Sandesr [facility] POCT TEST 2022-04-17 08:24:00 Brianna Sanders [facility] LACTIC ACID WHOLE BLOOD 2022-04-17 08:22:00 Brianna Sanders [facility] BLOOD CULTURE SCREEN 2022-04-17 08:17:00 Brianna Sanders [facility] COMP. METABOLIC PANEL 2022-04-17 08:17:00 Brianna Sanders [facility] ([id number]) [facility] CBC WITH DIFF 2022-04-17 08:17:00 Brianna Sanders [facility] URINALYSIS 2022-04-17 08:17:00 Brianna Sanders [facility] URINE CULTURE 2022-04-17 08:17:00 Brianna Sanders [facility] RAPID INFLUENZA A/B 2022-04-17 08:17:00 Brianna Sanders [facility] COVID-19 (ID NOW RAPID 2022-04-17 08:17:00 Brianna Sanders [facility] TESTING) Medical [place] LAB ONLY COVID 2022-04-17 08:17:00 Brianna Sanders [facility] INTERPRETATION [facility] CONSENT/REFUSAL FOR 2022-04-17 07:54:44 Doctor Unassigned, [facility] DIAGNOSIS AND TREATMENT [place] [facility] HOSPITAL ADMISSION 2022-04-17 06:01:00 Doctor Unassgayle, [facility] [place] [facility] FL TIME OR 2022-03-27 22:35:46 [facility] FL TIME OR 2022-03-27 22:35:46 Aidan [facility] (NON-REPORTABLE) [facility] URINE CULTURE 2022-03-27 21:14:00 Michael Sorensen [facility] CYSTOSCOPY WITH INSERTION 2022-03-27 20:37:00 Michael Sorensen [facility] STENT URETER Medical Branch URINALYSIS 2022-03-27 14:02:00 [facility] 2022-03-27 14:02:00 Aidan [facility] URINE CULTURE 2022-03-27 14:02:00 Mauri Bermudez [facility] Medical Branch CT ABDOMEN PELVIS W 2022-03-27 05:03:34 Juan Louise [facility] CONTRAST Medical Branch POCT TEST 2022-03-27 04:08:00 Juan Louise [facility] [place] COMP. METABOLIC PANEL 2022-03-27 04:05:00 Juan Louise [facility] ([id number]) Medical Branch CBC WITH DIFF 2022-03-27 04:05:00 Juan Louise [facility] URINALYSIS 2022-03-27 04:05:00 [facility] A/B 2022-03-27 04:05:00 Juan Louise [facility] CONSENT/REFUSAL FOR 2022-03-27 01:08:22 Doctor Unaherrera, [facility] DIAGNOSIS AND TREATMENT [place] [facility] [place] CT ABDOMEN PELVIS W 2021-11-25 06:24:04 Lou Lai [facility] CONTRAST Medical Branch LIPASE 2021-11-25 05:30:00 Lou Lai Veena [facility] MAGNESIUM 2021-11-25 05:30:00 Lou Lai Veena [facility] Medical [place] COMP. METABOLIC PANEL 2021-11-25 05:30:00 Lou Lai [facility] ([id number]) Medical Branch CBC WITH DIFF 2021-11-25 05:30:00 Lou Lai [facility] URINALYSIS 2021-11-25 05:30:00 Lou Lai Veena [facility] COVID-19 (ID NOW RAPID 2021-11-25 05:30:00 Lou Lai [facility] TESTING) Medical Branch POCT TEST 2021-11-25 05:19:00 Lou Lai [facility] [place] NOTICE OF PRIVACY 2021-11-25 05:09:22 Doctor Dara, [facility] PRACTICES [place] [facility] [place] CONSENT/REFUSAL FOR 2021-11-25 05:07:55 Doctor Unassigned, Cooper [facility] DIAGNOSIS AND TREATMENT [place] Medical [facility] ASSIGNMENT OF BENEFITS 2021-01-06 22:14:43 [facility] [place] [facility] CONSENT/REFUSAL FOR 2021-01-06 21:38:05 Doctor Unassigned, [place] [facility] DIAGNOSIS AND TREATMENT [place] Medical [facility] 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- [place] [facility] - Cystoscopy- Stent [facility] Urology Plan of Care Planned Activity Planned Date Details Comments Source Future Scheduled 2027-03-25 DTAP/TDAP/TD VACCINES ([address] [facility] Test 00:00:00 - Td or Tdap) [code = Medica l Center DTAP/TDAP/TD VACCINES (2 - Td or Tdap)] Future Scheduled 2027-03-25 DTAP/TDAP/TD VACCINES ([address] [facility] Test 00:00:00 - Td or Tdap) [code = Medica l Center DTAP/TDAP/TD VACCINES (2 - Td or Tdap)] Future Scheduled 2023-01-12 COVID-19 VACCINE (#1) [facility] 12:13:22 [code = COVID-19 VACCINE Hos pital (#1)] Future Scheduled 2023-01-12 Hepatitis C screening [facility] Test 12:13:22 (procedure) [code = Hospital 967549343] Future Scheduled 2023-01-12 Screening for malignant [facility] Test 12:13:22 neoplasm of cervix Hospital (procedure) [code = 892312024] Future Scheduled 2023-01-12 INFLUENZA VACCINE (#1) M ethodist Test 12:13:22 [code = INFLUENZA Hospital VACCINE (#1)] Future Scheduled 2022-12-19 Influenza Vaccine (#1) [facility] 00:[facility]00 [code = Influenza Medical Ce nter Vaccine (#1)] Future Scheduled 2022-12-19 Influenza Vaccine (#1) [facility] Test 00:00:00 [code = Influenza Medical Ce nter Vaccine (#1)] Future Scheduled 2022-11-24 COVID-19 VACCINE (#1) [facility] 08:54:07 [code = COVID-19 VACCINE Hos pital (#1)] Future Scheduled 2022-11-24 Hepatitis C screening [facility] Test 08:54:07 (procedure) [code = Hospital 963667895] Future Scheduled 2022-11-24 Screening for malignant [facility] Test 08:54:07 neoplasm of cervix Hospital (procedure) [code = 930655273] Future Scheduled 2022-11-24 INFLUENZA VACCINE [code [facility] Test 08:54:07 = INFLUENZA VACCINE] Hospita l Diagnostic Test 2022-11-19 urinalysis, dipstick [place] Pending 00:00:00 [code = urinalysis, Urology dipstick] Future Scheduled 2022-04-[address] [facility] Test 00:00:00 (12+) [code = DEPRESSION Med ical Center SCREENING (12+)] Future Scheduled 2022-04-[address] [facility] Test 00:00:00 (12+) [code = DEPRESSION Med ical Center SCREENING (12+)] Future Scheduled 2009 Screening for malignant [facility] Test 00:00:00 neoplasm of cervix Medical C enter (procedure) [code = 859163241] Future Scheduled 2009 Screening for malignant [facility] Test 00:00:00 neoplasm of cervix Medical C enter (procedure) [code = 950201860] Future Scheduled 2008 Lipid panel (procedure) [facility] Test 00:00:00 [code = 29545776] Medical Ce nter Future Scheduled 2008 Lipid panel (procedure) [facility] Test 00:00:00 [code = 92861238] Medical Ce nter Future Scheduled 2006 HEPATITIS C [facility]CRE[facility]ING [facility] Test 00:00:00 [code = HEPATITIS C Medical Center SCREENING] Future Scheduled 2006 HEPATITIS C [facility] Test 00:00:00 [code = HEPATITIS C Medical Center SCREENING] Future Scheduled 2003-10-[address] [facility] Test 00:00:00 virus screening Medical Cent er (procedure) [code = 973228108] Future Scheduled 2003-10-[address] [facility] Test 00:00:00 virus screening Medical Cent er (procedure) [code = 266156271] Future Scheduled [address] [facility] Test 00:00:00 Counseling and Screening Med ical Center (12+) [code = Tobacco Cessation Counseling and Screening (12+)] Future Scheduled [address] [facility] Test 00:00:00 Counseling and Screening Med ical Center (12+) [code = Tobacco Cessation Counseling and Screening (12+)] Future Scheduled 1989-04-03 COVID-19 VACCINE (#1) [facility] 00:00:00 [code = COVID-19 VACCINE Med ical Center (#1)] Future Scheduled 1989-04-03 COVID-19 VACCINE (#1) [facility] 00:00:00 [code = COVID-19 VACCINE Med ical Center (#1)] Encounters Start End Encounter Admission Attending Care Care Encounter Source Date/Time Date/Time Type Type Clinicians Facility Department ID 2022-03-27 Outpatient Courtney [facility] [id number] Univers 15:24:58 BILAL [facility] 2021-02-18 Emergency [facility] [id number] Univers 23:42:59 [facility] 2021-02-17 Emergency [facility] [id number] Univers 00:38:00 [facility] 2022-11-19 2022-11-[address] Mineo_M [facility] [id number] [place] 00:00:00 00:00:00 [address] [facility] 2022-11-19 2022-11-[address] Mineo_M [facility] [id number] [place] 00:00:00 00:00:00 75720 [facility] 2022-11-19 2022-11-19 [facility] [place] - [id number] Sal mcgee 00:00:00 00:00:00 Gurmeet Lopez MD: [facility] Urology JEFF Schwab [address] [place] [address] , Ph. 2022-11-13 2022-11-13 Patient Willian, 1.2.840.1 [id number] Methodi 00:00:00 00:00:00 Outreach Nithya [address]49.1.[address] 3.430.2.7 Hospit a .3.118525 l .8 2022-11-13 2022-11-13 Patient Willian, 1.2.840.1 [id number] Methodi 00:00:00 00:00:00 Outreach Nithya [address]22.1.[address] 3.430.2.7 Hospit a .3.455255 l .8 2022-11-11 2022-11-11 Outpatient [facility] 686740- 202 [place] 00:00:00 00:00:00 00978 [facility] 2022-11-11 2022-11-11 Patient Philipp, 1.2.840.1 [id number] Methodi 00:00:00 00:00:00 Outreach Karie [address]294.1.[address] 3.430.2.7 Hospit a .3.783918 l .8 2022-11-11 2022-11-11 Patient Philipp, 1.2.840.1 [id number] Methodi 00:00:00 00:00:00 Outreach Karie [address]188.1.[address] 3.430.2.7 Hospit a .3.141047 l .8 2022-11-05 2022-11-07 Hospital Evangelina Vladimirmario Jimenez 1.2.840.1 [id number] Methodi 00:22:00 12:26:00 Encounter LambertChantal [address]80.1.[address] [facility] 3.430.2.7 Hospita Hayde Tellez .3.605075 l .8 2022-11-05 2022-11-07 [facility] 012 [id number] 2 [place] 00:00:00 00:00:00 Encounter HAYDE [address] 2022-11-06 2022-11-06 Anesthesia Bjorn Mcintosh 1.2.840.1 [id number] Methodi 17:47:00 19:07:00 Event Marcio Elizabeth 81164.1.[address] 3.430.2.7 Hospit a .3.770741 l .8 2022-11-06 2022-11-06 Anesthesia Bjorn Mcintosh 1.2.840.1 [id number] Methodi 17:47:00 19:07:00 Event Marcio Elizabeth 50316.1.[address] 3.430.2.7 Hospit a .3.409325 l .8 2022-11-06 2022-11-06 Surgery Mineo, 1.2.840.1 [id number] Methodi 16:30:00 18:05:00 oDnny Lopez. 89233.1.1 047 s t 3.430.2.7 Hospit a .3.877189 l .8 2022-11-06 2022-11-06 Surgery Mineo, 1.2.840.1 [id number] Methodi 16:30:00 18:05:00 Donny Flores 57587.1.1 047 s t 3.430.2.7 Hospit a .3.782961 l .8 2022-11-05 2022-11-[address] [facility]_M [facility] 343372- 202 [place] 00:00:00 00:00:00 68375 [facility] 2022-11-04 2022-11-04 Outpatient Courtney ALONSO [facility] [id number] Univers 13:00:00 13:00:00 ESSENCE ojeda [facility] 2022-11-02 2022-11-03 Emergency ER [facility] Emergency [id number] SLE 23:48:00 08:39:00 [facility] 2022-11-02 2022-11-03 Emergency ER Oconnell, [facility] [id number] 23:48:00 08:39:00 [facility] 2022-11-02 2022-11-03 Emergency Oconnell, [facility] [id number] 23:48:00 08:39:00 [facility] 2022-11-03 2022-11-03 Emergency ER OCONNELL [facility] [id number] SLE 04:58:10 04:58:10 [facility] 2022-10-21 2022-10-21 Emergency X STILGENBAUE [facility] ERT [id number] Univers 02:01:00 06:37:00 NORIS Valdez itana maria o f [facility] 2022-10-21 2022-10-21 Emergency Stilgenbaue TRAUMA 1.2.840.114 [id number] Univers 02:01:00 06:37:00 Noris valdez IVANHOE 350.1.13.10 [place] [id number] [facility] 014 Branch 2022-05-30 2022-05-30 Patient Arleth George 1.2.840.114 [id number] Univers 00:00:00 00:00:00 Outreach E MARCH 350.1.13.10 [place] [id number] [facility] 403 Branch 2022-05-23 2022-05-23 Patient Doctor YANNICK 1.2.840.114 [id number] Univers 00:00:00 00:00:00 Secure Msg Unassigned, MANDEEP 350.1.13.10 ity of [place] [facility] 4.2.7.2.686 [place] [id number] [facility] 019 Branch 2022-05-22 2022-05-22 Patient Arleth George 1.2.840.114 [id number] Univers 00:00:00 00:00:00 Outreach E MARCH 350.1.13.10 [place] [id number] [facility] 403 Branch 2022-05-13 2022-05-13 Transition BECCA Lambert 1.2.840.114 [id number] Univers 00:00:00 00:00:00 of Care Brigette MARCH 350.1.13.10 [place] [id number] [facility] 403 Branch 2022-04-22 2022-04-22 Transition BECCA Lambert 1.2.840.114 [id number] Univers 00:00:00 00:00:00 of Care Brigette MARCH 350.1.13.10 [place] [id number] [facility] 403 Branch 2022-04-17 2022-04-19 Inpatient X SISI [facility] [id number] Univers 02:03:00 18:11:00 ELIESER ity of [facility] 2022-04-17 2022-04-19 Hospital Brianna Sanders 1.2.840. 114 [id number] Univers 02:03:00 18:11:00 Encounter Louis Oconnellnighat MANDEEP 350.1.13 .10 ity of [facility] 4.2.7.2.686 Elieser Magaña [id number] Medical 093 Branch 2022-04-17 2022-04-17 Nurse YANNICK Garcia 1.2.840.114 [id number] Univers 00:00:00 00:00:00 Triage Jessica MANDEEP 350.1.13.10 it y of HOSPITAL 4.2.7.2.686 [place] [id number] [facility] 019 Branch 2022-04-01 2022-04-01 Telephone MARY Sorensen 1.2.630.340 [id number] Univers 00:00:00 00:00:00 Bilal MANDEEP 350.1.13.10 it y of HOSPITAL 4.2.7.2.686 [place] [id number] [facility] 092 Branch 2022-03-27 2022-03-27 Emergency MARY Sorensen 1.2.837.922 [id number] Univers 03:16:00 20:00:00 Bilal MANDEEP 350.1.13.10 it y of HOSPITAL 4.2.7.2.686 [place] [id number] [facility] 092 Branch 2022-03-27 2022-03-27 Surgery MARY Sorensen 1.2.840.114 [id number] Univers 13:30:00 15:25:00 Bilal MANDEEP 350.1.13.10 it y of HOSPITAL 4.2.7.2.686 [place] [id number] [facility] 103 Branch 2022-03-26 2022-03-27 Emergency X ASPEN [facility] ERT [id number] Univers 19:49:00 02:26:00 WACARMINELI ity [facility] 2022-03-26 2022-03-27 Emergency X ASPEN [facility] ERT [id number] Univers 19:49:00 02:26:00 WACARMINELI ity [facility] 2022-03-26 2022-03-27 Emergency [facility] 1.2.408.290 [id number] Univers 19:49:00 02:26:00 Juan Huber NICKI 350.1.13.10 ity of [place] 4.2.7.2.686 [facility] [id number] [address] 2021-11-25 2021-11-25 Emergency X Lou LAI [facility] ERT [id number] Univers 00:11:00 02:21:00 ity of [facility] 2021-11-25 2021-11-25 Emergency Lou Lai [facility] 1.2.840.114 [id number] Univers 00:11:00 02:21:00 Veena CACERES 350.1.13.10 i ty of [place].2.7.2.686 [place] [id number] [facility] 084 [place] 2021-01-06 2021-01-06 [facility] 1.2.840.114 [id number] Univers 16:49:00 17:54:00 Kaylee Caceres 350.1.13.10 ity of [place] 4.2.7.2.686 [facility] [id number] [facility] 084 [place] 2020-12-20 2020-12-20 Letter YANNICK Mcgee 1.2.840.114 [id number] Univers 00:00:00 00:00:00 (Out) Soo KAUFMAN 350.1.13.10 it y of [facility] 4.2.7.2.686 [facility] [id number] [facility] 019 Branch 2020-12-18 2020-12-18 Outpatient R DANNY [facility] [id number] Univers 17:30:00 17:30:00 ALBERT ity [facility] 2020-12-18 2020-12-18 Laboratory Only, Ang Db Test [facility] 1.2.8 40.114 [id number] Univers 16:54:26 17:09:26 Only DannyCleverbug [place]13.10 [place] 4.2.7.2.686 [place] Brian?Blea [id number] Ms dical [address] Medical Office Building Results Test Description Test Time Test Comments Results Result Comments Source Surgical pathology request 2022-11-11 22:17:44 Test Item Value Reference Range Interpretation Comme nts Case number (test code = 2725961) [id number] Surgical pathology report (test code = See link below for PDF Lab R eport 2255) Result status (test code = 5087186) This is Final Report for [id number] [facility] (test code = DIANELYS) [id number] Ureteral Stone [facility] [id number] 22:17:44 Test Item Value Reference Range Interpretation Comments Case number (test code [id number] = [id number]) Surgical pathology See link below for PDF report (test code = Lab Report 2255) Result status (test This is Final Report code = 3902070) for [id number] [facility] (test code = DIANELYS) [id number] Ureteral Stone [facility] analysis with [id number] 21:20:00 Test Item Value Reference Range Interpretation Comments Calculi mass (test 3 mg code = 3154-2) Calculi descrption See Note Specimen consists of (test code = three bear and w lore 19858-0) calculi fragments.The t otal weight is 3 [...] martín matthews (test code = access the [facility] 99280-9) Enhanced Report using the Kili link: https://[employer]/?f=0171509 05k2Q [email or web address] rform ed By: [employer] [place] [address] [id number] Director: Demetria Duran MD, PhD DIANELYS (test code = BLM-48-23089-AR DIANELYS) [facility] Ureteral Stone [facility]istWeisman Children's Rehabilitation HospitalCalculi analysis with [id number] 21:20:00 Test Item Value Reference Range Interpretation Comments Calculi mass (test 3 mg code = 3154-2) Calculi descrption See Note Specimen consists of (test code = three bear and w lore 56198-9) calculi fragments.The t otal weight is 3 [...] martín matthews (test code = access the [facility] 48925-1) Enhanced Report using the Kili link: https://[employer]/?l=5368228 05k2Q [email or web address] rform ed By: [employer] [place] [address] [id number] Director: Demetria Duran MD, PhD DIANELYS (test code = VXT-22-69186-AR DIANELYS) [facility] Ureteral Stone [facility]ervilleUrine [id number] 15:27:00 Test Item Value Reference Range Interpretation Comments Urine culture Mixed connor Specimen isolate (test <=10-3 col/cc InformationSp ecimen code = 45247-8) Source: Urin eSpecimen Site: [facility] [id number] 15:27:00 Test Item Value Reference Range Interpretation Comments Urine culture Mixed connor Specimen isolate (test <=10-3 col/cc InformationSp ecimen code = 31826-5) Source: Urin eSpecimen Site: Clean cat [facility] , [id number] 07:28:00 Test Item Value Reference Range Interpretation Comments test urine, POC (test Negative code = 5464590) Internal QC (test code = 257) QC acceptable Lab Interpretation (test code = Normal 88746-2) [facility] , [id number] 07:28:00 Test Item Value Reference Range Interpretation Comments test urine, POC (test Negative code = 2106-3) Internal QC (test code = 257) QC acceptable Lab Interpretation (test code = Normal 10224-3) [facility] ABDOMEN/PELVIS WITH & WITHOUT IV [id number] 06:13:14[facility] SV[facility] : 1990 Sex: FCTabdomen and [...] By: Jerzy Ryan MD11/03/2022 06:16 CDTWorkstation Name: [id number] w/Microscopic + Reflex to Culture 2022-11-03 03:20:39 Test Item Value Reference Range Interpretation Comments Color, UA (test code Yellow = 5778-6) Clarity, UA (test Hazy code = 5767-9) Specific [place], UA 1.018 1.001-1.035 (test code = 5811-5) pH, UA (test code = 7.5 5.0-8.0 5803-2) Protein, UA (test 100 mg/dL Negative A code = 69092-9) Glucose, UA (test Negative Negative code = 365) Ketones, UA (test Negative Negative code = 2514-8) Bilirubin, UA (test Negative Negative code = 16898-5) Blood, UA (test code Large Negative A = 66432-1) Nitrite, UA (test Negative Negative code = 5802-4) Leukocytes, UA (test Moderate Negative A code = 5799-2) Urobilinogen, UA 0.2 0.2-1.0 (test code = 40667-9) RBC, UA (test code = 579 See_Comment [Autom ated 42217-1) message] The system which generated this result [...] 2 See_Comment [Automate d (test code = 89703-4) messag e] The system which generated this result transmit azeem reference range : /HPF. The reference range was not used to interpret this result as normal/abnormal . Specimen Source (test code = 2795) DIANELYS (test code = DIANELYS) Tree Feller Operator ID - [auto]Tree Feller Operator ID - tech Lab Interpretation Abnormal (test code = 26803-1) [facility] Reflex to Culture 2022-11-03 03:20:39 Test Item Value Reference Range Interpretation Comments Color, UA (test code Yellow = 5778-6) Clarity, UA (test Hazy code = 5767-9) Specific [place], UA 1.018 1.001-1.035 (test code = 5811-5) pH, UA (test code = 7.5 5.0-8.0 5803-2) Protein, UA (test 100 mg/dL Negative A code = 85922-5) Glucose, UA (test Negative Negative code = 365) Ketones, UA (test Negative Negative code = 2514-8) Bilirubin, UA (test Negative Negative code = 68219-7) Blood, UA (test code Large Negative A = 33238-2) Nitrite, UA (test Negative Negative code = 5802-4) Leukocytes, UA (test Moderate Negative A code = 5799-2) Urobilinogen, UA 0.2 0.2-1.0 (test code = 84382-2) RBC, UA (test code = 579 See_Comment [Autom ated 84800-8) message] The system which generated this result [...] 2 See_Comment [Automate d (test code = 49977-6) messag e] The system which generated this result transmit azeem reference range : /HPF. The reference range was not used to interpret this result as normal/abnormal . Specimen Source (test code = 2795) DIANELYS (test code = DIANELYS) Tree Feller Operator ID - [auto]Tree Feller Operator ID - tech Lab Interpretation Abnormal (test code = 71215-6) [facility] REFLEX URINE [id number] 03:20:39 Test Item Value Reference Range Interpretation [...] = 516) SOURCE(BEAKER) (test code = 2795) Tree Feller Operator ID - [auto]Tree Feller Operator ID - techHCG, QUANTITATIVE, [id number] 03:17:08 Test Item Value Reference Range Interpretation Comments GONADOTROPIN, CHORIONIC (HCG) QUANT < mIU/mL 0-10 (BEAKER) (test code = 649) Non- Females: <10 mIU/mL Females: Gestation Age Reference Range(mIU/mL) 0.2-1 Week 5-50 1-2 Weeks 50-500 2-3 Weeks 100-5,000 3-4 Weeks 500-10,000 4-5 Weeks 1,000-50,000 5-6 Weeks 10,000-100,000 6-8 Weeks 15,000- 200,000 2-3 Months 10,000-100,000BASIC METABOLIC [id number] 02:55:29 Test Item Value Reference Range Interpretation [...] G3b Moderately to s everely 30-44 G4 Sever ly decreased 15-29 G5 Kidney failure <15Repo rted eGFR is based on the CKD-EPI 2020 equation t hat does not use a race coefficientEsti mated GFR is not as accur ate as Creatinine Renetta lowery in predicting glom erular filtration rate . Estimated GFR is not appl icable for dialysis patien ts CBC W/PLT COUNT & AUTO [id number] 02:05:45 Test Item Value Reference Range Interpretation [...] (BEAKER) (test code = 2801) CBC WITH [id number] 08:17:36 Test Item Value Reference Range Interpretation Comments WBC (test code = 11.18 See_Comment H [Automated 6690-2) message] The sy stem which generated this [...] RDW-SD (test code = 43.4 fL 39.0-49.9 18246-4) RDW-CV (test code = 14.1 % 12.0-15.5 788-0) PLT (test code = 258 See_Comment [Automated 777-3) message] The sy stem which generated this result transmitted reference range : 166 - 358 10*3/ ?L. The reference r nelson was not used to interpret this result as normal/abnormal . MPV (test code = 10.0 fL 9.5-12.9 11319-6) NRBC/100 WBC (test 0.0 See_Comment [Automat ed code = 3135155994) message] The system which generated this result transmitted reference range : 0.0 - 10.0 /100 WBCs. The refer ence range was not u sed to interpret th is result as normal/abnormal . NRBC x10^3 (test code See_Comment [Auto mated = 2442688035) message] The s ystem which generated this result transmitted reference range : 10*3/?L. The reference range was not used to interpret this result as normal/abnormal . GRAN MAT (NEUT) % 48.3 % (test code = 770-8) IMM GRAN % (test code 0.30 % = 0863359560) LYMPH % (test code = 40.8 % 736-9) MONO % (test code = 5.5 % 5905-5) EOS % (test code = 4.5 % 713-8) BASO % (test code = 0.6 % 706-2) GRAN MAT x10^3(ANC) 5.40 10*3/uL 1.88-7.09 (test code = 2312424667) IMM GRAN x10^3 (test 0.03 10*3/uL 0.00-0.06 code = 3417094460) LYMPH x10^3 (test code 4.56 10*3/uL 1.32-3.29 H = 731-0) MONO x10^3 (test code 0.62 10*3/uL 0.33-0.92 = 742-7) EOS x10^3 (test code = 0.50 10*3/uL 0.03-0.39 H 711-2) BASO x10^3 (test code 0.07 10*3/uL 0.01-0.07 = 704-7) Lab Interpretation Abnormal (test code = 01116-1) [facility][id number][facility]22-[facility]-21 08:08:39 Test Item Value Reference Range Interpretation Comments NA (test code = 141 mmol/L 135-145 0933809719) K (test code = 4.0 mmol/L 3.5-5.0 2670386459) CL (test code = 106 mmol/L 98-108 8793879839) CO2 TOTAL (test code 26 mmol/L 23-31 = 9151796739) AGAP (test code = 9 2-16 4834185785) BUN (test code = 16 mg/dL 7-23 0077213678) GLUCOSE (test code = 96 mg/dL 70-110 6679192495) CREATININE (test code 0.58 mg/dL 0.50-1.04 = 6439513956) TOTAL BILI (test code 0.1 mg/dL 0.1-1.1 = 1284153734) CALCIUM (test code = 8.7 mg/dL 8.6-10.6 8650271081) T PROTEIN (test code 6.7 g/dL 6.3-8.2 = 2211981076) ALBUMIN (test code = 3.8 g/dL 3.5-5.0 6252215934) ALK PHOS (test code = 80 U/L 34-122 5471466410) ALTv (test code = 21 U/L 5-35 1742-6) AST(SGOT) (test code 23 U/L 13-40 = 5387649114) eGFR (test code = 119.0 mL/min/1.73m2 9177105632) DIANELYS (test code = DIANELYS) Association of [...] or urine or abnormalities in imaging tests). [facility] [id number] 07:51:00 Test Item Value Reference Range Interpretation Comments POCT PREG (test code = 1605) Negative On board controls acceptable with C Yes Line (test code = 3574) POCT PREG LOT # (test code = 3575) [id number] POCT PREG TEST DATE (test 01-24-24 code = 3576) Lab Interpretation (test code = Normal 29300-5) [facility] / [id number] 16:39:54 Test Item Value Reference Range Interpretation Comments PROTIME PATIENT (test See_Comment H [Auto mated message] code = 5964-2) The system [employer] ich generated this result transmitted ref erence range: 10.1 - 1 2.6 Seconds. The reference range was not used to int erpret this result as normal/abnormal . INR (test code = 6301-6) Nor mal INR <1.1; Warfarin Therap eutic range 2.0 to 3. 0 or 2.5 to 3.5, dep ending upon the indica tions. Lab Interpretation (test Abnormal code = 87883-2) [facility] [id number] 08:24:00 Test Item Value Reference Range Interpretation Comments POCT PREG (test code = 1605) negative On board controls acceptable with present C Line (test code = 3574) POCT PREG LOT # (test code = 3575) [id number] POCT PREG TEST DATE (test code = 3576) Lab Interpretation (test code = Normal 59562-8) [facility] [id number] 18:03:11 Test Item Value Reference Range Interpretation Comments URINE CULTURE (test < 10,000 CFU/mL aerobic code = 630-4) organisms - suggests endogenous microbial contamination [facility] [id number] 04:08:00 Test Item Value Reference Range Interpretation Comments POCT PREG (test code = 1605) neg On board controls acceptable with yes C Line (test code = 3574) POCT PREG LOT # (test code = 3575) [id number] POCT PREG TEST DATE (test 07/19/2023 code = 3576) Lab Interpretation (test code = Normal 57472-7) [facility] 06:05:10 Test Item Value Reference Range Interpretation Comments MAGNESIUM (test code = 8005076930) 2.1 mg/dL 1.7-2.4 Lab Interpretation (test code = Normal 79253-2) [facility] WITH [id number] 06:05:09 Test Item Value Reference Range Interpretation Comments WBC (test code = See_Comment [Automated 6690-2) message] The sy stem which generated this [...] RDW-SD (test code = 43.3 fL 39-49.9 52704-9) RDW-CV (test code = 13.9 % 12-15.5 788-0) PLT (test code = See_Comment [Automated 777-3) message] The sy stem which generated this result transmitted reference range : 166 - 358 10*3/ ?L. The reference r nelson was not used to interpret this result as normal/abnormal . MPV (test code = 10.4 fL 9.5-12.9 88188-5) NRBC/100 WBC (test See_Comment [Automat ed code = 7795066628) message] The system which generated this result transmitted reference range : 0.0 - 10.0 /100 WBCs. The refer ence range was not u sed to interpret th is result as normal/abnormal . NRBC x10^3 (test code See_Comment [Auto mated = 6070289787) message] The s ystem which generated this result transmitted reference range : 10*3/?L. The reference range was not used to interpret this result as normal/abnormal . GRAN MAT (NEUT) % 55.8 % (test code = 770-8) IMM GRAN % (test code 0.40 % = 0355550410) LYMPH % (test code = 34.1 % 736-9) MONO % (test code = 7.5 % 5905-5) EOS % (test code = 1.8 % 713-8) BASO % (test code = 0.4 % 706-2) GRAN MAT x10^3(ANC) 6.06 10*3/uL 1.88-7.09 (test code = 3811152684) IMM GRAN x10^3 (test 0.04 10*3/uL 0-0.06 code = 1815778882) LYMPH x10^3 (test code 3.69 10*3/uL 1.32-3.29 H = 731-0) MONO x10^3 (test code 0.81 10*3/uL 0.33-0.92 = 742-7) EOS x10^3 (test code = 0.19 10*3/uL 0.03-0.39 711-2) BASO x10^3 (test code 0.04 10*3/uL 0.01-0.07 = 704-7) Lab Interpretation Abnormal (test code = 95941-4) [facility] ([id number])2021-11-25 06:04:49 Test Item Value Reference Range Interpretation Comments NA (test code = 138 mmol/L 135-145 0490350548) K (test code = 3.9 mmol/L 3.5-5 5647821203) CL (test code = 104 mmol/L 98-108 4774139575) CO2 TOTAL (test code 26 mmol/L 23-31 = 3253590353) AGAP (test code = 2-16 0017176809) BUN (test code = 11 mg/dL 7-23 6227746235) GLUCOSE (test code = 97 mg/dL 70-110 3041485982) CREATININE (test code 0.63 mg/dL 0.5-1.04 = 1487317648) TOTAL BILI (test code 0.3 mg/dL 0.1-1.1 = 8827863950) CALCIUM (test code = 8.9 mg/dL 8.6-10.6 3798817589) T PROTEIN (test code 6.9 g/dL 6.3-8.2 = 3563056847) ALBUMIN (test code = 4.2 g/dL 3.5-5 9615358958) ALK PHOS (test code = 107 U/L 34-122 7941597140) ALTv (test code = 34 U/L 5-35 1742-6) AST(SGOT) (test code 28 U/L 13-40 = 0268654271) eGFR (test code = mL/min/1.73m2 1423897481) DIANELYS (test code = DIANELYS) Association of [...] or urine or abnormalities in imaging tests). [facility] 06:04:34 Test Item Value Reference Range Interpretation Comments LIPASE (test code = 6860888818) 93 U/L 0-220 Lab Interpretation (test code = Normal 86191-5) [facility] [id number] 05:19:00 Test Item Value Reference Range Interpretation Comments POCT PREG (test code = 1605) Negative On board controls acceptable with Present C Line (test code = 3574) POCT PREG LOT # (test code = [id number]) POCT PREG TEST DATE (test 02/17/2023 code = 3576) Lab Interpretation (test code = Normal 65092-2) [facility] W/AUTO [id number] 05:30:00 Test Item Value Reference Range Interpretation [...] NORMAL NORMAL code = PLTMR) CBC W/AUTO [id number] 11:12:00 Test Item Value Reference Range Interpretation [...] NORMAL code = PLTMR) AG HEPATITIS B [id number] 18:28:00 Test Item Value Reference Range Interpretation Comments AG HEPATITIS B SURFACE (test code NONREACTIVE NONREACTIVE = HBSAG) : *IS CONSENT FORM SIGNED FOR HIV TESTING? YAB [id number] 18:28:00 Test Item Value Reference Range Interpretation Comments AB TREPONEMA (test code = TREPAB) NONREACTIVE NONREACTIVE : *IS CONSENT FORM SIGNED FOR HIV TESTING? YAB HIV 1 18:28:00 Test Item Value Reference Range Interpretation Comments AB HIV 1 2 (test NONREACTIVE NONREACTIVE [facility] code = AHG01PT) 4th Gen HIV Ag/Ab Combo Screen : *IS CONSENT FORM SIGNED FOR HIV TESTING? YAG HEPATITIS B [id number] 18:00:00 Test Item Value Reference Range Interpretation Comments AG HEPATITIS B SURFACE (test code NONREACTIVE NONREACTIVE = HBSAG) : *IS CONSENT FORM SIGNED FOR HIV TESTING? YAB [id number] 18:00:00 Test Item Value Reference Range Interpretation Comments AB TREPONEMA (test code = TREPAB) NONREACTIVE NONREACTIVE : *IS CONSENT FORM SIGNED FOR HIV TESTING? YAB HIV 1 18:00:00 Test Item Value Reference Range Interpretation Comments AB HIV 1 2 (test code = DNK18GM) NONREACTIVE : *IS CONSENT FORM SIGNED FOR HIV TESTING? YCBC W/AUTO [id number] 17:17:00 Test Item Value Reference Range Interpretation [...] MORPHOLOGY REQUIRED (test NORMAL NORMAL code = PLTMR)"
[2023-01-23 19:09] LABS: Absolute Lymphocytes (CBC) 1.9 K/uL (0.7-4.9); Hematocrit 39.7 % (36.0-45.0); Lymphocytes % 11.8 % (15.3-44.8); MPV 7.7 fL (7.6-11.3); Platelets 244 thou/uL (152-406); RBC Red Blood Cell Count 4.78 M/uL (3.86-4.86)
[2023-01-23] MEDS ORDERED: MORPHINE 4 MG/ML SYR ONE (19:21)
[2023-01-23] MEDS ORDERED: NA CHLORIDE 0.9% 1,000 ML ONE (19:21)
[2023-01-23] MEDS ORDERED: ONDANSETRON 4 MG/2 ML VIAL ONE (19:21)
[2023-01-23 19:27] LABS: Albumin 3.1 g/dL (3.4-5.0); Bilirubin Total 0.3 mg/dL (0.2-1.0); Potassium 3.4 mEq/L (3.5-5.1); Protein, Total 7.2 g/dL (6.4-8.2)
[2023-01-23 19:32] LABS: Specific Gravity 1.018 (1.005-1.030)
[2023-01-23 19:33] LABS: Specific Gravity 1.018 (1.005-1.030); Urine Bacteria <20 /HPF (<20); Urine Bilirubin NEGATIVE (Negative); Urine Blood Negative (Negative); Urine Clarity Turbid (Clear); Urine Color Light-Yellow (Yellow); Urine Glucose NEGATIVE (Negative); Urine Mucus Slight /HPF (None Seen); Urine Protein 1+ (Negative); Urine RBC <5 /HPF (None Seen); Urine Urobilinogen Normal (Normal)
--- NOTE | 2023-01-23 20:12 | RAD REPORT ---
EXAM DESCRIPTION: CT - Abdomen Pelvis W Contrast - 01/23/2023 7:53 pm CLINICAL HISTORY: Abdominal pain COMPARISON: 2017 TECHNIQUE: Computed axial tomography of the abdomen pelvis was obtained. 100 cc Isovue-300 was admin istered intravenously. Oral contrast was not requested which limits evaluation of bowel and appendix All CT scans are performed using dose optimization technique as appropriate and may include automated exposure control or mA/KV adjustment according to patient size. FINDINGS: The liver, spleen, pancreas, adrenal and kidneys appear unremarkable. There is no evidence of diverticulitis. Normal appendix Moderate umbilical hernia 2 centimeter irregularly-shaped left ovarian cyst IMPRESSION: 2 centimeter irregularly-shaped left ovarian cyst probably has recently ruptured. No sig nificant free fluid. No followup imaging recommended
[2023-01-23] MEDS ORDERED: VANCOMYCIN 1 GM/VIAL ONE (21:04)
[2023-01-23] MEDS ORDERED: NA CHLORIDE 0.9% 500 ML ONE (21:05)
[2023-01-23] MEDS ORDERED: CEFTRIAXONE 1000 MG/VIAL ONE (21:05)
--- NOTE | 2023-01-23 21:40 | RAD REPORT ---
EXAM DESCRIPTION: Sravan Single View01/23/2023 9:27 pm CLINICAL HISTORY: cough COMPARISON: 2010 FINDINGS: The lungs appear clear of acute infiltrate. The heart is normal size IMPRESSION: No acute abnormalities displayed
[2023-01-23] MEDS ORDERED: ACETAMINOPHEN 500 MG TAB ONE (21:42)
[2023-01-23] MEDS ORDERED: CLINDAMYCIN 900MG/D5W 900 MG/50 ML IVPB IV ONE (21:46)
[2023-01-23] MEDS ORDERED: DIPHENHYDRAMINE 50 MG/ML VIAL ONE (21:46)
--- NOTE | 2023-01-23 22:12 | EDPHYS ---
Physician Documentation [facility] Name: Evelio Lay Age: 32 yrs Sex: Female : 1990 Arrival Date: 01/23/2023 Time: 18:21 Bed 20 Private MD: ED Physician Jarek Perdomo HPI: 01/24 00:52 This 32 yrs old Female presents to ER via Ambulatory with complaints of sb4 Abdominal Pain, Nausea, Fever. 00:52 The patient presents with abdominal pain in the lower abdomen. Onset: The sb4 symptoms/episode began/occurred this morning. The symptoms do not radiate. Associated signs and symptoms: Pertinent positives: fever, nausea, Pertinent negatives: diarrhea, dysuria. Modifying factors: The symptoms are alleviated by nothing, the symptoms are aggravated by pressure. The patient has not experienced similar symptoms in the past. 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 - Social history:: Smoking status: Patient denies any tobacco usage or history of. ROS: 01/24 00:52 Cardiovascular: Negative for chest pain, palpitations, and edema, sb4 Constitutional: Positive for fever, Abdomen/GI: Positive for abdominal pain, nausea, All other systems are negative, Exam: 00:52 Constitutional: This is a well developed, well nourished patient who is awake, alert, sb4 and in no acute distress. Head/Face: Normocephalic, atraumatic. Eyes: Extra-ocular motions intact. Periorbital areas with no swelling, redness, or edema. Respiratory: Lungs have equal breath sounds bilaterally, clear to auscultation and percussion. No rales, rhonchi or wheezes noted. No increased work of breathing, no retractions or nasal flaring. Skin: Warm, dry with normal turgor. Normal color with no rashes, no lesions, and no evidence of cellulitis. MS/ Extremity: Pulses equal, no cyanosis. Neurovascular intact. Full, normal range of motion. Neuro: Awake and alert, GCS 15, oriented to person, place, time, and situation. Motor strength 5/5 in all extremities. Sensory grossly intact. 00:52 Cardiovascular: Rate: tachycardic, Rhythm: regular, Pulses: no pulse deficits are appreciated, 00:52 Abdomen/GI: Inspection: obese Bowel sounds: normal, in all quadrants, Palpation: soft, mild abdominal tenderness, in the suprapubic area, right lower quadrant and left lower quadrant, Vital Signs: 01/23 18:40 BP 171 / 100; Pulse 139; Resp 20; Temp 102(O); Pulse Ox 100% on R/A; Weight 99.79 kg; hb Height 4 ft. 11 in. ; Pain 01/27; 20:42 BP 131 / 87; Pulse 107; Resp 16; Temp 100.1(O); kl 21:41 BP 147 / 88; Pulse 99; Resp 16; Pulse Ox 99% on R/A; kl 23:02 BP 144 / 72; Pulse 78; Resp 17 S; Pulse Ox 99% on R/A; jw7 23:07 BP 144 / 72; Pulse 75; Resp 18; Temp 98.9(O); Pulse Ox 99% on R/A; kl 18:40 Body Mass Index 44.43 (99.79 kg, 149.86 cm) hb 18:40 Pain Scale: Adult hb MDM: 18:34 Patient medically screened. sb4 01/24 00:52 Differential diagnosis: appendicitis, diverticulitis, Dysmenorrhea, Endometriosis, sb4 non-specific abd pain, urinary tract infection. Data reviewed: vital signs, nurses notes, lab test result(s), radiologic studies, I have discussed the patient's presentation/case with the attending Emergency Department Physician; and as a result, I will admit patient. Consideration of Admission/Observation Patient was admitted/placed on observation. Management of patient was discussed with the following: Hospitalist: Jesenia MONET. Counseling: I had a detailed discussion with the patient and/or guardian regarding the historical points, exam findings, and any diagnostic results supporting the discharge/admit diagnosis, the presence of at least one elevated blood pressure reading (>120/80) during this emergency department visit, lab results, radiology results, the need for further work-up and treatment in the hospital. 01/23 18:39 Order name: CBC with Diff; Complete Time: 19:26 sb4 01/23 18:39 Order name: CMP; Complete Time: 19:27 sb4 01/23 18:39 Order name: Lipase; Complete Time: 19:27 sb4 01/23 18:39 Order name: Test, Urine; Complete Time: 19:40 sb4 01/23 18:39 Order name: UAM; Complete Time: 19:40 sb4 01/23 18:39 Order name: COVID-19 SARS RT PCR; Complete Time: 20:16 sb4 01/23 18:39 Order name: Flu; Complete Time: 20:12 sb4 01/23 18:49 Order name: Blood Culture Adult (2) sb4 01/23 18:49 Order name: Lactate w/ 2H reflex if indic.; Complete Time: 19:26 sb4 01/23 20:41 Interpretation: Abnormal. 4 01/23 18:39 Order name: CT Abd/Pelvis - IV Contrast Only; Complete Time: 20:16 sb4 01/23 20:41 Order name: Chest Single View XRAY; Complete Time: 21:48 4 01/23 18:39 Order name: IV Saline Lock; Complete Time: 19:05 sb4 01/23 18:39 Order name: Labs collected and sent; Complete Time: 19:05 sb4 Administered Medications: 01/23 19:40 Drug: NS 0.9% IV 1000 ml IV at 1 bolus Per protocol; 1000 mL bolus Route: IV; Rate: 1 jw7 bolus; Site: right antecubital; 22:09 Follow up: Response: No adverse reaction; IV Status: Completed infusion; IV Intake: jw7 1000ml 19:40 Drug: Ondansetron IVP 4 mg IVP once; over 2 minutes Route: IVP; Site: right antecubital;jw7 22:09 Follow up: Response: No adverse reaction jw7 19:40 Drug: morphine IVP or IV 4 mg IVP once over 4 mins Route: IVP; Infused Over: 4 mins; jw7 Site: right antecubital; 22:09 Follow up: Response: No adverse reaction jw7 20:50 Drug: Rocephin - Rocephin (cefTRIAXone) IVPB 1 grams IVPB once over 30 mins; (mix in 50 kl mL NS) Route: IVPB; Infused Over: 30 mins; Site: right antecubital; 21:22 Follow up: IV Status: Completed infusion; IV Intake: 50ml kl 21:23 Drug: vancoMYCIN IVPB 2 grams IVPB at calculated rate once Route: IVPB; Rate: kl calculated rate; Site: right antecubital; 21:37 Follow up: Response: Adverse reaction, Physician notified; IV Intake: 10ml kl 21:37 Drug: diphenhydrAMINE IVP 25 mg IVP once Route: IVP; Site: right antecubital; kl 21:50 Follow up: Response: Marked relief of symptoms kl 21:38 Drug: Acetaminophen PO 1000 mg PO once Route: PO; kl 22:14 Follow up: Response: No adverse reaction kl 21:50 Drug: Clindamycin IVPB 900 mg IVPB once over 30 mins; (mix in 50 mL) Route: IVPB; kl Infused Over: 30 mins; Site: right antecubital; 22:14 Follow up: Response: No adverse reaction; IV Status: Completed infusion; IV Intake: 50mlkl Disposition: 01/24 04:18 Co-signature as Attending Physician, Jarek Perdomo MD I agree with the assessment sp4 and plan of care. I reviewed the patient's care provided by the Advanced Practice Provider and agree with the diagnosis and treatment plan. Disposition Summary: 01/23/23 22:12 Hospitalization Ordered Notes: Hospitalization Status: Inpatient Admission sb4 Provider: Hamlet Gutierrez Location: Telemetry/[facility] (Inpatient) sb4 Condition: Fair sb4 Problem: new sb4 Symptoms: are unchanged sb4 Bed/Room Type: Standard sb4 Room Assignment: 224(01/23/23 22:39) Diagnosis - Fever of unknown origin sb4 - Leukocytosis sb4 Forms: - Medication Reconciliation Form sb4 - SBAR form sb4 - Leadership Thank You Letter sb4 Signatures: Dispatcher [employer] Aida Cornejo RN RN kl Webb, Martha, RN RN mw Baxter, Heather, RN RN hb Waits, Jodi, RN RN jw7 Brown, Sophia, PA-C PALatosha sb4 Jarek Perdomo MD MD sp4 Corrections: (The following items were deleted from the chart) 01/23 22:39 22:12 sb4 mw
--- NOTE | 2023-01-23 22:12 | ER ---
Nurse's Notes [facility] Name: Evelio Lay Age: 32 yrs Sex: Female : 1990 Arrival Date: 01/23/2023 Time: 18:21 Bed 20 Private MD: Diagnosis: Fever of unknown origin;Leukocytosis Presentation: 01/23 18:40 Chief complaint: Lower abdominal pain, subjective fever, and nausea since this morning. hb Coronavirus screen: At this time, the client does not indicate any symptoms associated with coronavirus-19. Ebola Screen: No symptoms or risks identified at this time. Initial Sepsis Screen: Does the patient meet any 2 criteria? Temp <36.0*C (96.8*F)) or > 38.3*C (100.9*F). HR > 90 bpm. Yes Does the patient have a suspected source of infection? Yes: Acute abdominal pain. Risk Assessment: Do you want to hurt yourself or someone else? Patient reports no desire to harm self or others. Onset of symptoms was January 23, 2023. 18:40 Method Of Arrival: Ambulatory 18:40 Acuity: GHANSHYAM 2 hb Triage Assessment: 19:10 General: Appears in no apparent distress. uncomfortable, Behavior is calm, cooperative. jw7 Pain: Complains of pain in abdomen Pain does not radiate. Pain currently is 8 out of 10 on a pain scale. Quality of pain is described as crampy, sharp, Is continuous. EENT: No deficits noted. No signs and/or symptoms were reported regarding the EENT system. Neuro: No deficits noted. Schwab Agitation-Sedation Scale (RASS): 0 - Alert and Calm Level of Consciousness is awake, alert, obeys commands, Oriented to person, place, time, situation. Cardiovascular: No deficits noted. Capillary refill < 3 seconds Clubbing of nail beds is absent JVD is absent Patient's skin is warm and dry. Respiratory: No deficits noted. Airway is patent Trachea midline Respiratory effort is even, unlabored, Respiratory pattern is regular, symmetrical. GI: Abdomen is round non-distended. : No deficits noted. No signs and/or symptoms were reported regarding the genitourinary system. Derm: No deficits noted. No signs and/or symptoms reported regarding the dermatologic system. Skin is intact, is healthy with good turgor, Skin is dry, Skin is normal, Skin temperature is warm. Musculoskeletal: No deficits noted. No signs and/or symptoms reported regarding the musculoskeletal system. Circulation, motion, and sensation intact. Range of motion: intact in all extremities. 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 - Social history:: Smoking status: Patient denies any tobacco usage or history of. Screenin:[facility] ED Fall Risk Assessment (Adult) History of falling in the last 3 months, jw7 including since admission No falls in past 3 months (0 pts) Score/Fall Risk Level 0 - 2 = Low Risk. Abuse screen: Denies threats or abuse. Denies injuries from another. Nutritional screening: No deficits noted. Tuberculosis screening: No symptoms or risk factors identified. Assessment: 18:41 Reassessment: CODE SEPSIS CALLED. hb 19:15 General: see triage assessment. jw7 20:43 Reassessment: Patient appears in no apparent distress at this time. Patient is alert, kl oriented x 3, equal unlabored respirations, skin warm/dry/pink. Patient states symptoms have improved. 21:39 Reassessment: pt reports head itching rash noted to neck and scalp MD notified pt given selina Benadryl as ordered. 22:15 Reassessment: Patient appears in no apparent distress at this time. Patient and/or kl family updated on plan of care and expected duration. Pain level reassessed. Patient states feeling better. Patient states symptoms have improved. 23:00 General: attempted to call report, will have nurse call back . jw7 Vital Signs: 18:40 BP 171 / 100; Pulse 139; Resp 20; Temp 102(O); Pulse Ox 100% on R/A; Weight 99.79 kg; hb Height 4 ft. 11 in. ; Pain 10/10; 20:42 BP 131 / 87; Pulse 107; Resp 16; Temp 100.1(O); kl 21:41 BP 147 / 88; Pulse 99; Resp 16; Pulse Ox 99% on R/A; kl 23:02 BP 144 / 72; Pulse 78; Resp 17 S; Pulse Ox 99% on R/A; jw7 23:07 BP 144 / 72; Pulse 75; Resp 18; Temp 98.9(O); Pulse Ox 99% on R/A; kl 18:40 Body Mass Index 44.43 (99.79 kg, 149.86 cm) hb 18:40 Pain Scale: Adult hb ED Course: 18:22 Patient arrived in ED. rg4 18:26 Yessica Mcintosh PA-C is PHCP. sb4 18:26 John Fowler MD is Attending Physician. sb4 18:34 Adele Valdovinos, ANNE is Primary Nurse. kd3 18:43 Triage completed. hb 18:44 Arm band placed on. hb 18:57 Initial lab(s) drawn, by me, sent to lab. First set of blood cultures drawn by ak. iw Inserted saline lock: 22 gauge in right antecubital area, using aseptic technique. Blood collected. 19:10 Patient has correct armband on for positive identification. Bed in low position. Call 7 light in reach. 19:39 Blood Culture Adult (2) Sent. jw7 19:39 Flu Sent. jw7 19:39 COVID-19 SARS RT PCR Sent. jw7 19:54 CT Abd/Pelvis - IV Contrast Only In Process Unspecified. EDMS 20:40 Attending Physician role handed off by John Fowler MD sp4 20:40 Jarek Perdomo MD is Attending Physician. sp4 20:54 Primary Nurse role handed off by Adele Valdovinos, ANNE wm 21:29 Chest Single View XRAY In Process Unspecified. EDMS 21:35 Caitlyn Downs RN is Primary Nurse. jw7 22:10 Hamlet Gutierrez MD is Hospitalizing Provider. sb4 22:58 No provider procedures requiring assistance completed. Patient admitted, IV remains in jw7 place. 22:59 Provided Education on: need for admit. jw7 Administered Medications: 19:40 Drug: NS 0.9% IV 1000 ml IV at 1 bolus Per protocol; 1000 mL bolus Route: IV; Rate: 1 jw7 bolus; Site: right antecubital; 22:09 Follow up: Response: No adverse reaction; IV Status: Completed infusion; IV Intake: jw7 1000ml 19:40 Drug: Ondansetron IVP 4 mg IVP once; over 2 minutes Route: IVP; Site: right antecubital;jw7 22:09 Follow up: Response: No adverse reaction jw7 19:40 Drug: morphine IVP or IV 4 mg IVP once over 4 mins Route: IVP; Infused Over: 4 mins; jw7 Site: right antecubital; 22:09 Follow up: Response: No adverse reaction jw7 20:50 Drug: Rocephin - Rocephin (cefTRIAXone) IVPB 1 grams IVPB once over 30 mins; (mix in 50 kl mL NS) Route: IVPB; Infused Over: 30 mins; Site: right antecubital; 21:22 Follow up: IV Status: Completed infusion; IV Intake: 50ml kl 21:23 Drug: vancoMYCIN IVPB 2 grams IVPB at calculated rate once Route: IVPB; Rate: kl calculated rate; Site: right antecubital; 21:37 Follow up: Response: Adverse reaction, Physician notified; IV Intake: 10ml kl 21:37 Drug: diphenhydrAMINE IVP 25 mg IVP once Route: IVP; Site: right antecubital; kl 21:50 Follow up: Response: Marked relief of symptoms kl 21:38 Drug: Acetaminophen PO 1000 mg PO once Route: PO; kl 22:14 Follow up: Response: No adverse reaction kl 21:50 Drug: Clindamycin IVPB 900 mg IVPB once over 30 mins; (mix in 50 mL) Route: IVPB; kl Infused Over: 30 mins; Site: right antecubital; 22:14 Follow up: Response: No adverse reaction; IV Status: Completed infusion; IV Intake: 50mlkl Medication: 22:58 VIS not applicable for this client. jw7 Intake: 21:22 IV: 50ml; Total: 50ml. kl 21:37 IV: 10ml; Total: 60ml. kl 22:09 IV: 1000ml; Total: 1060ml. jw7 22:14 IV: 50ml; Total: 1110ml. kl Outcome: 22:12 Decision to Hospitalize by Provider. sb4 22:59 Admitted to Med/surg accompanied by tech, via wheelchair, room 224, jw7 22:59 Condition: stable 22:59 Instructed on the need for admit, Demonstrated understanding of instructions, 23:10 Patient left the ED. jw7 Signatures: Dispatcher [employer] Aida Cornejo, RN Mireya Rubio RN RN iw Baxter, Heather, RN RN Olive Pate rg4 Elisabeth Garcia Kyli RN RN kd3 Caitlyn Downs RN RN jw7 Yessica Mcintosh, PALatosha PA-Mario sb4 Jarek Perdomo MD MD sp4 Corrections: (The following items were deleted from the chart) 18:43 18:41 Initial Sepsis Screen: iw hb 18:45 18:40 BP 171 / 100; Pulse 139bpm; Resp 2bpm; Pulse Ox 100% RA; Temp 102F Oral; 99.79 hb kg; Height 4 ft. 11 in.; BMI: 44.4; Pain 10/10, Adult; hb
--- NOTE | 2023-01-23 22:20 | P.HP ---
Certification for Inpatient Patient admitted to: Observation With expected LOS: <2 Midnights Patient will require the following post-hospital care: None Practitioner: I am a practitioner with admitting privileges, knowledge of patient current condition, hospital course, and medical plan of care. Services: Services provided to patient in accordance with Admission requirements found in Title 42 Section 412.3 of the Code of Federal Regulations Patient History Date of Service: 01/23/23 Reason for admission: Fever History of Present Illness: 32-year-old female with a past medical history of kidney stones, renal stents, presents to the emergency room with fever and abdominal pain that started today. She reported fever of 102.0, reported nausea, no vomiting. She reports diffuse abdominal pain, no rebound tenderness. She denies dysuria, hematuria, flank pain, vomiting, shortness of breath, chest pain. Hypertensive on arrival to the ERBP 171 / 100; Pulse 139; Resp 20; Temp 102(O); Pulse Ox 100% with 7 improved presentation. Was treated with IV normal saline, Zofran, Rocephin, vancomycin, patient reports reaction to vancomycin. Vancomycin stopped. Changed to clindamycin. Plan to admit for sepsis without shock, fever, leukocytosis of unknown source. Laboratory evaluation leukocytosis WBC 16.40, left shift 84.40, mild hypokalemia 3.4, UA normal, SARS negative, test negative. Chest x-ray no acute abnormality CT of the abdomen pelvis 2 cm irregularly-shaped left ovarian cyst as probably recently stopped ruptured, moderate umbilical hernia, normal appendix Allergies amoxicillin Allergy (Verified 03/22/17 13:05) Hives Penicillins Allergy (Unverified 04/10/17 11:23) Unknown Home Medications: Pnv59/Iron,Carb,Fum/FA/Dss/Dha [Citranatal [place] Capsule] 1 cap PO DAILY 03/24/17 Codeine/APAP [Tylenol W/Codeine #3 tab] 1 tab PO Q6HP PRN #24 tab 03/25/17 - Past Medical/Surgical History Diabetic: No -: Kidney stones, ureteral stents -: secton 10/26 - Social History Smoking Status: Never smoker Alcohol use: No CD- Drugs: No Caffeine use: Yes Place of Residence: Home Review of Systems 10-point ROS is otherwise unremarkable Physical Examination - Physical Exam General: Alert, In no apparent distress, Oriented x3 HEENT: Atraumatic, Normocephalic, PERRLA Neck: Supple, 2+ carotid pulse no bruit Respiratory: Clear to auscultation bilaterally, Normal air movement Cardiovascular: No edema, Normal pulses, Regular rate/rhythm Capillary refill: <2 Seconds Gastrointestinal: Normal bowel sounds, Tenderness (Diffuse mild tenderness) Musculoskeletal: No clubbing, No swelling Integumentary: No rashes, No breakdown Neurological: Normal speech, Normal strength at 5/5 x4 extr - Studies Laboratory Data (last 24 hrs) 01/23/23 01/23/23 18:57 18:57 WBC 16.40 H Hgb 13.2 Hct 39.7 Plt Count 244 Sodium 137 Potassium 3.4 L BUN 10 Creatinine 0.71 Glucose 106 Total Bilirubin 0.3 AST 15 ALT 30 Alkaline Phosphatase 88 Lipase 28 Microbiology Data (last 24 hrs): 01/23/23 19:20 Nasopharnyx Influenza Type A Antigen Screen - Final 01/23/23 19:20 Nasopharnyx Influenza Type B Antigen Screen - Final Assessment and Plan - Plan Assessment plan Sepsis without shock probable cause left ruptured ovarian cyst Leukocytosis Tachycardia Hypokalemia Episodic hypertension DVT prophylaxis Assessment plan Sepsis without shock probable cause left ruptured ovarian cyst Leukocytosis Tachycardia IV fluids, IV antibiotics, as needed antiemetics, as needed analgesics, trend lactic, trend WBCs leukocytosis WBC 16.40, left shift 84.40, UA normal, SARS negative, test negative. Chest x-ray no acute abnormality CT of the abdomen pelvis 2 cm irregularly-shaped left ovarian cyst as probably re cently stopped ruptured, moderate umbilical hernia, normal appendix Hypokalemia mild hypokalemia 3.4, Episodic hypertension As needed antihypertensives 171 / 100; Pulse 139; Resp 20; Temp 102(O); Pulse Ox 100% DVT prophylaxis Regular diet Full code Discharge Plan: Home Plan to discharge in: 24 Hours - Advance Directives Does patient have a Living Will: No Does patient have a Durable POA for Healthcare: No - Code Status/Comfort Care Code Status: Full Code Physician Review: Patient Assessed, Agree with Above Assessment and Plan Critical Care: No Time Spent Managing Pts Care (In Minutes): 50
[2023-01-23] MEDS: NA CHLORIDE 0.9% 1,000 ML IV SCH (23:20)
[2023-01-23] MEDS ORDERED: DICYCLOMINE HCL 10 MG CAP PO PRN (23:20)
[2023-01-23] MEDS: AZITHROMYCIN IV 500 MG in NA CHLORIDE 0.9% 250 ML IVPB SCH (23:20)
[2023-01-23] MEDS ORDERED: PROMETHAZINE 25 MG TABLET PO PRN (23:20)
[2023-01-23 23:28] VITALS: O2SAT 99
[2023-01-23] MEDS: KETOROLAC 30 MG/ML INJ IV PRN (23:59)
[2023-01-24 00:14] VITALS: BMI 44.4
[2023-01-24 03:38] LABS: Albumin 2.5 g/dL (3.4-5.0); Bilirubin Total 0.3 mg/dL (0.2-1.0); Magnesium 1.8 mg/dL (1.6-2.4); Potassium 3.7 mEq/L (3.5-5.1)
[2023-01-24] MEDS: CEFEPIME 1 GM in NA CHLORIDE 0.9% 100 ML IV SCH ×2 (05:37→08:26)
[2023-01-24] MEDS ORDERED: MAGNESIUM SULFATE 1 gm IVPB 1 GM/100 ML BAG IV ONE (06:00)
[2023-01-24] MEDS ORDERED: POTASSIUM CL SA 10 MEQ TAB PO ONE (08:00)
[2023-01-24] MEDS: AZITHROMYCIN IV 500 MG in NA CHLORIDE 0.9% 250 ML IVPB SCH (08:25)
[2023-01-24] MEDS: ENOXAPARIN 40 MG/0.4 ML SQ SCH (08:28)
[2023-01-24] MEDS: ACETAMINOPHEN 500 MG TAB PO PRN ×2 (08:31→16:38)
[2023-01-24] MEDS: NA CHLORIDE 0.9% 1,000 ML IV SCH ×2 (09:20→19:20)
[2023-01-24] MEDS: KETOROLAC 30 MG/ML INJ IV PRN ×2 (12:26→19:31)
--- NOTE | 2023-01-24 14:58 | P.PN ---
Subjective Date of Service: 01/24/23 Chief Complaint: Fever Patient reports abdominal pain. She denies diarrhea but endorses nausea and loss of appetite. No vomiting. She denies any pelvic pain. No fever since admit. Physical Examination - Vital Signs Temperature: 97.6 F Blood Pressure: 134/77 Pulse: 74 Respirations: 18 Pulse Ox (%): 99 - Studies Laboratory Data (last 24 hrs) 01/23/23 01/23/23 18:57 18:57 WBC 16.40 H Hgb 13.2 Hct 39.7 Plt Count 244 Sodium 137 Potassium 3.4 L BUN 10 Creatinine 0.71 Glucose 106 Total Bilirubin 0.3 AST 15 ALT 30 Alkaline Phosphatase 88 Lipase 28 Microbiology Data (last 24 hrs): 01/23/23 19:20 Nasopharnyx Influenza Type A Antigen Screen - Final 01/23/23 19:20 Nasopharnyx Influenza Type B Antigen Screen - Final Assessment And Plan - Plan Physical Exam General: Alert, In no apparent distress, Oriented x3 HEENT: Atraumatic, Normocephalic, PERRLA Neck: Supple, 2+ carotid pulse no bruit Respiratory: Clear to auscultation bilaterally, Normal air movement Cardiovascular: No edema, Normal pulses, Regular rate/rhythm Capillary refill: <2 Seconds Gastrointestinal: Normal bowel sounds, Tenderness (Diffuse mild tenderness) Musculoskeletal: No clubbing, No swelling Integumentary: No rashes, No breakdown Neurological: Normal speech, Normal strength at 5/5 x4 extr Diagnosis Sepsis without shock. Leukocytosis Ruptured ovarian cyst Hypokalemia Obesity Plan Sepsis without shock probable cause left ruptured ovarian cyst Leukocytosis Tachycardia Suspect possible pelvic infection related to ruptured ovarian cyst versus viral etiology Continue IV fluids, IV antibiotics Monitor CBC. Hypokalemia Correct potassium as needed DVT prophylaxis: Lovenox Regular diet Full code
[2023-01-24 15:13] LABS: Hematocrit 35.9 % (36.0-45.0); Lymphocytes % 29.9 % (15.3-44.8); MPV 9.2 fL (7.6-11.3); Platelets 222 thou/uL (152-406); RBC Red Blood Cell Count 4.17 M/uL (3.86-4.86)
[2023-01-24] MEDS: HYDROCODONE/APAP 5/325 MG TAB PO PRN (21:48)
[2023-01-24] MEDS: ONDANSETRON 4 MG/2 ML VIAL IV PRN (21:51)
[2023-01-25 03:11] LABS: Absolute Lymphocytes (CBC) 3.7 K/uL (0.7-4.9); Hematocrit 34.8 % (36.0-45.0); Lymphocytes % 45.6 % (15.3-44.8); MCV 83.7 fL (80-100); MPV 7.8 fL (7.6-11.3); Platelets 229 thou/uL (152-406); RBC Red Blood Cell Count 4.16 M/uL (3.86-4.86)
[2023-01-25 03:22] LABS: Potassium 3.8 mEq/L (3.5-5.1)
[2023-01-25] MEDS ORDERED: MAGNESIUM SULFATE 1 gm IVPB 1 GM/100 ML BAG IV ONE (05:00)
[2023-01-25] MEDS: KETOROLAC 30 MG/ML INJ IV PRN ×2 (05:18→19:49)
[2023-01-25] MEDS: CEFEPIME 1 GM in NA CHLORIDE 0.9% 100 ML IV SCH (05:18)
[2023-01-25] MEDS ORDERED: POTASSIUM CL SA 10 MEQ TAB PO ONE (08:00)
[2023-01-25 08:03] VITALS: TEMP 97.9
[2023-01-25] MEDS: NA CHLORIDE 0.9% 1,000 ML IV SCH ×2 (08:04→15:56)
[2023-01-25] MEDS: HYDROCODONE/APAP 5/325 MG TAB PO PRN (08:04)
[2023-01-25] MEDS: AZITHROMYCIN IV 500 MG in NA CHLORIDE 0.9% 250 ML IVPB SCH (08:05)
[2023-01-25] MEDS: ENOXAPARIN 40 MG/0.4 ML SQ SCH (08:05)
[2023-01-25] MEDS: ONDANSETRON 4 MG/2 ML VIAL IV PRN ×2 (08:09→15:47)
[2023-01-25] MEDS: SUCRALFATE 1GM/10ML UCUP PO SCH ×4 (09:28→19:50)
--- NOTE | 2023-01-25 15:49 | P.DS ---
Admission Date: 01/23/23 Discharge Date: 01/25/23 Disposition: ROUTINE DISCHARGE Discharge Condition: FAIR Reason for Admission: Fever - Problems (1) Sepsis Current Visit: Yes Status: Acute (2) Abdominal pain Current Visit: Yes Status: Acute (3) Ruptured ovarian cyst Current Visit: Yes Status: Acute Brief History of Present Illness: 32-year-old female with a past medical history of kidney stones, renal stents, presents to the emergency room with fever and abdominal pain. She reported fever of 102.0, reported nausea, no vomiting. She reports diffuse abdominal pain, no rebound tenderness. She denies dysuria, hematuria, flank pain, vomiting, shortness of breath, chest pain. Hypertensive on arrival to the ERBP 171 / 100; Pulse 139; Resp 20; Temp 102(O); Pulse Ox 100% with 7 improved presentation. She was treated with IV normal saline, Zofran, Rocephin, vancomycin. Patient reports reaction to vancomycin. Vancomycin stopped. Changed to clindamycin. Plan to admit for sepsis without shock, fever, leuk ocytosis of unknown source. Laboratory evaluation leukocytosis WBC 16.40, left shift 84.40, mild hypokalemia 3.4, UA normal, SARS negative, test negative. Chest x-ray no acute abnormality. CT of the abdomen pelvis 2 cm irregularly-shaped left ovarian cyst as probably recently stopped ruptured, moderate umbilical hernia, normal appendix. Patient was hospitalized for further management. Hospital Course: Patient was admitted to the medical floor, started on IV antibiotics, treated with supportive measures including IV fluids and analgesics. Patient tolerated diet. UA did not suggest UTI. Blood cultures showed no growth. Leukocytosis resolved. Patient's symptoms suspected to be related to viral gastroenteritis. Repeat CT abdomen and pelvis. Patient has tolerated diet. She is ambulating, she is discharged with oral antibiotics and PPI. She is informed to return to the ED if her abdominal pain worsen for repeat evaluation. Vital Signs/Physical Exam: Temp Pulse Resp BP Pulse Ox 97.9 F 57 16 128/59 L 95 01/25/23 08:00 01/25/23 08:00 01/25/23 08:00 01/25/23 08:00 01/25/23 08:00 General: Alert, In no apparent distress, Oriented x3 HEENT: Mucous membr. moist/pink Neck: JVD not distended Respiratory: Clear to auscultation bilaterally, Normal air movement Cardiovascular: No edema, Regular rate/rhythm, Normal S1 S2 Gastrointestinal: Normal bowel sounds, Non-distended, Tenderness (Mild lower abdominal tenderness and epigastric tenderness) Musculoskeletal: No swelling Integumentary: No cyanosis Neurological: Normal strength at 5/5 x4 extr Laboratory Data at Discharge: WBC 8.10 thou/uL (4.3-10.9) 01/25/23 02:41 Hgb 11.6 g/dL (12.0-15.0) L 01/25/23 02:41 Hct 34.8 % (36.0-45.0) L 01/25/23 02:41 Plt Count 229 thou/uL (152-406) 01/25/23 02:41 Sodium 142 mEq/L (136-145) 01/25/23 02:41 Potassium 3.8 mEq/L (3.5-5.1) 01/25/23 02:41 BUN 8 mg/dL (7-18) 01/25/23 02:41 Creatinine 0.55 mg/dL (0.55-1.02) 01/25/23 02:41 Glucose 86 mg/dL (74-106) 01/25/23 02:41 Magnesium 1.8 mg/dL (1.6-2.4) 01/24/23 02:32 Total Bilirubin 0.3 mg/dL (0.2-1.0) 01/24/23 02:32 AST 10 U/L (15-37) L 01/24/23 02:32 ALT 22 U/L (13-56) 01/24/23 02:32 Alkaline Phosphatase 70 U/L (45-117) D 01/24/23 02:32 Lipase 28 U/L (13-75) 01/23/23 18:57 Home Medications: Mv-Min/Iron/Folic/Calcium/Vitk [Women's Daily Formula Tablet] 1 each PO DAILY 01/24/23 Ciprofloxacin HCl [Cipro] 500 mg PO BID #10 tab 01/25/23 Hydrocodone 5/APAP 325 [[place] 5/325*] 1 tab PO Q6H PRN #12 tab 01/25/23 Metronidazole 500 mg PO TID #15 tab 01/25/23 Pantoprazole Sodium [Protonix] 40 mg PO BID #60 tab 01/25/23 New Medications: Ciprofloxacin HCl [Cipro] 500 mg PO BID #10 tab Metronidazole 500 mg PO TID #15 tab Hydrocodone 5/APAP 325 [[place] 5/325*] 1 tab PO Q6H PRN #12 tab PRN Reason: Pain Scale 5-7 (Moderate) Pantoprazole Sodium [Protonix] 40 mg PO BID #60 tab Diet: AHA Activity: Ad laura Followup: NONE,NONE [Primary Care Provider] - 1-2 Weeks
[2023-01-25 16:00] VITALS: BP 133/75
--- NOTE | 2023-01-25 19:17 | RAD REPORT ---
EXAM DESCRIPTION: CTAbdomen Pelvis W Contrast - 01/25/2023 6:56 pm CLINICAL HISTORY: Abdominal Pain COMPARISON: Abdomen Pelvis W Contrast dated 01/23/2023; Abdomen Pelvis W Contrast dated 7; CT ABD PELVIS W CONTRAST dated 01/18/2015 TECHNIQUE: CT of the abdomen and pelvis was performed. All CT scans are performed using dose optimization technique as appropriate and may include automated exposure control or mA/KV adjustment according to patient size. FINDINGS: Lower chest: No acute abnormality. Liver: No acute abnormality or suspicious lesions. Biliary: No biliary ductal dilatation. Stomach: No significant focal abnormality. Duodenum: No significant focal abnormality. Pancreas: No significant abnormality. Spleen: No significant abnormality. Adrenal: No suspicious lesions. Kidney/ureter: No hydronephrosis. No renal calculi. Subcentimeter right renal cyst. Retroperitoneum: No retroperitoneal adenopathy. Vascular: No aneurysm. Bowel: No significant focal abnormality. Normal appendix. Peritoneum: No ascites or free air. Moderate fat containing umbilical hernia. Bladder: Grossly unremarkable. Reproductive: No adnexal masses. Bones: No acute fracture. Other: n/a IMPRESSION: No acute intra-abdominal or pelvic finding.
== END 2023-01-25 20:38 | disposition home or self-care (01) ==
LOC: ER 18:21 → 2ND 22:57
PROVIDERS: ADMIT Internal Medicine; ATTEND Internal Medicine
DX: N83.202 Unspecified ovarian cyst, left side (principal); A41.9 Sepsis, unspecified organism; R10.9 Unspecified abdominal pain; R11.2 Nausea with vomiting, unspecified; D72.829 Elevated white blood cell count, unspecified; E87.6 Hypokalemia; I10 Essential (primary) hypertension; R00.0 Tachycardia, unspecified; E66.9 Obesity, unspecified; Z68.41 Body mass index [BMI] 40.0-44.9, adult; Z88.0 Allergy status to penicillin; Z88.1 Allergy status to other antibiotic agents; Z20.822 Contact with and (suspected) exposure to COVID-19
CPT/HCPCS: 96365; 96367; 96361; 87040 ×2; 85025 ×3; 81001; 80048; 36415 ×2; 83735; 81025; 83605 ×2; 83690; 80053 ×2; 87635; 87804 ×2; 74177 ×2; 71045; 96375; 99285; Q9967 ×2; J3475 ×2; J1200; J1650 ×2; J2405 ×4; J7050 ×3; J7040; J7030 ×5; J0692 ×4; J0696; G0378

== ENCOUNTER → 2023-05-18 | Emergency (ER) | payer OTHER ==
[~2023-05-18] MED LIST: KETOROLAC 30 MG/ML INJ ONE; METHYLPREDNISOLONE 40 MG INJ ONE; POTASSIUM 25 MEQ EFFERV TAB ONE
--- NOTE | 2023-05-18 19:40 | RAD REPORT ---
[facility] CLINICAL HISTORY: SOB COMPARISON: Chest Single View dated 01/23/2023; CHEST SINGLE VIEW dated 09/13/2010; CHEST PA AND LAT 2 VIEW dated 03/01/2010 TECHNIQUE: Portable AP view of the chest. FINDINGS: The lungs are clear. No pneumothorax or effusion. The cardiomediastinal contours are unre markable. IMPRESSION: No acute cardiopulmonary process.
[2023-05-18 19:55] LABS: Absolute Lymphocytes (CBC) 3.1 K/uL (0.7-4.9); Hematocrit 41.9 % (36.0-45.0); Lymphocytes % 35.3 % (15.3-44.8); MCV 83.3 fL (80-100); MPV 7.9 fL (7.6-11.3); Platelets 265 thou/uL (152-406); RBC Red Blood Cell Count 5.03 M/uL (3.86-4.86)
[2023-05-18 20:07] LABS: Protime INR 1.05
[2023-05-18 20:22] LABS: ALT/SGPT 27 U/L (13-56); AST/SGOT 15 U/L (15-37); Albumin 3.3 g/dL (3.4-5.0); Alkaline Phosphatase 99 U/L (45-117); BUN Blood Urea Nitrogen 12 mg/dL (7-18); Bicarbonate 20 mEq/L (21-32); Bilirubin Total 0.2 mg/dL (0.2-1.0); Glomerular Filtration Rate 87 ml/min (=/>90); Glucose Level 93 mg/dL (74-106); Magnesium 2.4 mg/dL (1.6-2.4); NT PRO-BNP 55 pg/mL (<125); Potassium 3.3 mEq/L (3.5-5.1); Protein, Total 7.5 g/dL (6.4-8.2); Sodium Level 140 mEq/L (136-145)
[2023-05-18 20:23] LABS: Bilirubin Direct < 0.1 mg/dL (0-0.2); Bilirubin Indirect, Calculated ND mg/dL (0.2-0.8)
[2023-05-18 21:53] LABS: Specific Gravity 1.016 (1.005-1.030)
[2023-05-18 22:11] LABS: Specific Gravity 1.016 (1.005-1.030); Urine Bacteria <20 /HPF (<20); Urine Bilirubin NEGATIVE (Negative); Urine Blood Negative (Negative); Urine Clarity Extremely Turbid (Clear); Urine Color Light-Yellow (Yellow); Urine Glucose NEGATIVE (Negative); Urine Mucus Slight /HPF (None Seen); Urine Protein TRACE (Negative); Urine RBC <5 /HPF (None Seen); Urine Urobilinogen Normal (Normal)
--- NOTE | 2023-05-19 00:31 | EDPHYS ---
Physician Documentation [facility] Name: Evelio Lay Age: 32 yrs Sex: Female : 1990 Arrival Date: 05/18/2023 Time: 18:21 Bed 18 Private MD: ED Physician Jarek Perdomo HPI: 05/18 18:45 This 32 yrs old Female presents to ER via Ambulatory with complaints of cp Breathing Difficulty, Back Pain. 18:45 The patient has shortness of breath with light activity. Onset: The symptoms/episode cp began/occurred last week. Duration: The symptoms are continuous. Associated signs and symptoms: Pertinent positives: left mid back and left flank pain, Pertinent negatives: fever. Severity of symptoms: in the emergency department the symptoms are unchanged despite home interventions. The patient has been recently seen by a physician: in [place] and diagnosed with UTI and prescribed antibiotics, with similar presenting complaints. Historical: - Allergies: 18:38 Amoxicillin; tl4 18:38 PENICILLINS; tl4 18:38 Vancomycin; tl4 - PMHx: 18:38 Kidney stone; tl4 - PSHx: 18:38 renal stent; section; tl4 - Immunization history:: Adult Immunizations unknown. - Social history:: Smoking status: Patient denies any tobacco usage or history of. ROS: 18:50 Constitutional: Negative for body aches, chills, fever, poor PO intake, cp 18:50 Cardiovascular: Negative for chest pain, edema, palpitations, cp 18:50 Eyes: Negative for injury, pain, redness, and discharge, cp 18:50 ENT: Negative for drainage from ear(s), ear pain, sore throat, difficulty swallowing, difficulty handling secretions, 18:50 Respiratory: Positive for shortness of breath, Negative for cough, wheezing, 18:50 Abdomen/GI: Negative for abdominal pain, vomiting, diarrhea, constipation, anorexia, 18:50 Back: Positive for flank pain, on the left, Negative for injury or acute deformity, decreased range of motion, 18:50 : Negative for urinary symptoms, 18:50 Neuro: Negative for altered mental status, dizziness, headache, numbness, syncope, weakness, 18:50 All other systems are negative, Exam: 18:55 Constitutional: The patient appears in no acute distress, alert, awake, cp non-diaphoretic, non-toxic, well developed, well nourished, anxious, obese, 18:55 Head/Face: Normocephalic, atraumatic. cp 18:55 Eyes: Periorbital structures: appear normal, Conjunctiva: normal, no exudate, no injection, Sclera: no appreciated abnormality, Lids and lashes: appear normal, bilaterally, 18:55 ENT: External ear(s): are unremarkable, Nose: is normal, Mouth: Lips: moist, Oral mucosa: pink and intact, moist, Posterior pharynx: is normal, airway is patent, no erythema, no exudate, 18:55 Neck: ROM/movement: is normal, is supple, without pain, no range of motions limitations, 18:55 Chest/axilla: Inspection: normal, Palpation: crepitus, is not appreciated, tenderness, of the left lower lateral posterior chest/flank area, that partially reproduces the patient's complaints, 18:55 Cardiovascular: Rate: normal, Rhythm: regular, Edema: is not appreciated, JVD: is not appreciated, 18:55 Respiratory: the patient does not display signs of respiratory distress, Respirations: labored breathing, is not present, shallow respirations, that is mild, Breath sounds: are clear throughout, no decreased breath sounds, no stridor, no wheezing, 18:55 Abdomen/GI: Inspection: obese Palpation: abdomen is soft and non-tender, in all quadrants, 18:55 Back: ROM is normal, 18:55 Skin: cellulitis, is not appreciated, no rash present. 19:40 ECG was reviewed by the Attending Physician. cp Vital Signs: 18:35 BP 143 / 95; Pulse 93; Resp 16; Temp 98; Pulse Ox 100% on R/A; Weight 99.79 kg; Height tl4 4 ft. 11 in. ; Pain 10/10; 20:30 BP 133 / 98; Pulse 79; Resp 15 S; Pulse Ox 100% on R/A; Pain 7/10; lg3 22:17 BP 127 / 86; Pulse 79; Resp 16 S; Pulse Ox 100% on R/A; lg3 05/19 00:51 BP 131 / 89; Pulse 74; Resp 15 S; Pulse Ox 99% on R/A; lg3 05/18 18:35 Body Mass Index 44.43 (99.79 kg, 149.86 cm) tl4 05/18 18:35 Pain Scale: Adult tl4 20:30 Pain Scale: Adult lg3 MDM: 05/18 18:41 Patient medically screened. 20:00 Differential diagnosis: Anemia asthma, Bronchitis pneumonia, Pneumothorax pulmonary cp edema, Pulmonary Embolism anxiety. 05/19 00:30 Data reviewed: vital signs, nurses notes, lab test result(s). cp 00:30 I considered the following discharge prescriptions or medication management in the emergency department Medications were administered in the Emergency Department. See JUN. 00:30 Counseling: I had a detailed discussion with the patient and/or guardian regarding the historical points, exam findings, and any diagnostic results supporting the discharge/admit diagnosis, lab results, radiology results, to return to the emergency department if symptoms worsen or persist or if there are any questions or concerns that arise at home. Response to treatment: the patient's symptoms have markedly improved after treatment, and as a result, I will discharge patient. 05/18 18:38 Order name: Basic Metabolic Panel; Complete Time: 20:26 05/18 20:26 Interpretation: Normal except: K 3.3; CL 113; CO2 20; GFR 87; CA 8.3. 05/18 18:38 Order name: CBC with Diff; Complete Time: 20:26 05/18 20:26 Interpretation: Normal except: RBC 5.03; RDW 15.5; BASO% 1.4. 05/18 18:38 Order name: D-Dimer; Complete Time: 20:26 05/18 20:26 Interpretation: Normal except: D-DIMER 502. 05/18 18:38 Order name: LFT's; Complete Time: 20:26 05/18 20:26 Interpretation: Normal except: ALB 3.3; GLOB 4.2; A/G 0.8. 05/18 18:38 Order name: Magnesium; Complete Time: 20:26 05/18 18:38 Order name: NT PRO-BNP; Complete Time: 20:26 cp 05/18 18:38 Order name: PT-INR; Complete Time: 20:26 05/18 18:38 Order name: Troponin HS; Complete Time: 20:26 cp 05/18 19:27 Order name: Urinalysis W/Microscopic; Complete Time: 22:56 cp 05/18 22:56 Interpretation: Normal except: [facility] Extremely Turbid; UPROT TRACE; ANTONIA Cx 1+. cp 05/18 19:27 Order name: Test, Urine; Complete Time: 22:56 cp 05/18 18:38 Order name: XRAY Chest (1 view); Complete Time: 19:44 cp 05/18 19:44 Interpretation: Report review. cp 05/18 20:29 Order name: CT Chest For PE Angio cp 05/18 18:38 Order name: EKG; Complete Time: 18:39 cp 05/18 18:38 Order name: Cardiac monitoring; Complete Time: 19:47 cp 05/18 18:38 Order name: EKG - Nurse/Tech; Complete Time: 19:38 cp 05/18 18:38 Order name: IV Saline Lock; Complete Time: 19:47 cp 05/18 18:38 Order name: Labs collected and sent; Complete Time: 19:47 cp 05/18 18:38 Order name: O2 Per Protocol; Complete Time: 19:47 cp 05/18 18:38 Order name: O2 Sat Monitoring; Complete Time: 19:47 cp EC/29 19:40 Rate is 75 beats/min. Rhythm is regular. TN interval is normal. QRS interval is normal. cp QT interval is normal. T waves are Inverted in lead aVR. Interpreted by me. Reviewed by me. Administered Medications: 20:29 Drug: Ketorolac IVP 15 mg IVP once Route: IVP; Site: right antecubital; lg3 22:18 Follow up: Response: No adverse reaction; Marked relief of symptoms lg3 05/19 00:49 Drug: MethylPrednisoLONE IVP 80 mg IVP once Route: IVP; Site: right antecubital; lg3 00:50 Follow up: Response: No adverse reaction lg3 00:49 Drug: Potassium PO Effervescent Tablet 25 mEq PO once; dissolve in 4 ounces of water or lg3 juice Route: PO; 00:50 Follow up: Response: No adverse reaction lg3 Disposition: 02:53 Co-signature as Attending Physician, Jarek Perdomo MD I agree with the assessment sp4 and plan of care. I reviewed the patient's care provided by Advanced Practice Provider \T\ agree w/ the diagnosis \T\ care plan. I personally saw the pt \T\ performed a substantive portion of the visit, incldng all aspects of the (History/Exam/Medical Decision Making). Disposition Summary: 05/19/23 00:30 Discharge Ordered Notes: Location: Home cp Problem: new cp Symptoms: have improved cp Condition: Stable cp Diagnosis - Dorsalgia, unspecified cp - Shortness of breath cp Followup: cp - With: Private Physician - When: 2 - 3 days - Reason: Recheck today's complaints Discharge Instructions: - Discharge Summary Sheet cp - Acute Back Pain, Adult cp - Shortness of Breath, Adult cp Forms: - Medication Reconciliation Form cp - Thank You Letter cp - Antibiotic Education cp - Prescription Opioid Use cp - Patient Portal Instructions cp - Leadership Thank You Letter cp Prescriptions: - albuterol sulfate 90 mcg/actuation Inhalation HFA Aerosol Inhaler - inhale 1 inhalation INHALATION route every 4 hours As needed administer via cp ventilator; 1 unit; Refills: 0, Product Selection Permitted - Diclofenac Sodium 75 mg Oral Tablet Sustained Release - take 1 tablet ORAL route 2 times per day; 30 tablet; Refills: 0, Product cp Selection Permitted - Medrol (Martínez) 4 mg Oral Tablets, Dose Pack - take 1 tablet ORAL route as directed - follow package instructions; 1 packet; cp Refills: 0, Product Selection Permitted Signatures: Dispatcher [employer] EDMS Miguel Gregory PA PA cp Able, Lacie, RN RN lg3 Jarek Perdomo MD MD sp4 Logdaapolinar, Ac tl4 Corrections: (The following items were deleted from the chart) 19:34 05/18 18:50 Cardiovascular: Negative for chest pain, cp cp 05/19 19:39 02:53 Data reviewed: vital signs, nurses notes, lab test result(s), sp4 cp
--- NOTE | 2023-05-19 00:31 | ER ---
Nurse's Notes [facility] Name: Evelio Lay Age: 32 yrs Sex: Female : 1990 Arrival Date: 05/18/2023 Time: 18:21 Bed 18 Private MD: Diagnosis: Dorsalgia, unspecified;Shortness of breath Presentation: 05/18 18:35 Chief complaint: Patient states: Pt c/o back pain with difficulty breathing. Pt tl4 diagnosed with kidney infection on Thursday at [facility] ED. Pt states symptoms are getting worse. Coronavirus screen: Vaccine status: Patient reports being unvaccinated. Ebola Screen: Patient negative for fever greater than or equal to 101.5 degrees Fahrenheit, and additional compatible Ebola Virus Disease symptoms Patient denies exposure to infectious person. Patient denies travel to an Ebola-affected area in the 21 days before illness onset. No symptoms or risks identified at this time. Initial Sepsis Screen: Does the patient meet any 2 criteria? No. Patient's initial sepsis screen is negative. Does the patient have a suspected source of infection? No. Patient's initial sepsis screen is negative. Risk Assessment: Do you want to hurt yourself or someone else? Patient reports no desire to harm self or others. Onset of symptoms was May 13, 2023. 18:35 Method Of Arrival: Ambulatory tl4 18:35 Acuity: GHANSHYAM 3 tl4 Triage Assessment: 18:39 General: Appears uncomfortable, Behavior is calm, cooperative. Pain: Complains of pain tl4 in back. EENT: No deficits noted. No signs and/or symptoms were reported regarding the EENT system. Neuro: No deficits noted. Cardiovascular: No deficits noted. Denies chest pain, diaphoresis, lightheadedness, palpitations. Respiratory: Reports pain with respiration since 05/13/23 Onset: The symptoms/episode began/occurred gradually, the patient has mild shortness of breath. GI: No deficits noted. No signs and/or symptoms were reported involving the gastrointestinal system. : No deficits noted. No signs and/or symptoms were reported regarding the genitourinary system. Historical: - Allergies: 18:38 Amoxicillin; tl4 18:38 PENICILLINS; tl4 18:38 Vancomycin; tl4 - PMHx: 18:38 Kidney stone; tl4 - PSHx: 18:38 renal stent; section; tl4 - Immunization history:: Adult Immunizations unknown. - Social history:: Smoking status: Patient denies any tobacco usage or history of. Screenin:30 [facility] ED Fall Risk Assessment (Adult) History of falling in the last 3 months, lg3 including since admission No falls in past 3 months (0 pts). Abuse screen: Denies threats or abuse. Denies injuries from another. Nutritional screening: No deficits noted. Tuberculosis screening: No symptoms or risk factors identified. Assessment: 20:30 General: Appears in no apparent distress. uncomfortable, Behavior is calm, cooperative. lg3 Pain: Complains of pain in left subscapular area and left mid back Pain radiates to chest Also complains of shortness of breath. Neuro: No deficits noted. Schwab Agitation-Sedation Scale (RASS): 0 - Alert and Calm Level of Consciousness is awake, alert, obeys commands, Oriented to person, place, time, situation. Cardiovascular: No deficits noted. Reports chest pain, shortness of breath, Capillary refill < 3 seconds Clubbing of nail beds is absent JVD is absent Patient's skin is warm and dry. Rhythm is sinus rhythm. Respiratory: Reports pain with respiration Airway is patent Respiratory effort is even, unlabored, Respiratory pattern is regular, symmetrical, Breath sounds are clear bilaterally. GI: No deficits noted. No signs and/or symptoms were reported involving the gastrointestinal system. Abdomen is round non-distended, obese. : No deficits noted. No signs and/or symptoms were reported regarding the genitourinary system. Denies burning with urination. EENT: No deficits noted. No signs and/or symptoms were reported regarding the EENT system. Derm: No deficits noted. No signs and/or symptoms reported regarding the dermatologic system. Skin is intact, is healthy with good turgor, Skin is dry, Skin is normal, Skin temperature is warm. Musculoskeletal: No deficits noted. Circulation, motion, and sensation intact. Range of motion: intact in all extremities. 22:17 Reassessment: Patient appears in no apparent distress at this time. No changes from lg3 previously documented assessment. Patient and/or family updated on plan of care and expected duration. Pain level reassessed. Patient is alert, oriented x 3, equal unlabored respirations, skin warm/dry/pink. 05/19 00:50 Reassessment: Patient appears in no apparent distress at this time. No changes from lg3 previously documented assessment. Patient and/or family updated on plan of care and expected duration. Pain level reassessed. Patient is alert, oriented x 3, equal unlabored respirations, skin warm/dry/pink. Patient states feeling better. Vital Signs: 05/18 18:35 BP 143 / 95; Pulse 93; Resp 16; Temp 98; Pulse Ox 100% on R/A; Weight 99.79 kg; Height tl4 4 ft. 11 in. ; Pain 10/10; 20:30 BP 133 / 98; Pulse 79; Resp 15 S; Pulse Ox 100% on R/A; Pain 7/10; lg3 22:17 BP 127 / 86; Pulse 79; Resp 16 S; Pulse Ox 100% on R/A; lg3 05/19 00:51 BP 131 / 89; Pulse 74; Resp 15 S; Pulse Ox 99% on R/A; lg3 05/18 18:35 Body Mass Index 44.43 (99.79 kg, 149.86 cm) tl4 05/18 18:35 Pain Scale: Adult tl4 20:30 Pain Scale: Adult lg3 ED Course: 05/18 18:26 Patient arrived in ED. im 18:27 Miguel Gregory PA is PHCP. cp 18:27 Max Cisneros DO is Attending Physician. cp 18:34 Ac Lzao is Primary Nurse. tl4 18:38 Triage completed. tl4 18:40 Arm band placed on left wrist. tl4 19:04 XRAY Chest (1 view) In Process Unspecified. EDMS 19:45 Inserted saline lock: 20 gauge in right antecubital area, using aseptic technique. mc5 Blood collected. 20:14 Abby Valles, RN is Primary Nurse. lg3 20:30 Patient has correct armband on for positive identification. Placed in gown. Bed in low lg3 position. Call light in reach. Side rails up X 1. Client placed on continuous cardiac and pulse oximetry monitoring. NIBP monitoring applied. loss prevention agent on. Door closed. Noise minimized. Warm blanket given. Family accompanied patient. 20:30 Patient maintains SpO2 saturation greater than 95% on room air. lg3 21:06 Test, Urine Sent. lg3 21:06 Urinalysis W/Microscopic Sent. lg3 21:33 Jarek Perdomo MD is Attending Physician. cp 22:38 CT Chest For PE Angio In Process Unspecified. EDMS 05/19 00:51 No provider procedures requiring assistance completed. IV discontinued, intact, lg3 bleeding controlled, No redness/swelling at site. Pressure dressing applied. Administered Medications: 05/18 20:29 Drug: Ketorolac IVP 15 mg IVP once Route: IVP; Site: right antecubital; lg3 22:18 Follow up: Response: No adverse reaction; Marked relief of symptoms lg3 05/19 00:49 Drug: MethylPrednisoLONE IVP 80 mg IVP once Route: IVP; Site: right antecubital; lg3 00:50 Follow up: Response: No adverse reaction lg3 00:49 Drug: Potassium PO Effervescent Tablet 25 mEq PO once; dissolve in 4 ounces of water or lg3 juice Route: PO; 00:50 Follow up: Response: No adverse reaction lg3 Medication: 00:52 VIS not applicable for this client. lg3 Outcome: 00:30 Discharge ordered by MD. cp 00:51 Discharged to home ambulatory, with significant other, lg3 00:51 Condition: stable 00:51 Discharge instructions given to patient, Instructed on discharge instructions, follow up and referral plans. medication usage, Demonstrated understanding of instructions, follow-up care, medications, Prescriptions given X 3, 00:53 Patient left the ED. lg3 Signatures: Dispatcher [employer] EDMS Miguel Gregory PA PA cp Able, Lacie, RN RN lg3 Yumiko Campbell Moriah mc5 Ac Lazo 4
[2023-05-19 05:41] VITALS: TEMP 98
[2023-05-19 05:58] VITALS: BP 131/89; O2SAT 99
--- NOTE | 2023-05-19 12:38 | RAD REPORT ---
EXAM DESCRIPTION: CT - Chest For Pe Angio - 05/19/2023 6:50 am CLINICAL HISTORY: 32 years, Female, left lower chest pain;SOB COMPARISON: None TECHNIQUE: Multiple transaxial tomograms of the chest were obtained from the lung apices through the lung bases utilizing 2 mm slice thickness at 2 mm interval reconstruction after the administration o f large bolus of IV contrast for complete opacification of the pulmonary arteries. Subsequent to 2-D and 3-D multiplanar reformats and maximum intensity projection images were generate d in the sagittal and coronal planes. An individualized dose optimization technique, Automated Exposure Control, was utilized for the perfo rmed procedure. Contrast: Intravenous contrast was administered. FINDINGS: Motion within the lung bases limits evaluation. Neck base: Visualized thyroid gland and soft tissues are normal. No adenopathy. PULMONARY ARTERIES: Diagnostic quality: Adequate for assessment of the subsegmental pulmonary arteries. Filling defects: No evidence of pulmonary embolism or right ventricular strain. CHEST: Lungs: The lung parenchyma demonstrate to be clear. No significant pulmonary nodules, masses and/or c onsolidations. No evidence for pneumothorax. Airways: The trachea mainstem bronchus demonstrate to be within normal limits. Pleura: No evidence for significant pleural effusions. Mediastinum and kevin: There is no significant mediastinal and/or hilar lymphadenopathy. The axillary regions demonstrate to be clear. Heart: Normal size. No pericardial thickening or effusion. Vessels: Coronary: No significant coronary artery calcifications. Aorta: The thoracic aorta demonstrate to be within normal limits. No evidence for aneurysm. Other: There is no significant filling defects within the pulmonary arteries to suggest pulmonary embolus. Chest wall: The chest wall demonstrate to be within normal limits. Osseous: The bone windows demonstrate to be within normal limits. No evidence for compression deformi ties and/or significant skeletal lesions. Musculoskeletal: No soft tissue and/or musculoskeletal abnormality. Visualized upper abdomen: The visualized portions of the upper abdomen demonstrate to be unremarkable . IMPRESSION: Motion within the lung bases limits evaluation. No evidence of pulmonary embolus. Otherwise unremarkable CT scan of the chest with contrast. Electronically signed by: Cristian Vega MD 05/18/2023 11:[address] LAB TECHNICIAN Due to temporary technical issues with the PACS/Fluency reporting system, reports are being signed by the in house radiologists without review as a courtesy to insure prompt reporting. The interpreting radiologist is fully responsible for the content of the report.
== END ==
LOC: ER 18:21
DX: M54.9 Dorsalgia, unspecified (principal); R06.02 Shortness of breath
CPT/HCPCS: 93005; 85025; 81001; 80048; 36415; 83735; 81025; 85610; 85379; 80076; 84484; 83880; 71275; 71045; Q9967

== ENCOUNTER → 2023-06-28 | Emergency (ER) | payer OTHER ==
[~2023-06-28] MED LIST changes: +ACETAMINOPHEN 500 MG TAB ONE; -KETOROLAC 30 MG/ML INJ ONE; -METHYLPREDNISOLONE 40 MG INJ ONE; +ONDANSETRON 4 MG (ODT) TAB ONE; -POTASSIUM 25 MEQ EFFERV TAB ONE
[2023-06-28 16:57] LABS: SARS-CoV-2 Antigen Rapid Res Negative (Negative)
--- NOTE | 2023-06-28 17:37 | EDPHYS ---
Physician Documentation [facility] Name: Evelio Lay Age: 32 yrs Sex: Female : 1990 Arrival Date: 06/28/2023 Time: 16:01 Bed 17 Private MD: LAIYAH Physician Miguel Palma HPI: 06/27 16:19 This 32 yrs old Female presents to ER via Ambulatory with complaints of Sore jh7 Throat, Nausea, Dizziness. 16:19 The patient presents with sore throat. The patient describes throat pain as dry. Onset: jh7 The symptoms/episode began/occurred 3 day(s) ago. Modifying factors: Patient's oral intake status: good. Associated signs and symptoms: Pertinent positives: nausea, Sore throat sneezing, Pertinent negatives chest pain, chills, cough, diarrhea, earache, fever, flu-like symptoms, headache, vomiting. 16:19 She also reports that she has been on phentermine and that she is concerned that this jh7 medication has caused her symptoms.. 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 - Social history:: Smoking status: Patient denies any tobacco usage or history of. ROS: 16:19 Constitutional: Negative for fever, chills, and weight loss, Eyes: Negative for injury, jh7 pain, redness, and discharge, Neck: Negative for injury, pain, and swelling, Cardiovascular: Negative for chest pain, palpitations, and edema, Respiratory: Negative for shortness of breath, cough, wheezing, and pleuritic chest pain, Back: Negative for injury and pain, MS/Extremity: Negative for injury and deformity, Skin: Negative for injury, rash, and discoloration, Neuro: Negative for headache, weakness, numbness, tingling, and seizure, 16:19 ENT: Positive for sore throat, 16:19 Abdomen/GI: Positive for nausea, Negative for abdominal pain, vomiting, diarrhea, constipation, 16:19 All other systems are negative, Exam: 16:19 Constitutional: This is a well developed, well nourished patient who is awake, alert, jh7 and in no acute distress. Head/Face: Normocephalic, atraumatic. Neck: Trachea midline, no thyromegaly or masses palpated, and no cervical lymphadenopathy. Supple, full range of motion without nuchal rigidity, or vertebral point tenderness. No Meningismus. Cardiovascular: Regular rate and rhythm with a normal S1 and S2. No gallops, murmurs, or rubs. Normal PMI, no JVD. No pulse deficits. Respiratory: Lungs have equal breath sounds bilaterally, clear to auscultation and percussion. No rales, rhonchi or wheezes noted. No increased work of breathing, no retractions or nasal flaring. Abdomen/GI: Soft, non-tender, with normal bowel sounds. No distension or tympany. No guarding or rebound. No evidence of tenderness throughout. Skin: Warm, dry with normal turgor. Normal color with no rashes, no lesions, and no evidence of cellulitis. MS/ Extremity: Pulses equal, no cyanosis. Neurovascular intact. Full, normal range of motion. Neuro: Awake and alert, GCS 15, oriented to person, place, time, and situation. Motor strength 5/5 in all extremities. Sensory grossly intact. Normal gait. 16:19 ENT: TM's: are normal, Nose: is normal, Posterior pharynx: is normal, Mildly inflamed papula on the posterior tongue. Vital Signs: 16:18 BP 152 / 94; Pulse 100; Resp 18 S; Temp 98.1(TE); Pulse Ox 100% on R/A; Weight 97.52 kg as6 (R); Height 4 ft. 11 in. (R); Pain 9/10; 18:09 BP 127 / 70; Pulse 91; Resp 18; Pulse Ox 100% ; cp4 16:18 Body Mass Index 43.42 (97.52 kg, 149.86 cm) as6 16:18 Pain Scale: Adult as6 MDM: 16:19 Patient medically screened. 7 17:25 Differential diagnosis: Allergic rhinitis, pharyngitis, upper respiratory infection, jh7 uvulitis, viral syndrome. Data reviewed: vital signs, nurses notes. I considered the following discharge prescriptions or medication management in the emergency department Medications were administered in the Emergency Department. See MAR. Counseling: I had a detailed discussion with the patient and/or guardian regarding the historical points, exam findings, and any diagnostic results supporting the discharge/admit diagnosis, to return to the emergency department if symptoms worsen or persist or if there are any questions or concerns that arise at home. Response to treatment: the patient's symptoms have mildly improved after treatment. 06/27 16:19 Order name: Strep [facility] 06/27 16:19 Order name: Flu; Complete Time: 17:21 [facility] 06/27 16:19 Order name: SARS RAPID; Complete Time: 17:21 [facility] 06/27 16:57 Order name: Throat Culture EDVA Administered Medications: 16:35 Drug: Acetaminophen PO 1000 mg PO once Route: PO; cp4 18:09 Follow up: Response: No adverse reaction cp4 16:35 Drug: Ondansetron Oral Disintegrating Tablet Oral Disintegrating Tablet 4 mg PO once cp4 Route: PO; 18:09 Follow up: Response: No adverse reaction cp4 Disposition Summary: 06/28/23 17:35 Discharge Ordered Notes: Location: Home [facility] Problem: new [facility] Symptoms: have improved [facility] Condition: Stable [facility] Diagnosis - Viral Pharyngitis [facility] Followup: [facility] - With: Private Physician - When: 2 - 3 days - Reason: Recheck today's complaints Discharge Instructions: - Discharge Summary Sheet [facility] - Pharyngitis [facility] - Sore Throat [facility] - Viral Illness, Adult [facility] Forms: - Medication Reconciliation Form [facility] - Thank You Letter [facility] - Patient Portal Instructions [facility] - Leadership Thank You Letter [facility] Prescriptions: - ondansetron 4 mg Oral Tablet,disintegrating - take 1 tablet ORAL route every 4-6 hours As needed; 20 tablet; Refills: 0, [facility] Product Selection Permitted - Medrol (Martínez) 4 mg Oral Tablets, Dose Pack - take 1 tablet ORAL route as directed - follow package instructions; 1 packet; [facility] Refills: 0, Product Selection Permitted Signatures: Dispatcher [employer] Juan Sepulveda RN RN as6 Prema Ellison, OWNER OPERATOR OWNER OPERATOR jh7 Valarie Watkins cp4 Corrections: (The following items were deleted from the chart) 17:39 16:19 ENT: TM's: are normal, Nose: is normal, Posterior pharynx: is normal, jh7 jh7
--- NOTE | 2023-06-28 17:37 | ER ---
Nurse's Notes [facility] Name: Evelio Lay Age: 32 yrs Sex: Female : 1990 Arrival Date: 06/28/2023 Time: 16:01 Bed 17 Private MD: Diagnosis: Viral Pharyngitis Presentation: 06/27 16:19 Chief complaint: Patient states: sore throat and nausea x3 days. Coronavirus screen: At as6 this time, the client does not indicate any symptoms associated with coronavirus-19. Ebola Screen: No symptoms or risks identified at this time. Initial Sepsis Screen: Does the patient meet any 2 criteria? No. Patient's initial sepsis screen is negative. Does the patient have a suspected source of infection? No. Patient's initial sepsis screen is negative. Risk Assessment: Do you want to hurt yourself or someone else? Patient reports no desire to harm self or others. Onset of symptoms was June 25, 2023. 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 - Social history:: Smoking status: Patient denies any tobacco usage or history of. Screenin:10 [facility] ED Fall Risk Assessment (Adult) History of falling in the last 3 months, cp4 including since admission No falls in past 3 months (0 pts). Abuse screen: Denies threats or abuse. Nutritional screening: No deficits noted. Tuberculosis screening: No symptoms or risk factors identified. Assessment: 18:10 General: Appears in no apparent distress. Behavior is calm, cooperative, appropriate cp4 for age. Pain: Complains of pain in throat. Respiratory: Airway is patent Respiratory effort is even, unlabored, Breath sounds are clear bilaterally. EENT: Throat is reddened. Vital Signs: 16:18 BP 152 / 94; Pulse 100; Resp 18 S; Temp 98.1(TE); Pulse Ox 100% on R/A; Weight 97.52 kg as6 (R); Height 4 ft. 11 in. (R); Pain 9/10; 18:09 BP 127 / 70; Pulse 91; Resp 18; Pulse Ox 100% ; cp4 16:18 Body Mass Index 43.42 (97.52 kg, 149.86 cm) as6 16:18 Pain Scale: Adult as6 ED Course: 16:03 Patient arrived in ED. rg4 16:13 Valarie Watkins is Primary Nurse. cp4 16:18 Arm band placed on. as6 16:19 [facility] jh7 16:19 Miguel Palma MD is Attending Physician. 7 16:20 Triage completed. as6 18:13 Bed in low position. Call light in reach. Side rails up X 1. Provided Education on: cp4 pharyngitis. 18:13 No provider procedures requiring assistance completed. Patient did not have IV access cp4 during this emergency room visit. Administered Medications: 16:35 Drug: Acetaminophen PO 1000 mg PO once Route: PO; cp4 18:09 Follow up: Response: No adverse reaction cp4 16:35 Drug: Ondansetron Oral Disintegrating Tablet Oral Disintegrating Tablet 4 mg PO once cp4 Route: PO; 18:09 Follow up: Response: No adverse reaction cp4 Medication: 18:10 VIS not applicable for this client. cp4 Outcome: 17:35 Discharge ordered by . [facility] 18:13 Discharged to home ambulatory, cp4 18:13 Condition: stable 18:13 Discharge instructions given to patient, Instructed on discharge instructions, follow up and referral plans. medication usage, Demonstrated understanding of instructions, follow-up care, medications, Prescriptions given X 2, 18:14 Patient left the ED. cp4 Signatures: Olive Lucas rg4 Juan Benavides, RN RN as6 Prema Ellison FNP FNP [facility] Vaalrie Watkins cp4
[2023-06-28 18:38] VITALS: BP 127/70; TEMP 98.1; O2SAT 100
== END ==
LOC: ER 16:01
DX: J02.8 Acute pharyngitis due to other specified organisms (principal); Z11.52 Encounter for screening for COVID-19; Z88.0 Allergy status to penicillin; Z88.1 Allergy status to other antibiotic agents; Z88.3 Allergy status to other anti-infective agents
CPT/HCPCS: 87070; 36415; 87081; 87804 ×2; 87811; Q0162; 99283

== ENCOUNTER 2023-10-20 08:54 | Emergency (ER) | payer SELFPAY ==
[2023-10-20] MEDS ORDERED: ONDANSETRON 4 MG/2 ML VIAL ONE (09:41)
[2023-10-20] MEDS ORDERED: MORPHINE 4 MG/ML SYR ONE (09:42)
[2023-10-20] MEDS ORDERED: NA CHLORIDE 0.9% 1,000 ML ONE (09:42)
[2023-10-20 09:50] LABS: Absolute Basophils 0.1 K/uL (0-0.5); Absolute Eosinophils 0.2 K/uL (0-0.5); Absolute Lymphocytes (CBC) 2.6 K/uL (0.7-4.9); Absolute Monocytes 0.4 K/uL (0.1-1.3); Absolute Neutrophil 4.2 K/uL (1.8-8.0); Basophils % 0.9 % (0-1.3); Eosinophils % 2.5 % (0-4.4); Hematocrit 40.5 % (36.0-45.0); Hemoglobin 13.4 g/dL (12.0-15.0); Lymphocytes % 34.9 % (15.3-44.8); MCH 29.3 pg (27.0-35.0); MCHC 33.2 g/dL (32.0-36.0); MCV 88.4 fL (80-100); MPV 7.3 fL (7.6-11.3); Monocytes % 5.6 % (3.3-12.3); Neutrophils % 56.1 % (41.7-73.7); Nucleated Red Blood Cells % 0.2 % (0-0); Platelets 261 thou/uL (152-406); RBC Red Blood Cell Count 4.58 M/uL (3.86-4.86); Red Cell Distribution Width 13.8 % (12.1-15.2)
[2023-10-20 10:01] LABS: Specific Gravity 1.019 (1.005-1.030)
[2023-10-20 10:03] LABS: Specific Gravity 1.019 (1.005-1.030); Urine Bacteria <20 /HPF (<20); Urine Bilirubin NEGATIVE (Negative); Urine Blood Negative (Negative); Urine Clarity Extremely Turbid (Clear); Urine Color Light-Yellow (Yellow); Urine Culture Reflex Order NOT NEEDED; Urine Glucose NEGATIVE (Negative); Urine Ketones NEGATIVE (Negative); Urine Microscopic Reflex YN ORDER UMIC; Urine Mucus Slight /HPF (None Seen); Urine Nitrite NEGATIVE (Negative); Urine Protein TRACE (Negative); Urine RBC <5 /HPF (None Seen); Urine Urobilinogen Normal (Normal); Urine WBC <5 /HPF (<5)
[2023-10-20 10:07] LABS: ALT/SGPT 21 U/L (13-56); Albumin 2.8 g/dL (3.4-5.0); Albumin/Globulin Ratio 0.8 (1.1-1.8); Alkaline Phosphatase 95 U/L (45-117); Anion Gap 5.6 mEq/L (5.0-15.0); BUN Blood Urea Nitrogen 10 mg/dL (7-18); Bicarbonate 28 mEq/L (21-32); Bilirubin Total 0.3 mg/dL (0.2-1.0); Globulin 3.7 g/dL (2.3-3.5); Glomerular Filtration Rate 117 ml/min (=/>90); Glucose Level 95 mg/dL (74-106); Lipase 31 U/L (13-75); Potassium 3.6 mEq/L (3.5-5.1); Protein, Total 6.5 g/dL (6.4-8.2); Sodium Level 140 mEq/L (136-145)
[2023-10-20 10:11] LABS: AST/SGOT < 10 U/L (15-37)
--- NOTE | 2023-10-20 10:21 | RAD REPORT ---
EXAM DESCRIPTION: CTAbdomen Pelvis Wo Contrast - 10/20/2023 10:10 am CLINICAL HISTORY: R flank pain COMPARISON: Abdomen Pelvis W Contrast dated 01/25/2023; Abdomen Pelvis W Contrast dated 01/23/2023 ; Abdomen Pelvis W Contrast dated 04/10/2017; CT ABD PELVIS W CONTRAST dated 01/18/2015 TECHNIQUE: CT of the abdomen and pelvis was performed with IV contrast. All CT scans are performed using dose optimization technique as appropriate and may include automated exposure control or mA/KV adjustment according to patient size. FINDINGS: Lower chest: No acute abnormality. Liver: No acute abnormality or suspicious lesions. Biliary: No biliary ductal dilatation. Stomach: No significant focal abnormality. Duodenum: No significant focal abnormality. Pancreas: No significant abnormality. Spleen: No significant abnormality. Adrenal: No suspicious lesions. Kidney/ureter: No hydronephrosis. No renal calculi. Retroperitoneum: No retroperitoneal adenopathy. Vascular: No aneurysm. Bowel: Normal appendix. No bowel obstruction.. Peritoneum: No ascites or free air. Small fat containing umbilical hernia. Bladder: Grossly unremarkable. Reproductive: No adnexal masses. Bones: No acute fracture. Other: n/a IMPRESSION: No acute intra-abdominal or pelvic finding. Normal appendix
--- NOTE | 2023-10-20 10:51 | EDPHYS ---
Physician Documentation [facility] Name: Evelio Lay Age: 33 yrs Sex: Female : 1990 Arrival Date: 10/20/2023 Time: 08:54 Bed 14 Private MD: ED Physician Yonas Ruiz HPI: 10/19 09:32 This 33 yrs old Female presents to ER via Ambulatory with complaints of Flank ec2 Pain. 09:32 Patient arrives today for evaluation of right flank pain. Patient reports she has a ec2 history of previous kidney stones. Patient planing of 3 days of flank pain, constant, worsening. Patient reports associated nausea. Denies any bowel issues, history of , no previous cholecystectomy or appendectomy.. Historical: - Allergies: 09:28 Amoxicillin; ap3 09:28 PENICILLINS; ap3 09:28 Vancomycin; ap3 - PMHx: 09:28 Anxiety; Kidney stone; ap3 - PSHx: 09:28 section; renal stent; ap3 - Immunization history:: Client reports having NOT received the Covid vaccine. - Infectious Disease History:: Denies. - Social history:: Smoking status: Patient denies any tobacco usage or history of. ROS: 09:32 Constitutional: as per hpi ec2 Exam: 09:32 Constitutional: GEN: NAD Head: atraumatic Eyes: EOMI Ears: External ears are ec2 normal. CV: regular rate LUNGS: no respiratory distress ABD: non-distended, soft, nontender, no guarding, not rigid, right CVA TTP SKIN: no evidence of rashes MSK: no evidence of trauma NEURO: moves all extremities equally Vital Signs: 09:27 BP 143 / 93; Pulse 79; Resp 18; Temp 98.5; Pulse Ox 100% ; Weight 95.25 kg; Height 4 ap3 ft. 11 in. ; Pain 10/10; 09:41 BP 143 / 93; Pulse 75; Resp 18; Temp 98.5; Pulse Ox 100% on R/A; aw1 11:00 BP 125 / 76; Pulse 63; Resp 16; Pulse Ox 100% ; Pain 8/10; nj1 11:19 Pain 8/10; nj1 09:27 Body Mass Index 42.41 (95.25 kg, 149.86 cm) ap3 09:27 Pain Scale: Adult ap3 11:00 Pain Scale: Adult nj1 11:19 Pain Scale: Adult nj1 MDM: 09:10 Patient medically screened. ec2 09:32 Data reviewed: vital signs. ED course: Patient arrives today for evaluation of right ec2 flank pain. Examination remarkable for right flank findings as above. Will obtain lab work, CT imaging and treat the patient's symptoms. Differential diagnose include processes such as ureteral stone, cholelithiasis, pyelonephritis.. 10:11 ED course: CBC reassuring shows leuk esterase, no nitrites or bacteria present. ec2 testing negative. . 10:14 ED course: Metabolic profile and lipase are reassuring.. ec2 10:24 ED course: CT imaging shows no evidence of acute intra-abdominal process. On my ec2 interpretation no evidence of ureteral stone. Patient does report increased urinary frequency, does have leuk esterase in the urine, will treat for urinary tract infection. Will discharge home have the patient follow-up with a primary care doctor. Return precautions given.. 02 09:32 Order name: CBC with Diff; Complete Time: 10:10 ec2 0702 09:32 Order name: CMP; Complete Time: 10:14 ec2 02 09:32 Order name: Lipase; Complete Time: 10:14 ec2 /02 09:32 Order name: Test, Urine; Complete Time: 10:10 ec2 02 09:32 Order name: Urinalysis w/ reflexes; Complete Time: 10:10 ec2 02 09:32 Order name: CT Abd/Pelvis - Without Contrast; Complete Time: 10:23 ec2 10/19 09:32 Order name: IV Saline Lock; Complete Time: 09:36 ec2 02 09:32 Order name: Labs collected and sent; Complete Time: 09:36 ec2 Administered Medications: 09:53 Drug: NS 0.9% IV 1000 ml IV at 1 bolus Per protocol; 1000 mL bolus Route: IV; Rate: 1 nj1 bolus; Site: right antecubital; 11:19 Follow up: Response: No adverse reaction; IV Status: Order to discontinue infusion; IV nj1 Intake: 800ml 09:53 Drug: Ondansetron IVP 4 mg IVP once; over 2 minutes Route: IVP; Site: right antecubital;nj1 11:19 Follow up: Response: No adverse reaction nj1 09:55 Drug: morphine IVP or IV 4 mg IVP once over 4 mins Route: IVP; Infused Over: 4 mins; nj1 Site: right antecubital; 11:19 Follow up: Pain 8/10 Adult; Response: No adverse reaction; Pain is decreased nj1 11:00 Drug: Trimethoprim-Sulfamethoxazole PO (160 mg-800 mg (DS) 1 tablet PO once Route: PO; nj1 11:19 Follow up: Response: No adverse reaction nj1 Disposition Summary: 10/20/23 10:50 Discharge Ordered Notes: Location: Home ec2 Condition: Stable ec2 Diagnosis - UTI/ Urinary tract infection, site not specified ec2 Followup: ec2 - With: Private Physician - When: - Reason: Re-evaluation by your physician Discharge Instructions: - Discharge Summary Sheet ec2 - Urinary Tract Infection, Adult ec2 Forms: - Medication Reconciliation Form ec2 - Antibiotic Education ec2 - Prescription Opioid Use ec2 - Patient Portal Instructions ec2 - Leadership Thank You Letter ec2 Prescriptions: - Pyridium 200 mg Oral Tablet - take 1 tablet ORAL route every 8 hours for 3 days; 9 tablet; Refills: 0, ec2 Product Selection Permitted - Bactrim DS 800-160 mg Oral Tablet - take 1 tablet ORAL route every 12 hours for 7 days; 14 tablet; Refills: 0, ec2 Product Selection Permitted Signatures: Dispatcher [employer] Kathy Solis RN RN ap3 Samina Trinidad RN RN nj1 Yonas Ruiz MD MD ec2 Corrections: (The following items were deleted from the chart) 09:32 09:32 CBC+H.LAB.BRZ ordered. EDMS EDMS 09:32 09:32 COMPREHENSIVE METABOLIC PANEL+C.LAB.BRZ ordered. EDMS EDMS 09:32 09:32 LIPASE+C.LAB.BRZ ordered. EDMS EDMS 09:32 09:32 Test, Urine+UC.LAB.BRZ ordered. EDMS EDMS 09:32 09:32 Urinalysis+U.LAB.BRZ ordered. EDMS EDMS 09:32 09:32 Abdomen Pelvis Wo Con+CT.RAD.BRZ ordered. EDMS EDMS
--- NOTE | 2023-10-20 10:51 | ER ---
Nurse's Notes [facility] Name: Evelio Lay Age: 33 yrs Sex: Female : 1990 Arrival Date: 10/20/2023 Time: 08:54 Bed 14 Private MD: Diagnosis: UTI/ Urinary tract infection, site not specified Presentation: 10/19 09:27 Chief complaint: Patient states: she has been having right lower flank pain for approx ap3 three days. patient also reports frequency in urination, fatigue, and chills during this time. Coronavirus screen: At this time, the client does not indicate any symptoms associated with coronavirus-19. Ebola Screen: No symptoms or risks identified at this time. Initial Sepsis Screen: Does the patient meet any 2 criteria? No. Patient's initial sepsis screen is negative. Does the patient have a suspected source of infection? No. Patient's initial sepsis screen is negative. Risk Assessment: Do you want to hurt yourself or someone else? Patient reports no desire to harm self or others. Onset of symptoms is unknown. 09:27 Method Of Arrival: Ambulatory ap3 09:27 Acuity: GHANSHYAM 3 ap3 Triage Assessment: 09:29 General: Appears uncomfortable, Behavior is calm, cooperative, appropriate for age, ap3 Reports chills for fatigue for. Pain: Complains of pain in right flank. Neuro: Level of Consciousness is awake, alert, obeys commands, Oriented to person, place, time, situation. Cardiovascular: Patient's skin is warm and dry. Respiratory: Airway is patent Respiratory effort is even, unlabored, Respiratory pattern is regular, symmetrical. : Reports pain in right flank(s), urinary frequency. Historical: - Allergies: 09:28 Amoxicillin; ap3 09:28 PENICILLINS; ap3 09:28 Vancomycin; ap3 - PMHx: 09:28 Anxiety; Kidney stone; ap3 - PSHx: 09:28 section; renal stent; ap3 - Immunization history:: Client reports having NOT received the Covid vaccine. - Infectious Disease History:: Denies. - Social history:: Smoking status: Patient denies any tobacco usage or history of. Screenin:50 [facility] ED Fall Risk Assessment (Adult) History of falling in the last 3 months, nj1 including since admission No falls in past 3 months (0 pts) Confusion or Disorientation No (0 pts) Intoxicated or Sedated No (0 pts) Impaired Gait No (0 pts) Mobility Assist Device Used No (0 pt) Altered Elimination No (0 pt) Score/Fall Risk Level 0 - 2 = Low Risk Oriented to surroundings, Maintained a safe environment, Hourly rounding (assess needs \T\ fall precautionary measures) done. Abuse screen: Denies threats or abuse. Denies injuries from another. Nutritional screening: No deficits noted. Tuberculosis screening: No symptoms or risk factors identified. Assessment: 09:50 General: Appears in no apparent distress. uncomfortable, Behavior is calm, cooperative, nj1 appropriate for age. 09:50 Pain: Complains of pain in flank, right Pain currently is 10 out of 10 on a pain scale. nj1 Pain: Pain began 2-3 days ago. Neuro: Level of Consciousness is awake, alert, obeys commands, Oriented to person, place, time, situation. Cardiovascular: Patient's skin is warm and dry. Respiratory: Airway is patent Respiratory effort is even, unlabored. GI: Reports nausea. :. : Reports urinary frequency. 11:00 Reassessment: Patient appears in no apparent distress at this time. No changes from nj1 previously documented assessment. Patient and/or family updated on plan of care and expected duration. Pain level reassessed. Patient is alert, oriented x 3, equal unlabored respirations, skin warm/dry/pink. 11:00 Reassessment: IVF infusing. nj1 Vital Signs: 09:27 BP 143 / 93; Pulse 79; Resp 18; Temp 98.5; Pulse Ox 100% ; Weight 95.25 kg; Height 4 ap3 ft. 11 in. ; Pain 10/10; 09:41 BP 143 / 93; Pulse 75; Resp 18; Temp 98.5; Pulse Ox 100% on R/A; aw1 11:00 BP 125 / 76; Pulse 63; Resp 16; Pulse Ox 100% ; Pain 8/10; nj1 11:19 Pain 8/10; nj1 09:27 Body Mass Index 42.41 (95.25 kg, 149.86 cm) ap3 09:27 Pain Scale: Adult ap3 11:00 Pain Scale: Adult nj1 11:19 Pain Scale: Adult nj1 ED Course: 08:58 Patient arrived in ED. mg5 09:03 Yonas Ruiz MD is Attending Physician. ec2 09:28 Triage completed. ap3 09:29 Arm band placed on right wrist. ap3 09:32 Inserted saline lock: 20 gauge in right antecubital area, using aseptic technique. aw1 09:36 Samina Trinidad, ANNE is Primary Nurse. nj1 09:41 Patient has correct armband on for positive identification. Bed in low position. Call aw1 light in reach. Side rails up X 1. Door closed. Noise minimized. Warm blanket given. Pillow given. 09:41 Initial lab(s) drawn, by me, sent to lab. Urine collected: clean catch specimen, clear. aw1 09:50 Provided Education on: call light, fall precautions. nj1 10:10 CT Abd/Pelvis - Without Contrast In Process Unspecified. EDMS 11:18 No provider procedures requiring assistance completed. IV discontinued, intact, nj1 bleeding controlled, Pressure dressing applied. Administered Medications: 09:53 Drug: NS 0.9% IV 1000 ml IV at 1 bolus Per protocol; 1000 mL bolus Route: IV; Rate: 1 nj1 bolus; Site: right antecubital; 11:19 Follow up: Response: No adverse reaction; IV Status: Order to discontinue infusion; IV nj1 Intake: 800ml 09:53 Drug: Ondansetron IVP 4 mg IVP once; over 2 minutes Route: IVP; Site: right antecubital;nj1 11:19 Follow up: Response: No adverse reaction nj1 09:55 Drug: morphine IVP or IV 4 mg IVP once over 4 mins Route: IVP; Infused Over: 4 mins; nj1 Site: right antecubital; 11:19 Follow up: Pain 8/10 Adult; Response: No adverse reaction; Pain is decreased nj1 11:00 Drug: Trimethoprim-Sulfamethoxazole PO (160 mg-800 mg (DS) 1 tablet PO once Route: PO; nj1 11:19 Follow up: Response: No adverse reaction nj1 Medication: 11:19 VIS not applicable for this client. nj1 Intake: 11:19 IV: 800ml; Total: 800ml. nj1 Outcome: 10:50 Discharge ordered by . ec2 11:19 Discharged to home ambulatory, nj1 11:19 Condition: stable 11:19 Discharge instructions given to patient, Instructed on discharge instructions, follow up and referral plans. medication usage, Demonstrated understanding of instructions, follow-up care, medications, Prescriptions given X 2, 11:20 Patient left the ED. nj1 Signatures: Dispatcher [employer] Kathy Solis RN RN ap3 Samina Trinidad RN RN nj1 Lissa Davis 1 Denzel Yu mg5 Yonas Ruiz MD MD ec2 Corrections: (The following items were deleted from the chart) 11:20 11:00 Pulse 63bpm; Resp 16bpm; Pulse Ox 100%; Pain 8/10, Adult; nj1 nj1
[2023-10-20] MEDS ORDERED: SMZ./TMP. 800/160 MG TABLET ONE (10:56)
[2023-10-20 11:38] VITALS: BP 125/76; TEMP 98.5; O2SAT 100
== END 2023-10-20 11:20 | disposition home or self-care (01) ==
LOC: ER 08:54
DX: N39.0 Urinary tract infection, site not specified (principal); Z87.442 Personal history of urinary calculi
CPT/HCPCS: 36415; 74176; 80053; 81001; 81025; 83690; 85025; J2405; J7030

== ENCOUNTER 2023-10-28 15:51 | Emergency (ER) | payer OTHER ==
[2023-10-28] MEDS ORDERED: TRAMADOL HCL 50 MG TAB ONE (17:27)
--- NOTE | 2023-10-28 17:32 | RAD REPORT ---
EXAM DESCRIPTION: CT - CTHCSPWOC - 10/28/2023 5:23 pm CLINICAL HISTORY: Trauma, head and neck injury. Fall injury, headache and neck pain COMPARISON: No comparisons TECHNIQUE: Axial 5 mm thick images of the head were obtained. Axial 2 mm thick images of the cervical spine were obtained with sagittal and coronal reconstruction images generated and reviewed. All CT scans are performed using dose optimization technique as appropriate and may include automated exposure control or mA/KV adjustment according to patient size. FINDINGS: CT HEAD WITHOUT CONTRAST: No acute hemorrhage, hydrocephalus or extra-axial collection is identified.No areas of brain edema or midline shift. The paranasal sinuses and mastoids are clear.The calvarium is intact. CT CERVICAL SPINE WITHOUT CONTRAST: No fracture or subluxation.No prevertebral soft tissues swelling is identified. Reversal of the mechelle l cervical lordosis. IMPRESSION: No acute intracranial or cervical spine findings.
--- NOTE | 2023-10-28 17:57 | RAD REPORT ---
EXAM DESCRIPTION: RAD - Knee Right 3 View - 10/28/2023 5:35 pm CLINICAL HISTORY: PAIN COMPARISON: No comparisons FINDINGS/IMPRESSION: No acute fracture. No malalignment. No significant focal degenerative changes.
--- NOTE | 2023-10-28 17:57 | RAD REPORT ---
EXAM DESCRIPTION: RAD - Foot Right 3 View - 10/28/2023 5:35 pm CLINICAL HISTORY: 5th toe pain COMPARISON: Foot Right 3 View dated 11/28/2022 FINDINGS/IMPRESSION: Fracture at the base of the fifth proximal phalanx with intra-articular extensi on and slight medial displacement. No other fractures identified. Calcaneal spurring .
--- NOTE | 2023-10-28 18:00 | RAD REPORT ---
EXAM DESCRIPTION: RAD - Sacrum And Coccyx - 10/28/2023 5:35 pm CLINICAL HISTORY: PAIN COMPARISON: Abdomen Pelvis Wo Contrast dated 10/20/2023 FINDINGS/IMPRESSION: Deformity and possible fracture at the junction of the sacrum and coccyx, best seen on the lateral view. This was not present on the CT from 10/20/2023. If there was significant in terval trauma and a fracture is suspected and needs confirmation, CT could better evaluate.
--- NOTE | 2023-10-28 18:56 | RAD REPORT ---
EXAM DESCRIPTION: CT - Pelvis Wo Cont - 10/28/2023 6:47 pm CLINICAL HISTORY: PAIN COMPARISON: Sacrum And Coccyx dated 10/28/2023 FINDINGS: No pelvic or hip fracture identified. No fracture of the sacrum or coccyx identified. Abno rmality on the radiograph may have been projectional. No acute soft tissue abnormality identified. Fa t containing umbilical hernia. IMPRESSION: No pelvic or hip fracture identified. Abnormality on the radiograph at the sacrum and co ccyx was presumably projectional.
--- NOTE | 2023-10-28 19:02 | ER ---
Nurse's Notes [facility] Name: Evelio Lay Age: 33 yrs Sex: Female : 1990 Arrival Date: 10/28/2023 Time: 15:51 Bed Treatment Private MD: Diagnosis: Fracture of proximal phalanx of lesser toe(s);Fall on same level, unspecified;Contusion of unspecified part of head;Contusion of lower back and pelvis;Contusion of right knee Presentation: 10/27 16:16 Chief complaint: Patient states: Pt states she injured her right little toe after tl4 slipping on wet concrete step approx 1 hour ago. Pt states she then fell onto right knee and struck the back of her head. No reported LOC. Coronavirus screen: At this time, the client does not indicate any symptoms associated with coronavirus-19. Ebola Screen: No symptoms or risks identified at this time. Initial Sepsis Screen: Does the patient meet any 2 criteria? No. Patient's initial sepsis screen is negative. Does the patient have a suspected source of infection? No. Patient's initial sepsis screen is negative. Risk Assessment: Do you want to hurt yourself or someone else? Patient reports no desire to harm self or others. Onset of symptoms was October 28, 2023 at 15:00. 16:16 Method Of Arrival: Wheelchair tl4 16:16 Acuity: GHANSHYAM 4 tl4 Triage Assessment: 16:19 General: Appears in no apparent distress. Behavior is calm, cooperative. Pain: tl4 Complains of pain in scalp, right foot and right leg. EENT: No signs and/or symptoms were reported regarding the EENT system. Neuro: Level of Consciousness is awake, alert, obeys commands, Oriented to person, place, time, situation, Moves all extremities. Full function Gait is steady, Speech is normal, Facial symmetry appears normal, Pupils are PERRLA. Cardiovascular: Capillary refill < 3 seconds Patient's skin is warm and dry. Respiratory: Airway is patent Respiratory effort is even, unlabored, Respiratory pattern is regular, symmetrical, Breath sounds are clear bilaterally. GI: No signs and/or symptoms were reported involving the gastrointestinal system. : No signs and/or symptoms were reported regarding the genitourinary system. Derm: No signs and/or symptoms reported regarding the dermatologic system. Musculoskeletal: Reports pain in right foot. Injury Description: blunt. Historical: - Allergies: 16:18 Amoxicillin; tl4 16:18 PENICILLINS; tl4 16:18 Vancomycin; tl4 - PMHx: 16:18 Anxiety; Kidney stone; tl4 - PSHx: 16:18 section; renal stent; tl4 - Immunization history:: Adult Immunizations unknown. - Infectious Disease History:: Denies. - Social history:: Smoking status: Patient denies any tobacco usage or history of. Screenin:17 [facility] ED Fall Risk Assessment (Adult) History of falling in the last 3 months, ph including since admission Yes- single mechanical fall (1 pt) Confusion or Disorientation No (0 pts) Intoxicated or Sedated No (0 pts) Impaired Gait No (0 pts) Mobility Assist Device Used No (0 pt) Altered Elimination No (0 pt) Score/Fall Risk Level 0 - 2 = Low Risk Oriented to surroundings, Maintained a safe environment, Hourly rounding (assess needs \T\ fall precautionary measures) done. Abuse screen: Denies threats or abuse. Denies injuries from another. Nutritional screening: No deficits noted. Tuberculosis screening: No symptoms or risk factors identified. Assessment: 18:16 General: Appears in no apparent distress. Behavior is calm, cooperative. Pain: ph Complains of pain in right leg and right foot. Neuro: Level of Consciousness is awake, alert, obeys commands, Oriented to person, place, time, situation. Derm: Skin is pink, warm \T\ dry. Vital Signs: 16:16 BP 158 / 95; Pulse 75; Resp 18; Temp 98.6(TE); Pulse Ox 98% on R/A; Weight 97.52 kg; tl4 Height 4 ft. 11 in. ; Pain 10/10; 16:16 Body Mass Index 43.42 (97.52 kg, 149.86 cm) tl4 16:16 Pain Scale: Adult tl4 ED Course: 15:54 Patient arrived in ED. im 15:55 Luis A Bear NP is PHCP. pm1 15:55 John Fowler MD is Attending Physician. pm1 16:18 Triage completed. tl4 16:20 Arm band placed on right wrist. tl4 17:24 CT Head C Spine In Process Unspecified. EDMS 17:35 Sacrum And Coccyx XRAY In Process Unspecified. EDMS 17:35 Knee Right 3 View XRAY In Process Unspecified. EDMS 17:35 Foot Right 3 View XRAY In Process Unspecified. EDMS 17:40 Patient placed in an exam room, on a stretcher. ll1 18:16 Prema Baltazar, RN is Primary Nurse. ph 18:17 Patient has correct armband on for positive identification. Bed in low position. Call ph light in reach. 18:17 No provider procedures requiring assistance completed. Patient did not have IV access ph during this emergency room visit. 18:48 CT Pelvis wo Cont In Process Unspecified. EDMS 19:01 Elton Morales MD is Referral Physician. pm1 19:21 Crutch training done. [place] wrap to right knee Bhavik tape right fourth toe and right ph fifth toe. Administered Medications: 17:40 Drug: traMADol PO 50 mg PO once Route: PO; ll1 18:17 Follow up: Response: No adverse reaction ph Medication: 18:17 VIS not applicable for this client. ph Outcome: 19:02 Discharge ordered by MD. pm1 19:22 Discharged to home ambulatory, with crutches, with significant other, ph 19:22 Condition: good 19:22 Discharge instructions given to patient, Instructed on discharge instructions, follow up and referral plans. medication usage, Demonstrated understanding of instructions, follow-up care, medications, Prescriptions given X 1, 19:27 Patient left the ED. ph Signatures: Dispatcher [employer] EDDC Prema Baltazar, ANNE RODRÍGUEZ Luis A Bear, CHIKI EAR MUFF ASSEMBLER pm1 Francisco Chapman RN RN ll1 Yumiko Campbell Toni RN RN tl4
--- NOTE | 2023-10-28 19:02 | EDPHYS ---
Physician Documentation [facility] Name: Evelio Lay Age: 33 yrs Sex: Female : 1990 Arrival Date: 10/28/2023 Time: 15:51 Bed Treatment Private MD: ED Physician John Fowler HPI: 10/27 16:57 This 33 yrs old Female presents to ER via Wheelchair with complaints of Toe pm1 Injury, Knee Injury. 16:57 Details of fall: The patient fell from an upright position, while walking. Onset: The pm1 symptoms/episode began/occurred today, around noon. Associated injuries: The patient sustained right fifth toe, right knee, coccyx, back of head and neck, pain. Severity of symptoms: in the emergency department the symptoms are unchanged. The patient has not experienced similar symptoms in the past. The patient has not recently seen a physician. The patient was walking out her door and slipped on the porch. Her right 5th toe rolled under her foot and she landed on her right knee and then landed on her buttocks and then hit the back of her head. Negative for LOC. Positive for headache and neck pain.. Historical: - Allergies: 16:18 Amoxicillin; tl4 16:18 PENICILLINS; tl4 16:18 Vancomycin; tl4 - PMHx: 16:18 Anxiety; Kidney stone; tl4 - PSHx: 16:18 section; renal stent; tl4 - Immunization history:: Adult Immunizations unknown. - Infectious Disease History:: Denies. - Social history:: Smoking status: Patient denies any tobacco usage or history of. ROS: 16:57 Constitutional: Negative for fever, chills, and weight loss, pm1 16:57 Cardiovascular: Negative for chest pain, palpitations, and edema, Respiratory: Negative for shortness of breath, cough, wheezing, and pleuritic chest pain, Abdomen/GI: Negative for abdominal pain, nausea, vomiting, diarrhea, and constipation, 16:57 Neck: Positive for pain, 16:57 Back: Positive for pain to tailbone, 16:57 MS/extremity: Positive for pain, of the right knee and right fifth toe, 16:57 Neuro: Positive for headache, Exam: 16:57 Constitutional: This is a well developed, well nourished patient who is awake, alert, pm1 and in no acute distress. Head/Face: Normocephalic, atraumatic. 16:57 Respiratory: Lungs have equal breath sounds bilaterally, clear to auscultation and percussion. No rales, rhonchi or wheezes noted. No increased work of breathing, no retractions or nasal flaring. Abdomen/GI: Soft, non-tender, with normal bowel sounds. No distension or tympany. No guarding or rebound. No evidence of tenderness throughout. 16:57 Neck: External neck: tenderness, C-spine: vertebral tenderness, is not appreciated, 16:57 Back: pain, that is mild, of the sacrum, 16:57 Musculoskeletal/extremity: Extremities: grossly normal except: noted in the right fifth toe: pain, There is no evidence of deformity, No swelling or deformity present to right knee. Vital Signs: 16:16 BP 158 / 95; Pulse 75; Resp 18; Temp 98.6(TE); Pulse Ox 98% on R/A; Weight 97.52 kg; tl4 Height 4 ft. 11 in. ; Pain 10/10; 16:16 Body Mass Index 43.42 (97.52 kg, 149.86 cm) tl4 16:16 Pain Scale: Adult tl4 MDM: 16:44 Patient medically screened. pm1 18:23 Counseling: I had a detailed discussion with the patient and/or guardian regarding pm1 radiology results, Patient requested CT to confirm sacrum /coccyx fracture. 18:58 Data reviewed: vital signs. pm1 18:58 Counseling: I had a detailed discussion with the patient and/or guardian regarding the pm1 historical points, exam findings, and any diagnostic results supporting the discharge/admit diagnosis, radiology results, the need for outpatient follow up, for definitive care, a orthopedic surgeon, a contact manager, to return to the emergency department if symptoms worsen or persist or if there are any questions or concerns that arise at home. 10/27 16:57 Order name: CT Head C Spine; Complete Time: 17:38 pm1 10/27 16:57 Order name: Sacrum And Coccyx XRAY; Complete Time: 18:07 pm1 10/27 16:57 Order name: Knee Right 3 View XRAY; Complete Time: 18:07 pm1 10/27 16:57 Order name: Foot Right 3 View XRAY; Complete Time: 18:07 pm1 10/27 18:24 Order name: CT Pelvis wo Cont; Complete Time: 18:57 pm1 10/27 18:58 Order name: Post-op shoe; Complete Time: 19:27 pm1 10/27 18:58 Order name: Misc. Order: Bhavik tape 4th and 5th right toes; Complete Time: 19:27 pm1 10/27 19:05 Order name: Crutches; Complete Time: 19:27 pm1 10/27 19:06 Order name: Kingston wrap-joint: Right knee; Complete Time: 19:27 pm1 Administered Medications: 17:40 Drug: traMADol PO 50 mg PO once Route: PO; ll1 18:17 Follow up: Response: No adverse reaction ph Disposition: 19:37 Co-signature as Attending Physician, John Fowler MD I reviewed the patient's care rn provided by the Advanced Practice Provider and agree with the diagnosis and treatment plan. Disposition Summary: 10/28/23 19:02 Discharge Ordered Notes: Location: Home pm1 Problem: new pm1 Symptoms: have improved pm1 Condition: Stable pm1 Diagnosis - Fracture of proximal phalanx of lesser toe(s) pm1 - Fall on same level, unspecified pm1 - Contusion of unspecified part of head pm1 - Contusion of lower back and pelvis pm1 - Contusion of right knee pm1 Followup: pm1 - With: Emergency Department - When: As needed - Reason: Worsening of condition Followup: pm1 - With: Private Physician - When: 2 - 3 days - Reason: Recheck today's complaints, Continuance of care, Re-evaluation by your physician Followup: pm1 - With: Elton Morales MD - When: 2 - 3 days - Reason: Recheck today's complaints, Continuance of care, Re-evaluation by your physician Discharge Instructions: - Head Injury, Adult pm1 - Fall Prevention in the Home, Adult pm1 - Tailbone Injury pm1 - Toe Fracture pm1 - Acute Knee Pain, Adult pm1 - Discharge Summary Sheet ll1 Forms: - Family Work Release ph - Medication Reconciliation Form pm1 - Antibiotic Education pm1 - Prescription Opioid Use pm1 - Patient Portal Instructions pm1 - Leadership Thank You Letter pm1 - Work release form ll1 Prescriptions: - Tramadol 50 mg Oral Tablet - take 1 tablet ORAL route every 8 hours as needed; 12 tablet; Refills: 0, pm1 Product Selection Permitted Signatures: Dispatcher [employer] EDJohn Carmona MD MD rn Marinas, Patrick, NP JAVA CORE DEVELOPER pm1 Francisco Chapman RN RN ll1 Ac Lazo RN RN tl4 Prema Baltazar RN ph
[2023-10-29 00:53] VITALS: BP 158/95; TEMP 98.6; O2SAT 98
== END 2023-10-28 19:27 | disposition home or self-care (01) ==
LOC: ER 15:51
DX: S92.511A Displaced fracture of proximal phalanx of right lesser toe(s), initial encounter for closed fracture (principal); S00.83XA Contusion of other part of head, initial encounter; S80.01XA Contusion of right knee, initial encounter; S30.0XXA Contusion of lower back and pelvis, initial encounter; W18.30XA Fall on same level, unspecified, initial encounter
CPT/HCPCS: 70450; 72125; 72192; 72220; 99283

== ENCOUNTER 2024-03-26 14:29 | Emergency (ER) | payer OTHER ==
[2024-03-26] MEDS ORDERED: KETOROLAC 30 MG/ML INJ ONE (15:09)
[2024-03-26] MEDS ORDERED: NA CHLORIDE 0.9% 500 ML ONE (15:09)
[2024-03-26 15:13] LABS: Absolute Eosinophils 0.2 K/uL (0-0.5); Absolute Lymphocytes (CBC) 2.8 K/uL (0.7-4.9); Absolute Monocytes 0.6 K/uL (0.1-1.3); Absolute Neutrophil 4.3 K/uL (1.8-8.0); Basophils % 0.6 % (0-1.3); Eosinophils % 2.7 % (0-4.4); Hematocrit 44.3 % (36.0-45.0); Hemoglobin 14.3 g/dL (12.0-15.0); Lymphocytes % 34.9 % (15.3-44.8); MCH 29.1 pg (27.0-35.0); MCHC 32.3 g/dL (32.0-36.0); MCV 89.9 fL (80-100); MPV 7.5 fL (7.6-11.3); Monocytes % 7.3 % (3.3-12.3); Neutrophils % 54.5 % (41.7-73.7); Platelets 253 thou/uL (152-406); RBC Red Blood Cell Count 4.93 M/uL (3.86-4.86); Red Cell Distribution Width 14.1 % (12.1-15.2)
[2024-03-26 15:19] LABS: Specific Gravity 1.018 (1.005-1.030)
[2024-03-26 15:23] LABS: Specific Gravity 1.018 (1.005-1.030); Sqamous Epithelial <5 /HPF (None Seen); Urine Bacteria None Seen /HPF (<20); Urine Bilirubin NEGATIVE (Negative); Urine Blood Negative (Negative); Urine Clarity Extremely Turbid (Clear); Urine Color Light-Yellow (Yellow); Urine Culture Reflex Order NOT NEEDED; Urine Glucose NEGATIVE (Negative); Urine Ketones NEGATIVE (Negative); Urine Microscopic Reflex YN ORDER UMIC; Urine Mucus Slight /HPF (None Seen); Urine Nitrite NEGATIVE (Negative); Urine Protein NEGATIVE (Negative); Urine RBC <5 /HPF (None Seen); Urine Urobilinogen Normal (Normal); Urine WBC <5 /HPF (<5)
[2024-03-26 15:31] LABS: Albumin/Globulin Ratio 0.7 (1.1-1.8); Anion Gap 8.6 mEq/L (5.0-15.0); Bilirubin Total 0.3 mg/dL (0.2-1.0); Globulin 4.6 g/dL (2.3-3.5); Potassium 3.6 mEq/L (3.5-5.1); Protein, Total 7.6 g/dL (6.4-8.2)
--- NOTE | 2024-03-26 16:13 | RAD REPORT ---
Stone Protocol CLINICAL INDICATION: Female, 33 years old.left flank pain TECHNIQUE: CT abdomen and pelvis was performed, without IV contrast, as per department protocol using a CT stone protocol. Axial, sagittal and coronal reconstructions were obtained. One or more of the following dose reduction techniques were used: Automated exposure control, adjustment of the mA and/o r kV according to the patient size, and/or iterative reconstruction. Unless otherwise specified, incidental findings do not require dedicated imaging follow-up. [id number]. IV CONTRAST: Not administered. COMPARISON: 10/20/2023 FINDINGS: The lack of intravenous contrast limits the sensitivity of this exam for evaluation of solid visceral organs, vascular structures, and retroperitoneum. LOWER CHEST: The visualized lung bases are clear. LIVER: Hepatic steatosis. GALLBLADDER/BILE DUCTS: No biliary ductal dilatation.? PANCREAS: No mass, ductal dilation, or ned-pancreatic fluid. SPLEEN: Normal size. No focal lesion. ADRENALS: Normal; no mass. KIDNEYS AND URETERS: Normal size and contour. No hydronephrosis. URINARY BLADDER: Normal contour. GASTROINTESTINAL TRACT: Stomach is non-dilated. Small bowel has normal course and caliber. No colonic wall thickening or pericolonic inflammatory changes. PERITONEUM: No free fluid. Fat-containing umbilical hernia. ABDOMINAL AORTA AND OTHER VESSELS: Normal caliber aorta and IVC. REPRODUCTIVE ORGANS: No pathologic process. MUSCULOSKELETAL: No acute or suspicious osseous abnormality. ADDITIONAL FINDINGS: None. IMPRESSION: No acute or significant abnormalities in the abdomen or pelvis, with evaluation limited by lack of IV contrast. Normal appendix.
--- NOTE | 2024-03-26 17:21 | ER ---
Nurse's Notes [facility] Name: Evelio Lay Age: 33 yrs Sex: Female : 1990 Arrival Date: 03/26/2024 Time: 14:29 Bed 11 Private MD: Diagnosis: Lower abdominal pain, unspecified-left lower flank Presentation: 03/26 14:45 Chief complaint: Patient states: left lower back pain, body aches, and fatigue x2 kc6 weeks. pt states she saw her PCP yesterday and they did labs but she has not gotten any results yet. Coronavirus screen: At this time, the client does not indicate any symptoms associated with coronavirus-19. Ebola Screen: No symptoms or risks identified at this time. Initial Sepsis Screen: Does the patient meet any 2 criteria? No. Patient's initial sepsis screen is negative. Does the patient have a suspected source of infection? No. Patient's initial sepsis screen is negative. Risk Assessment: Do you want to hurt yourself or someone else? Patient reports no desire to harm self or others. Onset of symptoms was March 26, 2024. 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 - Infectious Disease History:: Denies. - Social history:: Smoking status: Patient denies any tobacco usage or history of. Screenin:15 [facility] ED Fall Risk Assessment (Adult) History of falling in the last 3 months, hb including since admission No falls in past 3 months (0 pts) Confusion or Disorientation No (0 pts) Intoxicated or Sedated No (0 pts) Impaired Gait No (0 pts) Mobility Assist Device Used No (0 pt) Altered Elimination No (0 pt) Score/Fall Risk Level 0 - 2 = Low Risk Oriented to surroundings, Maintained a safe environment, Educated pt \T\ family on fall prevention, incl call for assistance when getting out of bed. Abuse screen: Denies threats or abuse. Denies injuries from another. Nutritional screening: No deficits noted. Tuberculosis screening: No symptoms or risk factors identified. Assessment: 15:15 General: Appears in no apparent distress. uncomfortable, Behavior is calm, cooperative. hb Pain: Pain currently is 7 out of 10 on a pain scale. Neuro: Level of Consciousness is awake, alert, obeys commands, Oriented to person, place, time, situation. Cardiovascular: Patient's skin is warm and dry. Respiratory: Respiratory effort is even, unlabored, Respiratory pattern is regular, symmetrical. GI: Reports nausea. : No signs and/or symptoms were reported regarding the genitourinary system. EENT: No signs and/or symptoms were reported regarding the EENT system. Derm: Skin is pink, warm \T\ dry. Musculoskeletal: Reports left flank pain. Vital Signs: 14:45 BP 126 / 74; Pulse 71; Resp 18 S; Temp 98.6(O); Pulse Ox 100% on R/A; Weight 99.79 kg kc6 (R); Height 4 ft. 11 in. (R); Pain 10/10; 14:45 Body Mass Index 44.43 (99.79 kg, 149.86 cm) kc6 14:45 Pain Scale: Adult kc ED Course: 14:42 Patient arrived in ED. mg5 14:45 Miguel Gregory PA is PHCP. cp 14:45 John Fowler MD is Attending Physician. cp 14:45 Arm band placed on. kc6 14:46 Triage completed. kc6 15:07 Merlyn Rebolledo, RN is Primary Nurse. hb 15:07 Initial lab(s) drawn, by mi, sent to lab. Urine collected: clean catch specimen, clear. hb Inserted saline lock: 20 gauge in right antecubital area, using aseptic technique. Blood collected. Flushed with 10 mL NS. 15:07 CBC with Diff Sent. hb 15:07 CMP Sent. hb 15:07 Lipase Sent. hb 15:07 Test, Urine Sent. hb 15:08 Urinalysis w/ reflexes Sent. hb 15:15 Patient has correct armband on for positive identification. Provided Education on: use hb of call light . 15:52 CT Stone Protocol In Process Unspecified. EDMS Administered Medications: 15:18 Drug: NS 0.9% IV 500 ml 500 ml IV at 1 bolus once; to be given as a bolus over 30 hb minutes Volume: 500 ml; Route: IV; Rate: 1 bolus; Site: right antecubital; 17:40 Follow up: IV Status: Completed infusion; IV Intake: 500ml hb 17:40 Follow up: Response: No adverse reaction hb 15:18 Drug: Ketorolac IVP 15 mg IVP once Route: IVP; Site: right antecubital; hb 17:40 Follow up: Response: No adverse reaction hb 17:40 Drug: Lidoderm Topical Patch 5 % (700 mg/patch) 1 patches Topical once; leave on for 12 hb hours; cover most painful area; may cut into smaller pieces Route: Topical; Site: affected area; 17:41 Follow up: Response: Medication administered at discharge. hb Medication: 15:15 VIS not applicable for this client. hb Intake: 17:40 IV: 500ml; Total: 500ml. hb Outcome: 17:21 Discharge ordered by MD. moore 17:43 Patient left the ED. sp Signatures: Dispatcher [employer] EDMS Yoselin Hutchins Corey, PA PA cp Baxter, Heather, RN RN Zahira Lomas RN RN Yu [place] mg5 Corrections: (The following items were deleted from the chart) 14:48 14:45 Pulse 71bpm; Resp 18bpm; Spontaneous; Pulse Ox 100% RA; Temp 98.6F Oral; Pain kc6 10/, Adult; kc6 14:50 14:45 Pulse 71bpm; Resp 18bpm; Spontaneous; Pulse Ox 100% RA; Temp 98.6F Oral; 99.79 kg kc6 Reported; Height 4 ft. 11 in. Reported; BMI: 44.4; Pain 10/10, Adult; kc6
--- NOTE | 2024-03-26 17:21 | EDPHYS ---
Physician Documentation [facility] Name: Evelio Lay Age: 33 yrs Sex: Female : 1990 Arrival Date: 03/26/2024 Time: 14:29 Bed 11 Private MD: ED Physician John Fowler HPI: 03/26 14:55 This 33 yrs old Female presents to ER via Ambulatory with complaints of Flank cp Pain. 14:55 The patient complains of pain in the left lower flank area. The pain does not radiate. cp 14:55 Onset: The symptoms/episode began/occurred 2 week(s) ago. cp 14:55 Associated signs and symptoms: Pertinent positives: fatigue, Pertinent negatives: cp diarrhea, fever, vomiting. Severity of pain: in the emergency department the pain is unchanged despite home interventions. 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 - Infectious Disease History:: Denies. - Social history:: Smoking status: Patient denies any tobacco usage or history of. ROS: 15:00 Constitutional: HX per HPI cp Exam: 15:05 Head/Face: Normocephalic, atraumatic. cp 15:05 Constitutional: The patient appears in no acute distress, alert, awake, comfortable, non-toxic, well developed, well nourished, obese, 15:05 Eyes: Periorbital structures: appear normal, Conjunctiva: normal, no exudate, no injection, Sclera: no appreciated abnormality, Lids and lashes: appear normal, bilaterally, 15:05 ENT: External ear(s): are unremarkable, Nose: is normal, Mouth: Lips: moist, Oral mucosa: moist, Posterior pharynx: Airway: no evidence of obstruction, patent, 15:05 Chest/axilla: Inspection: normal, 15:05 Cardiovascular: Rate: normal, cp 15:05 Respiratory: the patient does not display signs of respiratory distress, Respirations: normal, no use of accessory muscles, no retractions, labored breathing, is not present, Breath sounds: are clear throughout, no decreased breath sounds, no stridor, no wheezing, 15:05 Abdomen/GI: Inspection: abdomen appears normal, Bowel sounds: active, all quadrants, Palpation: soft, in all quadrants, mild abdominal tenderness, in the left lower lateral flank, voluntary guarding, is not appreciated, involuntary guarding, is not appreciated, 15:05 Back: CVA tenderness, is absent, 15:05 Skin: cellulitis, is not appreciated, no rash present. Vital Signs: 14:45 BP 126 / 74; Pulse 71; Resp 18 S; Temp 98.6(O); Pulse Ox 100% on R/A; Weight 99.79 kg kc6 (R); Height 4 ft. 11 in. (R); Pain 10/10; 14:45 Body Mass Index 44.43 (99.79 kg, 149.86 cm) kc6 14:45 Pain Scale: Adult kc6 MDM: 14:45 Medical Screening Exam initiated cp 17:20 Data reviewed: vital signs, nurses notes, lab test result(s), radiologic studies, CT cp scan, and as a result, I will discharge patient. 17:20 Differential diagnosis: nephrolithiasis, pyelonephritis, UTI, diverticulitis, cp pancreatitis. I considered the following discharge prescriptions or medication management in the emergency department Medications were administered in the Emergency Department. See MAR. Counseling: I had a detailed discussion with the patient and/or guardian regarding the historical points, exam findings, and any diagnostic results supporting the discharge/admit diagnosis, lab results, radiology results, to return to the emergency department if symptoms worsen or persist or if there are any questions or concerns that arise at home. 03/26 14:52 Order name: CBC with Diff; Complete Time: 17:13 cp 03/26 14:52 Order name: CMP; Complete Time: 17:13 cp 03/26 14:52 Order name: Lipase; Complete Time: 17:13 cp 03/26 14:52 Order name: Test, Urine; Complete Time: 17:13 cp 03/26 14:52 Order name: Urinalysis w/ reflexes; Complete Time: 17:13 cp 03/26 14:52 Order name: CT Stone Protocol; Complete Time: 17: cp 03/26 14:52 Order name: IV Saline Lock; Complete Time: 15:07 cp 03/26 14:52 Order name: Labs collected and sent; Complete Time: 15:07 cp Administered Medications: 15:18 Drug: NS 0.9% IV 500 ml 500 ml IV at 1 bolus once; to be given as a bolus over 30 hb minutes Volume: 500 ml; Route: IV; Rate: 1 bolus; Site: right antecubital; 17:40 Follow up: IV Status: Completed infusion; IV Intake: 500ml hb 17:40 Follow up: Response: No adverse reaction hb 15:18 Drug: Ketorolac IVP 15 mg IVP once Route: IVP; Site: right antecubital; hb 17:40 Follow up: Response: No adverse reaction hb 17:40 Drug: Lidoderm Topical Patch 5 % (700 mg/patch) 1 patches Topical once; leave on for 12 hb hours; cover most painful area; may cut into smaller pieces Route: Topical; Site: affected area; 17:41 Follow up: Response: Medication administered at discharge. hb Disposition: 19:39 Co-signature as Attending Physician, John Fowler MD I reviewed the patient's care rn provided by the Advanced Practice Provider and agree with the diagnosis and treatment plan. Disposition Summary: 03/26/24 17:21 Discharge Ordered Notes: Location: Home cp Problem: new cp Symptoms: have improved cp Condition: Stable cp Diagnosis - Lower abdominal pain, unspecified - left lower flank cp Followup: cp - With: Private Physician - When: 2 - 3 days - Reason: Recheck today's complaints Discharge Instructions: - Discharge Summary Sheet cp - Flank Pain, Adult cp Forms: - Medication Reconciliation Form cp - Antibiotic Education cp - Prescription Opioid Use cp - Patient Portal Instructions cp - Leadership Thank You Letter cp Prescriptions: - Diclofenac Sodium 75 mg Oral Tablet Sustained Release - take 1 tablet ORAL route 2 times per day; 30 tablet; Refills: 0, Product cp Selection Permitted Signatures: Dispatcher [employer] John Blevins MD MD rn Page, Corey, PA PA cp Merlyn Rebolledo RN ANNE Zahira Lomas RN RN kc6
[2024-03-26] MEDS ORDERED: LIDOCAINE 4% PATCH ONE (17:35)
[2024-03-26 19:29] VITALS: BP 126/74; TEMP 98.6; O2SAT 100
== END 2024-03-26 17:43 | disposition home or self-care (01) ==
LOC: ER 14:29
DX: R10.32 Left lower quadrant pain (principal); R53.83 Other fatigue; I10 Essential (primary) hypertension
CPT/HCPCS: 96361; 85025; 81001; 36415; 81025; 83690; 80053; 76377; 74176; 96374; 99284; J2003; J7040

== ENCOUNTER 2024-04-25 22:15 | Emergency (ER) | payer OTHER ==
--- NOTE | 2024-04-25 22:52 | ER ---
Nurse's Notes [facility] Name: Evelio Lay Age: 33 yrs Sex: Female : 1990 Arrival Date: 04/25/2024 Time: 22:15 Bed Waiting Private MD: Diagnosis: Presentation: 04/25 22:36 Chief complaint: Patient states: I have a bad head ache and is t feels like maybe might bm8 heart is racing. Coronavirus screen: Vaccine status: At this time, the client does not indicate any symptoms associated with coronavirus-19. Ebola Screen: Patient negative for fever greater than or equal to 101.5 degrees Fahrenheit, and additional compatible Ebola Virus Disease symptoms Patient denies exposure to infectious person. Patient denies travel to an Ebola-affected area in the 21 days before illness onset. No symptoms or risks identified at this time. Initial Sepsis Screen: Does the patient meet any 2 criteria? No. Patient's initial sepsis screen is negative. Does the patient have a suspected source of infection? No. Patient's initial sepsis screen is negative. Risk Assessment: Do you want to hurt yourself or someone else? Patient reports no desire to harm self or others. Onset of symptoms was April 25, 2024 at 18:00. 22:36 Method Of Arrival: Ambulatory 8 22:36 Acuity: GHANSHYAM 3 bm8 Triage Assessment: 22:38 Headache History: The patient has had previous headaches and this one is similar to bm8 previous episodes. General: Appears in no apparent distress. comfortable, Behavior is calm, cooperative, appropriate for age. Pain: Complains of pain in face Pain does not radiate. Pain currently is 6 out of 10 on a pain scale. Quality of pain is described as aching, Pain began 4 hours ago. Also complains of decreased appetite. Neuro: No deficits noted. Level of Consciousness is awake, alert, obeys commands, Oriented to person, place, time. 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 - Infectious Disease History:: Denies. - Social history:: Smoking status: Patient denies any tobacco usage or history of. Screenin:49 [facility] ED Fall Risk Assessment (Adult) History of falling in the last 3 months, bm8 including since admission No falls in past 3 months (0 pts) Confusion or Disorientation No (0 pts) Intoxicated or Sedated No (0 pts) Impaired Gait No (0 pts) Mobility Assist Device Used No (0 pt) Altered Elimination No (0 pt) Score/Fall Risk Level 0 - 2 = Low Risk Oriented to surroundings, Maintained a safe environment, Educated pt \T\ family on fall prevention, incl call for assistance when getting out of bed, Assessed \T\ reinforced patient's understanding of fall precautions, Hourly rounding (assess needs \T\ fall precautionary measures) done, Used ambulatory aids as needed (educated on \T\ assisted with), Used gait belt as appropriate. Abuse screen: Denies threats or abuse. Nutritional screening: No deficits noted. Tuberculosis screening: No symptoms or risk factors identified. Assessment: 22:49 Reassessment: pt decided to leave prior to med screening by provider. bm8 Vital Signs: 22:36 BP 142 / 72; Pulse 65; Resp 18; Temp 98.3; Pulse Ox 100% ; Weight 101.15 kg; Height 4 bm8 ft. 11 in. ; Pain 6/10; 22:36 Body Mass Index 45.04 (101.15 kg, 149.86 cm) bm8 22:36 Pain Scale: Adult bm8 ED Course: 22:18 Patient arrived in ED. mr 22:18 Jon Arango, AD WRITER-C is PHCP. dr5 22:18 Julien Gunn MD is Attending Physician. dr5 22:35 Chacho Gonzalez, RN is Primary Nurse. bm8 22:37 Triage completed. bm8 22:48 Arm band placed on right wrist. bm8 22:49 Patient has correct armband on for positive identification. Provided Education on: none bm8 provided, pt left prior to med screen. 22:49 No provider procedures requiring assistance completed. Patient did not have IV access bm8 during this emergency room visit. Administered Medications: No medications were administered Medication: 22:49 VIS not applicable for this client. bm8 Outcome: 22:49 Eloped from waiting room, before seeing physician bm8 22:49 Condition: stable 22:49 Instructed on N/A 22:52 Patient left the ED. bm8 04/26 01:45 Patient left the ED. dr5 Signatures: Arleth Camacho, Chacho Mcnair, RN RN bm8 Jon Arango, AD WRITER-C AD WRITER-Cdr5
[2024-04-25 22:57] VITALS: BP 142/72; TEMP 98.3; O2SAT 100
--- NOTE | 2024-04-26 01:45 | EDPHYS ---
Physician Documentation [facility] Name: Evelio Lay Age: 33 yrs Sex: Female : 1990 Arrival Date: 04/25/2024 Time: 22:15 Bed Waiting Private MD: ED Physician HPI: 04/26 01:24 Patient left before being seen by myself or Luis A. dr5 COYOTE HUNTER: 04/25 22:48 unknown bm8 Historical: - Allergies: 22:38 Amoxicillin; bm8 22:38 PENICILLINS; bm8 22:38 Vancomycin; bm8 - Home Meds: 22:38 Unable to obtain [Active]; bm8 - PMHx: 22:38 Anxiety; Hypertensive disorder; Kidney stone; bm8 - PSHx: 22:38 section; renal stent; bm8 - Immunization history:: Adult Immunizations up to date. - Infectious Disease History:: Denies. - Social history:: Smoking status: Patient denies any tobacco usage or history of. ROS: 04/26 01:24 Unable to obtain ROS due to Pt LWBS, dr5 Exam: 01:24 Unable to obtain exam due to Pt LWBS . dr5 Vital Signs: 04/25 22:36 BP 142 / 72; Pulse 65; Resp 18; Temp 98.3; Pulse Ox 100% ; Weight 101.15 kg; Height 4 bm8 ft. 11 in. ; Pain 6/10; 22:36 Body Mass Index 45.04 (101.15 kg, 149.86 cm) bm8 22:36 Pain Scale: Adult bm8 MDM: 22:19 Medical Screening Exam initiated dr5 04/26 01:24 ED course: Pt LWBS . dr5 Administered Medications: No medications were administered Disposition Summary: 04/25/24 22:52 Eloped Notes: Disposition: before being seen by provider bm8 Reason: unknown bm8 Signatures: Chacho Gonzalez RN RN bm8 Jon Arango, AUTOMATIC TRIMMING SEWER-C AUTOMATIC TRIMMING SEWER-Cdr5
== END 2024-04-26 01:45 | disposition left against medical advice (07) ==
LOC: ER 22:15
DX: Z53.21 Procedure and treatment not carried out due to patient leaving prior to being seen by health care provider (principal)
CPT/HCPCS: 99282

== ENCOUNTER 2024-06-07 22:57 | Emergency (ER) | payer OTHER ==
[2024-06-07] MEDS ORDERED: BUPIVACAINE 0.5% PF 10 ML VIAL ONE (23:27)
[2024-06-07] MEDS ORDERED: CEFTRIAXONE 1000 MG/VIAL ONE (23:27)
[2024-06-07] MEDS ORDERED: KETOROLAC 30 MG/ML INJ ONE (23:27)
[2024-06-07] MEDS ORDERED: LIDOCAINE 1% MPF 2 ML AMPULE ONE (23:31)
--- NOTE | 2024-06-08 00:19 | ER ---
Nurse's Notes [facility] Name: Evelio Lay Age: 33 yrs Sex: Female : 1990 Arrival Date: 06/07/2024 Time: 22:57 Bed 8 Private MD: Diagnosis: Dental procedure status;Partial eruption of wisdom tooth # 17, Acute Dental infection Tooth # 17 , Left lower facial swelling Presentation: 06/07 23:22 Chief complaint: Patient states: left sided lower facial pain and swelling onset 1800. lg3 Coronavirus screen: Client denies travel out of the [place] in the last 14 days. At this time, the client does not indicate any symptoms associated with coronavirus-19. Ebola Screen: No symptoms or risks identified at this time. Risk Assessment: Do you want to hurt yourself or someone else? Patient reports no desire to harm self or others. Onset of symptoms was June 07, 2024. 23:22 Method Of Arrival: Ambulatory 3 23:22 Acuity: GHANSHYAM 3 3 06/08 00:32 Initial Sepsis Screen: Does the patient meet any 2 criteria? No. Patient's initial aa10 sepsis screen is negative. Does the patient have a suspected source of infection? No. Patient's initial sepsis screen is negative. Triage Assessment: 06/07 23:24 General: Appears in no apparent distress. uncomfortable, Behavior is calm, cooperative. lg3 Pain: Complains of pain in left jaw Pain currently is 10 out of 10 on a pain scale. EENT: Oral mucosa is moist. Poor dentition noted. Neuro: No deficits noted. Schwab Agitation-Sedation Scale (RASS): 0 - Alert and Calm Level of Consciousness is awake, alert, obeys commands, Oriented to person, place, time, situation. Cardiovascular: No deficits noted. Denies chest pain, shortness of breath, Capillary refill < 3 seconds Clubbing of nail beds is absent JVD is absent Patient's skin is warm and dry. Respiratory: No deficits noted. Airway is patent Respiratory effort is even, unlabored, Respiratory pattern is regular, symmetrical. GI: No deficits noted. No signs and/or symptoms were reported involving the gastrointestinal system. : No signs and/or symptoms were reported regarding the genitourinary system. Derm: No deficits noted. Skin is intact, is healthy with good turgor, Skin is dry, Skin is normal, Skin temperature is warm. Musculoskeletal: Circulation, motion, and sensation intact. Range of motion: intact in all extremities, Swelling present in left jaw. 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 - Infectious Disease History:: Denies. - Social history:: Smoking status: Patient denies any tobacco usage or history of. Patient uses alcohol, occasionally. Patient/guardian denies using street drugs. - Family history:: not pertinent. Screenin/19 00:31 [facility] ED Fall Risk Assessment (Adult) History of falling in the last 3 months, aa10 including since admission No falls in past 3 months (0 pts) Confusion or Disorientation No (0 pts) Intoxicated or Sedated No (0 pts) Impaired Gait No (0 pts) Mobility Assist Device Used No (0 pt) Altered Elimination No (0 pt) Score/Fall Risk Level 0 - 2 = Low Risk Oriented to surroundings, Maintained a safe environment, Educated pt \T\ family on fall prevention, incl call for assistance when getting out of bed, Assessed \T\ reinforced patient's understanding of fall precautions, Provided non-skid footwear, Hourly rounding (assess needs \T\ fall precautionary measures) done. Abuse screen: Denies threats or abuse. Denies injuries from another. Nutritional screening: No deficits noted. Tuberculosis screening: No symptoms or risk factors identified. Assessment: 00:31 General: Appears in no apparent distress. comfortable, Behavior is calm, cooperative, aa10 appropriate for age, quiet. Pain: Complains of pain in face Pain does not radiate. Vital Signs: 00:32 BP 146 / 85; Pulse 75; Resp 18; Temp 98; Pulse Ox 98% on R/A; MAP 104 mmHg; aa10 [place] Coma Score: 23:12 Eye Response: spontaneous(4). Motor Response: obeys commands(6). Verbal Response: sp4 oriented(5). Total: 15. ED Course: 06/07 23:00 Patient arrived in ED. jj6 23:01 Jarek Perdomo MD is Attending Physician. sp4 23:24 Triage completed. lg3 23:24 Arm band placed on right wrist. lg3 23:59 Test, Urine Sent. aa10 06/08 00:17 Jt Cole DDS is Referral Physician. sp4 00:35 Patient has correct armband on for positive identification. Allergy band placed. Fall aa10 risk band placed. Placed in gown. Bed in low position. Side rails up X2. Provided Education on: ABOUT PLAN OF CARE. 00:36 Assist provider with nerve block (dental) Set up for procedure. Performed by Jarek Perdomo MD Patient tolerated well. Patient did not have IV access during this emergency room visit. Administered Medications: 06/07 23:31 Drug: Rocephin (cefTRIAXone) IM 1 grams IM once Route: IM; Site: left gluteus; aa10 06/08 00:37 Follow up: Response: No adverse reaction; Marked relief of symptoms aa10 06/07 23:32 Drug: Bupivacaine Infiltration (0.5 %) 10 ml 10 ml Infiltration once {Note: given by jordana RIBEIRO.} Volume: 10 ml; Route: Infiltration; 06/08 00:37 Follow up: Response: No adverse reaction; Marked relief of symptoms aa10 06/07 23:32 Drug: Ketorolac IM 60 mg IM once Route: IM; Site: right gluteus; aa10 06/08 00:37 Follow up: Response: No adverse reaction; Marked relief of symptoms aa10 Medication: 00:35 VIS not applicable for this client. aa10 Outcome: 00:18 Discharge ordered by . sp4 00:36 Discharged to home ambulatory, aa10 00:36 Condition: good 01:10 Prescriptions given X 5 aa10 01:10 Discharge instructions given to patient, Instructed on discharge instructions, Demonstrated understanding of instructions, 01:11 Patient left the ED. aa10 Signatures: Abby Valles RN RN lg3 Prema Domínguez jJarek Winter MD MD sp4 Evan, Ayoku, RN RN aa10 Corrections: (The following items were deleted from the chart) 01:11 00:36 Discharge instructions given to patient, Instructed on discharge instructions, aa10 Demonstrated understanding of instructions, Prescriptions given X 1, aa10
--- NOTE | 2024-06-08 00:19 | EDPHYS ---
Physician Documentation [facility] Name: Evelio Lay Age: 33 yrs Sex: Female : 1990 Arrival Date: 06/07/2024 Time: 22:57 Bed 8 Private MD: ED Physician Jarek Perdomo HPI: 06/07 23:01 This 33 yrs old Female presents to ER via Unassigned with complaints of sp4 Abscess, Jaw swelling/pain. 06/08 23:12 33-year-old female presents with worsening pain and discomfort associated with sp4 unerupted wisdom tooth lower left gingiva, pain around tooth #17. WIRE SPINNER: 06/07 23:24 LMP 05/21/2024, unknown lg3 Historical: - Allergies: 23:24 Amoxicillin; lg3 23:24 PENICILLINS; lg3 23:24 Vancomycin; lg3 - Home Meds: 23:24 losartan oral [Active]; Propranolol Oral [Active]; sertraline oral [Active]; lg3 - PMHx: 23:24 Anxiety; Hypertensive disorder; Kidney stone; lg3 - PSHx: 23:24 section; renal stent; lg3 - Immunization history:: Adult Immunizations up to date. - Infectious Disease History:: Denies. - Social history:: Smoking status: Patient denies any tobacco usage or history of. Patient uses alcohol, occasionally. Patient/guardian denies using street drugs. - Family history:: not pertinent. ROS: 06/08 23:12 Constitutional: Negative for fever, chills, and weight loss, positive jaw pain sp4 All other systems are negative, Exam: 23:12 Constitutional: This is a well developed, well nourished patient who is awake, alert, sp4 and in no acute distress. Head/Face: Normocephalic, atraumatic. Eyes: Pupils equal round and reactive to light, extra-ocular motions intact. Lids and lashes normal. Conjunctiva and sclera are not injected. Cornea within normal limits. Periorbital areas with no swelling, redness, or edema. ENT: Nares patent. No nasal discharge, no septal abnormalities noted. Tympanic membranes are normal and external auditory canals are clear. Oropharynx with no redness, swelling, or masses, exudates, or evidence of obstruction, uvula midline. Mucous membranes moist. Neck: Trachea midline, no thyromegaly or masses palpated, and no cervical lymphadenopathy. Supple, full range of motion without nuchal rigidity, or vertebral point tenderness. Chest/axilla: Normal chest wall appearance and motion. Nontender with no deformity. No lesions are appreciated. Cardiovascular: Regular rate and rhythm with a normal S1 and S2. No gallops, murmurs, or rubs. Normal PMI, no JVD. No pulse deficits. Respiratory: Lungs have equal breath sounds bilaterally, clear to auscultation and percussion. No rales, rhonchi or wheezes noted. No increased work of breathing, no retractions or nasal flaring. Abdomen/GI: Soft, with normal bowel sounds. No distension or tympany. No guarding or rebound. No evidence of tenderness throughout. Back: No spinal tenderness. No costovertebral tenderness. Skin: Warm, dry with normal turgor. Normal color with no rashes, no lesions, and no evidence of cellulitis. MS/ Extremity: Pulses equal, no cyanosis. Neurovascular intact. Full, normal range of motion. Neuro: Awake and alert, GCS 15, oriented to person, place, time, and situation. Cranial nerves II-XII grossly intact. Motor strength 5/5 in all extremities. Sensory grossly intact. Psych: Awake, alert, with orientation to person, place and time. Behavior, mood, and affect are within normal limits Vital Signs: 00:32 BP 146 / 85; Pulse 75; Resp 18; Temp 98; Pulse Ox 98% on R/A; MAP 104 mmHg; aa10 [place] Coma Score: 23:12 Eye Response: spontaneous(4). Motor Response: obeys commands(6). Verbal Response: sp4 oriented(5). Total: 15. MDM: 00:18 Medical Screening Exam initiated sp4 23:12 Differential diagnosis: abscess, allergic reaction, cellulitis, insect bite. Data sp4 reviewed: vital signs, nurses notes, old medical records. Consideration of Admission/Observation Escalation of care including admission/observation considered. ED course: Dental block performed with complete relief of pain. Left lower dental block performed for pain associated with tooth #17. No complications. Marcaine used 10 mL. 06/07 23:19 Order name: Test, Urine sp4 Administered Medications: 06/07 23:31 Drug: Rocephin (cefTRIAXone) IM 1 grams IM once Route: IM; Site: left gluteus; 06/08 00:37 Follow up: Response: No adverse reaction; Marked relief of symptoms 06/07 23:32 Drug: Bupivacaine Infiltration (0.5 %) 10 ml 10 ml Infiltration once {Note: given by jordana RIBEIRO.} Volume: 10 ml; Route: Infiltration; 06/08 00:37 Follow up: Response: No adverse reaction; Marked relief of symptoms 06/07 23:32 Drug: Ketorolac IM 60 mg IM once Route: IM; Site: right gluteus; 06/08 00:37 Follow up: Response: No adverse reaction; Marked relief of symptoms aa10 Disposition Summary: 06/08/24 00:18 Discharge Ordered Notes: Location: Home sp4 Problem: new sp4 Symptoms: have improved sp4 Condition: Stable sp4 Diagnosis - Dental procedure status sp4 - Partial eruption of wisdom tooth # 17, Acute Dental infection Tooth # 17 , Left sp4 lower facial swelling Followup: sp4 - With: Jt Cole DDS - When: 7 - 10 days - Reason: Recheck today's complaints Discharge Instructions: - Discharge Summary Sheet sp4 - Dental Abscess, [id number] sp4 Forms: - Patient Portal Instructions sp4 Prescriptions: - Cephalexin 500 mg Oral Capsule - take 1 capsule ORAL route every 6 hours for 10 days; 40 capsule; Refills: 0, sp4 Product Selection Permitted - Ibuprofen 800 mg Oral Tablet - take 1 tablet ORAL route every 8 hours As needed take with food; 30 tablet; sp4 Refills: 0, Product Selection Permitted - Fluconazole 200 mg Oral tablet - take 1 tablet ORAL route once daily for 10 days; 10 tablet; Refills: 0, Product sp4 Selection Permitted - Tramadol 50 mg Oral tablet - take 1 tablet ORAL route every 8 hours as needed; 20 tablet; Refills: 0, sp4 Product Selection Permitted - ondansetron 8 mg Oral Tablet,disintegrating - take 1 tablet ORAL route every 8 hours; 30 tablet; Refills: 0, Product sp4 Selection Permitted Signatures: Dispatcher [employer] Abby Morgan RN RN lg3 Jarek Perdomo MD MD sp4 Sarwat Gordon RN RN aa10
[2024-06-08 00:54] LABS: Specific Gravity 1.016 (1.005-1.030)
[2024-06-08 04:47] VITALS: BP 146/85; TEMP 98; O2SAT 98
== END 2024-06-08 01:11 | disposition home or self-care (01) ==
LOC: ER 22:57
DX: K04.7 Periapical abscess without sinus (principal); K00.6 Disturbances in tooth eruption; Z98.818 Other dental procedure status; I10 Essential (primary) hypertension; F41.9 Anxiety disorder, unspecified
CPT/HCPCS: 81025; J0696

== ENCOUNTER 2024-06-21 00:29 | Emergency (ER) | payer OTHER ==
[2024-06-21 01:58] LABS: Absolute Basophils 0.1 K/uL (0-0.5); Absolute Eosinophils 0.2 K/uL (0-0.5); Absolute Lymphocytes (CBC) 3.5 K/uL (0.7-4.9); Absolute Monocytes 0.7 K/uL (0.1-1.3); Absolute Neutrophil 3.6 K/uL (1.8-8.0); Basophils % 1.3 % (0-1.3); Eosinophils % 2.8 % (0-4.4); Hematocrit 42.6 % (36.0-45.0); Hemoglobin 14.5 g/dL (12.0-15.0); Lymphocytes % 43.3 % (15.3-44.8); MCH 29.8 pg (27.0-35.0); MCHC 34.1 g/dL (32.0-36.0); MCV 87.5 fL (80-100); MPV 8.6 fL (7.6-11.3); Monocytes % 8.1 % (3.3-12.3); Neutrophils % 44.5 % (41.7-73.7); Nucleated Red Blood Cells % 0.1 % (0-0); Platelets 262 thou/uL (152-406); RBC Red Blood Cell Count 4.87 M/uL (3.86-4.86); Red Cell Distribution Width 14.4 % (12.1-15.2)
[2024-06-21 02:30] LABS: ALT/SGPT 26 U/L (13-56); Albumin/Globulin Ratio 0.7 (1.1-1.8); Alkaline Phosphatase 86 U/L (45-117); Anion Gap 8.1 mEq/L (5.0-15.0); BUN Blood Urea Nitrogen 18 mg/dL (7-18); Bicarbonate 28 mEq/L (21-32); Bilirubin Total 0.2 mg/dL (0.2-1.0); Globulin 4.3 g/dL (2.3-3.5); Glomerular Filtration Rate 108 ml/min (=/>90); Glucose Level 100 mg/dL (74-106); NT PRO-BNP 36 pg/mL (<125); Protein, Total 7.3 g/dL (6.4-8.2); Sodium Level 139 mEq/L (136-145); Troponin High Sensitivity 4.6 pg/mL (<58.9)
[2024-06-21 02:31] LABS: AST/SGOT 18 U/L (15-37); Bilirubin Direct < 0.2 mg/dL (0-0.2); Potassium 4.1 mEq/L (3.5-5.1)
--- NOTE | 2024-06-21 02:35 | ER ---
Nurse's Notes [facility] Name: Evelio Lay Age: 33 yrs Sex: Female : 1990 Arrival Date: 06/21/2024 Time: 00:29 Bed DX4 Private MD: Diagnosis: Hypertension, chest pain resolved Presentation: 06/21 00:43 Chief complaint: Patient states: Having palpitations tonight. took her blood pressure cm10 and it was elevated. Pt also reports headache. Pt also states that she has chest pain to the center of her chest. Coronavirus screen: Client denies travel out of the [place] in the last 14 days. Ebola Screen: Patient denies travel to an Ebola-affected area in the 21 days before illness onset. Initial Sepsis Screen: Does the patient meet any 2 criteria? No. Patient's initial sepsis screen is negative. Does the patient have a suspected source of infection? No. Patient's initial sepsis screen is negative. Risk Assessment: Do you want to hurt yourself or someone else? Patient reports no desire to harm self or others. Onset of symptoms was June 21, 2024. 00:43 Method Of Arrival: Ambulatory cm10 00:43 Acuity: GHANSHYAM 3 cm10 Triage Assessment: 00:45 General: Appears in no apparent distress. uncomfortable, Behavior is calm, cooperative. cm10 Neuro: No deficits noted. Level of Consciousness is awake, alert, obeys commands, Oriented to person, place, time, situation, Appropriate for age. Respiratory: No deficits noted. Airway is patent Respiratory effort is even, unlabored, Respiratory pattern is regular, symmetrical. Historical: - Allergies: 00:45 Amoxicillin; cm10 00:45 PENICILLINS; cm10 00:45 Vancomycin; cm10 - PMHx: 00:45 Anxiety; Hypertensive disorder; Kidney stone; cm10 - PSHx: 00:45 section; renal stent; cm10 - Immunization history:: Adult Immunizations up to date. - Infectious Disease History:: Denies. - Social history:: Smoking status: unknown. Screenin:[facility] ED Fall Risk Assessment (Adult) History of falling in the last 3 months, vc1 including since admission No falls in past 3 months (0 pts) Confusion or Disorientation No (0 pts) Intoxicated or Sedated No (0 pts) Impaired Gait No (0 pts) Mobility Assist Device Used No (0 pt) Altered Elimination No (0 pt) Score/Fall Risk Level 0 - 2 = Low Risk Oriented to surroundings, Maintained a safe environment, Educated pt \T\ family on fall prevention, incl call for assistance when getting out of bed. Abuse screen: Denies threats or abuse. Nutritional screening: No deficits noted. Tuberculosis screening: No symptoms or risk factors identified. Assessment: 02:00 Reassessment: No changes from previously documented assessment. Patient and/or family vc1 updated on plan of care and expected duration. Pain level reassessed. Patient is alert, oriented x 3, equal unlabored respirations, skin warm/dry/pink. General: Appears in no apparent distress. Behavior is calm, cooperative, appropriate for age. Pain: Complains of pain in chest Pain does not radiate. Pain began suddenly. Neuro: Level of Consciousness is awake, alert, obeys commands, Oriented to person, place, time, situation, Appropriate for age. Cardiovascular: Heart tones S1 S2 present Capillary refill < 3 seconds Patient's skin is warm and dry. Chest pain is described as mild. Respiratory: Airway is patent Respiratory effort is even, unlabored, Respiratory pattern is regular, symmetrical, Breath sounds are clear bilaterally. GI: No deficits noted. No signs and/or symptoms were reported involving the gastrointestinal system. : No deficits noted. No signs and/or symptoms were reported regarding the genitourinary system. EENT: No deficits noted. No signs and/or symptoms were reported regarding the EENT system. Derm: Skin is intact, is healthy with good turgor, Skin is dry, Skin is normal, Skin temperature is warm. Musculoskeletal: Circulation, motion, and sensation intact. Range of motion: intact in all extremities. Vital Signs: 00:43 BP 159 / 93; Pulse 73; Resp 15; Temp 98.2; Pulse Ox 96% on R/A; Weight 99.79 kg; Height cm10 4 ft. 11 in. ; Pain 8/10; 02:30 BP 148 / 88; Pulse 70; Resp 16; Pulse Ox 97% ; vc1 00:43 Body Mass Index 44.43 (99.79 kg, 149.86 cm) cm10 00:43 Pain Scale: Adult cm10 ED Course: 00:31 Patient arrived in ED. [id number] 00:38 Yeni Tellez MD is Attending Physician. sp3 00:45 Triage completed. cm10 00:45 Arm band placed on right wrist. Patient placed in waiting room. EKG completed in cm10 triage. Results shown to MD. 01:39 XRAY Chest (1 view) In Process Unspecified. EDMS 01:55 Basic Metabolic Panel Sent. vk 01:55 CBC with Diff Sent. vk 01:55 LFT's Sent. vk 01:55 NT PRO-BNP Sent. vk 01:55 Troponin HS Sent. vk 01:55 Inserted saline lock: 20 gauge in right antecubital area, using aseptic technique. vk Flushed with 10 mL NS. 01:55 Inserted saline lock: 22 gauge in left antecubital area, using aseptic technique. Blood vk collected. 02:00 Pulse ox on. NIBP on. vc1 02:55 Patient has correct armband on for positive identification. Provided Education on: f/u vc1 with PCP. 02:55 No provider procedures requiring assistance completed. IV discontinued, intact, vc1 bleeding controlled, No redness/swelling at site. Pressure dressing applied. 02:55 Patient maintains SpO2 saturation greater than 95% on room air. vc1 Administered Medications: No medications were administered Medication: 06:15 VIS not applicable for this client. vc1 Outcome: 02:35 Discharge ordered by . sp3 02:55 Patient left the ED. kmf 02:55 Discharged to home ambulatory, vc1 02:55 Condition: stable 02:55 Discharge instructions given to patient, Instructed on discharge instructions, follow up and referral plans. Demonstrated understanding of instructions, follow-up care, Signatures: Dispatcher [employer] EDMD Yeni Tellez MD MD sp3 Prema [id number] Nithya Munson RN RN vc1 Vilma Mcgowan, RN RN cm10 Yael Gordillo kmf Lupe Zepeda
--- NOTE | 2024-06-21 02:35 | EDPHYS ---
Physician Documentation [facility] Name: Evelio Lay Age: 33 yrs Sex: Female : 1990 Arrival Date: 06/21/2024 Time: 00:29 Bed DX4 Private MD: ED Physician Yeni Tellez HPI: 06/21 01:27 This 33 yrs old Female presents to ER via Ambulatory with complaints of sp3 Irregular Pulse, High Blood Pressure, Chest Pain. 01:27 33-year-old female with history of anxiety, hypertension recent left sided wisdom teeth sp3 surgery who just finished clindamycin and Tylenol 3 presents to the ED with chief complaint palpitations and chest pain which have now resolved after taking propranolol. She states her blood pressure home was 173 systolic. She currently denies any ongoing headache, neck pain, chest pain, shortness of breath, abdominal pain, vomiting, diarrhea or any other signs or symptoms on ROS at this time. She does have some pain in her left jaw. ROS otherwise negative.. Historical: - Allergies: 00:45 Amoxicillin; cm10 00:45 PENICILLINS; cm10 00:45 Vancomycin; cm10 - PMHx: 00:45 Anxiety; Hypertensive disorder; Kidney stone; cm10 - PSHx: 00:45 section; renal stent; cm10 - Immunization history:: Adult Immunizations up to date. - Infectious Disease History:: Denies. - Social history:: Smoking status: unknown. ROS: 01:28 Constitutional: Negative for fever, chills, and weight loss, Eyes: Negative for injury, sp3 pain, redness, and discharge, ENT: Negative for injury, pain, and discharge, Neck: Negative for injury, pain, and swelling, Respiratory: Negative for shortness of breath, cough, wheezing, and pleuritic chest pain, Abdomen/GI: Negative for abdominal pain, nausea, vomiting, diarrhea, and constipation, Back: Negative for injury and pain, MS/Extremity: Negative for injury and deformity, Skin: Negative for injury, rash, and discoloration, Neuro: Negative for headache, weakness, numbness, tingling, and seizure, Psych: Negative for depression, anxiety, suicide ideation, homicidal ideation, and hallucinations, Allergy/Immunology: Negative for hives, rash, and allergies, Endocrine: Negative for neck swelling, polydipsia, polyuria, polyphagia, and marked weight changes, 01:28 All other systems are negative, Exam: :29 Constitutional: This is a well developed, well nourished patient who is awake, alert, sp3 and in no acute distress. Head/Face: Normocephalic, atraumatic. Eyes: Pupils equal round and reactive to light, extra-ocular motions intact. Lids and lashes normal. Conjunctiva and sclera are non-icteric and not injected. Cornea within normal limits. Periorbital areas with no swelling, redness, or edema. ENT: Nares patent. No nasal discharge, no septal abnormalities noted. External auditory canals are clear. Oropharynx with no redness, swelling, or masses, exudates, or evidence of obstruction, uvula midline. Mucous membranes moist. Neck: Trachea midline, no thyromegaly or masses palpated, and no cervical lymphadenopathy. Supple, full range of motion without nuchal rigidity, or vertebral point tenderness. No Meningismus. Chest/axilla: Normal chest wall appearance and motion. Nontender with no deformity. No lesions are appreciated. Cardiovascular: Regular rate and rhythm with a normal S1 and S2. No gallops, murmurs, or rubs. Normal PMI, no JVD. No pulse deficits. Respiratory: Lungs have equal breath sounds bilaterally, clear to auscultation and percussion. No rales, rhonchi or wheezes noted. No increased work of breathing, no retractions or nasal flaring. Abdomen/GI: Soft, non-tender, with normal bowel sounds. No distension or tympany. No guarding or rebound. No evidence of tenderness throughout. Back: No spinal tenderness. No costovertebral tenderness. Full range of motion. Skin: Warm, dry with normal turgor. Normal color with no rashes, no lesions, and no evidence of cellulitis. MS/ Extremity: Pulses equal, no cyanosis. Neurovascular intact. Full, normal range of motion. Neuro: Awake and alert, GCS 15, oriented to person, place, time, and situation. Cranial nerves II-XII grossly intact. Motor strength 5/5 in all extremities. Sensory grossly intact. Cerebellar exam normal. Normal gait. Psych: Awake, alert, with orientation to person, place and time. Behavior, mood, and affect are within normal limits. :29 ECG was reviewed by the Attending Physician. EKG demonstrates normal sinus rhythm at 70 bpm with normal intervals, normal QRS, normal axis, normal ST/T-segment's without evidence of acute ischemia. Vital Signs: 00:43 BP 159 / 93; Pulse 73; Resp 15; Temp 98.2; Pulse Ox 96% on R/A; Weight 99.79 kg; Height cm10 4 ft. 11 in. ; Pain 8/10; 02:30 BP 148 / 88; Pulse 70; Resp 16; Pulse Ox 97% ; vc1 00:43 Body Mass Index 44.43 (99.79 kg, 149.86 cm) cm10 00:43 Pain Scale: Adult cm10 MDM: 00:49 Medical Screening Exam initiated sp3 :29 Data reviewed: vital signs, nurses notes, lab test result(s), EKG, radiologic studies. 3 ED course: 33-year-old female with recent wisdom teeth surgery presents with a resolved hypertension and resolved chest pain and normal EKG. Current vital signs blood pressure 159/93 with pulse 73. Patient no acute distress resting comfortably. Will obtain chest x-ray and general labs including troponin. Serial blood pressures. If negative and patient stays stable we will safely discharge her home with PCP follow-up. She takes losartan and as needed propranolol which she should continue doing. I am not highly suspicious of acute coronary syndrome, TAD, PE, sepsis, shock, hypertensive emergency, or any other critical process at this time.. 02:34 ED course: Labs normal patient blood pressure remains normal. We will safely discharge 3 her home at this time.. 06/21 00:49 Order name: Basic Metabolic Panel; Complete Time: 02:34 sp3 06/21 00:49 Order name: CBC with Diff sp3 06/21 00:49 Order name: LFT's; Complete Time: :34 sp3 06/21 00:49 Order name: NT PRO-BNP; Complete Time: 02:34 sp3 06/21 00:49 Order name: Troponin HS; Complete Time: 02:34 3 06/21 02:06 Order name: CBC Smear Scan EDMS 06/21 00:49 Order name: XRAY Chest (1 view) sp3 06/21 00:49 Order name: EKG - Nurse/Tech; Complete Time: 01:04 3 06/21 00:49 Order name: IV Saline Lock; Complete Time: 01:55 sp3 06/21 00:49 Order name: Labs collected and sent; Complete Time: 01:51 sp3 Administered Medications: No medications were administered Disposition Summary: 06/21/24 02:35 Discharge Ordered Notes: Location: Home sp3 Condition: Stable sp3 Diagnosis - Hypertension, chest pain resolved sp3 Followup: sp3 - With: Private Physician - When: Upon discharge from the Emergency Department - Reason: Continuance of care Discharge Instructions: - Discharge Summary Sheet sp3 - Nonspecific Chest Pain, Adult sp3 Forms: - Medication Reconciliation Form sp3 - Antibiotic Education sp3 - Prescription Opioid Use sp3 - Patient Portal Instructions sp3 - Leadership Thank You Letter sp3 Signatures: Dispatcher [employer] EDYeni Rizzo MD MD sp3 Vilma Mcgowan RN RN cm10 Corrections: (The following items were deleted from the chart) 00:50 00:50 BASIC METABOLIC PANEL+C.LAB.BRZ ordered. EDMS EDMS 00:50 00:50 CBC+H.LAB.BRZ ordered. EDMS EDMS 00:50 00:50 HEPATIC FUNCTION+C.LAB.BRZ ordered. EDMS EDMS 00:50 00:50 PROBNP+C.LAB.BRZ ordered. EDMS EDMS 00:50 00:50 Troponin High Sensitivity+C.LAB.BRZ ordered. EDMS EDMS 00:50 00:50 Chest Single View+RAD.RAD.BRZ ordered. EDMS EDMS
[2024-06-21 02:56] LABS: Blood Morphology Comment NOT SEEN (NOT SEEN); Platelet Estimate ADEQ; White Blood Cell Scan OK (OK)
[2024-06-21 03:00] VITALS: BP 159/93; TEMP 98.2; O2SAT 96
--- NOTE | 2024-06-21 06:07 | RAD REPORT ---
EXAM DESCRIPTION: Chest Single View CLINICAL HISTORY: PALPITATIONS COMPARISON: None TECHNIQUE: Single AP view of the chest. FINDINGS: Lung volumes adequate. Cardiac silhouette is normal in size. No pneumothorax. No large pleural effusion. No focal consolidation. No acute bony finding. IMPRESSION: No evidence of acute cardiopulmonary disease. Electronically signed by: Yoel Javier MD 06/21/2024 03:14 AM SHEET FOLDER Z9 Due to temporary technical issues with the [employer] reporting system, reports are being anish d by the in-house radiologist without review as a courtesy to ensure prompt reporting the interpreting radiologist is fully responsible for the content of the report. Transcribed Date/Time: 06/21/2024 6:07 AM
--- NOTE | 2024-06-21 12:11 | EKG ---
Test Date: 2024-06-21 Test Time: 00:41:37 Supervising Fire Marshal: KIZZY MEASUREMENT RESULTS: Intervals: Rate: 70 OK: 164 QRSD: 78 QT: 364 QTc: 393 [place]: P: 60 OK: 164 QRS: 5 T: 45 INTERPRETIVE STATEMENTS: Normal sinus rhythm Low voltage QRS Cannot rule out Anterior infarct, age undetermined Abnormal ECG Compared to ECG 01/01/2024 19:16:11 Low QRS voltage now present Myocardial infarct finding now present Electronically Signed On 06-21-24 12:10:24 IMPLEMENTATION ANALYST by Mauro Lyons
== END 2024-06-21 02:55 | disposition home or self-care (01) ==
LOC: ER 00:29
DX: I10 Essential (primary) hypertension (principal); F41.9 Anxiety disorder, unspecified
CPT/HCPCS: 36415; 71045; 80048; 80076; 83880; 84484; 85025; 93005

== ENCOUNTER 2024-08-12 09:46 | Emergency (ER) | payer OTHER ==
--- NOTE | 2024-08-12 11:07 | RAD REPORT ---
Exam:Knee Right 3 View HISTORY: Right knee pain FINDINGS: No fracture or dislocation seen No significant bone or joint abnormality is seen
[2024-08-12 11:08] LABS: Specific Gravity 1.025 (1.005-1.030)
[2024-08-12] MEDS ORDERED: IBUPROFEN 200 MG TAB PO ONE (12:21)
--- NOTE | 2024-08-12 12:29 | EDPHYS ---
Physician Documentation [facility] Name: Evelio Lay Age: 33 yrs Sex: Female : 1990 Arrival Date: 08/12/2024 Time: 09:46 Bed DX2 Private MD: ALIYAH Physician Miguel Palma HPI: 08/12 12:18 This 33 yrs old Female presents to ER via Ambulatory with complaints of Knee leni Pain - right. 12:18 The patient presents with decreased range of motion, pain. The complaints affect the leni right knee. Context: resulted from an unknown cause, the patient can fully bear weight. Modifying factors: The symptoms are alleviated by elevating leg, remaining still, the symptoms are aggravated by movement, weight bearing, bending knee. Associated signs and symptoms: The patient has no apparent associated signs or symptoms. Severity of symptoms: At their worst the symptoms were mild, moderate, in the emergency department the symptoms are unchanged. The patient has not experienced similar symptoms in the past. 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 - Infectious Disease History:: Denies. - Social history:: Smoking status: Patient denies any tobacco usage or history of. - Family history:: not pertinent. ROS: 12:18 Constitutional: Negative for fever, chills, and weight loss, Eyes: Negative for injury, leni pain, redness, and discharge, ENT: Negative for injury, pain, and discharge, Neck: Negative for injury, pain, and swelling, Cardiovascular: Negative for chest pain, palpitations, and edema, Respiratory: Negative for shortness of breath, cough, wheezing, and pleuritic chest pain, Abdomen/GI: Negative for abdominal pain, nausea, vomiting, diarrhea, and constipation, Back: Negative for injury and pain, : Negative for injury, bleeding, discharge, and swelling, Skin: Negative for injury, rash, and discoloration, Neuro: Negative for headache, weakness, numbness, tingling, and seizure, Psych: Negative for depression, anxiety, suicide ideation, homicidal ideation, and hallucinations, Allergy/Immunology: Negative for hives, rash, and allergies, Endocrine: Negative for neck swelling, polydipsia, polyuria, polyphagia, and marked weight changes, Hematologic/Lymphatic: Negative for swollen nodes, abnormal bleeding, and unusual bruising, 12:18 MS/extremity: Positive for decreased range of motion, tenderness, Exam: 12:26 Constitutional: This is a well developed, well nourished patient who is awake, alert, leni and in no acute distress. Head/Face: Normocephalic, atraumatic. Eyes: Pupils equal round and reactive to light, extra-ocular motions intact. Lids and lashes normal. Conjunctiva and sclera are non-icteric and not injected. Cornea within normal limits. Periorbital areas with no swelling, redness, or edema. ENT: Nares patent. No nasal discharge, no septal abnormalities noted. Tympanic membranes are normal and external auditory canals are clear. Oropharynx with no redness, swelling, or masses, exudates, or evidence of obstruction, uvula midline. Mucous membranes moist. Neck: Trachea midline, no thyromegaly or masses palpated, and no cervical lymphadenopathy. Supple, full range of motion without nuchal rigidity, or vertebral point tenderness. No Meningismus. Chest/axilla: Normal chest wall appearance and motion. Nontender with no deformity. No lesions are appreciated. Cardiovascular: Regular rate and rhythm with a normal S1 and S2. No gallops, murmurs, or rubs. Normal PMI, no JVD. No pulse deficits. Respiratory: Lungs have equal breath sounds bilaterally, clear to auscultation and percussion. No rales, rhonchi or wheezes noted. No increased work of breathing, no retractions or nasal flaring. Abdomen/GI: Soft, non-tender, with normal bowel sounds. No distension or tympany. No guarding or rebound. No evidence of tenderness throughout. Back: No spinal tenderness. No costovertebral tenderness. Full range of motion. Skin: Warm, dry with normal turgor. Normal color with no rashes, no lesions, and no evidence of cellulitis. Neuro: Awake and alert, GCS 15, oriented to person, place, time, and situation. Cranial nerves II-XII grossly intact. Motor strength 5/5 in all extremities. Sensory grossly intact. Cerebellar exam normal. Normal gait. Psych: Awake, alert, with orientation to person, place and time. Behavior, mood, and affect are within normal limits. 12:26 Musculoskeletal/extremity: ROM: full active range of motion, full passive range of motion, limited active range of motion due to pain, limited passive range of motion due to pain, Circulation is intact in all extremities. Sensation intact. Compartment Syndrome exam of affected extremity: is normal. Weight bearing: able to fully bear weight, DVT Exam: no swelling, negative Homans' sign noted on exam, no appreciated bluish discoloration, no erythema, no increased warmth, pain, tenderness, Vital Signs: 10:00 BP 141 / 96; Pulse 80; Resp 18; Temp 97.5(TE); Pulse Ox 96% on R/A; Weight 104.33 kg; ld1 Height 4 ft. 11 in. ; Pain 10/10; 10:00 Body Mass Index 46.45 (104.33 kg, 149.86 cm) ld1 10:00 Pain Scale: Adult ld1 MDM: 09:58 Medical Screening Exam initiated leni 12:27 Differential diagnosis: closed fracture, contusion, abrasion, tendonitis. Data [facility] reviewed: vital signs, nurses notes, lab test result(s), radiologic studies, plain films. Consideration of Admission/Observation Escalation of care including admission/observation considered. I considered the following discharge prescriptions or medication management in the emergency department Medications were administered in the Emergency Department. See MAR. Independent interpretation of the following test(s) in the Emergency Department X-Ray: My interpretation is right knee. Care significantly affected by the following chronic conditions: Hypertension, anxiety, kidney stone, obese, htn. 08/12 09:59 Order name: PREGU; Complete Time: 12:07 leni 08/12 09:59 Order name: Knee Right 3 View XRAY; Complete Time: 12: leni 08/12 12:18 Order name: [place] wrap-joint; Complete Time: 12:31 leni Administered Medications: 12:31 Drug: Ibuprofen PO 600 mg PO once Route: PO; ap3 12:34 Follow up: Response: No adverse reaction; Medication administered at discharge. ap3 Disposition Summary: 08/12/24 12:29 Discharge Ordered Notes: Location: Home leni Problem: new leni Symptoms: have improved leni Condition: Stable leni Diagnosis - Pain in right knee leni - Chondromalacia patellae, right knee leni Followup: leni - With: Private Physician - When: 2 - 3 days - Reason: Recheck today's complaints, Re-evaluation by your physician Followup: leni - With: Arturo Castle MD - When: 2 - 3 days - Reason: Recheck today's complaints, Re-evaluation by your physician Discharge Instructions: - Discharge Summary Sheet leni - Joint Pain leni - Musculoskeletal Pain leni - RICE Therapy for Routine Care of Injuries leni - Acute Knee Pain, Adult leni - RICE Therapy for Routine Care of Injuries, [id number] leni - How to Use Cold Therapy, [id number] leni - Patellofemoral Pain Syndrome [facility] Forms: - Medication Reconciliation Form [facility] - Antibiotic Education leni - Prescription Opioid Use [facility] - Patient Portal Instructions [facility] - Leadership Thank You Letter [facility] Prescriptions: - Ibuprofen 600 mg Oral Tablet - take 1 tablet ORAL route every 6 hours As needed take with food; 30 tablet; [facility] Refills: 0, Product Selection Permitted Signatures: Dispatcher [employer] Miguel Lau MD MD cha Prokisch, Amanda RN RN ap3 Philomena Cisneros RN RN ld1 Corrections: (The following items were deleted from the chart) 10:02 10:00 Knee Right 3 View+RAD.RAD.BRZ ordered. ALIYAHCA [facility]
--- NOTE | 2024-08-12 12:29 | ER ---
Nurse's Notes [facility] Name: Evelio Lay Age: 33 yrs Sex: Female : 1990 Arrival Date: 08/12/2024 Time: 09:46 Bed DX2 Private MD: Diagnosis: Pain in right knee;Chondromalacia patellae, right knee Presentation: 08/12 10:00 Chief complaint: Patient states: Right knee pain X 1 week. Coronavirus screen: At this ld1 time, the client does not indicate any symptoms associated with coronavirus-19. Ebola Screen: No symptoms or risks identified at this time. Initial Sepsis Screen: Does the patient meet any 2 criteria? No. Patient's initial sepsis screen is negative. Does the patient have a suspected source of infection? No. Patient's initial sepsis screen is negative. Risk Assessment: Do you want to hurt yourself or someone else? Patient reports no desire to harm self or others. Onset of symptoms was August 12, 2024. 10:00 Method Of Arrival: Ambulatory ld1 10:00 Acuity: GHANSHYAM 4 ld1 Triage Assessment: 10:00 General: Appears in no apparent distress. comfortable, Behavior is calm, cooperative, ld1 appropriate for age. Pain: Complains of pain in medial aspect of right knee and right knee Pain does not radiate. Pain currently is 10 out of 10 on a pain scale. Quality of pain is described as throbbing, Pain began 1 weeek Is continuous. EENT: No signs and/or symptoms were reported regarding the EENT system. Neuro: Level of Consciousness is awake, alert, obeys commands, Oriented to person, place, time, situation. Cardiovascular: Capillary refill < 3 seconds Patient's skin is warm and dry. Respiratory: Airway is patent Respiratory effort is even, unlabored. GI: Abdomen is round non-distended. : No signs and/or symptoms were reported regarding the genitourinary system. Derm: No signs and/or symptoms reported regarding the dermatologic system. Musculoskeletal: No signs and/or symptoms reported regarding the musculoskeletal system. 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 - Infectious Disease History:: Denies. - Social history:: Smoking status: Patient denies any tobacco usage or history of. - Family history:: not pertinent. Screenin:40 Abuse screen: Denies threats or abuse. Nutritional screening: No deficits noted. ap3 Tuberculosis screening: No symptoms or risk factors identified. 12:35 [facility] ED Fall Risk Assessment (Adult) History of falling in the last 3 months, ap3 including since admission No falls in past 3 months (0 pts) Confusion or Disorientation No (0 pts) Intoxicated or Sedated No (0 pts) Impaired Gait No (0 pts) Mobility Assist Device Used No (0 pt) Altered Elimination No (0 pt) Score/Fall Risk Level 0 - 2 = Low Risk Oriented to surroundings, Maintained a safe environment, Educated pt \T\ family on fall prevention, incl call for assistance when getting out of bed, Assessed \T\ reinforced patient's understanding of fall precautions, Hourly rounding (assess needs \T\ fall precautionary measures) done, Used ambulatory aids as needed (educated on \T\ assisted with). Assessment: 10:39 Reassessment: Patient and/or family updated on plan of care and expected duration. Pain ap3 level reassessed. Reassessment: assisted patient to restroom for urine collection. no incidents reported at this time. General: Appears in no apparent distress. Pain: Complains of pain in right leg and right knee. Neuro: Level of Consciousness is awake, alert, obeys commands, Oriented to person, place, time, situation. 10:39 Cardiovascular: Patient's skin is warm and dry. Respiratory: Airway is patent ap3 Respiratory effort is even, unlabored, Respiratory pattern is regular, symmetrical. 12:35 Reassessment: Patient and/or family updated on plan of care and expected duration. Pain ap3 level reassessed. Patient is alert, oriented x 3, equal unlabored respirations, skin warm/dry/pink. Vital Signs: 10:00 BP 141 / 96; Pulse 80; Resp 18; Temp 97.5(TE); Pulse Ox 96% on R/A; Weight 104.33 kg; ld1 Height 4 ft. 11 in. ; Pain 10; 10:00 Body Mass Index 46.45 (104.33 kg, 149.86 cm) ld1 10:00 Pain Scale: Adult ld1 ED Course: 09:55 Patient arrived in ED. im 09:58 Miguel Palma MD is Attending Physician. [facility] 10:00 Triage completed. ld1 10:00 Arm band placed on right wrist. ld1 10:20 Knee Right 3 View XRAY In Process Unspecified. EDMS 10:47 PREGU Sent. ap3 12:28 Arturo Castle MD is Referral Physician. leni 12:35 Patient has correct armband on for positive identification. Provided Education on: ap3 discharge instructions. 12:35 No provider procedures requiring assistance completed. Patient did not have IV access ap3 during this emergency room visit. Administered Medications: 12:31 Drug: Ibuprofen PO 600 mg PO once Route: PO; ap3 12:34 Follow up: Response: No adverse reaction; Medication administered at discharge. ap3 Medication: 12:35 VIS not applicable for this client. ap3 Outcome: 12:29 Discharge ordered by . leni 12:35 Discharged to home ambulatory, ap3 12:35 Condition: good 12:35 Discharge instructions given to patient, Instructed on discharge instructions, follow up and referral plans. medication usage, Demonstrated understanding of instructions, follow-up care, medications, Prescriptions given X 1, 12:36 Patient left the ED. ap3 Signatures: Dispatcher [employer] [facility] Miguel Palma MD MD cha Prokisch, Amanda RN RN ap3 Philomena Cisneros RN RN ld1 Yumiko Campbell
[2024-08-12 12:50] VITALS: BP 141/96; TEMP 97.5; O2SAT 96
== END 2024-08-12 12:36 | disposition home or self-care (01) ==
LOC: ER 09:46
DX: M22.41 Chondromalacia patellae, right knee (principal)
CPT/HCPCS: 81025; 99283

== ENCOUNTER 2025-02-15 10:43 | Emergency (ER) | payer OTHER ==
--- NOTE | 2025-02-15 12:16 | RAD REPORT ---
EXAMINATION: US RIGHT UPPER EXTREMITY VENOUS DOPPLER CLINICAL INDICATION: Pain;Swelling RIGHT TECHNIQUE: Complete bilateral duplex sonography of the RIGHT upper extremity veins was performed. The examination included compression for vein patency, color Doppler imaging and flow augmentation in response to distal compression of the internal jugular, brachiocephalic, subclavian, axillary, brachi al, radial, ulnar, cephalic and basilic veins. COMPARISON: No prior exam. FINDINGS: Duplex sonography testing of the veins of the RIGHT upper extremity was performed. Color flow imaging shows all veins to be compressible with [id number] color filling. Pulsatile and phasic flow is present within all upper extremity deep and superficial veins examined. IMPRESSION: There is no deep vein or superficial vein thrombosis.
--- NOTE | 2025-02-15 12:40 | EDPHYS ---
Physician Documentation [facility] Name: Evelio Lay Age: 34 yrs Sex: Female : 1990 Arrival Date: 02/15/2025 Time: 10:43 Bed 14 Private MD: ED Physician Max Cisneros HPI: 02/15 11:54 This 34 yrs old Female presents to ER via Ambulatory with complaints of Right dr5 Arm Swelling. 11:54 Onset: The symptoms/episode began/occurred yesterday. Patient is a 34-year-old female dr5 with history anxiety, hypertension, kidney stones coming in with right arm swelling and pain that started 2 days ago. Patient reports that the pain is getting worse over her elbow. Patient states that she recently started a control patch on right arm and is concerned she may have a blood clot. Patient denies chest pain, shortness of breath, abdominal pain, nausea, vomiting or diarrhea.. Historical: - Allergies: 11:11 Amoxicillin; ph 11:11 PENICILLINS; ph 11:11 Vancomycin; ph - Home Meds: 11:11 Metformin Oral [Active]; sertraline oral [Active]; losartan oral [Active]; Xulane ph 150-35 mcg/24 hr transdermal patch, transdermal weekly [Active]; - PMHx: 11:11 Anxiety; Hypertensive disorder; Kidney stone; ph - PSHx: 11:11 section; renal stent; ph - Immunization history:: Adult Immunizations unknown. - Infectious Disease History:: Denies. - Social history:: Smoking status: Patient denies any tobacco usage or history of. ROS: 11:54 Constitutional: as per hpi dr5 Exam: 11:54 Constitutional: This is a well developed, well nourished patient who is awake, alert, dr5 and in no acute distress. Head/Face: Normocephalic, atraumatic. Eyes: Pupils equal round and reactive to light, extra-ocular motions intact. Lids and lashes normal. Conjunctiva and sclera are non-icteric and not injected. Cornea within normal limits. Periorbital areas with no swelling, redness, or edema. ENT: Nares patent. No nasal discharge, no septal abnormalities noted. Tympanic membranes are normal and external auditory canals are clear. Oropharynx with no redness, swelling, or masses, exudates, or evidence of obstruction, uvula midline. Mucous membranes moist. Neck: Trachea midline, no thyromegaly or masses palpated, and no cervical lymphadenopathy. Supple, full range of motion without nuchal rigidity, or vertebral point tenderness. No Meningismus. Chest/axilla: Normal chest wall appearance and motion. Nontender with no deformity. No lesions are appreciated. Cardiovascular: Regular rate and rhythm with a normal S1 and S2. Normal PMI, no JVD. No pulse deficits. Respiratory: Lungs have equal breath sounds bilaterally, clear to auscultation. No rales, rhonchi or wheezes noted. No increased work of breathing, no retractions or nasal flaring. Back: No spinal tenderness. No costovertebral tenderness. Full range of motion. Skin: Warm, dry with normal turgor. Normal color with no rashes, no lesions, and no evidence of cellulitis. Neuro: Awake and alert, GCS 15, oriented to person, place, time, and situation. Cranial nerves II-XII grossly intact. Motor strength 5/5 in all extremities. Sensory grossly intact. Cerebellar exam normal. Normal gait. 11:54 Musculoskeletal/extremity: Extremities: grossly normal except: noted in the right elbow: pain, swelling, tenderness, ROM: no acute changes, intact in all extremities, Circulation is intact in all extremities. Sensation intact. Vital Signs: 11:09 BP 132 / 84; Pulse 80; Resp 16; Temp 97.9; Pulse Ox 99% on R/A; Weight 104.33 kg; ph Height 4 ft. 11 in. ; 11:09 Body Mass Index 46.46 (104.33 kg, 149.86 cm) ph MDM: 10:53 Medical Screening Exam initiated dr5 13:06 Differential diagnosis: viral Infection, Tendinitis, deep vein thrombosis. Data dr5 reviewed: vital signs, nurses notes, radiologic studies, ultrasound. Consideration of Admission/Observation Escalation of care including admission/observation considered. 02/15 11:20 Order name: UPPER EXTREMITY VENOUS UNILATE; Complete Time: 12:34 EDMS 02/15 12:39 Order name: [place] Wrap: Right Elbow Please; Complete Time: 12:41 dr5 Administered Medications: 12:47 CANCELLED (Inappropriate at this time): hydrocodone-acetaminophen5 mg-325 mg 2 tabs PO dr5 once 12:59 Drug: Ibuprofen PO 800 mg PO once Route: PO; jb4 12:59 Follow up: Response: Medication administered at discharge. jb4 12:59 Drug: Acetaminophen PO 1000 mg PO once Route: PO; jb4 12:59 Follow up: Response: Medication administered at discharge. jb4 Disposition: 16:50 I was immediately available on-site in the Emergency Department for consultation in the ms3 care of the patient. Disposition Summary: 02/15/25 12:39 Discharge Ordered Notes: Location: Home dr5 Condition: Stable dr5 Diagnosis - Pain in right elbow dr5 Followup: dr5 - With: Emergency Department - When: As needed - Reason: Worsening of condition Followup: dr5 - With: Private Physician - When: 1 - 2 days - Reason: Recheck today's complaints, Continuance of care, Re-evaluation by your physician Discharge Instructions: - Discharge Summary Sheet dr5 - RICE Therapy for Routine Care of Injuries dr5 - Elbow Sprain dr5 Forms: - Medication Reconciliation Form dr5 - Patient Portal Instructions dr5 - Leadership Thank You Letter dr5 Prescriptions: - Ibuprofen 800 mg Oral Tablet - take 1 tablet ORAL route every 12 hours As needed take with food; 20 tablet; dr5 Refills: 0, Product Selection Permitted Signatures: Dispatcher [employer] [facility] Prema Baltazar, RN RN Wilber Joel RN RN jb4 Max Cisneros, DO ms3 Jon Arango, AVIONICS TECHNICIAN-C AVIONICS TECHNICIAN-Cdr5 Corrections: (The following items were deleted from the chart) 11:20 11:08 Extremity Venous Uni [email or web address] ordered. EDHI EDMS 12:47 12:39 HYDROcodone-acetaminophen PO 5 mg-325 mg 2 tabs PO once ordered. dr5 dr5
--- NOTE | 2025-02-15 12:40 | ER ---
Nurse's Notes [facility] Name: Evelio Lay Age: 34 yrs Sex: Female : 1990 Arrival Date: 02/15/2025 Time: 10:43 Bed 14 Private MD: Diagnosis: Pain in right elbow Presentation: 02/15 11:09 Chief complaint: Patient states: Swelling and pain to L elbow area that started Thursday, ph denies trauma, recently started control patch and is concerned it could be a blood clot. Coronavirus screen: At this time, the client does not indicate any symptoms associated with coronavirus-19. Ebola Screen: No symptoms or risks identified at this time. Initial Sepsis Screen: Does the patient meet any 2 criteria? No. Patient's initial sepsis screen is negative. Does the patient have a suspected source of infection? No. Patient's initial sepsis screen is negative. Risk Assessment: Do you want to hurt yourself or someone else? Patient reports no desire to harm self or others. Onset of symptoms was February 15, 2025. 11:09 Method Of Arrival: Ambulatory ph 11:09 Acuity: GHANSHYAM 3 ph Triage Assessment: 11:13 General: Appears in no apparent distress. comfortable, Behavior is calm, cooperative. ph Pain: Complains of pain in right antecubital area. Musculoskeletal: Swelling present in right antecubital area. Historical: - Allergies: 11:11 Amoxicillin; ph 11:11 PENICILLINS; ph 11:11 Vancomycin; ph - Home Meds: 11:11 Metformin Oral [Active]; sertraline oral [Active]; losartan oral [Active]; Xulane ph 150-35 mcg/24 hr transdermal patch, transdermal weekly [Active]; - PMHx: 11:11 Anxiety; Hypertensive disorder; Kidney stone; ph - PSHx: 11:11 section; renal stent; ph - Immunization history:: Adult Immunizations unknown. - Infectious Disease History:: Denies. - Social history:: Smoking status: Patient denies any tobacco usage or history of. Screenin:15 [facility] ED Fall Risk Assessment (Adult) History of falling in the last 3 months, jb4 including since admission No falls in past 3 months (0 pts) Confusion or Disorientation No (0 pts) Intoxicated or Sedated No (0 pts) Impaired Gait No (0 pts) Mobility Assist Device Used No (0 pt) Altered Elimination No (0 pt) Score/Fall Risk Level 0 - 2 = Low Risk Oriented to surroundings, Maintained a safe environment. Abuse screen: Denies threats or abuse. Nutritional screening: No deficits noted. Tuberculosis screening: No symptoms or risk factors identified. Assessment: 12:14 Reassessment: Patient appears in no apparent distress at this time. Patient and/or jb4 family updated on plan of care and expected duration. Pain level reassessed. Patient is alert, oriented x 3, equal unlabored respirations, skin warm/dry/pink. 12:59 Reassessment: Patient appears in no apparent distress at this time. Patient and/or jb4 family updated on plan of care and expected duration. Pain level reassessed. Patient is alert, oriented x 3, equal unlabored respirations, skin warm/dry/pink. Vital Signs: 11:09 BP 132 / 84; Pulse 80; Resp 16; Temp 97.9; Pulse Ox 99% on R/A; Weight 104.33 kg; ph Height 4 ft. 11 in. ; 11:09 Body Mass Index 46.46 (104.33 kg, 149.86 cm) ph ED Course: 10:52 Patient arrived in ED. al6 10:53 Jon Arango FNP-C is PHCP. dr5 10:53 Max Cisneros DO is Attending Physician. dr5 11:10 Triage completed. ph 11:12 Arm band placed on Patient placed in waiting room, Patient notified of wait time. ph 12:11 UPPER EXTREMITY VENOUS UNILATE In Process Unspecified. EDMS 12:14 Wilber Joel, RN is Primary Nurse. jb4 12:15 Patient has correct armband on for positive identification. Bed in low position. Call jb4 light in reach. Side rails up X 1. Provided Education on: plan of care. 12:15 No provider procedures requiring assistance completed. Patient did not have IV access jb4 during this emergency room visit. Administered Medications: 12:47 CANCELLED (Inappropriate at this time): hydrocodone-acetaminophen5 mg-325 mg 2 tabs PO dr5 once 12:59 Drug: Ibuprofen PO 800 mg PO once Route: PO; jb4 12:59 Follow up: Response: Medication administered at discharge. jb4 12:59 Drug: Acetaminophen PO 1000 mg PO once Route: PO; jb4 12:59 Follow up: Response: Medication administered at discharge. jb4 Medication: 12:15 VIS not applicable for this client. jb4 Outcome: 12:39 Discharge ordered by . dr5 12:59 Discharged to home ambulatory, jb4 12:59 Condition: stable 12:59 Discharge instructions given to patient, Instructed on discharge instructions, follow up and referral plans. medication usage, Demonstrated understanding of instructions, follow-up care, medications, Prescriptions given X 1, 12:59 Patient left the ED. jb4 Signatures: Dispatcher [employer] EDPrema Woodard, RN RN Wilber Joel RN RN jb4 Jon Arango, APPLICATION SYSTEMS ADMINISTRATOR-C APPLICATION SYSTEMS ADMINISTRATOR-Cdr5 Magdalena Lara Corrections: (The following items were deleted from the chart) 11:10 11:06 Chief complaint: ph ph 11:17 11:09 BP 132 / 84; Pulse 80bpm; Resp 6bpm; Pulse Ox 99% RA; Temp 97.9F; 104.33 kg; ph Height 4 ft. 11 in.; BMI: 46.4; ph
[2025-02-15] MEDS ORDERED: IBUPROFEN 400 MG TAB ONE (12:43)
[2025-02-15] MEDS ORDERED: ACETAMINOPHEN 500 MG TAB ONE (12:43)
[2025-02-15 13:06] VITALS: BP 132/84; TEMP 97.9; O2SAT 99
== END 2025-02-15 12:59 | disposition home or self-care (01) ==
LOC: ER 10:43
DX: M25.521 Pain in right elbow (principal); R22.31 Localized swelling, mass and lump, right upper limb
CPT/HCPCS: 93971; 99283